=== PATIENT | male | born 1940 | race Caucasian/White ===

== ENCOUNTER → 2016-08-16 | Outpatient (CLI) | payer MEDICARE, BC ==
[2016-08-16 14:42] LABS: Basophils # (A) 0.1 k/uL (0-0.2); Basophils % (A) 1 %; CH 32.9; CHCM 31.5; Eosinophils # (A) 0.3 k/uL (0-0.7); Eosinophils % (A) 4 %; HCT 40.4 % (39.0-53.0); HDW 2.98; HGB 13.1 gm/dL (13.0-17.5); Hypochromasia Slight; Luc # (Auto) 0.33; Luc % (Auto) 4; Lymphocytes # (A) 2.5 k/uL (1.0-4.8); Lymphocytes % (A) 28 %; MCH 34.2 pg (25.0-35.0); MCHC 32.4 g/dL (31.0-37.0); MCV 105.3 fL (80.0-100.0); Macrocytosis Moderate; Monocytes # (A) 0.4 k/uL (0-1.0); Monocytes % (A) 5 %; Neutrophils # (A) 5.5 k/uL (1.3-7.7); Neutrophils % (A) 60 %; RBC 3.83 m/uL (4.30-5.90); RDW 15.9 % (11.5-15.5); WBC 9.2 k/uL (3.8-10.6); WBC (Perox) 9.73
[2016-08-16 14:50] LABS: Appearance,Urine Clear (Clear); Bilirubin,Urine Negative (Negative); Glucose,Urine (UA) Negative (Negative); Ketones,Urine Negative (Negative); Leukocyte Esterase,Urine Negative (Negative); Nitrite,Urine Negative (Negative); PH, Urine 5.5 (5.0-8.0); Protein,Urine Trace (Negative); Specific Gravity,Urine 1.017 (1.001-1.035); UA Billing (MACRO vs. MICRO) CHEM; Urobilinogen,Urine <2.0 mg/dL (<2.0)
[2016-08-16 14:58] LABS: Calcium 8.8 mg/dL (8.4-10.2); Potassium 4.7 mmol/L (3.5-5.1); Uric Acid 4.6 mg/dL (3.5-8.5)
== END | disposition home or self-care (01) ==
LOC: LABWHC1 14:04
PROVIDERS: ATTEND Nurse Practitioner Family
DX: N18.3 Chronic kidney disease, stage 3 (moderate) (principal); N39.0 Urinary tract infection, site not specified; D64.9 Anemia, unspecified; E21.3 Hyperparathyroidism, unspecified; M10.9 Gout, unspecified
CPT/HCPCS: 36415; 80048; 81003; 82306; 82728; 83540; 83550; 83735; 83970; 84100; 84550; 85025

== ENCOUNTER → 2017-07-18 | Outpatient (CLI) | payer MEDICARE, BC ==
[2017-07-18 13:19] LABS: Appearance,Urine Clear (Clear); Bilirubin,Urine Negative (Negative); Blood,Urine Negative (Negative); Color,Urine Yellow; Glucose,Urine (UA) Negative (Negative); Ketones,Urine Negative (Negative); Leukocyte Esterase,Urine Negative (Negative); PH, Urine 5.5 (5.0-8.0); Protein,Urine Negative (Negative); Specific Gravity,Urine 1.016 (1.001-1.035); Urobilinogen,Urine <2.0 mg/dL (<2.0)
[2017-07-18 13:51] LABS: Basophils # (A) 0.1 k/uL (0-0.2); Basophils % (A) 1 %; Eosinophils # (A) 0.3 k/uL (0-0.7); Eosinophils % (A) 4 %; HGB 13.3 gm/dL (13.0-17.5); Lymphocytes # (A) 2.5 k/uL (1.0-4.8); Lymphocytes % (A) 31 %; MCH 33.6 pg (25.0-35.0); MCHC 33.2 g/dL (31.0-37.0); MCV 101.3 fL (80.0-100.0); Macrocytosis Slight; Mean Platelet Volume 7.2; Monocytes # (A) 0.4 k/uL (0-1.0); Monocytes % (A) 5 %; Neutrophils # (A) 4.4 k/uL (1.3-7.7); Neutrophils % (A) 55 %; Platelet Count 256 k/uL (150-450); RBC 3.95 m/uL (4.30-5.90)
[2017-07-18 13:53] LABS: Calcium 8.7 mg/dL (8.4-10.2); Phosphorus 4.9 mg/dL (2.5-4.5); Potassium 4.5 mmol/L (3.5-5.1); Uric Acid 5.1 mg/dL (3.5-8.5)
[2017-07-18 19:14] LABS: Iron Saturation 19.3 (15.00-50.00)
[2017-07-18 19:31] LABS: Parathyroid Hormone Intact 149.8 pg/mL (14.0-72.0)
== END | disposition home or self-care (01) ==
LOC: LABWHC1 12:42
PROVIDERS: ATTEND Nurse Practitioner Family
DX: N18.3 Chronic kidney disease, stage 3 (moderate) (principal); E21.3 Hyperparathyroidism, unspecified; D64.9 Anemia, unspecified; M10.9 Gout, unspecified; N39.0 Urinary tract infection, site not specified
CPT/HCPCS: 36415; 80048; 81003; 82306; 82728; 83540; 83550; 83735; 83970; 84100; 84550; 85025

== ENCOUNTER 2017-08-21 06:44 | Day surgery (SDC) | payer MEDICARE, BC ==
[2017-08-19 09:10] VITALS: BMI 35.5
[~2017-08-21 06:44] MED LIST: LACTATED RINGERS 1,000 ML IV SCH; TETRACAINE 0.5% OPHTH (PF) DROPS 4 ML BTL OP ONE
[2017-08-21] MEDS: CYCLOPENTOLATE 1% OPHTH SOLN 2 ML BTL OP ONE ×3 (07:00→07:25)
[2017-08-21] MEDS: PHENYLEPHRINE 2.5% OPHTH DRP 2ML OP NR ×3 (07:03→07:35)
[2017-08-21 07:10] VITALS: RESP 16; TEMP 97
[2017-08-21 07:18] LABS: Glucose,Whole Blood 112 mg/dL (75-99)
[2017-08-21] MEDS ORDERED: HYALURONATE SODIUM INTRAOCULAR 1 EACH SYRINGE (12MG/ML) INTRAOCULA ONE ×2 (08:11→08:29)
[2017-08-21] MEDS ORDERED: LIDOCAINE 1% (PF) 10MG/ML VIAL MISCELLANE ONE ×2 (08:12→08:29)
[2017-08-21] MEDS ORDERED: BALANCED SALT IRRIG SOLN COMB2 15 ML IRRIG.SOLN INTRAOCULA ONE ×2 (08:12→08:29)
[2017-08-21] MEDS: MOXIFLOXACIN HCL 0.5% DROPS 3 ML BTL OP ONE ×2 (08:13→08:29)
[2017-08-21] MEDS: TIMOLOL 0.5% OPHTH DROPS 5 ML BTL OP ONE ×2 (08:14→08:29)
[2017-08-21] MEDS ORDERED: MIDAZOLAM 2 MG/2 ML VIAL ONE (08:16)
[2017-08-21] MEDS ORDERED: fentaNYL (PF) 50 MCG/ML 2 ML AMP ONE (08:16)
[2017-08-21] MEDS ORDERED: EPINEPHrine (PF) 0.3 ML in BALANCED SALT IRRIG SOLN COMB2 500 ML IRRIGATION ONE (08:22)
--- NOTE | 2017-08-21 08:43 | P.OP ---
Date of Procedure: 08/21/17 Preoperative Diagnosis: NS & PSC Postoperative Diagnosis: same Procedure(s) Performed: PIOL< OD Implants: PCB00 22.00 Anesthesia: MAC Surgeon: Herb Resendiz Estimated Blood Loss (ml): 0 Pathology: none sent Condition: stable Disposition: same day Indications for Procedure: blurry vision Operative Findings: No complications
[2017-08-21 09:09] VITALS: BP 149/79; PULSE 66
--- NOTE | 2017-08-21 21:23 | OP ---
OPERATIVE REPORT DATE OF SURGERY: August 21, 2017. OPERATION: Phacoemulsification of cataract and intraocular lens implant of the right eye. PREOPERATIVE DIAGNOSES: Nuclear sclerosis. Posterior subcapsular cataract POSTOPERATIVE DIAGNOSES: Nuclear sclerosis. Posterior subcapsular cataract. OPERATION:: Clear cornea phacoemulsification of cataract right OD eye. ESTIMATED BLOOD LOSS:: Zero. SPECIMEN TAKEN:: None. NARRATIVE:: After obtaining the appropriate consent, the patient was brought to the Operating Room where the patient was placed under cardiac monitoring and prepped and draped in the usual sterile manner. At the 11 o'clock position a 15 degree super sharp blade was used to create a paracentesis followed by instillation of 1% Xylocaine MPF 50:50 mix with BSS into the anterior chamber. This was followed by Amvisc to stabilize the anterior chamber. At the 9 o'clock position a self-sealing corneal flap incision was created using 2.8 mm lucero keratome. A cystatome was used to initiate a continuous tear capsulorrhexis which was completed with the Utrata forceps. A Binkhorst cannula was used to hydrodissect the lens nucleus followed by hydrodelineation. Phacoemulsification of the lens was performed utilizing phacochop in 12.66 Seconds at 12 % power. The remaining cortical material was removed using the irrigation aspiration mode followed by additional 1% Xylocaine MPF into the anterior chamber followed by viscoelastic to stabilize the capsular bag. An [place] PCB 00 22.0 diopter posterior chamber lens was placed into the capsular bag without difficulty. The remaining viscoelastic material was removed from the anterior chamber with the irrigation/aspiration. Balanced salt solution was used to normalize the intraocular pressure. The incision was checked for watertight integrity. The patient then received two drops of 0.5% timolol followed by two drops Vigamox, was lightly patched and shielded in the usual manner. There were no complications from the procedure. The patient tolerated the procedure well and was returned to recovery in good condition. MMODL / IJN: [id number] /
== END 2017-08-21 09:28 | disposition home or self-care (01) ==
LOC: OR 06:44
PROVIDERS: ATTEND Ophthalmology
DX: H25.11 Age-related nuclear cataract, right eye (principal); H25.041 Posterior subcapsular polar age-related cataract, right eye; H43.813 Vitreous degeneration, bilateral; H52.13 Myopia, bilateral; E11.9 Type 2 diabetes mellitus without complications; H91.91 Unspecified hearing loss, right ear; I11.9 Hypertensive heart disease without heart failure; E07.9 Disorder of thyroid, unspecified; E78.5 Hyperlipidemia, unspecified; I25.10 Atherosclerotic heart disease of native coronary artery without angina pectoris; I48.91 Unspecified atrial fibrillation; N40.0 Benign prostatic hyperplasia without lower urinary tract symptoms; K21.9 Gastro-esophageal reflux disease without esophagitis; Z95.810 Presence of automatic (implantable) cardiac defibrillator; I25.2 Old myocardial infarction; Z79.01 Long term (current) use of anticoagulants; Z79.84 Long term (current) use of oral hypoglycemic drugs; Z79.890 Hormone replacement therapy; Z79.899 Other long term (current) drug therapy; Z87.891 Personal history of nicotine dependence

== ENCOUNTER → 2017-09-30 | Outpatient (CLI) | payer MEDICARE, BC ==
--- NOTE | 2017-10-01 07:35 | ECHOF ---
Referral Reason:R42 dizziness, I49.9 arrythmia MEASUREMENTS -------- HEIGHT: 177.8 cm WEIGHT: 115.2 kg BP: 134/81 RVIDd: 3.3 cm (< 3.3) IVSd: 1.3 cm (0.6 - 1.1) LVIDd: 6.9 cm (3.9 - 5.3) LVPWd: 1.3 cm (0.6 - 1.1) IVSs: 1.7 cm LVIDs: 6.0 cm LVPWs: 1.6 cm LAESV Index (A-L): 58.67 ml/m Ao Diam: 3.9 cm (2.0 - 3.7) AV Cusp: 1.8 cm (1.5 - 2.6) LA Diam: 4.4 cm (2.7 - 3.8) MV E Regis: 1.10 m/s MV DecT: 181 ms MV A Regis: 0.36 m/s MV E/A Ratio: 3.01 RAP: 5.00 mmHg RVSP: 50.65 mmHg FINDINGS -------- Undetermined rhythm. This was a technically difficult study with suboptimal views. The left ventricle is severely dilated. There is mild concentric left ventricular hypertrophy. Th ere is severe global hypokinesis of LV . Overall left ventricular systolic function is severely imp aired with, an EF < 20%. The right ventricle is mildly enlarged. LA is severely dilated >40 ml/m2 RA appears enlarged. 3ml of Lumason was utilized for enhancement of images. There is mild aortic valve sclerosis. Trace amount of aortic regurgitation. There is no evidence of aortic stenosis. The mitral valve leaflets are mildly thickened. Mild mitral annular calcification present. Modera te mitral regurgitation is present. Mild tricuspid regurgitation present. There is mild pulmonary hypertension. The right ventricular systolic pressure, as measured by Doppler, is 50.65mmHg. Trace/mild (physiologic) pulmonic regurgitation. The aortic root size is normal. Normal inferior vena cava with less than 50% inspiratory collapse consistent with estimated right atr ial pressure of 15 mmHg. There is no pericardial effusion. CONCLUSIONS -------- 1. Undetermined rhythm. 2. This was a technically difficult study with suboptimal views. 3. The left ventricle is severely dilated. 4. There is mild concentric left ventricular hypertrophy. 5. There is severe global hypokinesis of LV . 6. Overall left ventricular systolic function is severely impaired with, an EF < 20%. 7. The right ventricle is mildly enlarged. 8. LA is severely dilated >40 ml/m2 9. RA appears enlarged. 10. 3ml of Lumason was utilized for enhancement of images. 11. There is mild aortic valve sclerosis. 12. Trace amount of aortic regurgitation. 13. The mitral valve leaflets are mildly thickened. 14. Mild mitral annular calcification present. 15. Moderate mitral regurgitation is present. 16. Mild tricuspid regurgitation present. 17. There is mild pulmonary hypertension. 18. The right ventricular systolic pressure, as measured by Doppler, is 50.65mmHg. 19. Trace/mild (physiologic) pulmonic regurgitation. 20. The aortic root size is normal. 21. Normal inferior vena cava with less than 50% inspiratory collapse consistent with estimated right atrial pressure of 15 mmHg. 22. There is no pericardial effusion. FINAL ASSEMBLY AND PACKING SUPERVISOR: Matthew Hull RDCS
--- NOTE | 2017-10-01 10:08 | US ---
EXAMINATION TYPE: US carotid duplex BILAT DATE OF EXAM: 09/30/2017 COMPARISON: NONE CLINICAL HISTORY: R42 dizziness, I49.9 arrythmia. Dizziness, abnormal gait EXAM MEASUREMENTS: RIGHT: Peak Systolic Velocity (PSV) cm/sec ----- Right CCA: 41.8 ---- Right ICA: 70.2 ----- Right ECA: 57.5 ICA/CCA ratio: 1.7 RIGHT: End Diastole cm/sec ----- Right CCA: 13.0 ----- Right ICA: 31.8 ----- Right ECA: 6.9 LEFT: Peak Systolic Velocity (PSV) cm/sec ----- Left CCA: 58.8 ----- Left ICA: 85.6 ----- Left ECA: 58.4 ICA/CCA ratio: 1.5 LEFT: End Diastole cm/sec ----- Left CCA: 20.1 ----- Left ICA: 36.2 ----- Left ECA: 9.5 VERTEBRALS (direction of flow): Right Vertebral: Antegrade Left Vertebral: Antegrade Rhythm: Arrhythmia Mild Heterogeneous plaque carotid bifurcations bilaterally with no significant stenosis seen. IMPRESSION: 1. No suspicious elevated velocity to suggest significant flow-limiting stenosis. 2. Note is made of cardiac arrhythmia during the examination. Criteria for Assigning % of Stenosis / Diameter reduction (Estimation based on the indirect measurements of the internal carotid artery velocities (ICA PSV). 1. Normal (no stenosis)=ICA PSV < 125 cm/s: ratio < 2.0: ICA EDV<40 cm/s. 2. Less than 50% stenosis=ICA PSV < 125 cm/s: ratio < 2.0: ICA EDV<40 cm/s. 3. 50 to 69% stenosis=ICA PSV of 125 to 230 cm/s: ration 2.0 ? 4.0: ICA EDV 40-100 cm/s. 4. Greater than 70% stenosis to near occlusion= ICA PSV > 230 cm/s: ratio > 4.0: ICA EDV > 100 cm/s. 5. Near occlusion= ICA PSV velocities may be low or undetectable: variable ratio and ICA EDV. 6. Total occlusion=unable to detect flow.
== END | disposition home or self-care (01) ==
LOC: RADECHMAIN 15:07
PROVIDERS: ATTEND Family Medicine
DX: I08.3 Combined rheumatic disorders of mitral, aortic and tricuspid valves (principal); I49.9 Cardiac arrhythmia, unspecified; I27.20 Pulmonary hypertension, unspecified; R42 Dizziness and giddiness
CPT/HCPCS: 93880; C8929; Q9950; 93306

== ENCOUNTER → 2017-11-12 | Outpatient (CLI) | payer MEDICARE, BC ==
--- NOTE | 2017-11-12 12:29 | CT ---
EXAMINATION TYPE: CT brain wo con DATE OF EXAM: 11/12/2017 COMPARISON: NONE HISTORY: Tremors and weakness CT DLP: 1242 mGycm Automated exposure control for dose reduction was used. FINDINGS: Nasal septal deviation noted. Intracranial atherosclerotic changes noted. Mild to moderate generalized degenerative change. No acute hemorrhage or mass effect. Calvarium intact. Changes of chronic sinusitis with severe changes involving the maxillary sinus note d on the right. IMPRESSION: MILD TO MODERATE DEGENERATIVE CHANGES.
== END | disposition home or self-care (01) ==
LOC: RADCTMAIN 11:20
PROVIDERS: ATTEND Psychiatry & Neurology Neurology
DX: G31.1 Senile degeneration of brain, not elsewhere classified (principal)
CPT/HCPCS: 70450

== ENCOUNTER → 2017-11-18 | Outpatient (CLI) | payer MEDICARE, BC ==
[2017-11-18 16:48] LABS: Albumin 4.1 g/dL (3.5-5.0); Calcium 9.2 mg/dL (8.4-10.2); Magnesium 2.1 mg/dL (1.6-2.3); Potassium 4.2 mmol/L (3.5-5.1); Uric Acid 4.8 mg/dL (3.5-8.5)
[2017-11-18 16:55] LABS: Basophils % (A) 1 %; Eosinophils # (A) 0.2 k/uL (0-0.7); Eosinophils % (A) 2 %; HCT 43.1 % (39.0-53.0); HGB 13.9 gm/dL (13.0-17.5); Lymphocytes # (A) 2.8 k/uL (1.0-4.8); Lymphocytes % (A) 32 %; MCHC 32.3 g/dL (31.0-37.0); MCV 102.1 fL (80.0-100.0); Macrocytosis Slight; Mean Platelet Volume 7.1; Monocytes # (A) 0.5 k/uL (0-1.0); Monocytes % (A) 5 %; Neutrophils % (A) 57 %; Platelet Count 223 k/uL (150-450); RBC 4.22 m/uL (4.30-5.90); RDW 15.2 % (11.5-15.5); WBC 8.8 k/uL (3.8-10.6)
[2017-11-18 17:28] LABS: Appearance,Urine Clear (Clear); Bilirubin,Urine Negative (Negative); Blood,Urine Negative (Negative); Color,Urine Light Yellow; Glucose,Urine (UA) Negative (Negative); Ketones,Urine Negative (Negative); Leukocyte Esterase,Urine Negative (Negative); Nitrite,Urine Negative (Negative); PH, Urine 5.5 (5.0-8.0); Protein,Urine Negative (Negative); Specific Gravity,Urine 1.008 (1.001-1.035); Urobilinogen,Urine <2.0 mg/dL (<2.0)
[2017-11-19 02:14] LABS: Iron Saturation 24.13 (15.00-50.00)
[2017-11-19 02:24] LABS: Vitamin D 25 Hydroxy 39.3 ng/mL (30.0-100.0)
[2017-11-19 02:44] LABS: Parathyroid Hormone Intact 78.6 pg/mL (14.0-72.0)
== END | disposition home or self-care (01) ==
LOC: LABWHC1 15:58
PROVIDERS: ATTEND Internal Medicine Nephrology
DX: N25.81 Secondary hyperparathyroidism of renal origin (principal); E21.3 Hyperparathyroidism, unspecified; N18.3 Chronic kidney disease, stage 3 (moderate); D63.1 Anemia in chronic kidney disease; E55.9 Vitamin D deficiency, unspecified; M10.9 Gout, unspecified; N39.0 Urinary tract infection, site not specified
CPT/HCPCS: 36415; 80048; 81003; 82040; 82306; 82728; 83540; 83550; 83735; 83970; 84100; 84550; 85025

== ENCOUNTER 2018-03-27 00:08 | Inpatient (IN) | payer MEDICARE, BC ==
--- NOTE | 2018-03-27 00:10 | ED ---
SOB HPI - General Stated Complaint: Shortness of Breath Time Seen by Provider: 03/27/18 00:09 - History of Present Illness Initial Comments: This is a 77-year-old male the ER with persistent shortness of breath. Multiple underlying comorbidities heart disease and COPD. Patient's brought in by EMS, currently given breathing treatment, poor strain. Patient per EMS is been significantly improving after breathing treatment. Patient denies fever or chest pain. MD Complaint: shortness of breath, cough -: days(s) Severity: moderate Consistency: constant Improves With: oxygen, bronchodilators Worsens With: lying flat, exertion, movement Known History Of: COPD, congestive heart failure Context: recent URI Associated Symptoms: chest pain, cough Treatments Prior to Arrival: none - Related Data Home Medications Medication Instructions Recorded Confirmed Allopurinol [Zyloprim] 300 mg PO DAILY 08/19/17 03/27/18 Atorvastatin [Lipitor] 20 mg PO DAILY 08/19/17 03/27/18 Benazepril HCl 20 mg PO BID 08/19/17 03/27/18 Calcitriol 0.25 mcg PO Q7D 08/19/17 03/27/18 Famotidine [Pepcid] 20 mg PO DAILY 08/19/17 03/27/18 Finasteride [Proscar] 5 mg PO DAILY 08/19/17 03/27/18 Furosemide [Lasix] 40 mg PO DAILY 08/19/17 03/27/18 Hydrochlorothiazide 25 mg PO DAILY 08/19/17 03/27/18 Levothyroxine Sodium [Synthroid] 25 mcg PO DAILY 08/19/17 03/27/18 Metoprolol Tartrate [Lopressor] 150 mg PO BID 08/19/17 03/27/18 Multivitamin [Men's Multi-Vitamin] 1 tab PO DAILY 08/19/17 03/27/18 Nitroglycerin 9 mg PO DAILY 08/19/17 03/27/18 Potassium Chloride [Klor-Con 20] 20 meq PO DAILY 08/19/17 03/27/18 Warfarin Sodium 5 mg PO DAILY 08/19/17 03/27/18 glipiZIDE [Glucotrol] 2.5 mg PO BID 08/19/17 03/27/18 hydrALAZINE HCL 50 mg PO DAILY 08/19/17 03/27/18 Allergies Allergy/AdvReac Type Severity Reaction Status Date / Time No Known Allergies Allergy Verified 03/27/18 00:27 Review of Systems ROS Statement: Those systems with pertinent positive or pertinent negative responses have been documented in the HPI. ROS Other: All systems not noted in ROS Statement are negative. 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 LT CATARACT REMOVED Past Anesthesia/Blood Transfusion Reactions: No Reported Reaction Date of Last Stent Placement:: 1992 Type of Cardiac Device: Permanent Pacemaker, AICD Device Placement Date:: 1993, 03/2010 Smoking Status: Former smoker - Past Family History Mother Additional Family Medical History / Comment(s): SEVERE BLE LYMPH EDEMA General Exam General appearance: alert, in no apparent distress Head exam: Present: atraumatic, normocephalic, normal inspection Eye exam: Present: normal appearance, PERRL, EOMI. Absent: scleral icterus, conjunctival injection, periorbital swelling ENT exam: Present: normal exam, mucous membranes moist Neck exam: Present: normal inspection. Absent: tenderness, meningismus, lymphadenopathy Respiratory exam: Present: normal lung sounds bilaterally. Absent: respiratory distress, wheezes, rales, rhonchi, stridor Cardiovascular Exam: Present: regular rate, normal rhythm, normal heart sounds. Absent: systolic murmur, diastolic murmur, rubs, gallop, clicks GI/Abdominal exam: Present: soft, normal bowel sounds. Absent: distended, tenderness, guarding, rebound, rigid Extremities exam: Present: normal inspection, full ROM, normal capillary refill. Absent: tenderness, pedal edema, joint swelling, calf tenderness Back exam: Present: normal inspection Neurological exam: Present: alert, oriented X3, CN II-XII intact Psychiatric exam: Present: normal affect, normal mood Skin exam: Present: warm, dry, intact, normal color. Absent: rash Course Vital Signs 03/27/18 00:17 Temperature 98.1 F Pulse Rate 86 Respiratory 16 Rate Blood Pressure 150/88 O2 Sat by Pulse 100 Oximetry Medical Decision Making - Medical Decision Making 77 male the ER for evaluation shortness of cough congestion, hypoxia, patient be admitted for continued breathing treatments, IV antibiotics - Lab Data Result diagrams: 03/27/18 00:33 Lab Results 03/27/18 Range/Units 00:33 WBC 12.1 H (3.8-10.6) k/uL RBC 4.24 L (4.30-5.90) m/uL Hgb 14.1 (13.0-17.5) gm/dL Hct 44.2 (39.0-53.0) % MCV 104.2 H (80.0-100.0) fL MCH 33.2 (25.0-35.0) pg MCHC 31.9 (31.0-37.0) g/dL RDW 15.5 (11.5-15.5) % Plt Count 277 (150-450) k/uL Neutrophils % (Manual) 57 % Lymphocytes % (Manual) 28 % Monocytes % (Manual) 15 % Neutrophils # (Manual) 6.90 (1.3-7.7) k/uL Lymphocytes # (Manual) 3.39 (1.0-4.8) k/uL Monocytes # (Manual) 1.82 H (0-1.0) k/uL Nucleated RBCs 0 (0-0) /100 WBC Manual Slide Review Performed Poikilocytosis (manual Present Anisocytosis (manual) Present Macrocytosis Moderate Ovalocytes Present - EKG Data -: EKG Interpreted by Me (EKG shows A. fib rate of 85, QRS 150, QTc 506) - Radiology Data Radiology results: report reviewed (Chest x-rays negative for acute disease), image reviewed Critical Care Time Critical Care Time: Yes Total Critical Care Time: 31 Disposition Clinical Impression: Community acquired pneumonia, Acute bronchitis, Hypoxia Disposition: ADMITTED IP TO THIS HOSP Condition: Fair Is patient prescribed a controlled substance at d/c from ED?: No Referrals: Chris Mares MD [Primary Care Provider] - 1-2 days
--- NOTE | 2018-03-27 00:48 | XR ---
EXAMINATION TYPE: XR chest 2V DATE OF EXAM: 03/27/2018 COMPARISON: 09/29/2012 HISTORY: Dyspnea TECHNIQUE: Frontal and lateral views of the chest are obtained. FINDINGS: Heart appears enlarged. There is no heart failure. There is left axillary pacemaker with t he lead tips in the right ventricle. There is no pleural effusion. Bony thorax appears intact. IMPRESSION: Mild cardiomegaly. No active cardiopulmonary disease. No heart failure. No significant c hange compared to old exam.
[2018-03-27 01:10] LABS: HCT 44.2 % (39.0-53.0); HGB 14.1 gm/dL (13.0-17.5); MCH 33.2 pg (25.0-35.0); MCHC 31.9 g/dL (31.0-37.0); MCV 104.2 fL (80.0-100.0); Macrocytosis Moderate; Mean Platelet Volume 7.8; Platelet Count 277 k/uL (150-450); RBC 4.24 m/uL (4.30-5.90); RDW 15.5 % (11.5-15.5); WBC 12.1 k/uL (3.8-10.6)
[2018-03-27 01:48] LABS: Anisocytosis (M) Present; Lymphocytes # (M) 3.39 k/uL (1.0-4.8); Monocytes # (M) 1.82 k/uL (0-1.0); Neutrophils % (M) 57 %; Nucleated Red Blood Cells 0 /100 WBC (0-0); Total Cells Counted 100
[2018-03-27 01:49] LABS: Ovalocytes Present; Poikilocytosis (M) Present
[2018-03-27 02:36] LABS: INR 2.1 (<1.2); Prothrombin Time 19.1 sec (9.0-12.0)
[2018-03-27 02:37] LABS: Partial Thromboplastin Time 28.4 sec (22.0-30.0)
[2018-03-27] MEDS ORDERED: AZITHROMYCIN 500 MG in SODIUM CHLORIDE 0.9% 250 ML IVPB STA (02:37)
[2018-03-27] MEDS ORDERED: PNEUMONIA PROTOCOL UTILIZED 1 EACH MISC PO PRN (02:37)
[2018-03-27 03:38] LABS: Albumin 4.3 g/dL (3.5-5.0); Calcium 9.2 mg/dL (8.4-10.2); Magnesium 1.9 mg/dL (1.6-2.3); Potassium 4.2 mmol/L (3.5-5.1); Total Bilirubin 1.1 mg/dL (0.2-1.3); Total Protein 7.7 g/dL (6.3-8.2)
[2018-03-27 03:53] LABS: Creatine Kinase MB 0.9 ng/mL (0.0-2.4); Troponin I 0.016 ng/mL (0.000-0.034)
[2018-03-27] MEDS: IPRATROPIUM-ALBUTEROL 3 ML NEB INHALATION SCH ×4 (07:03→19:56)
[2018-03-27 07:29] LABS: Glucose,Whole Blood 154 mg/dL (75-99)
--- NOTE | 2018-03-27 07:55 | P.HPIM ---
History of Present Illness H&P Date: 03/27/18 Chief Complaint: Shortness of breath. This is a history and physical on a 77-year-old white male with history of heart failure who had sudden onset of shortness of breath. No edema was worsening and he did double up on his furosemide. His edema did not get any worse but his shortness of breath did slowly become worse. Dyspnea on exertion was noted and he was appropriately taken to the hospital. Evaluation did not show overt heart failure but more related acquired pneumonia symptomatology. The patient is now admitted for such. No voiding difficulties. No significant nausea, vomiting or diarrhea. Review of Systems Constitutional: Reports weakness, Denies chills, Denies fever Eyes: denies blurred vision, denies pain Ears, nose, mouth and throat: Denies headache, Denies sore throat Cardiovascular: Reports dyspnea on exertion Respiratory: Denies cough Gastrointestinal: Denies abdominal pain, Denies diarrhea, Denies nausea, Denies vomiting Musculoskeletal: Denies myalgias Neurological: Denies numbness, Denies weakness Psychiatric: Denies anxiety, Denies depression Endocrine: Denies fatigue, Denies weight change Past Medical History Past Medical History: Diabetes Mellitus, Eye Disorder, GERD/Reflux, Hyperlipidemia, Hypertension, Myocardial Infarction ([place]), Thyroid Disorder Additional Past Medical History / Comment(s): 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 LT CATARACT REMOVED Past Anesthesia/Blood Transfusion Reactions: No Reported Reaction Date of Last Stent Placement:: 1992 Type of Cardiac Device: Permanent Pacemaker, AICD Device Placement Date:: 1993, 03/2010 Past Psychological History: Anxiety Smoking Status: Former smoker Past Alcohol Use History: Rare Additional Past Alcohol Use History / Comment(s): quit smoking 1987 Past Drug Use History: None Reported - Past Family History Mother Additional Family Medical History / Comment(s): SEVERE BLE LYMPH EDEMA Medications and Allergies Home Medications Medication Instructions Recorded Confirmed Type Allopurinol [Zyloprim] 300 mg PO DAILY 08/19/17 03/27/18 History Atorvastatin [Lipitor] 20 mg PO DAILY 08/19/17 03/27/18 History Benazepril HCl 20 mg PO BID 08/19/17 03/27/18 History Calcitriol 0.25 mcg PO Q7D 08/19/17 03/27/18 History Famotidine [Pepcid] 20 mg PO DAILY 08/19/17 03/27/18 History Finasteride [Proscar] 5 mg PO DAILY 08/19/17 03/27/18 History Furosemide [Lasix] 40 mg PO DAILY 08/19/17 03/27/18 History Hydrochlorothiazide 25 mg PO DAILY 08/19/17 03/27/18 History Levothyroxine Sodium [Synthroid] 25 mcg PO DAILY 08/19/17 03/27/18 History Metoprolol Tartrate [Lopressor] 150 mg PO BID 08/19/17 03/27/18 History Multivitamin [Men's Multi-Vitamin] 1 tab PO DAILY 08/19/17 03/27/18 History Nitroglycerin 9 mg PO BID 08/19/17 03/27/18 History Potassium Chloride [Klor-Con 20] 20 meq PO DAILY 08/19/17 03/27/18 History Warfarin Sodium 5 mg PO SUWE 08/19/17 03/27/18 History glipiZIDE [Glucotrol] 2.5 mg PO BID 08/19/17 03/27/18 History hydrALAZINE HCL 50 mg PO DAILY 08/19/17 03/27/18 History Warfarin [Coumadin] 2.5 mg PO MOTUTHFRSA 03/27/18 03/27/18 History Allergies Allergy/AdvReac Type Severity Reaction Status Date / Time No Known Allergies Allergy Verified 03/27/18 00:27 Physical Exam Vitals: Vital Signs Temp Pulse Pulse Resp BP BP Pulse Ox 03/27/18 07:14 84 03/27/18 07:03 84 03/27/18 05:43 18 03/27/18 05:39 98.3 F 85 18 135/82 96 03/27/18 04:23 98.5 F 81 16 128/83 03/27/18 03:30 89 26 H 143/85 94 L 03/27/18 01:20 81 25 H 132/97 97 03/27/18 00:17 98.1 F 86 16 150/88 100 03/27/18 00:14 86 L Intake and Output 03/26/18 03/27/18 03/27/18 22:59 06:59 14:59 Intake Total 300 Balance 300 Intake: Intake, IV Titration 300 Amount Azithromycin 500 mg In 250 Sodium Chloride 0.9% 250 ml @ 250 mls/hr IVPB ONCE STA Rx#:[id number] cefTRIAXone 1,000 mg In 50 Sodium Chloride 0.9% 50 ml @ 100 mls/hr IVPB ONCE STA Rx#:[id number] Other: Weight 110.8 kg - Constitutional General appearance: obese - EENT Eyes: EOMI - Neck Neck: no lymphadenopathy - Respiratory Respiratory: bilateral: rhonchi - Cardiovascular Rhythm: regular Heart sounds: normal: S1, S2 Abnormal Heart Sounds: no S3 Gallop - Gastrointestinal General gastrointestinal: soft, no tenderness - Integumentary Integumentary: no rash - Neurologic Neurologic: CNII-XII intact, focal deficits - Psychiatric Psychiatric: A&O x's 3 Results CBC & Chem 7: 03/27/18 00:33 03/27/18 02:57 Labs: Abnormal Lab Results - Last 24 Hours (Table) 03/27/18 03/27/18 03/27/18 Range/Units 00:33 01:30 02:57 WBC 12.1 H (3.8-10.6) k/uL RBC 4.24 L (4.30-5.90) m/uL MCV 104.2 H (80.0-100.0) fL Monocytes # (Manual) 1.82 H (0-1.0) k/uL PT 19.1 H (9.0-12.0) sec INR 2.1 H (<1.2) BUN 49 H (9-20) mg/dL Creatinine 1.69 H (0.66-1.25) mg/dL Glucose 121 H (74-99) mg/dL POC Glucose (mg/dL) (75-99) mg/dL Total Creatine Kinase (55-170) U/L 03/27/18 03/27/18 Range/Units 02:57 07:08 WBC (3.8-10.6) k/uL RBC (4.30-5.90) m/uL MCV (80.0-100.0) fL Monocytes # (Manual) (0-1.0) k/uL PT (9.0-12.0) sec INR (<1.2) BUN (9-20) mg/dL Creatinine (0.66-1.25) mg/dL Glucose (74-99) mg/dL POC Glucose (mg/dL) 154 H (75-99) mg/dL Total Creatine Kinase 38 L (55-170) U/L Thrombosis Risk Factor Assmnt - Choose All That Apply Any of the Below Risk Factors Present?: Yes Each Factor Represents 1 point: Abnormal pulmonary function (COPD), Acute MS, Heart failure (<1month), Obesity (BMI >25), Serious lung disease incl. pneumonia (< 1month), Swollen legs (current) Other Risk Factors: Yes Each Risk Factor Represents 3 Points: Age 75 years or older Thrombosis Risk Factor Assessment Total Risk Factor Score: 9 Thrombosis Risk Factor Assessment Level: High Risk Assessment and Plan (1) Heart failure Current Visit: Yes Status: Acute Code(s): I50.9 - HEART FAILURE, UNSPECIFIED SNOMED Code(s): 91530246 (2) Acute bronchitis Current Visit: Yes Status: Acute Code(s): J20.9 - ACUTE BRONCHITIS, UNSPECIFIED SNOMED Code(s): 08580175 (3) Community acquired pneumonia Current Visit: Yes Status: Acute Code(s): J18.9 - PNEUMONIA, UNSPECIFIED ORGANISM SNOMED Code(s): 076321377 (4) Hypoxia Current Visit: Yes Status: Acute Code(s): R09.02 - HYPOXEMIA SNOMED Code(s ): 163639094 Plan: Started on appropriate antibiotic treatment and continue Coumadin required pneumonia protocol. The patient medication will be reconciled. IV Lasix for today. Check CBC and CMP with PT/INR in a.m. per If no better, consider Solu-Medrol with possible pulmonology consultation. At this time given his x-ray not showing overt failure, I will hold off on echocardiogram and see if he does not improve also, consider cardiology input. Prognosis is guarded at this time. Time with Patient: Greater than 30
[2018-03-27] MEDS ORDERED: ENOXAPARIN 40 MG/0.4 ML SYRINGE SQ SCH (09:00)
[2018-03-27] MEDS ORDERED: FUROSEMIDE 10 MG/ML 4 ML VIAL IV SCH (09:00)
[2018-03-27] MEDS: hydrALAZINE HCL 50 MG TAB PO SCH (09:32)
[2018-03-27] MEDS: FINASTERIDE 5 MG TAB PO SCH (09:32)
[2018-03-27] MEDS: LISINOPRIL 20 MG TAB PO SCH ×2 (09:32→21:24)
[2018-03-27] MEDS: FUROSEMIDE 10 MG/ML 4 ML VIAL IV SCH (09:32)
[2018-03-27] MEDS: MULTIVITAMINS, THERA 1 EACH TAB PO SCH (09:32)
[2018-03-27] MEDS: LEVOTHYROXINE 25 MCG TAB PO SCH (09:33)
[2018-03-27] MEDS: POTASSIUM CHLORIDE ER 20 MEQ TAB.ER PO SCH (09:33)
[2018-03-27] MEDS: METOPROLOL TARTRATE 50 MG TAB PO SCH ×2 (09:33→21:24)
[2018-03-27] MEDS: ALLOPURINOL 300 MG TAB PO SCH (09:33)
[2018-03-27] MEDS: ATORVASTATIN 20 MG TAB PO SCH (09:33)
[2018-03-27] MEDS: FAMOTIDINE 20 MG TAB PO SCH (09:34)
[2018-03-27] MEDS: HYDROCHLOROTHIAZIDE 25 MG TAB PO SCH (09:34)
[2018-03-27] MEDS: NITROGLYCERIN EXTENDED RELEASE 6.5 MG CAPSULE.ER PO SCH ×2 (10:25→21:24)
[2018-03-27] MEDS: NITROGLYCERIN EXTENDED RELEASE 2.5 MG CAPSULE.ER PO SCH ×2 (10:25→21:24)
[2018-03-27 11:15] LABS: INR 2.5 (<1.2); Prothrombin Time 22.1 sec (9.0-12.0)
[2018-03-27 11:59] LABS: Glucose,Whole Blood 286 mg/dL (75-99)
[2018-03-27] MEDS ORDERED: CALCITRIOL 0.25 MCG CAP PO SCH (12:00)
[2018-03-27] MEDS: INSULIN ASPART 100 UNIT/ML 1 ML 10 ML VIAL SQ SCH ×3 (12:58→21:11)
[2018-03-27 17:10] LABS: Glucose,Whole Blood 104 mg/dL (75-99)
[2018-03-27] MEDS: WARFARIN 2.5 MG TAB PO SCH (18:40)
[2018-03-27 18:55] LABS: Appearance,Urine Clear (Clear); Bilirubin,Urine Negative (Negative); Blood,Urine Negative (Negative); Color,Urine Yellow; Glucose,Urine (UA) Negative (Negative); Ketones,Urine Negative (Negative); Leukocyte Esterase,Urine Negative (Negative); Nitrite,Urine Negative (Negative); Protein,Urine Negative (Negative); Specific Gravity,Urine 1.012 (1.001-1.035); Urobilinogen,Urine <2.0 mg/dL (<2.0)
[2018-03-27 20:32] LABS: Glucose,Whole Blood 129 mg/dL (75-99)
[2018-03-27 20:55] LABS: Hemoglobin A1C 6.1 % (4.0-6.0)
[2018-03-28] MEDS: LEVOTHYROXINE 25 MCG TAB PO SCH (06:04)
[2018-03-28] MEDS: AZITHROMYCIN 500 MG TAB PO SCH (06:04)
[2018-03-28] MEDS: IPRATROPIUM-ALBUTEROL 3 ML NEB INHALATION SCH ×4 (07:06→19:24)
[2018-03-28 07:07] LABS: Glucose,Whole Blood 103 mg/dL (75-99)
--- NOTE | 2018-03-28 07:44 | P.PN ---
Subjective Progress Note Date: 03/28/18 Principal diagnosis: Community acquired pneumonia/pedal edema. This is a continue process on a 77-year-old white male essentially admitted for shortness of breath with community acquired pneumonia clinically. The patient was placed on Lasix 40 mg daily IV and had significant diuresis. Edema of the extremities is improving. No voiding difficulties. No significant nausea, vomiting or diarrhea is noted. Objective - Vital Signs Vital signs: Vital Signs Temp 98.2 F 03/28/18 07:00 Pulse 88 03/28/18 07:17 Resp 16 03/28/18 07:00 BP 131/72 03/28/18 07:00 Pulse Ox 100 03/28/18 07:00 Intake & Output 03/27/18 03/28/18 03/28/18 18:59 06:59 18:59 Intake Total 440 Balance 440 Intake: Oral 440 Other: Voiding Method Toilet Urinal # Voids 1 2 # Bowel Movements 0 0 - Constitutional General appearance: Present: no acute distress - EENT Eyes: Absent: abnormal pupil - Neck Neck: Absent: lymphadenopathy - Respiratory Respiratory: bilateral: wheezing - Cardiovascular Heart sounds: normal: S1, S2 Abnormal Heart Sounds: Absent: S3 Gallop - Gastrointestinal General gastrointestinal: Present: soft. Absent: tenderness - Integumentary Integumentary: Absent: rash - Neurologic Neurologic: Present: CNII-XII intact. Absent: focal deficits - Labs CBC & Chem 7: 03/27/18 00:33 03/27/18 02:57 Labs: Abnormal Lab Results - Last 24 Hours (Table) 03/27/18 03/27/18 03/27/18 Range/Units 00:33 10:05 11:56 PT 22.1 H (9.0-12.0) sec INR 2.5 H (<1.2) POC Glucose (mg/dL) 286 H (75-99) mg/dL Hemoglobin A1c 6.1 H (4.0-6.0) % 03/27/18 03/27/18 03/28/18 Range/Units 17:05 20:30 07:01 PT (9.0-12.0) sec INR (<1.2) POC Glucose (mg/dL) 104 H 129 H 103 H (75-99) mg/dL Hemoglobin A1c (4.0-6.0) % Microbiology - Last 24 Hours (Table) 03/27/18 01:05 Blood Culture - Preliminary Blood No Growth after 24 hours Assessment and Plan (1) Heart failure Current Visit: Yes Status: Acute Code(s): I50.9 - HEART FAILURE, UNSPECIFIED SNOMED Code(s): 52511109 (2) Acute bronchitis Current Visit: Yes Status: Acute Code(s): J20.9 - ACUTE BRONCHITIS, UNSPECIFIED SNOMED Code(s): 76790343 (3) Community acquired pneumonia Current Visit: Yes Status: Acute Code(s): J18.9 - PNEUMONIA, UNSPECIFIED ORGANISM SNOMED Code(s): 830605083 (4) Hypoxia Current Visit: Yes Status: Acute Code(s): R09.02 - HYPOXEMIA SNOMED Code(s ): 687529269 Plan: Continue current regimen or treatment. Probably change back to Lasix by mouth in the a.m. Check CMP in a.m. Dr. Tanner's group will be covering for the weekend. Anticipate discharge in next 24-48 hours. If the patient decompensates, consider pulmonary/cardiology referral. However, given his improvement today, I suspect with continued treatment he should be discharged soon. Time with Patient: Less than 30
[2018-03-28] MEDS: INSULIN ASPART 100 UNIT/ML 1 ML 10 ML VIAL SQ SCH ×4 (07:45→21:17)
[2018-03-28] MEDS: FUROSEMIDE 10 MG/ML 4 ML VIAL IV SCH (07:48)
[2018-03-28] MEDS: POTASSIUM CHLORIDE ER 20 MEQ TAB.ER PO SCH (07:49)
[2018-03-28] MEDS: NITROGLYCERIN EXTENDED RELEASE 6.5 MG CAPSULE.ER PO SCH ×2 (07:49→21:17)
[2018-03-28] MEDS: METOPROLOL TARTRATE 50 MG TAB PO SCH ×2 (07:49→21:18)
[2018-03-28] MEDS: ALLOPURINOL 300 MG TAB PO SCH (07:49)
[2018-03-28] MEDS: hydrALAZINE HCL 50 MG TAB PO SCH (07:49)
[2018-03-28] MEDS: FINASTERIDE 5 MG TAB PO SCH (07:49)
[2018-03-28] MEDS: LISINOPRIL 20 MG TAB PO SCH (07:49)
[2018-03-28] MEDS: FAMOTIDINE 20 MG TAB PO SCH (07:49)
[2018-03-28] MEDS: ATORVASTATIN 20 MG TAB PO SCH (07:49)
[2018-03-28] MEDS: NITROGLYCERIN EXTENDED RELEASE 2.5 MG CAPSULE.ER PO SCH ×2 (07:49→21:17)
[2018-03-28] MEDS: HYDROCHLOROTHIAZIDE 25 MG TAB PO SCH (07:50)
--- NOTE | 2018-03-28 08:01 | CONS ---
CONSULTATION REASON FOR CONSULT: Renal failure. HISTORY OF PRESENT ILLNESS: Patient is a 77-year-old male with history of CHF, hypertension, and coronary artery disease and type 2 diabetes. The patient presented to the hospital with complaints of increased shortness of breath. He also had increased lower extremity edema. His serum creatinine was at 1.69 mg/dL. A review of previous labs shows a creatinine of 1.7 and 1.5 mg/dL in 2016 and November of 2017. The patient denies use of any nonsteroidal anti- inflammatory agents. Patient does have chronic kidney disease NKF stage III, with baseline creatinine about 1.7 mg/dL. He was last seen in the office in November of 2017. The etiology of his CKD is nephrosclerosis. Currently the patient's blood pressure is on the lower side. He is maintained on ANASTACIO inhibitors. He has been voiding and he states he is feeling better. 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 BPH. PAST SURGICAL HISTORY: Cardiac catheterization, coronary stent placement, pacemaker placement, cataract surgery. SOCIAL HISTORY: Patient is a former smoker. No history of drug abuse or alcohol abuse. MEDICATIONS: Medications at home prior to admission include: 1. Zyloprim. 2. Lipitor. 3. Benazepril. 4. Calcitriol. 5. Pepcid. 6. Proscar. 7. Lasix. 8. Hydrochlorothiazide. 9. Synthroid. 10.Lopressor. 11.Multivitamins. 12.Nitroglycerin. 13.Potassium. 14.Sodium. 15.Glucotrol. 16.Hydralazine. 17.Coumadin. EXAMINATION: Patient is currently comfortable, awake. He is not in any acute distress. Blood pressure this morning was 135/82, heart rate 85 per minute. Patient is afebrile. Examination of the heart S1, S2. Examination of the lungs bilateral breath sounds are heard. Abdomen is soft, nontender. Examination of lower extremities shows edema, 1+ bilaterally. [employer] exam is grossly intact. LABS: Reveal sodium of 141, potassium 4.2, chloride 103, BUN 49, serum creatinine 1.69, calcium 9.2, magnesium 1.9. Albumin 4.3. UA shows no evidence of blood, protein, or cells. ASSESSMENT: 1. Chronic kidney disease NKF stage III, with renal function at baseline. 2. Cardiomyopathy with ejection fraction less than 20% on echocardiogram done in September of 2017 with severely dilated left atrium. 3. 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 4. Type 2 diabetes, maintained on Glucotrol. PLAN: May continue with current dose of Lasix. Continue with ANASTACIO inhibitors. However, if the blood pressure remains low. I will decrease the dose of lisinopril. Repeat labs in a.m. We may need to repeat another chest x-ray. Thank you for this consultation. We will continue to follow the patient with you during his hospitalization. MMODL / IJN: [id number] /
[2018-03-28 08:27] LABS: HCT 43.1 % (39.0-53.0); HGB 14.1 gm/dL (13.0-17.5); MCH 33.9 pg (25.0-35.0); MCHC 32.6 g/dL (31.0-37.0); Macrocytosis Moderate; Mean Platelet Volume 7.2; Platelet Count 281 k/uL (150-450); RBC 4.15 m/uL (4.30-5.90); RDW 15.1 % (11.5-15.5); WBC 18.4 k/uL (3.8-10.6)
[2018-03-28 09:02] LABS: Calcium 8.5 mg/dL (8.4-10.2); Total Bilirubin 0.5 mg/dL (0.2-1.3); Total Protein 7.2 g/dL (6.3-8.2)
--- NOTE | 2018-03-28 09:51 | P.PN ---
Subjective Patient is seen in follow-up for acute kidney injury on chronic kidney disease. Patient has chronic kidney disease stage III with baseline creatinine near 1.5 -1.7 secondary to nephrosclerosis. Patient presented with dyspnea and lower extremity edema. Patient states edema has improved. He admits to good urine output. Creatinine today is up to 2.08. He is maintained on Lasix 40 mg IV daily along with hydrochlorothiazide. No vomiting or diarrhea. Vital signs are stable. General: The patient appeared well nourished and normally developed. HEENT: Head exam is unremarkable. Neck is without jugular venous distension. LUNGS: Lungs are clear to auscultation and percussion. Breath sounds decreased. HEART: Rate and Rhythm are regular. First and second heart sounds normal. No murmurs, rubs or gallops. ABDOMEN: Abdominal exam reveals normal bowel sounds. Non-tender and non- distended. No evidence of peritonitis. EXTREMITITES: 1+ edema. Objective - Vital Signs Vital signs: Vital Signs Temp 98.2 F 03/28/18 07:00 Pulse 88 03/28/18 07:17 Resp 16 03/28/18 07:00 BP 131/72 03/28/18 07:00 Pulse Ox 100 03/28/18 07:00 Intake & Output 03/27/18 03/28/18 03/28/18 18:59 06:59 18:59 Intake Total 440 Balance 440 Intake: Oral 440 Other: Voiding Method Toilet Urinal # Voids 1 2 # Bowel Movements 0 0 - Labs CBC & Chem 7: 03/28/18 08:01 03/28/18 08:01 Labs: Abnormal Lab Results - Last 24 Hours (Table) 03/27/18 03/27/18 03/27/18 Range/Units 00:33 10:05 11:56 WBC (3.8-10.6) k/uL RBC (4.30-5.90) m/uL MCV (80.0-100.0) fL PT 22.1 H (9.0-12.0) sec INR 2.5 H (<1.2) BUN (9-20) mg/dL Creatinine (0.66-1.25) mg/dL POC Glucose (mg/dL) 286 H (75-99) mg/dL Hemoglobin A1c 6.1 H (4.0-6.0) % 03/27/18 03/27/18 03/28/18 Range/Units 17:05 20:30 07:01 WBC (3.8-10.6) k/uL RBC (4.30-5.90) m/uL MCV (80.0-100.0) fL PT (9.0-12.0) sec INR (<1.2) BUN (9-20) mg/dL Creatinine (0.66-1.25) mg/dL POC Glucose (mg/dL) 104 H 129 H 103 H (75-99) mg/dL Hemoglobin A1c (4.0-6.0) % 03/28/18 03/28/18 Range/Units 08:01 08:01 WBC 18.4 H (3.8-10.6) k/uL RBC 4.15 L (4.30-5.90) m/uL MCV 104.0 H (80.0-100.0) fL PT (9.0-12.0) sec INR (<1.2) BUN 71 H (9-20) mg/dL Creatinine 2.08 H (0.66-1.25) mg/dL POC Glucose (mg/dL) (75-99) mg/dL Hemoglobin A1c (4.0-6.0) % Microbiology - Last 24 Hours (Table) 03/27/18 01:05 Blood Culture - Preliminary Blood No Growth after 24 hours Assessment and Plan Plan: Assessment: 1. Nonoliguric acute kidney injury mostly prerenal secondary to diuresis. Creatinine 2.0 today. Urinalysis is benign. 2. Chronic kidney disease stage III secondary to nephrosclerosis with baseline creatinine in the range of 1.5-1.7. 3. Systolic CHF with ejection fraction of 20%. 4. Volume overload. Improving. 5. Hypertension with chronic kidney disease. Controlled. 6. Chronic kidney disease mineral bone disease maintained on calcitriol. Plan: Continue Lasix 40 mg IV daily. Maintain hydrochlorothiazide. Decrease lisinopril to 20 mg once daily. To hold antihypertensives for systolic blood pressure less than 120. Avoid nephrotoxins. Repeat electrolytes in the morning.
--- NOTE | 2018-03-28 11:38 | CDI ---
Last Revision, April 2017 Documentation Clarification Form Date: 03/28/2018 11:23:55 AM From: Pallavi Crook RN, CCDS Admit Date: 03/27/2018 2:37:00 AM Patient Name: Sai Porras Visit Number: [id number] Discharge Date: ATTENTION: The Clinical Documentation Specialists (CDI) and [facility] Coding Staff appreciate your assistance in clarifying documentation. Please respond to the clarification below the line at the bottom and electronically sign. The CDI & [facility] Coding staff will review the response and follow-up if needed. Please note: Queries are made part of the Legal Health Record. If you have any questions, please contact the author of this message via ITS. Josh Redd MD History/Risk Factors:. COPD, Congestive heart failure, Diabetes Mellitus, Hypertension, Former smoker Clinical Indicators: Present with shortness of breath, cough congestion hypoxia. VS/Pulse OX: 150/88 86 16 98.1 100 BNP: 3710 Echocardiogram Results: EF 20 % ( on echo done in September of 2017 (per Nephrology progress note 03/28/18) 03/28/18 Dr. Sheriff progress note: Systolic CHF with EF of 20 % Chest X Ray: Mild cardiomegaly, no ac cardiopulmonary disease. No heart failure No significant change compared to old exam. Treatment: Zithromax PO Duoneb's Rocephin IV Lasix IV Daily Monitor O2 Sat's (titrate) In your professional opinion, can you please clarify the acuity of CHF if known? Systolic Heart Failure: Acute Chronic Acute on Chronic Unable to Determine Other, please specify lease continue to document in your progress notes and discharge summary in order to capture severity of illness and risk of mortality. Include clinical findings that support your diagnosis. MTDD
--- NOTE | 2018-03-28 12:03 | CDI ---
Last Revision, April 2017 Documentation Clarification Form Date: 02/25/18 From: Pallavi Crook RN, CCDS Admit Date: 03/27/2018 2:37:00 AM Patient Name: Sai Porras Visit Number: [id number] Discharge Date: ATTENTION: The Clinical Documentation Specialists (CDI) and [facility] Coding Staff appreciate your assistance in clarifying documentation. Please respond to the clarification below the line at the bottom and electronically sign. The CDI & [facility] Coding staff will review the response and follow-up if needed. Please note: Queries are made part of the Legal Health Record. If you have any questions, please contact the author of this message via ITS. Chris Colon MD On admission EKG is showing atrial fibrillation with premature ventricular aberrantly conducted complexes. Patient history/risk factors Diabetes mellitus, hypertension AR,AICD, Heart catheterization with stent, Several Cardioversions. Clinical Indicators: present with shortness of breath, dyspnea on exertion. ED with EKG interpreted by Dr. Gaston states "EKG shows A.fib rate of 85". Vital Signs:150/88 86 16 98.1 Treatment: Coumadin PO Per orders Monitor Labs In your professional opinion, can you please further clarify EKG findings of Atrial Fibrillation? Atrial Fibrillation (specify type Atrial Fibrillation ruled out Other, please specify Unable to determine Please continue to document in your progress notes and discharge summary in order to capture severity of illness and risk of mortality. Include clinical findings that support your diagnosis. MTDD
[2018-03-28 12:18] LABS: Glucose,Whole Blood 81 mg/dL (75-99)
[2018-03-28] MEDS: MULTIVITAMINS, THERA 1 EACH TAB PO SCH (12:39)
[2018-03-28 16:58] LABS: Glucose,Whole Blood 94 mg/dL (75-99)
[2018-03-28] MEDS: WARFARIN 2.5 MG TAB PO SCH (18:12)
--- NOTE | 2018-03-28 19:28 | XR ---
EXAMINATION TYPE: XR chest 2V DATE OF EXAM: 03/28/2018 COMPARISON: Yesterday HISTORY: Pneumonia TECHNIQUE: Frontal and lateral views of the chest are obtained. FINDINGS: Heart is enlarged. There is no heart failure. Costophrenic angles are clear. There is left axillary p acemaker with the lead tips in the right ventricle. I see no pleural effusion. IMPRESSION: Cardiomegaly. No acute lung disease. No change compared to yesterday.
[2018-03-28 20:46] LABS: Glucose,Whole Blood 125 mg/dL (75-99)
[2018-03-29] MEDS: LEVOTHYROXINE 25 MCG TAB PO SCH (06:10)
[2018-03-29] MEDS: AZITHROMYCIN 500 MG TAB PO SCH (06:10)
[2018-03-29] MEDS: IPRATROPIUM-ALBUTEROL 3 ML NEB INHALATION SCH ×4 (07:21→18:52)
[2018-03-29 07:22] LABS: Glucose,Whole Blood 81 mg/dL (75-99)
[2018-03-29] MEDS: INSULIN ASPART 100 UNIT/ML 1 ML 10 ML VIAL SQ SCH ×4 (07:39→21:29)
--- NOTE | 2018-03-29 08:06 | P.PN ---
Subjective Patient is seen in follow-up for acute kidney injury on chronic kidney disease. Patient has chronic kidney disease stage III with baseline creatinine near 1.5 -1.7 secondary to nephrosclerosis. Patient presented with dyspnea and lower extremity edema. Patient states edema has improved. He admits to good urine output. Creatinine up to 2.08 as of yesterday. He is maintained on Lasix 40 mg IV daily along with hydrochlorothiazide. No vomiting or diarrhea. Vital signs are stable. General: The patient appeared well nourished and normally developed. HEENT: Head exam is unremarkable. Neck is without jugular venous distension. LUNGS: Lungs are clear to auscultation and percussion. Breath sounds decreased. HEART: Rate and Rhythm are regular. First and second heart sounds normal. No murmurs, rubs or gallops. ABDOMEN: Abdominal exam reveals normal bowel sounds. Non-tender and non- distended. No evidence of peritonitis. EXTREMITITES: 1+ edema. Objective - Vital Signs Vital signs: Vital Signs Temp 98.2 F 03/29/18 06:29 Pulse 80 03/29/18 07:33 Resp 18 03/29/18 06:29 BP 106/64 03/29/18 06:29 Pulse Ox 95 03/29/18 07:24 Intake & Output 03/28/18 03/29/18 03/29/18 18:59 06:59 18:59 Intake Total 750 Balance 750 Intake: Oral 750 Other: Voiding Method Toilet # Voids 2 1 - Labs CBC & Chem 7: 03/28/18 08:01 03/28/18 08:01 Labs: Abnormal Lab Results - Last 24 Hours (Table) 03/28/18 03/28/18 03/28/18 Range/Units 08:01 08:01 08:01 WBC 18.4 H (3.8-10.6) k/uL RBC 4.15 L (4.30-5.90) m/uL MCV 104.0 H (80.0-100.0) fL PT 27.0 H (9.0-12.0) sec INR 3.0 H (<1.2) BUN 71 H (9-20) mg/dL Creatinine 2.08 H (0.66-1.25) mg/dL POC Glucose (mg/dL) (75-99) mg/dL 03/28/18 Range/Units 20:26 WBC (3.8-10.6) k/uL RBC (4.30-5.90) m/uL MCV (80.0-100.0) fL PT (9.0-12.0) sec INR (<1.2) BUN (9-20) mg/dL Creatinine (0.66-1.25) mg/dL POC Glucose (mg/dL) 125 H (75-99) mg/dL Microbiology - Last 24 Hours (Table) 03/27/18 01:05 Blood Culture - Preliminary Blood No Growth after 48 hours Assessment and Plan Plan: Assessment: 1. Nonoliguric acute kidney injury mostly prerenal secondary to diuresis. Creatinine 2.08 as of yesterday. Urinalysis is benign. 2. Chronic kidney disease stage III secondary to nephrosclerosis with baseline creatinine in the range of 1.5-1.7. 3. Systolic CHF with ejection fraction of 20%. 4. Volume overload. Improving. 5. Hypertension with chronic kidney disease. Controlled. 6. Chronic kidney disease mineral bone disease maintained on calcitriol. Plan: Continue Lasix 40 mg IV daily - transition to oral upon discharge. Maintain hydrochlorothiazide. To hold antihypertensives for systolic blood pressure less than 120. Discontinue hydralazine as its only ordered once a day. Avoid nephrotoxins. Repeat electrolytes in the morning.
[2018-03-29] MEDS: MULTIVITAMINS, THERA 1 EACH TAB PO SCH (08:47)
[2018-03-29] MEDS: HYDROCHLOROTHIAZIDE 25 MG TAB PO SCH (08:47)
[2018-03-29] MEDS: NITROGLYCERIN EXTENDED RELEASE 6.5 MG CAPSULE.ER PO SCH ×2 (08:47→21:42)
[2018-03-29] MEDS: FAMOTIDINE 20 MG TAB PO SCH (08:47)
[2018-03-29] MEDS: ATORVASTATIN 20 MG TAB PO SCH (08:47)
[2018-03-29] MEDS: ALLOPURINOL 300 MG TAB PO SCH (08:47)
[2018-03-29] MEDS: FINASTERIDE 5 MG TAB PO SCH (08:47)
[2018-03-29] MEDS: FUROSEMIDE 10 MG/ML 4 ML VIAL IV SCH (08:47)
[2018-03-29] MEDS: NITROGLYCERIN EXTENDED RELEASE 2.5 MG CAPSULE.ER PO SCH ×2 (08:47→21:42)
[2018-03-29] MEDS: METOPROLOL TARTRATE 50 MG TAB PO SCH ×2 (08:47→21:43)
[2018-03-29] MEDS: POTASSIUM CHLORIDE ER 20 MEQ TAB.ER PO SCH (08:47)
[2018-03-29] MEDS ORDERED: LISINOPRIL 20 MG TAB PO SCH (09:00)
[2018-03-29 09:22] LABS: INR 3.7 (<1.2); Prothrombin Time 32.8 sec (9.0-12.0)
[2018-03-29 09:40] LABS: Calcium 8.3 mg/dL (8.4-10.2); Magnesium 2.2 mg/dL (1.6-2.3); Potassium 4.5 mmol/L (3.5-5.1)
[2018-03-29 12:07] LABS: Glucose,Whole Blood 102 mg/dL (75-99)
[2018-03-29 17:10] LABS: Glucose,Whole Blood 136 mg/dL (75-99)
[2018-03-29] MEDS ORDERED: WARFARIN 0.5 MG TAB PO ONE (18:00)
[2018-03-29] MEDS: ACETAMINOPHEN TAB 500 MG TAB PO PRN (18:10)
[2018-03-29 21:20] LABS: Glucose,Whole Blood 118 mg/dL (75-99)
[2018-03-30] MEDS: LEVOTHYROXINE 25 MCG TAB PO SCH (06:21)
[2018-03-30] MEDS: AZITHROMYCIN 500 MG TAB PO SCH (06:21)
[2018-03-30] MEDS: IPRATROPIUM-ALBUTEROL 3 ML NEB INHALATION SCH ×4 (06:52→19:01)
[2018-03-30 07:08] LABS: Glucose,Whole Blood 102 mg/dL (75-99)
[2018-03-30] MEDS: INSULIN ASPART 100 UNIT/ML 1 ML 10 ML VIAL SQ SCH ×4 (07:36→20:41)
--- NOTE | 2018-03-30 08:20 | P.PN ---
Subjective Patient is seen in follow-up for acute kidney injury on chronic kidney disease. Patient has chronic kidney disease stage III with baseline creatinine near 1.5 -1.7 secondary to nephrosclerosis. Patient presented with dyspnea and lower extremity edema. Patient states edema has improved. He admits to good urine output. Creatinine up to 2.23 today. He is maintained on Lasix 40 mg IV daily along with hydrochlorothiazide. No vomiting or diarrhea. Feels weak. Patient sustained the almost sustained a fall while coming out of the bathroom yesterday. Vital signs are stable. General: The patient appeared well nourished and normally developed. HEENT: Head exam is unremarkable. Neck is without jugular venous distension. LUNGS: Lungs are clear to auscultation and percussion. Breath sounds decreased. HEART: Rate and Rhythm are regular. First and second heart sounds normal. No murmurs, rubs or gallops. ABDOMEN: Abdominal exam reveals normal bowel sounds. Non-tender and non- distended. No evidence of peritonitis. EXTREMITITES: 1+ edema. Objective - Vital Signs Vital signs: Vital Signs Temp 97.6 F 03/30/18 06:35 Pulse 76 03/30/18 07:04 Resp 18 03/30/18 06:35 BP 114/60 03/30/18 06:35 Pulse Ox 98 03/30/18 06:35 Intake & Output 03/29/18 03/30/18 03/30/18 18:59 06:59 18:59 Intake Total 200 600 Balance 200 600 Intake: Oral 200 600 Other: # Voids 2 2 # Bowel Movements 0 - Labs CBC & Chem 7: 03/28/18 08:01 03/29/18 08:39 Labs: Abnormal Lab Results - Last 24 Hours (Table) 03/29/18 03/29/18 03/29/18 Range/Units 08:39 08:39 12:05 PT 32.8 H (9.0-12.0) sec INR 3.7 H (<1.2) BUN 87 H (9-20) mg/dL Creatinine 2.23 H (0.66-1.25) mg/dL Glucose 136 H (74-99) mg/dL POC Glucose (mg/dL) 102 H (75-99) mg/dL Calcium 8.3 L (8.4-10.2) mg/dL 03/29/18 03/29/18 03/30/18 Range/Units 17:06 21:00 07:03 PT (9.0-12.0) sec INR (<1.2) BUN (9-20) mg/dL Creatinine (0.66-1.25) mg/dL Glucose (74-99) mg/dL POC Glucose (mg/dL) 136 H 118 H 102 H (75-99) mg/dL Calcium (8.4-10.2) mg/dL Microbiology - Last 24 Hours (Table) 03/27/18 01:05 Blood Culture - Preliminary Blood No Growth after 72 hours Assessment and Plan Plan: Assessment: 1. Nonoliguric acute kidney injury mostly prerenal secondary to diuresis. Creatinine 2.23 today. Urinalysis is benign. 2. Chronic kidney disease stage III secondary to nephrosclerosis with baseline creatinine in the range of 1.5-1.7. 3. Systolic CHF with ejection fraction of 20%. 4. Volume overload. Improving. 5. Hypertension with chronic kidney disease. Controlled. 6. Chronic kidney disease mineral bone disease maintained on calcitriol. Plan: I will change Lasix to 40 mg orally daily. Maintain hydrochlorothiazide. I will also hold lisinopril as his blood pressure is on the lower side. Hydralazine has been discontinued. Avoid nephrotoxins. Repeat electrolytes in the morning.
[2018-03-30 08:50] LABS: INR 3.1 (<1.2); Prothrombin Time 27.9 sec (9.0-12.0)
[2018-03-30] MEDS ORDERED: LISINOPRIL 10 MG TAB PO SCH (09:00)
[2018-03-30 09:02] LABS: Calcium 8.3 mg/dL (8.4-10.2); Magnesium 2.4 mg/dL (1.6-2.3); Potassium 4.7 mmol/L (3.5-5.1)
[2018-03-30] MEDS: FUROSEMIDE 40 MG TAB PO SCH (09:23)
[2018-03-30] MEDS: POTASSIUM CHLORIDE ER 20 MEQ TAB.ER PO SCH (09:23)
[2018-03-30] MEDS: METOPROLOL TARTRATE 50 MG TAB PO SCH ×2 (09:23→20:40)
[2018-03-30] MEDS: NITROGLYCERIN EXTENDED RELEASE 2.5 MG CAPSULE.ER PO SCH ×2 (09:23→20:40)
[2018-03-30] MEDS: MULTIVITAMINS, THERA 1 EACH TAB PO SCH (09:23)
[2018-03-30] MEDS: FINASTERIDE 5 MG TAB PO SCH (09:23)
[2018-03-30] MEDS: FAMOTIDINE 20 MG TAB PO SCH (09:23)
[2018-03-30] MEDS: ATORVASTATIN 20 MG TAB PO SCH (09:24)
[2018-03-30] MEDS: ALLOPURINOL 300 MG TAB PO SCH (09:24)
[2018-03-30] MEDS: NITROGLYCERIN EXTENDED RELEASE 6.5 MG CAPSULE.ER PO SCH ×2 (09:24→20:40)
[2018-03-30] MEDS: HYDROCHLOROTHIAZIDE 25 MG TAB PO SCH (09:24)
--- NOTE | 2018-03-30 11:02 | P.PN ---
Subjective Progress Note Date: 03/29/18 Principal diagnosis: Community acquired pneumonia/pedal edema. This is a history and physical on a 77-year-old white male with history of heart failure who had sudden onset of shortness of breath. No edema was worsening and he did double up on his furosemide. His edema did not get any worse but his shortness of breath did slowly become worse. Dyspnea on exertion was noted and he was appropriately taken to the hospital. Evaluation did not show overt heart failure but more related acquired pneumonia symptomatology. The patient is now admitted for such. No voiding difficulties. No significant nausea, vomiting or diar 03/29/18 Patient is seen in follow-up for acute kidney injury on chronic kidney disease and PNA. Patient has chronic kidney disease stage III with baseline creatinine near 1.5-1.7 secondary to nephrosclerosis. Patient presented with dyspnea and lower extremity edema. Patient states edema has improved. He admits to good urine output. Creatinine today is up to 2.08. He is maintained on Lasix 40 mg IV daily along with hydrochlorothiazide. Patient remains on antibiotics in the form of IV ceftriaxone and oral Zithromax ; white blood count has escalated to 18.4 yesterday;patient remains afebrile; we will continue with current antibiotics and continue to monitor Patient's INR up to 3.7 this morning; there are no signs of bleeding; pharmacy is dosing Coumadin; we'll continue to monitor PT/INR daily Objective - Vital Signs Vital signs: Vital Signs Temp 98.2 F 03/29/18 06:29 Pulse 74 03/29/18 11:17 Resp 20 03/29/18 11:17 BP 106/64 03/29/18 06:29 Pulse Ox 95 03/29/18 07:24 Intake & Output 03/28/18 03/29/18 03/29/18 18:59 06:59 18:59 Intake Total 750 Balance 750 Intake: Oral 750 Other: Voiding Method Toilet # Voids 2 1 - Exam General: The patient appeared well nourished and normally developed. HEENT: Head exam is unremarkable. Neck is without jugular venous distension. LUNGS: Lungs are clear to auscultation and percussion. Breath sounds decreased. HEART: Rate and Rhythm are regular. First and second heart sounds normal. No murmurs, rubs or gallops. ABDOMEN: Abdominal exam reveals normal bowel sounds. Non-tender and non- distended. No evidence of peritonitis. EXTREMITITES: 1+ edema. - Labs CBC & Chem 7: 03/28/18 08:01 03/30/18 08:02 Labs: Abnormal Lab Results - Last 24 Hours (Table) 03/28/18 03/29/18 03/29/18 Range/Units 20:26 08:39 08:39 PT 32.8 H (9.0-12.0) sec INR 3.7 H (<1.2) BUN 87 H (9-20) mg/dL Creatinine 2.23 H (0.66-1.25) mg/dL Glucose 136 H (74-99) mg/dL POC Glucose (mg/dL) 125 H (75-99) mg/dL Calcium 8.3 L (8.4-10.2) mg/dL 03/29/18 Range/Units 12:05 PT (9.0-12.0) sec INR (<1.2) BUN (9-20) mg/dL Creatinine (0.66-1.25) mg/dL Glucose (74-99) mg/dL POC Glucose (mg/dL) 102 H (75-99) mg/dL Calcium (8.4-10.2) mg/dL Microbiology - Last 24 Hours (Table) 03/27/18 01:05 Blood Culture - Preliminary Blood No Growth after 48 hours Assessment and Plan Assessment: 1. Nonoliguric acute kidney injury mostly prerenal secondary to diuresis. - Creatinine 2.0 today. Urinalysis is benign. - Chronic kidney disease stage III secondary to nephrosclerosis with baseline creatinine in the range of 1.5-1.7. - Chronic kidney disease mineral bone disease maintained on calcitriol. 2. Acute on Chronic Systolic CHF - with ejection fraction of 20%. - Volume overload. Improving. 3. Ac Bronchitis; improving; continue with IV antibiotics 4. Community Acquired PNA - We will continue with IV ceftriaxone along with Zithromax 500 mg daily - Bronchodilator nebulizer treatments with DuoNeb 4 times a day and when necessary - Symptomatic treatment of pneumonia 5. Hypertension with chronic kidney disease. Controlled on home dose of lisinopril and hydrochlorothiazide along with metoprolol. 6. DVT Prophylaxis; systemic anticoagulation with Coumadin CODE STATUS; full code Plan: Continue Lasix 40 mg IV daily. Maintain hydrochlorothiazide. Decrease lisinopril to 20 mg once daily. To hold antihypertensives for systolic blood pressure less than 120. Avoid nephrotoxins. Repeat electrolytes in the morning. Time with Patient: Greater than 30
[2018-03-30 11:43] LABS: Glucose,Whole Blood 76 mg/dL (75-99)
[2018-03-30] MEDS: ACETAMINOPHEN TAB 500 MG TAB PO PRN (12:37)
[2018-03-30 17:09] LABS: Glucose,Whole Blood 106 mg/dL (75-99)
[2018-03-30] MEDS ORDERED: WARFARIN 0.5 MG TAB PO ONE (18:00)
[2018-03-30] MEDS ORDERED: WARFARIN 5 MG TAB PO SCH (18:00)
[2018-03-30 20:40] LABS: Glucose,Whole Blood 104 mg/dL (75-99)
[2018-03-30 20:43] VITALS: RESP 16
[2018-03-31] MEDS: LEVOTHYROXINE 25 MCG TAB PO SCH (06:03)
[2018-03-31] MEDS: AZITHROMYCIN 500 MG TAB PO SCH (06:03)
[2018-03-31] MEDS: IPRATROPIUM-ALBUTEROL 3 ML NEB INHALATION SCH ×2 (07:32→10:46)
[2018-03-31 07:45] LABS: Glucose,Whole Blood 84 mg/dL (75-99)
--- NOTE | 2018-03-31 07:57 | P.DS ---
Providers Date of admission: 03/27/18 02:37 Attending physician: Chris Mares Consults: 03/27/18 02:37 Consult Physician Routine Consulting Provider: Chel Arrington Consult Reason/Comments: known Do you want consulting provider notified?: Yes Primary care physician: Chris Mares - Discharge Diagnosis(es) (1) Heart failure Current Visit: Yes Status: Acute (2) Acute bronchitis Current Visit: Yes Status: Acute (3) Community acquired pneumonia Current Visit: Yes Status: Acute (4) Hypoxia Current Visit: Yes Status: Acute Hospital Course: This discharge summary on a 77-year-old white male essentially admitted for acute renal failure with pneumonia and history of congestive heart failure. The patient was diuresed appropriately for several days. Nephrology was consulted and titrate medications. ANASTACIO inhibitor and hydralazine were discontinued secondary to low blood pressure and to avoid nephrotoxicity. The patient is now stabilizing. He has 1+ edema lower extremities but is breathing well. We will go ahead and check renal function prior to discharge and the patient's follow-up with me in 1-2 days. Patient Condition at Discharge: Stable Plan - Discharge Summary Discharge Rx Participant: Yes New Discharge Prescriptions: New Azithromycin [Zithromax] 500 mg PO DAILY@0600 #3 tab Continue Potassium Chloride [Klor-Con 20] 20 meq PO DAILY Levothyroxine Sodium [Synthroid] 25 mcg PO DAILY Famotidine [Pepcid] 20 mg PO DAILY Atorvastatin [Lipitor] 20 mg PO DAILY glipiZIDE [Glucotrol] 2.5 mg PO BID Warfarin Sodium 5 mg PO SUWE Nitroglycerin 9 mg PO BID Multivitamin [Men's Multi-Vitamin] 1 tab PO DAILY Metoprolol Tartrate [Lopressor] 150 mg PO BID Hydrochlorothiazide 25 mg PO DAILY Furosemide [Lasix] 40 mg PO DAILY Finasteride [Proscar] 5 mg PO DAILY Calcitriol 0.25 mcg PO Q7D Allopurinol [Zyloprim] 300 mg PO DAILY Warfarin [Coumadin] 2.5 mg PO MOTUTHFRSA Discontinued hydrALAZINE HCL 50 mg PO DAILY Benazepril HCl 20 mg PO BID Discharge Medication List Allopurinol [Zyloprim] 300 mg PO DAILY 08/19/17 [History] Atorvastatin [Lipitor] 20 mg PO DAILY 08/19/17 [History] Calcitriol 0.25 mcg PO Q7D 08/19/17 [History] Famotidine [Pepcid] 20 mg PO DAILY 08/19/17 [History] Finasteride [Proscar] 5 mg PO DAILY 08/19/17 [History] Furosemide [Lasix] 40 mg PO DAILY 08/19/17 [History] Hydrochlorothiazide 25 mg PO DAILY 08/19/17 [History] Levothyroxine Sodium [Synthroid] 25 mcg PO DAILY 08/19/17 [History] Metoprolol Tartrate [Lopressor] 150 mg PO BID 08/19/17 [History] Multivitamin [Men's Multi-Vitamin] 1 tab PO DAILY 08/19/17 [History] Nitroglycerin 9 mg PO BID 08/19/17 [History] Potassium Chloride [Klor-Con 20] 20 meq PO DAILY 08/19/17 [History] Warfarin Sodium 5 mg PO SUWE 08/19/17 [History] glipiZIDE [Glucotrol] 2.5 mg PO BID 08/19/17 [History] Warfarin [Coumadin] 2.5 mg PO MOTUTHFRSA 03/27/18 [History] Azithromycin [Zithromax] 500 mg PO DAILY@0600 #3 tab 03/31/18 [Rx] Follow up Appointment(s)/Referral(s): Chris Mares MD [Primary Care Provider] - 1-2 Days Discharge Disposition: HOME SELF-CARE
[2018-03-31] MEDS: FAMOTIDINE 20 MG TAB PO SCH (08:15)
[2018-03-31] MEDS: ALLOPURINOL 300 MG TAB PO SCH (08:15)
[2018-03-31] MEDS: POTASSIUM CHLORIDE ER 20 MEQ TAB.ER PO SCH (08:15)
[2018-03-31] MEDS: METOPROLOL TARTRATE 50 MG TAB PO SCH (08:15)
[2018-03-31] MEDS: MULTIVITAMINS, THERA 1 EACH TAB PO SCH (08:15)
[2018-03-31] MEDS: NITROGLYCERIN EXTENDED RELEASE 6.5 MG CAPSULE.ER PO SCH (08:16)
[2018-03-31] MEDS: ATORVASTATIN 20 MG TAB PO SCH (08:16)
[2018-03-31] MEDS: HYDROCHLOROTHIAZIDE 25 MG TAB PO SCH (08:16)
[2018-03-31] MEDS: NITROGLYCERIN EXTENDED RELEASE 2.5 MG CAPSULE.ER PO SCH (08:16)
[2018-03-31] MEDS: FUROSEMIDE 40 MG TAB PO SCH (08:16)
[2018-03-31] MEDS: FINASTERIDE 5 MG TAB PO SCH (08:16)
[2018-03-31] MEDS: INSULIN ASPART 100 UNIT/ML 1 ML 10 ML VIAL SQ SCH (08:16)
[2018-03-31 08:18] VITALS: BP 116/67; PULSE 72; TEMP 98.3
--- NOTE | 2018-03-31 08:28 | P.PN ---
Subjective Patient is seen in follow-up for acute kidney injury on chronic kidney disease. Patient has chronic kidney disease stage III with baseline creatinine near 1.5 -1.7 secondary to nephrosclerosis. Patient presented with dyspnea and lower extremity edema. Patient states edema has improved. He admits to good urine output. Creatinine 2.16 as of yesterday. He is maintained on Lasix 40 mg PO daily along with hydrochlorothiazide. No vomiting or diarrhea. Vital signs are stable. General: The patient appeared well nourished and normally developed. HEENT: Head exam is unremarkable. Neck is without jugular venous distension. LUNGS: Lungs are clear to auscultation and percussion. Breath sounds decreased. HEART: Rate and Rhythm are regular. First and second heart sounds normal. No murmurs, rubs or gallops. ABDOMEN: Abdominal exam reveals normal bowel sounds. Non-tender and non- distended. No evidence of peritonitis. EXTREMITITES: 1+ edema. Objective - Vital Signs Vital signs: Vital Signs Temp 98.3 F 03/31/18 07:06 Pulse 72 03/31/18 07:06 Resp 16 03/31/18 07:53 BP 116/67 03/31/18 07:06 Pulse Ox 96 03/31/18 07:06 Intake & Output 03/30/18 03/31/18 03/31/18 18:59 06:59 18:59 Intake Total 400 Balance 400 Intake: Oral 400 Other: Voiding Method Toilet # Voids 3 1 # Bowel Movements 0 0 - Labs CBC & Chem 7: 03/28/18 08:01 03/30/18 08:02 Labs: Abnormal Lab Results - Last 24 Hours (Table) 03/30/18 03/30/18 03/30/18 Range/Units 08:02 08:02 17:08 PT 27.9 H (9.0-12.0) sec INR 3.1 H (<1.2) BUN 95 H (9-20) mg/dL Creatinine 2.16 H (0.66-1.25) mg/dL Glucose 112 H (74-99) mg/dL POC Glucose (mg/dL) 106 H (75-99) mg/dL Calcium 8.3 L (8.4-10.2) mg/dL Magnesium 2.4 H (1.6-2.3) mg/dL 03/30/18 Range/Units 20:39 PT (9.0-12.0) sec INR (<1.2) BUN (9-20) mg/dL Creatinine (0.66-1.25) mg/dL Glucose (74-99) mg/dL POC Glucose (mg/dL) 104 H (75-99) mg/dL Calcium (8.4-10.2) mg/dL Magnesium (1.6-2.3) mg/dL Microbiology - Last 24 Hours (Table) 03/27/18 01:05 Blood Culture - Preliminary Blood No Growth after 96 hours Assessment and Plan Plan: Assessment: 1. Nonoliguric acute kidney injury mostly prerenal secondary to diuresis. Creatinine 2.16 as of yesterday. Urinalysis is benign. 2. Chronic kidney disease stage III secondary to nephrosclerosis with baseline creatinine in the range of 1.5-1.7. 3. Systolic CHF with ejection fraction of 20%. 4. Volume overload. Improving. 5. Hypertension with chronic kidney disease. Controlled. 6. Chronic kidney disease mineral bone disease maintained on calcitriol. Plan: Maintain Lasix 40 mg orally daily. Maintain hydrochlorothiazide. Continue tohold lisinopril as his blood pressure is on the lower side. Hydralazine has been discontinued. Avoid nephrotoxins. Repeat electrolytes in the morning.
[2018-03-31 08:29] LABS: Basophils # (A) 0.1 k/uL (0-0.2); Basophils % (A) 0 %; Eosinophils # (A) 0.2 k/uL (0-0.7); Eosinophils % (A) 2 %; HCT 43.4 % (39.0-53.0); HGB 13.7 gm/dL (13.0-17.5); Lymphocytes # (A) 3.6 k/uL (1.0-4.8); Lymphocytes % (A) 31 %; MCH 33.1 pg (25.0-35.0); MCHC 31.6 g/dL (31.0-37.0); MCV 104.7 fL (80.0-100.0); Macrocytosis Moderate; Mean Platelet Volume 6.8; Monocytes # (A) 0.5 k/uL (0-1.0); Monocytes % (A) 4 %; Neutrophils # (A) 6.9 k/uL (1.3-7.7); Neutrophils % (A) 61 %; Platelet Count 252 k/uL (150-450); RBC 4.15 m/uL (4.30-5.90); RDW 15.5 % (11.5-15.5); WBC 11.5 k/uL (3.8-10.6)
[2018-03-31 08:31] LABS: INR 2.4 (<1.2); Prothrombin Time 21.7 sec (9.0-12.0)
[2018-03-31 08:36] LABS: Calcium 8.4 mg/dL (8.4-10.2); Magnesium 2.3 mg/dL (1.6-2.3); Potassium 4.2 mmol/L (3.5-5.1)
[2018-03-31] MEDS ORDERED: WARFARIN 2.5 MG TAB PO ONE (18:00)
== END 2018-03-31 13:06 | disposition home or self-care (01) | DRG 291 ==
LOC: EC 00:08 → 4MS4W 02:37
PROVIDERS: ADMIT Family Medicine; ATTEND Family Medicine
DX: I13.0 Hypertensive heart and chronic kidney disease with heart failure and stage 1 through stage 4 chronic kidney disease, or unspecified chronic kidney disease (principal); J18.9 Pneumonia, unspecified organism; I50.23 Acute on chronic systolic (congestive) heart failure; J44.0 Chronic obstructive pulmonary disease with (acute) lower respiratory infection; N17.9 Acute kidney failure, unspecified; I42.9 Cardiomyopathy, unspecified; E11.22 Type 2 diabetes mellitus with diabetic chronic kidney disease; N18.3 Chronic kidney disease, stage 3 (moderate); E78.5 Hyperlipidemia, unspecified; F41.9 Anxiety disorder, unspecified; I25.10 Atherosclerotic heart disease of native coronary artery without angina pectoris; I25.2 Old myocardial infarction; J20.9 Acute bronchitis, unspecified; K21.9 Gastro-esophageal reflux disease without esophagitis; N40.0 Benign prostatic hyperplasia without lower urinary tract symptoms; R09.02 Hypoxemia; T50.2X5A Adverse effect of carbonic-anhydrase inhibitors, benzothiadiazides and other diuretics, initial encounter; E07.9 Disorder of thyroid, unspecified; E83.89 Other disorders of mineral metabolism; Z79.84 Long term (current) use of oral hypoglycemic drugs; Z79.899 Other long term (current) drug therapy; Z79.890 Hormone replacement therapy; Z79.01 Long term (current) use of anticoagulants; Z87.891 Personal history of nicotine dependence; Z95.5 Presence of coronary angioplasty implant and graft; Z95.810 Presence of automatic (implantable) cardiac defibrillator; Z98.42 Cataract extraction status, left eye; Z96.1 Presence of intraocular lens
CPT/HCPCS: 36415; 71046; 80048; 80053; 81003; 82550; 82553; 83036; 83735; 83880; 84484; 85025; 85027; 85610; 85730; 87040; 94640; 94760; 99291

== ENCOUNTER → 2018-11-28 | Outpatient (CLI) | payer MEDICARE, BC ==
[2018-11-28 15:22] LABS: Basophils % (A) 0 %; Eosinophils # (A) 0.2 k/uL (0-0.7); Eosinophils % (A) 2 %; HCT 41.4 % (39.0-53.0); HGB 13.2 gm/dL (13.0-17.5); Lymphocytes # (A) 2.8 k/uL (1.0-4.8); Lymphocytes % (A) 31 %; MCHC 31.8 g/dL (31.0-37.0); MCV 103.7 fL (80.0-100.0); Macrocytosis Moderate; Mean Platelet Volume 6.9; Monocytes # (A) 0.4 k/uL (0-1.0); Monocytes % (A) 5 %; Neutrophils # (A) 5.4 k/uL (1.3-7.7); Neutrophils % (A) 58 %; Platelet Count 219 k/uL (150-450); RBC 3.99 m/uL (4.30-5.90); RDW 14.8 % (11.5-15.5); WBC 9.2 k/uL (3.8-10.6)
[2018-11-28 18:08] LABS: Uric Acid 4.8 mg/dL (3.7-8.7)
[2018-11-28 18:09] LABS: African American GFR (CKD) 56.2 (60.0-200.0); Anion Gap 7.7 mmol/L (4.00-12.00); BUN/Creat Ratio 29.29 Ratio (12.00-20.00); Calcium 8.5 mg/dL (8.7-10.3); Carbon Dioxide 28.3 mmol/L (21.6-31.8); Phosphorus 2.9 mg/dL (2.4-5.1); Potassium 4.2 mmol/L (3.5-5.5)
[2018-11-28 18:28] LABS: Iron Saturation 21.63 (15.00-50.00)
[2018-11-28 18:30] LABS: Parathyroid Hormone Intact 85.4 pg/mL (14.0-72.0)
[2018-11-28 18:38] LABS: Vitamin D 25 Hydroxy 36.2 ng/mL (30.0-100.0)
[2018-11-29 02:45] LABS: Appearance,Urine Clear (Clear); Bilirubin,Urine Negative (Negative); Blood,Urine Negative (Negative); Color,Urine Yellow; Glucose,Urine (UA) Negative (Negative); Ketones,Urine Negative (Negative); Leukocyte Esterase,Urine Negative (Negative); Nitrite,Urine Negative (Negative); PH, Urine 5.5 (5.0-8.0); Protein,Urine Trace (Negative); Urobilinogen,Urine <2.0 mg/dL (<2.0)
== END | disposition home or self-care (01) ==
LOC: LABWHC1 14:56
PROVIDERS: ATTEND Nurse Practitioner Family
DX: N18.3 Chronic kidney disease, stage 3 (moderate) (principal); D63.1 Anemia in chronic kidney disease; E21.3 Hyperparathyroidism, unspecified; M10.9 Gout, unspecified; N39.0 Urinary tract infection, site not specified
CPT/HCPCS: 36415; 80048; 81003; 82040; 82306; 82728; 83540; 83550; 83735; 83970; 84100; 84550; 85025

== ENCOUNTER → 2019-02-20 | Outpatient (CLI) | payer MEDICARE, BC ==
--- NOTE | 2019-02-20 14:22 | CT ---
EXAMINATION TYPE: CT brain wo con DATE OF EXAM: 02/20/2019 HISTORY: Headache with TIA like symptoms. CT DLP: 1192 mGycm. Automated Exposure Control for Dose Reduction was Utilized. TECHNIQUE: CT scan of the head is performed without contrast. COMPARISON: CT brain November 12, 2017. FINDINGS: There is no acute intracranial hemorrhage or midline shift identified. There is diffuse v entricular and sulcal prominence consistent with diffuse age-related cerebral atrophy. The warner-white matter differentiation is fairly well preserved. There remains near complete opacification visualize d portion of right maxillary sinus. Remainder paranasal sinuses are clear. Soft tissue of the bilat erally external auditory canals is thought to reflect cerumen. IMPRESSION: No acute intracranial hemorrhage or midline shift. There is mild to moderate diffuse ag e-related cerebral atrophy redemonstrated. No significant change from prior.
--- NOTE | 2019-02-20 15:04 | US ---
EXAMINATION TYPE: US carotid duplex BILAT DATE OF EXAM: 02/20/2019 COMPARISON: US 2018 CLINICAL HISTORY: R51 headache w/TIA symptoms. Dizziness, loss of balance, HTN, DM EXAM MEASUREMENTS: RIGHT: Peak Systolic Velocity (PSV) cm/sec ----- Right CCA: 54.9 ----- Right ICA: 77.4 ----- Right ECA: 85.5 ICA/CCA ratio: 1.4 RIGHT: End Diastole cm/sec ----- Right CCA: 13.0 ----- Right ICA: 34.2 ----- Right ECA: 13.8 LEFT: Peak Systolic Velocity (PSV) cm/sec ----- Left CCA: 58.2 ----- Left ICA: 80.2 ----- Left ECA: 63.1 ICA/CCA ratio: 1.4 LEFT: End Diastole cm/sec ----- Left CCA: 17.8 ----- Left ICA: 26.8 ----- Left ECA: 8.7 VERTEBRALS (direction of flow): Right Vertebral: Antegrade Left Vertebral: Antegrade Rhythm: arrhythmia No elevated velocities, no significant stenosis IMPRESSION: 1. Mild degree of grayscale atheromatous plaquing with no sonographically evident hemodynamically sig nificant stenosis within either visualized carotid arterial system. 2. Incidentally noted cardiac arrhythmia. Criteria for Assigning % of Stenosis / Diameter reduction (Estimation based on the indirect measurements of the internal carotid artery velocities (ICA PSV). 1. Normal (no stenosis)=ICA PSV < 125 cm/s: ratio < 2.0: ICA EDV<40 cm/s. 2. Less than 50% stenosis=ICA PSV < 125 cm/s: ratio < 2.0: ICA EDV<40 cm/s. 3. 50 to 69% stenosis=ICA PSV of 125 to 230 cm/s: ration 2.0 ? 4.0: ICA EDV 40-100 cm/s. 4. Greater than 70% stenosis to near occlusion= ICA PSV > 230 cm/s: ratio > 4.0: ICA EDV > 100 cm/s. 5. Near occlusion= ICA PSV velocities may be low or undetectable: variable ratio and ICA EDV. 6. Total occlusion=unable to detect flow.
--- NOTE | 2019-02-20 20:00 | ECHOF ---
Referral Reason:I49.9 arrythmia MEASUREMENTS -------- HEIGHT: 177.8 cm WEIGHT: 111.1 kg BP: 121/76 RVIDd: 3.4 cm (< 3.3) IVSd: 1.3 cm (0.6 - 1.1) LVIDd: 6.4 cm (3.9 - 5.3) LVPWd: 1.3 cm (0.6 - 1.1) IVSs: 1.8 cm LVIDs: 5.0 cm LVPWs: 1.6 cm LA Diam: 4.4 cm (2.7 - 3.8) LAESV Index (A-L): 46.90 ml/m Ao Diam: 3.4 cm (2.0 - 3.7) AV Cusp: 2.1 cm (1.5 - 2.6) EPSS: 2.2 cm RAP: 5.00 mmHg RVSP: 51.46 mmHg MV EF SLOPE: 46.68 mm/s (70 - 150) MV EXCURSION: 1.10 cm (> 18.000) FINDINGS -------- Paced rhythm. This was a technically difficult study with suboptimal views. The left ventricle is moderately dilated. There is mild concentric left ventricular hypertrophy. Overall left ventricular systolic function is severely impaired with, an EF between 20 - 25 %. The right ventricle is mildly enlarged. LA is severely dilated >40 ml/m2 Interatrial and interventricular septum intact. There is mild aortic valve sclerosis. The mitral valve leaflets are mildly thickened. Mild mitral annular calcification present. Mild m itral regurgitation is present. Mild tricuspid regurgitation present. There is moderate pulmonary hypertension. The right ventric ular systolic pressure, as measured by Doppler, is 51.46mmHg. Trace/mild (physiologic) pulmonic regurgitation. The aortic root size is normal. There is no pericardial effusion. Lumason used CONCLUSIONS -------- 1. Paced rhythm. 2. This was a technically difficult study with suboptimal views. 3. The left ventricle is moderately dilated. 4. There is mild concentric left ventricular hypertrophy. 5. Overall left ventricular systolic function is severely impaired with, an EF between 20 - 25 %. 6. The right ventricle is mildly enlarged. 7. LA is severely dilated >40 ml/m2 8. Lumason used 9. Interatrial and interventricular septum intact. 10. There is mild aortic valve sclerosis. 11. The mitral valve leaflets are mildly thickened. 12. Mild mitral annular calcification present. 13. Mild mitral regurgitation is present. 14. Mild tricuspid regurgitation present. 15. There is moderate pulmonary hypertension. 16. The right ventricular systolic pressure, as measured by Doppler, is 51.46mmHg. 17. Trace/mild (physiologic) pulmonic regurgitation. 18. The aortic root size is normal. 19. There is no pericardial effusion. RECORDS OFFICER: SHERMAN Busby
== END | disposition home or self-care (01) ==
LOC: RADECHMAIN 13:05
PROVIDERS: ATTEND Family Medicine
DX: I08.1 Rheumatic disorders of both mitral and tricuspid valves (principal); I27.20 Pulmonary hypertension, unspecified; I65.23 Occlusion and stenosis of bilateral carotid arteries; G31.1 Senile degeneration of brain, not elsewhere classified; R51 Headache; Z86.73 Personal history of transient ischemic attack (TIA), and cerebral infarction without residual deficits
CPT/HCPCS: 93880; 70450; C8929; Q9950; 93306

== ENCOUNTER 2019-05-07 18:46 | Emergency (ER) | payer MEDICARE, BC ==
[2019-05-07 18:56] VITALS: RESP 18
[2019-05-07] MEDS ORDERED: SODIUM CHLORIDE 0.9% 1,000 ML IV STA ×2 (19:18)
[2019-05-07 19:30] LABS: Basophils # (A) 0.2 k/uL (0-0.2); Basophils % (A) 1 %; Eosinophils # (A) 0.4 k/uL (0-0.7); Eosinophils % (A) 3 %; HCT 43.9 % (39.0-53.0); Lymphocytes # (A) 4.2 k/uL (1.0-4.8); Lymphocytes % (A) 34 %; MCH 33.2 pg (25.0-35.0); MCV 103.8 fL (80.0-100.0); Macrocytosis Slight; Mean Platelet Volume 7.4; Monocytes # (A) 0.7 k/uL (0-1.0); Monocytes % (A) 6 %; Neutrophils # (A) 6.6 k/uL (1.3-7.7); Neutrophils % (A) 53 %; Platelet Count 255 k/uL (150-450); RBC 4.23 m/uL (4.30-5.90); RDW 14.5 % (11.5-15.5); WBC 12.5 k/uL (3.8-10.6)
[2019-05-07 19:39] LABS: Albumin 3.9 g/dL (3.5-5.0); Calcium 8.5 mg/dL (8.4-10.2)
[2019-05-07 19:42] LABS: Appearance,Urine Clear (Clear); Bilirubin,Urine Negative (Negative); Blood,Urine Negative (Negative); Color,Urine Yellow; Glucose,Urine (UA) Negative (Negative); Ketones,Urine Negative (Negative); Leukocyte Esterase,Urine Negative (Negative); Nitrite,Urine Negative (Negative); Protein,Urine Negative (Negative); Specific Gravity,Urine 1.015 (1.001-1.035); Urobilinogen,Urine <2.0 mg/dL (<2.0)
--- NOTE | 2019-05-07 19:42 | ED ---
Abdominal Pain HPI - General Chief Complaint: Fall Stated Complaint: Frequent falls Time Seen by Provider: 05/07/19 18:47 Source: patient, EMS Mode of arrival: EMS Limitations: no limitations - History of Present Illness Initial Comments: This is a 78-year-old male here for evaluation of recurrent falls. Patient has multiple recent falls secondary to vertiginous symptoms and is complaining of abdominal pain about a minute started from a fall about a week ago. The bowel. The persistent but no blood in the urine no blood in the stool no nausea vomi ting. Patient does have decreased bowel movements does admit to that increasing bloating. Patient is recent change in appetite or diet. No fevers no cough congestion or sick contacts. No change in medications. Patient's been here for evaluation abdominal pain. Also does note that he had a scratch from a near fall or a brace his arm against the counter prior to arrival in his left wrist MD Complaint: abdominal pain -: week(s) Location: diffuse Radiation: none Migration to: no migration Quality: aching Consistency: constant Improves With: nothing Worsens With: nothing Associated Symptoms: nausea, anorexia - Related Data Home Medications Medication Instructions Recorded Confirmed Allopurinol [Zyloprim] 300 mg PO DAILY 08/19/17 03/27/18 Atorvastatin [Lipitor] 20 mg PO DAILY 08/19/17 03/27/18 Calcitriol 0.25 mcg PO Q7D 08/19/17 03/27/18 Famotidine [Pepcid] 20 mg PO DAILY 08/19/17 03/27/18 Finasteride [Proscar] 5 mg PO DAILY 08/19/17 03/27/18 Furosemide [Lasix] 40 mg PO DAILY 08/19/17 03/27/18 Hydrochlorothiazide 25 mg PO DAILY 08/19/17 03/27/18 Levothyroxine Sodium [Synthroid] 25 mcg PO DAILY 08/19/17 03/27/18 Metoprolol Tartrate [Lopressor] 150 mg PO BID 08/19/17 03/27/18 Multivitamin [Men's Multi-Vitamin] 1 tab PO DAILY 08/19/17 03/27/18 Nitroglycerin 9 mg PO BID 08/19/17 03/27/18 Potassium Chloride [Klor-Con 20] 20 meq PO DAILY 08/19/17 03/27/18 Warfarin Sodium 5 mg PO SUWE 08/19/17 03/27/18 glipiZIDE [Glucotrol] 2.5 mg PO BID 08/19/17 03/27/18 Warfarin [Coumadin] 2.5 mg PO MOTUTHFRSA 03/27/18 03/27/18 Previous Rx's Medication Instructions Recorded Azithromycin [Zithromax] 500 mg PO DAILY@0600 #3 tab 03/31/18 Polyethylene Glycol 3350 [Miralax] 17 gm PO DAILY #14 packet 05/07/19 Allergies Allergy/AdvReac Type Severity Reaction Status Date / Time No Known Allergies Allergy Verified 03/27/18 00:27 Review of Systems ROS Statement: Those systems with pertinent positive or pertinent negative responses have been documented in the HPI. ROS Other: All systems not noted in ROS Statement are negative. 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 LT CATARACT REMOVED Past Anesthesia/Blood Transfusion Reactions: No Reported Reaction Date of Last Stent Placement:: 1992 Type of Cardiac Device: Permanent Pacemaker, AICD Device Placement Date:: 03/2010 Past Psychological History: Anxiety Smoking Status: Former smoker Past Alcohol Use History: Rare Past Drug Use History: None Reported - Past Family History Mother Additional Family Medical History / Comment(s): SEVERE BLE LYMPH EDEMA General Exam Limitations: no limitations General appearance: alert, in no apparent distress Head exam: Present: atraumatic, normocephalic, normal inspection Eye exam: Present: normal appearance, PERRL, EOMI. Absent: scleral icterus, conjunctival injection, periorbital swelling ENT exam: Present: normal exam, mucous membranes moist Neck exam: Present: normal inspection. Absent: tenderness, meningismus, lymphad enopathy Respiratory exam: Present: normal lung sounds bilaterally. Absent: respiratory distress, wheezes, rales, rhonchi, stridor Cardiovascular Exam: Present: regular rate, normal rhythm, normal heart sounds. Absent: systolic murmur, diastolic murmur, rubs, gallop, clicks GI/Abdominal exam: Present: soft, normal bowel sounds. Absent: distended, tenderness, guarding, rebound, rigid Extremities exam: Present: normal inspection, full ROM, normal capillary refill. Absent: tenderness, pedal edema, joint swelling, calf tenderness Back exam: Present: normal inspection Neurological exam: Present: alert, oriented X3, CN II-XII intact Psychiatric exam: Present: normal affect, normal mood Skin exam: Present: warm, dry, intact, normal color. Absent: rash Course Vital Signs 05/07/19 05/07/19 05/07/19 18:47 19:45 20:58 Temperature 97.8 F Pulse Rate 73 74 70 Respiratory 18 18 18 Rate Blood Pressure 119/72 124/86 120/82 O2 Sat by Pulse 100 100 100 Oximetry - Reevaluation(s) Reevaluation #1: 05/07/19 22:22 Record has been reviewed Reevaluation #2: 05/07/19 22:22 This with patient and family need for increased improved bowel regimen. Patient will be given stool softener and can be discharged home Medical Decision Making - Medical Decision Making 78 male to the ER for evaluation and abdominal pain. Also recent falls pain appears to falls due to constipation chronic in nature. Patient will be given bowel regimen can be discharged home - Lab Data Result diagrams: 05/07/19 19:00 05/07/19 19:00 Lab Results 05/07/19 05/07/19 05/07/19 Range/Units 19:00 19:00 19:00 WBC 12.5 H (3.8-10.6) k/uL RBC 4.23 L (4.30-5.90) m/uL Hgb 14.0 (13.0-17.5) gm/dL Hct 43.9 (39.0-53.0) % MCV 103.8 H (80.0-100.0) fL MCH 33.2 (25.0-35.0) pg MCHC 32.0 (31.0-37.0) g/dL RDW 14.5 (11.5-15.5) % Plt Count 255 (150-450) k/uL Neutrophils % 53 % Lymphocytes % 34 % Monocytes % 6 % Eosinophils % 3 % Basophils % 1 % Neutrophils # 6.6 (1.3-7.7) k/uL Lymphocytes # 4.2 (1.0-4.8) k/uL Monocytes # 0.7 (0-1.0) k/uL Eosinophils # 0.4 (0-0.7) k/uL Basophils # 0.2 (0-0.2) k/uL Macrocytosis Slight Sodium 145 (137-145) mmol/L Potassium 5.2 H (3.5-5.1) mmol/L Chloride 107 (98-107) mmol/L Carbon Dioxide 30 (22-30) mmol/L Anion Gap 8 mmol/L BUN 66 H (9-20) mg/dL Creatinine 1.98 H (0.66-1.25) mg/dL Est GFR (CKD-EPI)AfAm 37 (>60 ml/min/1.73 sqM) Est GFR (CKD-EPI)NonAf 32 (>60 ml/min/1.73 sqM) Glucose 72 L (74-99) mg/dL Plasma Lactic Acid Joseph 1.4 (0.7-2.0) mmol/L Calcium 8.5 (8.4-10.2) mg/dL Total Bilirubin 1.0 (0.2-1.3) mg/dL AST 46 (17-59) U/L ALT 16 (4-49) U/L Alkaline Phosphatase 52 (38-126) U/L Creatine Kinase 54 L (55-170) U/L Troponin I (0.000-0.034) ng/mL Total Protein 7.0 (6.3-8.2) g/dL Albumin 3.9 (3.5-5.0) g/dL Amylase 130 H (30-110) U/L Lipase 647 H (23-300) U/L Urine Color Urine Appearance (Clear) Urine pH (5.0-8.0) Ur Specific [place] (1.001-1.035) Urine Protein (Negative) Urine Glucose (UA) (Negative) Urine Ketones (Negative) Urine Blood (Negative) Urine Nitrite (Negative) Urine Bilirubin (Negative) Urine Urobilinogen (<2.0) mg/dL Ur Leukocyte Esterase (Negative) 05/07/19 05/07/19 Range/Units 19:00 19:20 WBC (3.8-10.6) k/uL RBC (4.30-5.90) m/uL Hgb (13.0-17.5) gm/dL Hct (39.0-53.0) % MCV (80.0-100.0) fL MCH (25.0-35.0) pg MCHC (31.0-37.0) g/dL RDW (11.5-15.5) % Plt Count (150-450) k/uL Neutrophils % % Lymphocytes % % Monocytes % % Eosinophils % % Basophils % % Neutrophils # (1.3-7.7) k/uL Lymphocytes # (1.0-4.8) k/uL Monocytes # (0-1.0) k/uL Eosinophils # (0-0.7) k/uL Basophils # (0-0.2) k/uL Macrocytosis Sodium (137-145) mmol/L Potassium (3.5-5.1) mmol/L Chloride (98-107) mmol/L Carbon Dioxide (22-30) mmol/L Anion Gap mmol/L BUN (9-20) mg/dL Creatinine (0.66-1.25) mg/dL Est GFR (CKD-EPI)AfAm (>60 ml/min/1.73 sqM) Est GFR (CKD-EPI)NonAf (>60 ml/min/1.73 sqM) Glucose (74-99) mg/dL Plasma Lactic Acid Joseph (0.7-2.0) mmol/L Calcium (8.4-10.2) mg/dL Total Bilirubin (0.2-1.3) mg/dL AST (17-59) U/L ALT (4-49) U/L Alkaline Phosphatase (38-126) U/L Creatine Kinase (55-170) U/L Troponin I 0.019 (0.000-0.034) ng/mL Total Protein (6.3-8.2) g/dL Albumin (3.5-5.0) g/dL Amylase (30-110) U/L Lipase (23-300) U/L Urine Color Yellow Urine Appearance Clear (Clear) Urine pH 5.0 (5.0-8.0) Ur Specific [place] 1.015 (1.001-1.035) Urine Protein Negative (Negative) Urine Glucose (UA) Negative (Negative) Urine Ketones Negative (Negative) Urine Blood Negative (Negative) Urine Nitrite Negative (Negative) Urine Bilirubin Negative (Negative) Urine Urobilinogen <2.0 (<2.0) mg/dL Ur Leukocyte Esterase Negative (Negative) - Radiology Data Radiology results: report reviewed (CT of the AbdPelvis positive for significant abdominal pain), image reviewed Disposition Clinical Impression: Fall, Constipation, Abrasion of left wrist Disposition: HOME SELF-CARE Instructions (If sedation given, give patient instructions): Constipation (ED), Fall Prevention for Older Adults (ED) Prescriptions: Polyethylene Glycol 3350 [Miralax] 17 gm PO DAILY #14 packet Is patient prescribed a controlled substance at d/c from ED?: No Referrals: Chris Mares MD [Primary Care Provider] - 1-2 days
[2019-05-07 19:43] LABS: Potassium 5.2 mmol/L (3.5-5.1)
--- NOTE | 2019-05-07 20:34 | CT ---
EXAMINATION TYPE: CT abdomen pelvis wo con DATE OF EXAM: 05/07/2019 COMPARISON: None HISTORY: Multiple falls and weakness. CT DLP: 1462.6 mGycm Automated exposure control for dose reduction was used. Exam performed with no contrast. Lung bases are clear of consolidation. Heart is moderately enlarged. Stomach is intact. Liver shows n o focal defect. Gallbladder appears normal. Spleen is intact. There is no evidence of pancreatic mass . There is no adrenal mass. Kidneys have normal size. There is no hydronephrosis. Ureters are not dilat ed. There is no retroperitoneal adenopathy. Bladder distends smoothly. There is no inguinal hernia. T here is dilated rectum with fecal material. This measures up to 5 cm. There is no free fluid in the p bobby. There is no mesenteric edema. There is no ascites or free air. There is no sign of a mechanical bowel obstruction. Appendix is not definitely seen. There is no sign of thickened appendix. Abdominal aort a is atheromatous. There are some spondylotic changes in the lumbar spine. There is narrowing of L3-4 disc. The bony pel vis appears intact. IMPRESSION: There is evidence of constipation. No free air. No acute bony abnormality. No pelvic fracture.
[2019-05-07] MEDS ORDERED: TOPICAL SKIN ADHESIVE 1 EACH AMP TOPICAL STA (21:57)
[2019-05-07] MEDS ORDERED: MAGNESIUM CITRATE 296 ML BOTTLE PO ONE (22:12)
[2019-05-07] MEDS ORDERED: GLYCERIN ADULT SUPPOSITORY 1 EACH RECTAL STA (22:12)
[2019-05-07 23:15] VITALS: BP 127/86; PULSE 75; TEMP 98
== END 2019-05-07 22:45 | disposition home or self-care (01) ==
LOC: EC 18:46
DX: S60.812A Abrasion of left wrist, initial encounter (principal); K59.00 Constipation, unspecified; R11.0 Nausea; R29.6 Repeated falls; R63.0 Anorexia; E11.9 Type 2 diabetes mellitus without complications; K21.9 Gastro-esophageal reflux disease without esophagitis; E78.5 Hyperlipidemia, unspecified; I10 Essential (primary) hypertension; I25.2 Old myocardial infarction; E07.9 Disorder of thyroid, unspecified; G61.0 Guillain-Barre syndrome; Z87.891 Personal history of nicotine dependence; Z79.01 Long term (current) use of anticoagulants; Z79.84 Long term (current) use of oral hypoglycemic drugs; Z79.890 Hormone replacement therapy; Z79.899 Other long term (current) drug therapy; Z95.0 Presence of cardiac pacemaker; W19.XXXA Unspecified fall, initial encounter; Y92.009 Unspecified place in unspecified non-institutional (private) residence as the place of occurrence of the external cause
CPT/HCPCS: 36415; 74176; 80053; 81003; 82150; 82550; 83605; 83690; 84484; 85025; 96360; 96361; 99284

== ENCOUNTER → 2019-06-23 | Outpatient (CLI) | payer MEDICARE ==
[2019-06-23 18:42] LABS: Protein, Total 6.2 g/dL (6.2-8.2)
[2019-06-23 18:44] LABS: Folate, Serum >24.0 ng/mL
[2019-06-24 13:05] LABS: Albumin 3.45 g/dL (3.80-4.90); Gamma Globulin 0.83 g/dL (0.70-1.50)
== END | disposition home or self-care (01) ==
LOC: LABWHC1 11:42
PROVIDERS: ATTEND Psychiatry & Neurology Neurology
DX: G62.9 Polyneuropathy, unspecified (principal)
CPT/HCPCS: 36415; 82607; 82746; 84165; 86334

== ENCOUNTER → 2020-01-25 | Outpatient (CLI) | payer MEDICARE ==
[2020-01-25 13:59] LABS: HCT 43.6 % (39.0-53.0); HGB 14.1 gm/dL (13.0-17.5); Hypochromasia Moderate; MCH 34.2 pg (25.0-35.0); MCHC 32.2 g/dL (31.0-37.0); Macrocytosis Moderate; Mean Platelet Volume 7.4; Platelet Count 180 k/uL (150-450); RBC 4.12 m/uL (4.30-5.90); RDW 15.2 % (11.5-15.5); WBC 8.8 k/uL (3.8-10.6)
[2020-01-25 20:30] LABS: African American GFR (CKD) 51.3 (60.0-200.0); Albumin 3.8 g/dL (3.80-4.90); Albumin/Globulin Ratio 2.11 (1.60-3.17); Anion Gap 7.6 mmol/L (4.00-12.00); BUN/Creat Ratio 15.33 Ratio (12.00-20.00); Calcium 8.7 mg/dL (8.7-10.3); Carbon Dioxide 33.4 mmol/L (21.6-31.8); Globulin 1.8 g/dL (1.6-3.3); Non-African American GFR(CKD) 44.3 (60.0-200.0); Potassium 4.1 mmol/L (3.5-5.5); Total Bilirubin 0.7 mg/dL (0.2-1.2); Total Protein 5.6 g/dL (6.2-8.2); Uric Acid 4.2 mg/dL (3.7-8.7)
== END | disposition home or self-care (01) ==
LOC: LABWHC1 11:51
PROVIDERS: ATTEND Psychiatry & Neurology Neurology
DX: R53.83 Other fatigue (principal); N19 Unspecified kidney failure; M10.9 Gout, unspecified; R53.1 Weakness
CPT/HCPCS: 36415; 80053; 84550; 85027

== ENCOUNTER → 2020-02-12 | Outpatient (CLI) | payer MEDICARE ==
--- NOTE | 2020-02-12 15:35 | CT ---
EXAMINATION TYPE: CT brain wo con DATE OF EXAM: 02/12/2020 HISTORY: confusion, head trauma [address] DLP: 1189 mGycm. Automated Exposure Control for Dose Reduction was Utilized. TECHNIQUE: CT scan of the head is performed without contrast. COMPARISON: CT brain dated 02/20/2019. FINDINGS: There is no acute intracranial hemorrhage or midline shift identified. There is diffuse v entricular and sulcal prominence consistent with diffuse age-related cerebral atrophy. Corea-white mat ter differentiation fairly well-maintained. Right maxillary sinus remains nearly completely fluid-musa led. Remainder paranasal sinuses remain clear. Globes are intact bilaterally. IMPRESSION: No acute intracranial hemorrhage or midline shift. There is mild to moderate diffuse ce rebral atrophy redemonstrated. Right maxillary sinus disease redemonstrated. No significant change f rom prior study.
== END | disposition home or self-care (01) ==
LOC: RADCTMAIN 15:07
PROVIDERS: ATTEND Psychiatry & Neurology Neurology
DX: J32.0 Chronic maxillary sinusitis (principal); G31.1 Senile degeneration of brain, not elsewhere classified
CPT/HCPCS: 70450

== ENCOUNTER → 2020-03-10 | Outpatient (CLI) | payer MEDICARE ==
[2020-03-10 14:57] LABS: Basophils # (A) 0.1 k/uL (0-0.2); Basophils % (A) 1 %; Eosinophils # (A) 0.3 k/uL (0-0.7); Eosinophils % (A) 3 %; HCT 44.8 % (39.0-53.0); HGB 13.7 gm/dL (13.0-17.5); Hypochromasia Moderate; Lymphocytes # (A) 2.6 k/uL (1.0-4.8); Lymphocytes % (A) 26 %; MCH 33.2 pg (25.0-35.0); MCHC 30.6 g/dL (31.0-37.0); MCV 108.7 fL (80.0-100.0); Macrocytosis Marked; Mean Platelet Volume 7.2; Monocytes # (A) 0.5 k/uL (0-1.0); Monocytes % (A) 5 %; Neutrophils # (A) 6.3 k/uL (1.3-7.7); Neutrophils % (A) 63 %; Platelet Count 220 k/uL (150-450); RBC 4.12 m/uL (4.30-5.90); RDW 15.4 % (11.5-15.5); WBC 10.1 k/uL (3.8-10.6)
[2020-03-10 15:35] LABS: Ovalocytes Present
[2020-03-10 23:06] LABS: Ferritin 85.2 ng/mL (22.0-322.0)
[2020-03-11 00:07] LABS: % Iron Saturation 37.42 (15.00-50.00); African American GFR (CKD) 55.8 (60.0-200.0); Albumin 3.9 g/dL (3.80-4.90); Anion Gap 11.8 mmol/L (4.00-12.00); BUN/Creat Ratio 17.14 Ratio (12.00-20.00); Calcium 9.4 mg/dL (8.7-10.3); Carbon Dioxide 33.2 mmol/L (21.6-31.8); Magnesium 1.8 mg/dL (1.5-2.4); Non-African American GFR(CKD) 48.1 (60.0-200.0); Potassium 4.2 mmol/L (3.5-5.5); Uric Acid 4.7 mg/dL (3.7-8.7)
== END | disposition home or self-care (01) ==
LOC: LABWHC1 12:27
PROVIDERS: ATTEND Nurse Practitioner Family
DX: E21.3 Hyperparathyroidism, unspecified (principal); N18.30 Chronic kidney disease, stage 3 unspecified; D63.1 Anemia in chronic kidney disease; N39.0 Urinary tract infection, site not specified; N25.81 Secondary hyperparathyroidism of renal origin; M10.9 Gout, unspecified
CPT/HCPCS: 36415; 80048; 82040; 82728; 83540; 83550; 83735; 83970; 84100; 84550; 85025

== ENCOUNTER → 2020-08-15 | Day surgery (SDC) | payer MEDICARE ==
[2020-08-10 10:08] VITALS: BMI 35.9
[~2020-08-15] MED LIST changes: +IOPAMIDOL-250 50ML BTL IV ONE; -LACTATED RINGERS 1,000 ML IV SCH; +SODIUM CHLORIDE 0.9% 1,000 ML IV SCH; +SODIUM CHLORIDE 0.9% 500 ML 500 ML IV ONE; -TETRACAINE 0.5% OPHTH (PF) DROPS 4 ML BTL OP ONE
[2020-08-15 09:41] LABS: Glucose,Whole Blood 79 mg/dL (75-99)
[2020-08-15 09:52] VITALS: RESP 16; TEMP 97.6
[2020-08-15 09:59] LABS: Calcium 8.6 mg/dL (8.4-10.2); Potassium 4.5 mmol/L (3.5-5.1)
[2020-08-15 10:07] LABS: INR 3.7 (<1.2); Prothrombin Time 35.6 sec (9.0-12.0)
--- NOTE | 2020-08-15 10:19 | P.HPCAR ---
History of Present Illness This is Dr. 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 Congestive heart failure class III, chronic Persistent atrial fibrillation Right bundle-branch block, left anterior fascicular block, QRS width 159 ms High RV pacing percentage of greater than 50% Dual-chamber ICD at [facility], [employer], [id number] Type 2 diabetes Hypertension Underlying CAD, status post coronary artery bypass grafting PLAN: Left upper extremity venogram and cinefluoroscopy of the leads to assess patency of the vein and integrity of leads Plan is a possible obtained to a biventricular ICD since he has an underlying wide QRS, congestive heart failure, severe cardio myopathy with a high RV pacing percentage of greater than 50% Stop oral potassium. Start spironolactone 25 mg by mouth daily Consider switching to long-acting metoprolol 200 mg by mouth daily after upgrade to a biventricular ICD Consideration for ENTRESTO in the future HPI Patient is dual-chamber ICD is at [facility]. He continues to have shortness of breath with exertion which is chronic and unchanged from before. 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 EXAMINATION: Afebrile 97.63 Fahrenheit, blood pressure 138/83 mmHg, normal respirations No JVD Normal heart sounds irregular Breath sounds are clear REVIEW OF LABS, ECG & MEDICAL DATA Labs are reviewed. 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 large BULLOUS DIABETICORUM fluid sac rt leg 11/2013-burst and now resolved, SEE DR KAMARA'S HISTORY AND PHYSICAL FOR CARDIAC HISTORY, CATARACT RIGHT EYE Last Myocardial Infarction Date:: 1992 History of Any Multi-Drug Resistant Organisms: None Reported Past Surgical History: AICD, Heart Catheterization With Stent, Pacemaker Additional Past Surgical History / Comment(s): SEVERAL CARDIOVERSIONS. LT CATARACT REMOVED Past Anesthesia/Blood Transfusion Reactions: No Reported Reaction Date of Last Stent Placement:: 1992 Type of Cardiac Device: Permanent Pacemaker, AICD Device Placement Date:: 1993, 03/2010 Smoking Status: Former smoker - Past Family History Mother Additional Family Medical History / Comment(s): SEVERE LEG EDEMA Physical Examination Vital Signs Temp Pulse Resp BP Pulse Ox 08/15/20 09:49 97.6 F 86 16 138/83 92 L Intake and Output 08/14/20 08/15/20 08/15/20 22:59 06:59 14:59 Intake Total 50 Balance 50 Intake: IV 50 Other: Weight 104.1 kg Results 08/15/20 09:30 Coagulation 08/15/20 Range/Units 09:30 PT 35.6 H (9.0-12.0) sec Comprehensive Metabolic Panel 08/15/20 Range/Units 09:30 Sodium 145 (137-145) mmol/L Potassium 4.5 (3.5-5.1) mmol/L Chloride 102 (98-107) mmol/L Carbon Dioxide 38 H (22-30) mmol/L BUN 27 H (9-20) mg/dL Creatinine 1.15 (0.66-1.25) mg/dL Glucose 85 (74-99) mg/dL Calcium 8.6 (8.4-10.2) mg/dL Current Medications Generic Name Dose Route Start Last Admin Trade Name Freq PRN Reason Stop Dose Admin Sodium Chloride 1,000 mls @ 20 mls/hr 08/15/20 07: Saline 0.9% IV 09/14/20 07:22 .Q24H RICHARD Intake and Output 08/14/20 08/15/20 08/15/20 22:59 06:59 14:59 Intake Total 50 Balance 50 Intake: IV 50 Other: Weight 104.1 kg Patient Weight 08/16/20 06:59 Weight 104.1 kg 08/15/20 09:30
[2020-08-15 11:17] VITALS: BP 128/80; PULSE 68
--- NOTE | 2020-09-01 19:32 | P.EPPROC ---
- EP Procedure Note Electrophysiology Procedure Note: Procedures Cinefluoroscopy of the leads Cinefluoroscopy of the leads was performed. 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
== END | disposition home or self-care (01) ==
LOC: CATHEP 09:05
PROVIDERS: ATTEND Internal Medicine Clinical Cardiac Electrophysiology
DX: T82.110A Breakdown (mechanical) of cardiac electrode, initial encounter (principal); I44.4 Left anterior fascicular block; I25.5 Ischemic cardiomyopathy; I48.19 Other persistent atrial fibrillation; I45.10 Unspecified right bundle-branch block; I25.10 Atherosclerotic heart disease of native coronary artery without angina pectoris; I11.0 Hypertensive heart disease with heart failure; I50.22 Chronic systolic (congestive) heart failure; I48.0 Paroxysmal atrial fibrillation; E78.5 Hyperlipidemia, unspecified; E78.00 Pure hypercholesterolemia, unspecified; I25.2 Old myocardial infarction; E11.9 Type 2 diabetes mellitus without complications; H26.9 Unspecified cataract; G61.0 Guillain-Barre syndrome; Z95.810 Presence of automatic (implantable) cardiac defibrillator; Z95.1 Presence of aortocoronary bypass graft; Z87.891 Personal history of nicotine dependence; Z98.42 Cataract extraction status, left eye; G20 Parkinson's disease; R44.2 Other hallucinations; R41.3 Other amnesia; E07.9 Disorder of thyroid, unspecified; N42.9 Disorder of prostate, unspecified; Z95.5 Presence of coronary angioplasty implant and graft; Z95.0 Presence of cardiac pacemaker; Z79.899 Other long term (current) drug therapy; Z79.84 Long term (current) use of oral hypoglycemic drugs
CPT/HCPCS: 36005; 75820; 80048; 85610; Q9966

== ENCOUNTER 2020-08-25 06:07 | Day surgery (SDC) | payer MEDICARE ==
[2020-08-22 11:15] VITALS: BMI 32.8
[~2020-08-25 06:07] MED LIST changes: -IOPAMIDOL-250 50ML BTL IV ONE; +LACTATED RINGERS 1,000 ML IV SCH; +LIDOCAINE 1% (10MG/ML) FOR IV START INTRADERMA PRN; +ONDANSETRON 4 MG/2 ML VIAL IVP ONE; -SODIUM CHLORIDE 0.9% 1,000 ML IV SCH; -SODIUM CHLORIDE 0.9% 500 ML 500 ML IV ONE
[2020-08-25] MEDS: SODIUM CHLORIDE 0.9% 1,000 ML IV SCH ×2 (06:36→17:33)
[2020-08-25 06:43] LABS: Glucose,Whole Blood 85 mg/dL (75-99)
[2020-08-25 06:47] LABS: Basophils # (A) 0.1 k/uL (0-0.2); Basophils % (A) 1 %; Eosinophils # (A) 0.3 k/uL (0-0.7); Eosinophils % (A) 3 %; HCT 43.8 % (39.0-53.0); HGB 14.2 gm/dL (13.0-17.5); Hypochromasia Slight; Lymphocytes # (A) 2.9 k/uL (1.0-4.8); Lymphocytes % (A) 32 %; MCH 34.4 pg (25.0-35.0); MCHC 32.4 g/dL (31.0-37.0); MCV 105.9 fL (80.0-100.0); Macrocytosis Moderate; Mean Platelet Volume 7.2; Monocytes # (A) 0.4 k/uL (0-1.0); Monocytes % (A) 4 %; Neutrophils # (A) 5.2 k/uL (1.3-7.7); Neutrophils % (A) 57 %; Platelet Count 189 k/uL (150-450); RBC 4.13 m/uL (4.30-5.90); RDW 15.3 % (11.5-15.5)
[2020-08-25 06:52] LABS: INR 3.2 (<1.2); Prothrombin Time 30.5 sec (9.0-12.0)
[2020-08-25] MEDS ORDERED: ONDANSETRON 4 MG/2 ML VIAL IVP PRN (07:00)
[2020-08-25] MEDS ORDERED: HYDROmorphone 0.5 MG/0.5 ML SYRINGE IVP PRN (07:00)
[2020-08-25] MEDS ORDERED: ceFAZolin 1 GM in SODIUM CHLORIDE 0.9% 250 ML IRRIGATION PRN (07:00)
[2020-08-25] MEDS ORDERED: fentaNYL (PF) 50 MCG/ML 2 ML AMP ONE (07:29)
[2020-08-25] MEDS ORDERED: NALOXONE 0.4 MG/ML 1 ML VIAL ONE (07:29)
[2020-08-25] MEDS ORDERED: MIDAZOLAM 2 MG/2 ML VIAL ONE (07:29)
[2020-08-25] MEDS ORDERED: ePHEDrine SULFATE/0.9% NACL/PF 50 MG/5 ML SYRINGE IV ONE (07:29)
[2020-08-25] MEDS ORDERED: FLUMAZENIL 0.1 MG/ML 5 ML VIAL IVP ONE (07:29)
[2020-08-25] MEDS ORDERED: diphenhydrAMINE 50 MG/ML 1 ML VIAL ONE (07:29)
[2020-08-25] MEDS ORDERED: PHENYLEPHRINE-0.9% NACL SYG 1,000 MCG/10 ML SYRINGE ONE (07:29)
[2020-08-25] MEDS ORDERED: LIDOCAINE 1% INJ 10MG/ML (20 ML MDV) ONE (07:48)
[2020-08-25] MEDS ORDERED: LIDOCAINE 1% INJ 10MG/ML (20 ML MDV) SQ ONE (08:02)
[2020-08-25] MEDS ORDERED: ACETAMINOPHEN TAB 325 MG TAB PO PRN (10:42)
[2020-08-25] MEDS ORDERED: HYDROcodone/APAP 5-325MG 1 EACH TAB PO PRN (10:42)
[2020-08-25] MEDS ORDERED: ACETAMINOPHEN IV (For NPO) 1,000 MG in EMPTY BAG 1 BAG IVPB ONE (10:42)
[2020-08-25 11:19] LABS: Glucose,Whole Blood 106 mg/dL (75-99)
--- NOTE | 2020-08-25 11:44 | P.PCN ---
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 This is been described in the mean procedure
--- NOTE | 2020-08-25 12:01 | CE ---
CARDIAC ELECTROPHYSIOLOGY REPORT This is a 80-year-old male patient with severe ischemic cardiomyopathy, severe heart failure and a wide QRS about 157 milliseconds, whose dual-chamber ICD is at [facility]. He has severe cardiomyopathy with chronic systolic dysfunction. He is brought in for an upgrade to a biventricular ICD. Patient was brought to the EP lab in a fasting state. Written informed consent was obtained prior to the procedure. The left shoulder area was prepped and draped as per protocol and 1% lidocaine was used for local anesthesia. A 4 cm incision was made in the pectoral area and the device was explanted. Partial capsulectomy was performed. Axillary vein access was obtained and the sheath was placed in the subclavian vein. Via this, long sheath was placed in the right side of the heart. We had difficulty passing the coronary sinus catheter along the innominate vein into the SVC. Therefore, a long guidewire was placed, Advantage wire. Over this, the coronary sinus sheath was placed in the right atrium and thereafter the coronary sinus catheter was placed in the right atrium. The coronary sinus was accessed. This had a very tortuous anatomy. Just beyond the ostium of the coronary sinus, there were 2 branches. The upper branch was a vein of Rickey branch and the low one was main coronary sinus body, but it was extremely tortuous. Within a centimeter of this main coronary sinus body, the posterolateral vein took off. Again extremely tortuous, almost like a pigtail configuration. There was a lateral branch which was tortuous and diminutive but there were no anterior branches to speak of. It was simply a mesh of tiny veins. The only usable vein that he had was a posterolateral branch. The sub-selecting catheter was used to access the ostium of this branch. A guidewire was placed, Advantage wire and passed along the vein. With sheath manipulation, we were able to straighten out this vein and passed in it sub-selecting catheter along with its dilator along the vein and then slide the outer sheath in the coronary sinus, over this inner sheath into the posterolateral vein. Thereafter, in a sub-selecting catheter was removed along with the wire and the lead was placed over the wire. This also had to be manipulated distally into the vein, but we were able to retain access quite well. The screw-in lead was used (Medtronic LV lead model #4798, 88 cm in length and serial number [id number]. The R-waves were 4.25 mV, pacing impedance 665 ohms, pacing threshold 1 V at 0.4 milliseconds. Ten volt test was negative. Excellent threshold was obtained. The lead was screwed in and stability was ensured with a push-pull technique. The lead is very stable. The sheath was then removed carefully and an adequate heel was given and the lead was then secured to the underlying pectoralis muscle with 2 nonabsorbable sutures after removing the outer sheath. The chronic right atrial lead was a model #4087, 52 cm in length and serial #[id number], [employer] lead. The patient was in atrial fibrillation. The patient was cardioverted and the P waves were between 0.621 mV. Pacing threshold in the atrium was high at 2.75 V. The ICD lead was a [employer] 0185, 64 cm in length and serial #[id number] that had been positioned in the RV apex. The R-waves were 8.6 mV, pacing impedance 456 ohms, pacing threshold 0.9 V at 0.4 milliseconds. The high-voltage impedance was 68 and 71 ohms respectively. The old generator, [employer] was explanted. The new generator Medtronic was implanted. This was a model number [place] heart failure, model #[id number], serial #[id number]. The leads and generator were then placed in subfascial pocket. The wound was closed in 3 layers and dressed per protocol. External cardioversion was performed to convert the patient to sinus rhythm. A 360 joule shock was used to convert the patient to sinus rhythm. RESULTS: 1. Successful upgrade to a biventricular ICD system with LV lead in the posterolateral vein. 2. Electrical cardioversion for atrial fibrillation. PLAN: 1. Switch to long-acting metoprolol mg p.o. daily. 2. Reduce Imdur to 30 mg p.o. daily. Continue benazepril, continue spironolactone, continue Coumadin and continue statins. MMODL / IJN: [id number] /
--- NOTE | 2020-08-25 13:05 | XR ---
EXAMINATION TYPE: XR chest 1V portable DATE OF EXAM: 08/25/2020 COMPARISON: 03/28/2018 INDICATION: Lead placement check TECHNIQUE: Single frontal view of the chest is obtained. FINDINGS: The heart size is enlarged. The pulmonary vasculature is normal. The lungs are clear. Assessment overlies left chest IMPRESSION: 1. No acute pulmonary process.
--- NOTE | 2020-08-25 16:59 | CT ---
EXAMINATION TYPE: CT brain wo con DATE OF EXAM: 08/25/2020 HISTORY: Altered mental status post ICD placement and cardioversion. CT DLP: 1255 mGycm. Automated Exposure Control for Dose Reduction was Utilized. TECHNIQUE: CT scan of the head is performed without contrast. COMPARISON: CT brain February 12, 2020. FINDINGS: There is no acute intracranial hemorrhage or midline shift identified. There is mild-to-m oderate diffuse ventricular and sulcal prominence consistent with diffuse age-related cerebral atroph y. There is mild low-attenuation in the periventricular white matter consistent with chronic small v essel ischemic change. Right occipital partially calcified soft tissue 2.7 cm lesion likely reflects benign dermatologic lesion axial image 18 series 6 was partially imaged on prior. Persistent opacifi ed visualized portion of right maxillary sinus. The globes are intact and the visualized sinuses othe rwise are clear. Cerumen in the bilateral external auditory canals is redemonstrated. IMPRESSION: No acute intracranial hemorrhage or midline shift. There is mild to moderate diffuse ag e-related cerebral atrophy and mild chronic small vessel ischemic change redemonstrated. No signific ant change from prior CT.
[2020-08-25 17:02] LABS: Glucose,Whole Blood 125 mg/dL (75-99)
[2020-08-25] MEDS ORDERED: WARFARIN 2 MG TAB PO ONE (18:00)
[2020-08-25] MEDS ORDERED: ATORVASTATIN 20 MG TAB PO SCH (21:00)
[2020-08-25] MEDS ORDERED: lisinopriL 20 MG TAB PO SCH (21:00)
[2020-08-26 06:04] LABS: INR 4.4 (<1.2)
[2020-08-26] MEDS: SODIUM CHLORIDE 0.9% 1,000 ML IV SCH ×2 (06:22→06:23)
[2020-08-26] MEDS ORDERED: LEVOTHYROXINE 25 MCG TAB PO SCH (06:30)
[2020-08-26 07:44] VITALS: BP 112/71; PULSE 81; RESP 16; TEMP 98.3
[2020-08-26] MEDS ORDERED: FUROSEMIDE 40 MG TAB PO SCH (09:00)
[2020-08-26] MEDS ORDERED: WARFARIN 2.5 MG TAB PO SCH (09:00)
[2020-08-26] MEDS ORDERED: SPIRONOLACTONE 25 MG TAB PO SCH (09:00)
--- NOTE | 2020-08-26 11:00 | DS ---
DISCHARGE SUMMARY Sai Porras is a 80-year-old male patient who has severe ischemic cardiomyopathy, wide QRS of greater than 157 milliseconds with severe congestive heart failure, who underwent upgrade to a biventricular ICD. He had a very tortuous coronary sinus. Right at the coronary sinus ostium the vein of Rickey took of at the ostium itself. The main coronary body was extremely tortuous and within a cm or so new posterolateral branch which was once again very tortuous, almost like a pigtail spring. However, we were able to successfully cannulate this posterolateral vein and place the lead in a very stable position. This was a screw-in Medtronic lead. He was upgraded to a biventricular ICD. Postoperatively, it took a very long time for him to wake up. Yesterday, when I evaluated him in the evening. We planned to discharge him the same day, but he was barely moving his legs and he was not alert and oriented at all. Therefore, we kept him overnight. He received IV antibiotics. We did a CT of his head which did not show any masses or bleeding. His INR was 3.2. He had undergone electrical cardioversion also for atrial fibrillation right after the procedure. This morning, he is very alert and joking around and is moving all his extremities and his power seems to be quite reasonable, but he is lying and very difficult to get out of bed even with help, but his mental status is improved significantly and he is moving all his 4 extremities, although his speech is still a little slow, but mentally he is quite sharp. He remembered his 's middle name. He talked about a TV show which he watched and a character who looked exactly like me. He thinks it is lunchtime though. The ICD site has healed well. There is minimal soakage. No hematoma. Heart sounds are normal and soft. Lungs are clear. He looks comfortable. He has no respiratory distress. Blood pressure is 108/74 mmHg, pulse rate is in the 80s and he is afebrile 97.4 degrees Fahrenheit, respirations are normal. IMPRESSION: 1. Severe congestive heart failure secondary to severe ischemic cardiomyopathy with a wide QRS of greater than 157 milliseconds and persistent atrial fibrillation. 2. Successful upgrade to a biventricular ICD. 3. Successful electrical cardioversion. PLAN: 1. Reduce Imdur to 30 mg p.o. daily. 2. Change metoprolol tartrate to metoprolol succinate 100 mg twice daily. 3. Continue Coumadin. 4. Continue all other cardiac and heart failure medications. 5. Today his INR is 4.2. He received a few doses of Kefzol. We will hold his Coumadin. 6. The plan today is to see if we can send him home and we will get physical therapy for assistance with ambulation using a walker. We will get the wastewater project manager and the nursing home social worker involved to see if we can get him some home health so we can get him home safely today. 7. If he does not perform well towards the afternoon and is unable to get up and stand with the help of a walker then we will keep him here until he is safe to do so. PREETHI / TIKA: [id number] /
[2020-08-26] MEDS ORDERED: WARFARIN 0.5 MG TAB PO ONE (18:00)
== END 2020-08-26 15:25 ==
LOC: CATHEP 06:07 → 6NMEDSUR 10:06 → CATHEP 08-26 15:25
PROVIDERS: ATTEND Internal Medicine Clinical Cardiac Electrophysiology
DX: Z45.02 Encounter for adjustment and management of automatic implantable cardiac defibrillator (principal); I86.8 Varicose veins of other specified sites; I25.5 Ischemic cardiomyopathy; I11.0 Hypertensive heart disease with heart failure; I50.9 Heart failure, unspecified; I48.19 Other persistent atrial fibrillation; I45.10 Unspecified right bundle-branch block; E11.9 Type 2 diabetes mellitus without complications; I25.10 Atherosclerotic heart disease of native coronary artery without angina pectoris; Z87.891 Personal history of nicotine dependence; Z95.1 Presence of aortocoronary bypass graft; Z79.899 Other long term (current) drug therapy; K21.9 Gastro-esophageal reflux disease without esophagitis; E78.5 Hyperlipidemia, unspecified; R41.3 Other amnesia; I25.2 Old myocardial infarction; N42.9 Disorder of prostate, unspecified; E07.9 Disorder of thyroid, unspecified; G20 Parkinson's disease; R44.2 Other hallucinations; H26.9 Unspecified cataract; Z95.5 Presence of coronary angioplasty implant and graft; Z98.42 Cataract extraction status, left eye; Z86.2 Personal history of diseases of the blood and blood-forming organs and certain disorders involving the immune mechanism; Z95.0 Presence of cardiac pacemaker; Z82.69 Family history of other diseases of the musculoskeletal system and connective tissue; M10.9 Gout, unspecified; G31.83 Neurocognitive disorder with Lewy bodies; F02.80 Dementia in other diseases classified elsewhere, unspecified severity, without behavioral disturbance, psychotic disturbance, mood disturbance, and anxiety; Z79.01 Long term (current) use of anticoagulants; Z79.84 Long term (current) use of oral hypoglycemic drugs; Z79.890 Hormone replacement therapy; Z98.890 Other specified postprocedural states
CPT/HCPCS: 97162; 97166; 92960; 33225; 33264; 85025; 85610 ×2; 87635; 71045; 70450; C1769 ×4; C1882; C1730; C1887; C1892; J0690 ×2; J2001; J0131

== ENCOUNTER 2020-08-28 08:28 | Emergency (ER) | payer MEDICARE ==
[2020-08-28 08:34] LABS: Glucose,Whole Blood 81 mg/dL (75-99)
[2020-08-28 08:36] VITALS: RESP 18; TEMP 97.9
[2020-08-28 08:44] LABS: Basophils % (A) 0 %; Eosinophils # (A) 0.1 k/uL (0-0.7); Eosinophils % (A) 2 %; HCT 40.5 % (39.0-53.0); HGB 13.2 gm/dL (13.0-17.5); Hypochromasia Moderate; Lymphocytes # (A) 1.4 k/uL (1.0-4.8); Lymphocytes % (A) 17 %; MCH 34.7 pg (25.0-35.0); MCHC 32.7 g/dL (31.0-37.0); MCV 106.4 fL (80.0-100.0); Macrocytosis Moderate; Mean Platelet Volume 7.4; Monocytes # (A) 0.5 k/uL (0-1.0); Monocytes % (A) 6 %; Neutrophils # (A) 6.2 k/uL (1.3-7.7); Neutrophils % (A) 73 %; Platelet Count 187 k/uL (150-450); RBC 3.81 m/uL (4.30-5.90); RDW 15.1 % (11.5-15.5); WBC 8.5 k/uL (3.8-10.6)
--- NOTE | 2020-08-28 08:55 | ED ---
General Adult HPI - General Chief complaint: Altered Mental Status Stated complaint: AMS Time Seen by Provider: 08/28/20 08:32 Source: patient, family, EMS, RN notes reviewed, old records reviewed Mode of arrival: EMS Limitations: no limitations - History of Present Illness Initial comments: 80-year-old male brought in by paramedics from retirement for an episode of unresponsiveness. Patient has been at the retirement for 2 days. He was discharged from this facility after a pacemaker replacement. He was unable to ambulate secondary to generalized weakness and was transferred to retirement for rehabilitation. Patient was poorly found by staff to have decreased level of consciousness morning. He was transported with stable vitals with the exception of some hypoxia in the 80s which was easily corrected with nasal cannula. There's been no reported fever. I did obtain additional history from the patient's was at bedside indicating that he is now a morning person and usually does not wake up well until lunchtime. He had left the hospital unable to ambulate and is essentially at his baseline at the time of my evaluation. Speech is baseline and he has had a decline in function recently. - Related Data Home Medications Medication Instructions Recorded Confirmed Atorvastatin [Lipitor] 20 mg PO HS 08/19/17 08/28/20 Famotidine [Pepcid] 20 mg PO DAILY 08/19/17 08/28/20 Finasteride [Proscar] 5 mg PO HS 08/19/17 08/28/20 Furosemide [Lasix] 40 mg PO DAILY 08/19/17 08/28/20 Multivitamin [Men's Multi-Vitamin] 1 tab PO DAILY 08/19/17 08/28/20 allopurinoL [Zyloprim] 300 mg PO HS 08/19/17 08/28/20 glipiZIDE [Glucotrol] 2.5 mg PO BID 08/19/17 08/28/20 Warfarin [Coumadin] 5 mg PO DAILY 03/27/18 08/28/20 QUEtiapine [SEROquel] 50 mg PO HS 08/10/20 08/28/20 rOPINIRole HCL [Requip] 0.25 mg PO HS 08/11/20 08/28/20 Benazepril HCl 20 mg PO HS@199908/22/20 08/28/20 Levothyroxine Sodium 25 mcg PO HS 08/22/20 08/28/20 bisacodyL [Dulcolax] 5 mg PO DAILY PRN 08/22/20 08/28/20 Metoprolol Succinate (ER) [Toprol 100 mg PO BID@0800,199908/28/20 08/28/20 XL] Previous Rx's Medication Instructions Recorded Spironolactone [Aldactone] 25 mg PO DAILY #90 tablet 08/15/20 Isosorbide Mononitrate ER [Imdur] 30 mg PO DAILY #90 tab 08/25/20 Allergies Allergy/AdvReac Type Severity Reaction Status Date / Time No Known Allergies Allergy Verified 08/28/20 10:01 Review of Systems ROS Statement: Those systems with pertinent positive or pertinent negative responses have been documented in the HPI. ROS Other: All systems not noted in ROS Statement are negative. 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 large BULLOUS DIABETICORUM fluid sac rt leg 11/2013-burst and now resolved, SEE DR GUTIERREZ'S HISTORY AND PHYSICAL FOR CARDIAC HISTORY, CATARACT RIGHT EYE. lewy body dementia with parkinsons recently increase upper body movement especially at night Last Myocardial Infarction Date:: 1992 History of Any Multi-Drug Resistant Organisms: None Reported Past Surgical History: AICD, Heart Catheterization With Stent, Pacemaker Additional Past Surgical History / Comment(s): SEVERAL CARDIOVERSIONS. LT CATARACT REMOVED Past Anesthesia/Blood Transfusion Reactions: No Reported Reaction Date of Last Stent Placement:: 1992 Type of Cardiac Device: Permanent Pacemaker, AICD Device Placement Date:: 03/2010 Past Psychological History: Anxiety Smoking Status: Former smoker Past Alcohol Use History: Rare Past Drug Use History: None Reported - Past Family History Mother Additional Family Medical History / Comment(s): SEVERE LEG EDEMA General Exam Limitations: no limitations General appearance: alert, in no apparent distress Head exam: Present: atraumatic, normocephalic Eye exam: Present: normal appearance, PERRL ENT exam: Present: normal exam Neck exam: Present: normal inspection. Absent: tenderness, meningismus Respiratory exam: Present: decreased breath sounds, other (Mild tachypnea, pacemaker site is clean dry and intact). Absent: respiratory distress, wheezes Cardiovascular Exam: Present: regular rate, normal rhythm GI/Abdominal exam: Present: soft. Absent: distended, tenderness, guarding Extremities exam: Present: normal inspection, normal capillary refill. Absent: pedal edema, calf tenderness Neurological exam: Present: alert, CN II-XII intact. Absent: oriented X3 (2), motor sensory deficit (No focal findings) Psychiatric exam: Present: normal affect, normal mood Skin exam: Present: warm, dry, intact, pallor Course Vital Signs 08/28/20 08/28/20 08/28/20 08:30 08:36 09:39 Temperature 97.9 F Pulse Rate 78 80 Respiratory 18 18 Rate Blood Pressure 96/66 93/62 O2 Sat by Pulse 89 L 98 98 Oximetry 08/28/20 10:04 Temperature Pulse Rate 80 Respiratory 18 Rate Blood Pressure 93/59 O2 Sat by Pulse 90 L Oximetry EKG Findings - EKG Comments: EKG Findings:: EKG: Paced rhythm, biventricular pacer, rate of 88, QRS duration 144, QTC [address] segment elevation. Medical Decision Making - Medical Decision Making 72-year-old male with multiple chronic medical conditions including dementia, Parkinson's, ischemic cardiomyopathy and CHF presenting with an episode of altered mental status. is at bedside and does state this is baseline for the patient especially in the morning. He is new to the retirement and staff were not familiar with his baseline mental status. I did perform workup including CT brain which is negative for intracranial hemorrhage or mass effect. Chest x-ray showing pulmonary vascular congestion. He has stable labs otherwise including CBC, CMP showing some chronic kidney disease which is baseline for this patient. Additionally he has an elevated INR, will hold Coumadin. Urinalysis negative, coronavirus negative. I did discuss possibility of admission versus back to retirement and at this point patient and spouse prefer retirement for rehabilitation. - Lab Data Result diagrams: 08/28/20 08:30 08/28/20 08:30 Lab Results 08/28/20 08/28/20 08/28/20 Range/Units 08:00 08:30 08:30 WBC 8.5 (3.8-10.6) k/uL RBC 3.81 L (4.30-5.90) m/uL Hgb 13.2 (13.0-17.5) gm/dL Hct 40.5 (39.0-53.0) % MCV 106.4 H (80.0-100.0) fL MCH 34.7 (25.0-35.0) pg MCHC 32.7 (31.0-37.0) g/dL RDW 15.1 (11.5-15.5) % Plt Count 187 (150-450) k/uL MPV 7.4 Neutrophils % 73 % Lymphocytes % 17 % Monocytes % 6 % Eosinophils % 2 % Basophils % 0 % Neutrophils # 6.2 (1.3-7.7) k/uL Lymphocytes # 1.4 (1.0-4.8) k/uL Monocytes # 0.5 (0-1.0) k/uL Eosinophils # 0.1 (0-0.7) k/uL Basophils # 0.0 (0-0.2) k/uL Hypochromasia Moderate Macrocytosis Moderate PT 36.1 H (9.0-12.0) sec INR 3.8 H (<1.2) APTT 36.4 H (22.0-30.0) sec Sodium (137-145) mmol/L Potassium (3.5-5.1) mmol/L Chloride (98-107) mmol/L Carbon Dioxide (22-30) mmol/L Anion Gap mmol/L BUN (9-20) mg/dL Creatinine (0.66-1.25) mg/dL Est GFR (CKD-EPI)AfAm (>60 ml/min/1.73 sqM) Est GFR (CKD-EPI)NonAf (>60 ml/min/1.73 sqM) Glucose (74-99) mg/dL POC Glucose (mg/dL) (75-99) mg/dL POC Glu Digital Photographer ID Calcium (8.4-10.2) mg/dL Total Bilirubin (0.2-1.3) mg/dL AST (17-59) U/L ALT (4-49) U/L Alkaline Phosphatase (38-126) U/L Total Protein (6.3-8.2) g/dL Albumin (3.5-5.0) g/dL Urine Color Yellow Urine Appearance Clear (Clear) Urine pH 5.0 (5.0-8.0) Ur Specific [place] 1.019 (1.001-1.035) Urine Protein Trace H (Negative) Urine Glucose (UA) Negative (Negative) Urine Ketones Negative (Negative) Urine Blood Negative (Negative) Urine Nitrite Negative (Negative) Urine Bilirubin Negative (Negative) Urine Urobilinogen 2.0 (<2.0) mg/dL Ur Leukocyte Esterase Negative (Negative) Coronavirus (PCR) (Not Detectd) 08/28/20 08/28/20 08/28/20 Range/Units 08:30 08:32 08:47 WBC (3.8-10.6) k/uL RBC (4.30-5.90) m/uL Hgb (13.0-17.5) gm/dL Hct (39.0-53.0) % MCV (80.0-100.0) fL MCH (25.0-35.0) pg MCHC (31.0-37.0) g/dL RDW (11.5-15.5) % Plt Count (150-450) k/uL MPV Neutrophils % % Lymphocytes % % Monocytes % % Eosinophils % % Basophils % % Neutrophils # (1.3-7.7) k/uL Lymphocytes # (1.0-4.8) k/uL Monocytes # (0-1.0) k/uL Eosinophils # (0-0.7) k/uL Basophils # (0-0.2) k/uL Hypochromasia Macrocytosis PT (9.0-12.0) sec INR (<1.2) APTT (22.0-30.0) sec Sodium 143 (137-145) mmol/L Potassium 3.6 (3.5-5.1) mmol/L Chloride 101 (98-107) mmol/L Carbon Dioxide 36 H (22-30) mmol/L Anion Gap 6 mmol/L BUN 39 H (9-20) mg/dL Creatinine 1.44 H (0.66-1.25) mg/dL Est GFR (CKD-EPI)AfAm 53 (>60 ml/min/1.73 sqM) Est GFR (CKD-EPI)NonAf 46 (>60 ml/min/1.73 sqM) Glucose 89 (74-99) mg/dL POC Glucose (mg/dL) 81 (75-99) mg/dL POC Glu Digital Photographer ID Freddie Parra Calcium 8.3 L (8.4-10.2) mg/dL Total Bilirubin 1.8 H (0.2-1.3) mg/dL AST 38 (17-59) U/L ALT <6 (4-49) U/L Alkaline Phosphatase 72 (38-126) U/L Total Protein 5.6 L (6.3-8.2) g/dL Albumin 3.0 L (3.5-5.0) g/dL Urine Color Urine Appearance (Clear) Urine pH (5.0-8.0) Ur Specific [place] (1.001-1.035) Urine Protein (Negative) Urine Glucose (UA) (Negative) Urine Ketones (Negative) Urine Blood (Negative) Urine Nitrite (Negative) Urine Bilirubin (Negative) Urine Urobilinogen (<2.0) mg/dL Ur Leukocyte Esterase (Negative) Coronavirus (PCR) Not Detected (Not Detectd) Disposition Clinical Impression: Dementia, Altered mental status Disposition: HOME SELF-CARE Condition: Fair Instructions (If sedation given, give patient instructions): Altered Mental Status (ED) Is patient prescribed a controlled substance at d/c from ED?: No Referrals: Chris Mares MD [Primary Care Provider] - 1-2 days Time of Disposition: 10:20
[2020-08-28 08:57] LABS: INR 3.8 (<1.2); Partial Thromboplastin Time 36.4 sec (22.0-30.0); Prothrombin Time 36.1 sec (9.0-12.0)
[2020-08-28 08:58] LABS: Appearance,Urine Clear (Clear); Bilirubin,Urine Negative (Negative); Blood,Urine Negative (Negative); Color,Urine Yellow; Glucose,Urine (UA) Negative (Negative); Ketones,Urine Negative (Negative); Leukocyte Esterase,Urine Negative (Negative); Nitrite,Urine Negative (Negative); Protein,Urine Trace (Negative); Specific Gravity,Urine 1.019 (1.001-1.035)
--- NOTE | 2020-08-28 09:12 | XR ---
EXAMINATION TYPE: XR chest 2V DATE OF EXAM: 08/28/2020 COMPARISON: Chest x-ray 3 days ago HISTORY: Weakness and shortness of breath. TECHNIQUE: Frontal and lateral views of the chest are obtained. FINDINGS: There is persistent cardiomegaly with multi lead pacemaker/defibrillator. New Elevated hem idiaphragm with increased gas prominent stomach bubble. Chronic parenchymal changes bilaterally redem onstrated without new suspicious focal airspace opacity, pleural effusion, or pneumothorax seen. Some new mild central vascular congestion is felt present. The osseous structures are intact. IMPRESSION: Cardiomegaly with suspected new mild central vascular congestion, correlate for CHF exac erbation.
[2020-08-28 09:14] LABS: ALT <6 U/L (4-49); AST 38 U/L (17-59); African American GFR (CKD) 53 (>60 ml/min/1.73 sqM); Alkaline Phosphatase 72 U/L (38-126); Blood Urea Nitrogen 39 mg/dL (9-20); Calcium 8.3 mg/dL (8.4-10.2); Chloride 101 mmol/L (98-107); Glucose 89 mg/dL (74-99); Non-African American GFR(CKD) 46 (>60 ml/min/1.73 sqM); Potassium 3.6 mmol/L (3.5-5.1); Sodium 143 mmol/L (137-145); Total Bilirubin 1.8 mg/dL (0.2-1.3); Total Protein 5.6 g/dL (6.3-8.2)
[2020-08-28 09:21] LABS: Anion Gap 6 mmol/L; Carbon Dioxide 36 mmol/L (22-30)
--- NOTE | 2020-08-28 09:27 | CT ---
EXAMINATION TYPE: CT brain wo con DATE OF EXAM: 08/28/2020 HISTORY: Altered mental status CT DLP: 1087.4 mGycm. Automated Exposure Control for Dose Reduction was Utilized. TECHNIQUE: CT scan of the head is performed without contrast. COMPARISON: CT brain 3 days ago. FINDINGS: There is no acute intracranial hemorrhage or midline shift identified. There is mild diff use ventricular and sulcal prominence consistent with diffuse age-related cerebral atrophy. Corea-whit e matter differentiation is maintained. Patchy soft tissue opacity bilateral external auditory canals is felt to reflect cerumen. No significant change from prior. The globes are intact and the visualiz ed sinuses are clear. Persistent calcified right occipital subcutaneous 2.7 cm lesion likely dermat ologic in origin is partially imaged. IMPRESSION: No acute intracranial hemorrhage or midline shift. There is mild diffuse cerebral atrop hy and chronic small vessel ischemic change redemonstrated. No significant change from prior CT.
[2020-08-28 09:40] VITALS: PULSE 80
[2020-08-28 10:06] VITALS: BP 93/59
[2020-08-28] MEDS ORDERED: ACETAMINOPHEN TAB 325 MG TAB PO STA (10:59)
== END 2020-08-28 11:14 | disposition home or self-care (01) ==
LOC: EC 08:28
DX: G20 Parkinson's disease (principal); F02.80 Dementia in other diseases classified elsewhere, unspecified severity, without behavioral disturbance, psychotic disturbance, mood disturbance, and anxiety; R41.82 Altered mental status, unspecified; Z20.822 Contact with and (suspected) exposure to COVID-19; I25.5 Ischemic cardiomyopathy; I11.0 Hypertensive heart disease with heart failure; I10 Essential (primary) hypertension; I25.2 Old myocardial infarction; K21.9 Gastro-esophageal reflux disease without esophagitis; E11.9 Type 2 diabetes mellitus without complications; E78.5 Hyperlipidemia, unspecified; Z79.899 Other long term (current) drug therapy; Z79.890 Hormone replacement therapy; Z79.84 Long term (current) use of oral hypoglycemic drugs; Z79.01 Long term (current) use of anticoagulants; Z95.0 Presence of cardiac pacemaker; Z87.891 Personal history of nicotine dependence; Z95.5 Presence of coronary angioplasty implant and graft
CPT/HCPCS: 36415; 70450; 71046; 80053; 81003; 85025; 85610; 85730; 87635; 93005; 99285

== ENCOUNTER 2020-09-01 10:16 | Inpatient (IN) | payer MEDICARE ==
[2020-09-01 10:26] LABS: Glucose,Whole Blood 98 mg/dL (75-99)
[2020-09-01] MEDS ORDERED: SODIUM CHLORIDE 0.9% 1,000 ML IV ONE (10:32)
[2020-09-01 11:14] LABS: Albumin 2.6 g/dL (3.5-5.0); Potassium 3.8 mmol/L (3.5-5.1); Total Bilirubin 1.1 mg/dL (0.2-1.3)
[2020-09-01 11:20] LABS: INR 1.9 (<1.2); Partial Thromboplastin Time 28.9 sec (22.0-30.0); Prothrombin Time 18.9 sec (9.0-12.0)
[2020-09-01 11:25] LABS: Appearance,Urine Clear (Clear); Bilirubin,Urine Negative (Negative); Blood,Urine Negative (Negative); Color,Urine Yellow; Glucose,Urine (UA) Negative (Negative); Ketones,Urine Negative (Negative); Leukocyte Esterase,Urine Negative (Negative); Nitrite,Urine Negative (Negative); Protein,Urine Trace (Negative); Specific Gravity,Urine 1.017 (1.001-1.035)
--- NOTE | 2020-09-01 11:36 | CT ---
EXAMINATION TYPE: CT brain wo con DATE OF EXAM: 09/01/2020 COMPARISON: 08/28/2020 HISTORY: Post OP Pacer placed 1 week ago. Decreased mental status per patient family CT DLP: 1111.[address] of the brain was performed. The ventricles, basal cisterns and sulci overlying the cerebral convexities demonstrate mild enlargem ent. There is no evidence for intracranial hemorrhage or sulcal effacement. There is decreased attenuation about the periventricular white matter and deep white matter of both c erebral hemispheres, compatible with chronic small vessel ischemia. Differential diagnosis does inclu de demyelination. No mass effects are seen.No midline shift. Osseous calvarium is intact. Complete opacification right maxillary sinus. If symptoms persist consider MRI. IMPRESSION: 1. Age related atrophic and chronic small vessel ischemic change without acute intracranial process s een at this time.
[2020-09-01 11:37] LABS: Basophils % (A) 0 %; Eosinophils # (A) 0.1 k/uL (0-0.7); Eosinophils % (A) 1 %; HCT 39.7 % (39.0-53.0); HGB 12.5 gm/dL (13.0-17.5); Hypochromasia Slight; Lymphocytes # (A) 1.2 k/uL (1.0-4.8); Lymphocytes % (A) 14 %; MCH 33.4 pg (25.0-35.0); MCHC 31.6 g/dL (31.0-37.0); MCV 105.8 fL (80.0-100.0); Macrocytosis Moderate; Mean Platelet Volume 7.3; Monocytes # (A) 0.5 k/uL (0-1.0); Monocytes % (A) 6 %; Neutrophils # (A) 6.5 k/uL (1.3-7.7); Neutrophils % (A) 76 %; Platelet Count 184 k/uL (150-450); RBC 3.75 m/uL (4.30-5.90); RDW 15.8 % (11.5-15.5); WBC 8.5 k/uL (3.8-10.6)
--- NOTE | 2020-09-01 12:09 | ED ---
General Adult HPI - General Chief complaint: Altered Mental Status Stated complaint: Unresponsive Time Seen by Provider: 09/01/20 10:20 Source: EMS Mode of arrival: EMS Limitations: no limitations - History of Present Illness Initial comments: Patient is a 80-year-old male with past medical history of Parkinson's, diabetes, pacemaker placement who comes from [facility] for altered mental status. The staff found the patient slumped over his desk and was not arousable. They were unsure how long the patient had maintained this state. Unknown last known well. Patient was maintained in his vital signs. Respiring on his own however would not respond to painful stimuli. It was reported the patient had an episode like this previously and was seen in the emergency department. Patient arrives and cannot provide history. does present and states that the patient has been more somnolent in the mornings since his recent hospitalization. patient was seen on the for similar complaint. He did wake up after several hours and was able to be transferred back to his facility. She denies any recent medication changes. Patient did recently have his pacemaker changed out. Unknown if the patient had any recent complaints. The remainder of the HPI is limited - Related Data Home Medications Medication Instructions Recorded Confirmed Atorvastatin [Lipitor] 20 mg PO HS 08/19/17 09/01/20 Famotidine [Pepcid] 20 mg PO DAILY@0600 08/19/17 09/01/20 Finasteride [Proscar] 5 mg PO HS 08/19/17 09/01/20 Furosemide [Lasix] 40 mg PO DAILY@0600 08/19/17 09/01/20 allopurinoL [Zyloprim] 300 mg PO HS 08/19/17 09/01/20 glipiZIDE [Glucotrol] 2.5 mg PO BID 08/19/17 09/01/20 Warfarin [Coumadin] 2.5 mg PO DAILY@1600 03/27/18 09/01/20 QUEtiapine [SEROquel] 50 mg PO HS 08/10/20 09/01/20 rOPINIRole HCL [Requip] 0.25 mg PO HS 08/11/20 09/01/20 Levothyroxine Sodium 25 mcg PO HS 08/22/20 09/01/20 bisacodyL [Dulcolax] 5 mg PO DAILY PRN 08/22/20 09/01/20 Metoprolol Succinate (ER) [Toprol 100 mg PO BID@08,199908/28/20 09/01/20 XL] Isosorbide Mononitrate ER [Imdur] 30 mg PO DAILY@0609/01/20 09/01/20 Multivitamins, Thera [Multivitamin 1 tab PO DAILY@0600 09/01/20 09/01/20 (formulary)] Spironolactone [Aldactone] 25 mg PO DAILY@0600 09/01/20 09/01/20 Previous Rx's Medication Instructions Recorded lisinopriL [Zestril] 5 mg PO HS@1999 #30 tab 09/05/20 Allergies Allergy/AdvReac Type Severity Reaction Status Date / Time No Known Allergies Allergy Verified 09/01/20 10:36 Review of Systems ROS Statement: Those systems with pertinent positive or pertinent negative responses have been documented in the HPI. ROS Other: All systems not noted in ROS Statement are negative. 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 large BULLOUS DIABETICORUM fluid sac rt leg 11/2013-burst and now resolved, SEE DR GUTIERREZ'S HISTORY AND PHYSICAL FOR CARDIAC HISTORY, CATARACT RIGHT EYE. lewy body dementia with parkinsons recently increase upper body movement especially at night Last Myocardial Infarction Date:: 1992 History of Any Multi-Drug Resistant Organisms: None Reported Past Surgical History: AICD, Heart Catheterization With Stent, Pacemaker Additional Past Surgical History / Comment(s): SEVERAL CARDIOVERSIONS. LT CATARACT REMOVED Past Anesthesia/Blood Transfusion Reactions: No Reported Reaction Date of Last Stent Placement:: 1992 Type of Cardiac Device: Permanent Pacemaker, AICD Device Placement Date:: 03/2010 Past Psychological History: Anxiety Smoking Status: Former smoker Past Alcohol Use History: Rare Past Drug Use History: None Reported - Past Family History Mother Additional Family Medical History / Comment(s): SEVERE LEG EDEMA General Exam Limitations: altered mental status General appearance: obtunded Head exam: Present: atraumatic, normocephalic, normal inspection Eye exam: Present: normal appearance, PERRL, EOMI. Absent: scleral icterus, conjunctival injection, periorbital swelling ENT exam: Present: normal exam, mucous membranes moist Neck exam: Present: normal inspection. Absent: tenderness, meningismus, lymphadenopathy Respiratory exam: Present: normal lung sounds bilaterally. Absent: respiratory distress, wheezes, rales, rhonchi, stridor Cardiovascular Exam: Present: regular rate, normal rhythm, normal heart sounds. Absent: systolic murmur, diastolic murmur, rubs, gallop, clicks GI/Abdominal exam: Present: soft, normal bowel sounds. Absent: distended, tenderness, guarding, rebound, rigid Neurological exam: Present: altered, other (gag present, facial twitch to light touch but unresposive to painful stimuli, non verbal, will not follow commands) Skin exam: Present: warm, dry, intact, normal color. Absent: rash Course Vital Signs 09/01/20 09/01/20 09/01/20 10:18 10:25 11:25 Temperature 97.6 F Pulse Rate 69 73 Pulse Rate [ Pulse Oximetery ] Respiratory 16 14 Rate Blood Pressure 97/62 107/64 Blood Pressure [Right Arm] O2 Sat by Pulse 92 L 98 95 Oximetry 09/01/20 09/01/20 09/01/20 13:00 14:00 14:21 Temperature 98.5 F Pulse Rate 76 72 Pulse Rate [ 76 Pulse Oximetery ] Respiratory 26 H 24 18 Rate Blood Pressure 97/61 107/78 Blood Pressure 110/60 [Right Arm] O2 Sat by Pulse 100 95 97 Oximetry 09/01/20 09/01/20 09/01/20 15:00 16:00 17:00 Temperature Pulse Rate 74 71 74 Pulse Rate [ 80 Pulse Oximetery ] Respiratory 22 18 25 H Rate Blood Pressure 107/64 104/61 105/63 Blood Pressure 116/61 [Right Arm] O2 Sat by Pulse 94 L 100 Oximetry 09/01/20 09/01/20 09/01/20 18:00 19:00 20:00 Temperature 98.0 F Pulse Rate 68 74 69 Pulse Rate [ Pulse Oximetery ] Respiratory 20 21 11 L Rate Blood Pressure 101/65 108/63 115/76 Blood Pressure [Right Arm] O2 Sat by Pulse 95 98 Oximetry 09/01/20 09/01/20 09/01/20 21:00 22:00 23:00 Temperature 98.1 F Pulse Rate 74 70 73 Pulse Rate [ Pulse Oximetery ] Respiratory 18 17 110 H Rate Blood Pressure 107/74 118/70 Blood Pressure [Right Arm] O2 Sat by Pulse 98 95 Oximetry 09/02/20 09/02/20 09/02/20 01:35 04:00 08:00 Temperature 97.9 F Pulse Rate 74 67 76 Pulse Rate [ Pulse Oximetery ] Respiratory 18 18 Rate Blood Pressure 98/67 94/60 103/60 Blood Pressure [Right Arm] O2 Sat by Pulse 99 100 Oximetry EKG Findings - EKG Comments: EKG Findings:: EKG demonstrates electronic ventricular pacemaker. Rate is 78. QRS 180. QTC of 563. AV pacemaker captures appropriately. Medical Decision Making - Medical Decision Making Upon arrival patient is placed in a trauma 2. There are history of physical exa m was performed. Patient is respiring on his own. Vital signs are stable. Patient does have a gag reflex does respond to light touch. He will not open his eyes or follow any commands. Laboratory studies were conducted patient went for CT of his head as he is on Coumadin. INR subtherapeutic at 1.9. Creatinine 1.8. Troponin 0.401. CT demonstrates age-related atrophic and chronic small vessel ischemic change. I did discuss results with the . Patient does continue to improve however remains with his eyes closed. He will moan, move his arms spontaneously liver does not regained his full baseline consciousness. Because of this I did recommend admission. I spoke with Dr. Mares who accepted. Placed neurology on consult. Cardiology also consulted as patient does have appointment with Dr. Coffey today. Patient awaiting a bed on the floor - Lab Data Result diagrams: 09/05/20 08:55 09/05/20 08:55 Lab Results 09/01/20 09/01/20 09/01/20 Range/Units 10:21 10:35 10:35 WBC 8.5 (3.8-10.6) k/uL RBC 3.75 L (4.30-5.90) m/uL Hgb 12.5 L (13.0-17.5) gm/dL Hct 39.7 (39.0-53.0) % MCV 105.8 H (80.0-100.0) fL MCH 33.4 (25.0-35.0) pg MCHC 31.6 (31.0-37.0) g/dL RDW 15.8 H (11.5-15.5) % Plt Count 184 (150-450) k/uL MPV 7.3 Neutrophils % 76 % Neutrophils % (Manual) % Band Neuts % (Manual) % Lymphocytes % 14 % Lymphocytes % (Manual) % Monocytes % 6 % Monocytes % (Manual) % Eosinophils % 1 % Eosinophils % (Manual) % Basophils % 0 % Basophils % (Manual) % Neutrophils # 6.5 (1.3-7.7) k/uL Neutrophils # (Manual) (1.3-7.7) k/uL Lymphocytes # 1.2 (1.0-4.8) k/uL Lymphocytes # (Manual) (1.0-4.8) k/uL Monocytes # 0.5 (0-1.0) k/uL Monocytes # (Manual) (0-1.0) k/uL Eosinophils # 0.1 (0-0.7) k/uL Eosinophils # (Manual) (0-0.7) k/uL Basophils # 0.0 (0-0.2) k/uL Basophils # (Manual) (0-0.2) k/uL Nucleated RBCs (0-0) /100 WBC Manual Slide Review Hypochromasia Slight Poikilocytosis (manual Macrocytosis Moderate PT 18.9 H (9.0-12.0) sec INR 1.9 H (<1.2) APTT 28.9 (22.0-30.0) sec Sodium (137-145) mmol/L Potassium (3.5-5.1) mmol/L Chloride (98-107) mmol/L Carbon Dioxide (22-30) mmol/L Anion Gap mmol/L BUN (9-20) mg/dL Creatinine (0.66-1.25) mg/dL Est GFR (CKD-EPI)AfAm (>60 ml/min/1.73 sqM) Est GFR (CKD-EPI)NonAf (>60 ml/min/1.73 sqM) Glucose (74-99) mg/dL POC Glucose (mg/dL) 98 (75-99) mg/dL POC Glu Floor Person Jayashree Cornell Estimated Ave Glu mg/dL Hemoglobin A1c (4.0-6.0) % Calcium (8.4-10.2) mg/dL Total Bilirubin (0.2-1.3) mg/dL AST (17-59) U/L ALT (4-49) U/L Alkaline Phosphatase (38-126) U/L Ammonia (<30) umol/L Creatine Kinase (55-170) U/L Troponin I (0.000-0.034) ng/mL Total Protein (6.3-8.2) g/dL Albumin (3.5-5.0) g/dL Urine Color Urine Appearance (Clear) Urine pH (5.0-8.0) Ur Specific [place] (1.001-1.035) Urine Protein (Negative) Urine Glucose (UA) (Negative) Urine Ketones (Negative) Urine Blood (Negative) Urine Nitrite (Negative) Urine Bilirubin (Negative) Urine Urobilinogen (<2.0) mg/dL Ur Leukocyte Esterase (Negative) Coronavirus (PCR) (Not Detectd) 09/01/20 09/01/20 09/01/20 Range/Units 10:35 10:35 10:35 WBC (3.8-10.6) k/uL RBC (4.30-5.90) m/uL Hgb (13.0-17.5) gm/dL Hct (39.0-53.0) % MCV (80.0-100.0) fL MCH (25.0-35.0) pg MCHC (31.0-37.0) g/dL RDW (11.5-15.5) % Plt Count (150-450) k/uL MPV Neutrophils % % Neutrophils % (Manual) % Band Neuts % (Manual) % Lymphocytes % % Lymphocytes % (Manual) % Monocytes % % Monocytes % (Manual) % Eosinophils % % Eosinophils % (Manual) % Basophils % % Basophils % (Manual) % Neutrophils # (1.3-7.7) k/uL Neutrophils # (Manual) (1.3-7.7) k/uL Lymphocytes # (1.0-4.8) k/uL Lymphocytes # (Manual) (1.0-4.8) k/uL Monocytes # (0-1.0) k/uL Monocytes # (Manual) (0-1.0) k/uL Eosinophils # (0-0.7) k/uL Eosinophils # (Manual) (0-0.7) k/uL Basophils # (0-0.2) k/uL Basophils # (Manual) (0-0.2) k/uL Nucleated RBCs (0-0) /100 WBC Manual Slide Review Hypochromasia Poikilocytosis (manual Macrocytosis PT (9.0-12.0) sec INR (<1.2) APTT (22.0-30.0) sec Sodium 140 (137-145) mmol/L Potassium 3.8 (3.5-5.1) mmol/L Chloride 103 (98-107) mmol/L Carbon Dioxide 33 H (22-30) mmol/L Anion Gap 4 mmol/L BUN 79 H (9-20) mg/dL Creatinine 1.84 H (0.66-1.25) mg/dL Est GFR (CKD-EPI)AfAm 40 (>60 ml/min/1.73 sqM) Est GFR (CKD-EPI)NonAf 34 (>60 ml/min/1.73 sqM) Glucose 94 (74-99) mg/dL POC Glucose (mg/dL) (75-99) mg/dL POC Glu Floor Person ID Estimated Ave Glu mg/dL Hemoglobin A1c (4.0-6.0) % Calcium 8.0 L (8.4-10.2) mg/dL Total Bilirubin 1.1 (0.2-1.3) mg/dL AST 27 (17-59) U/L ALT 6 (4-49) U/L Alkaline Phosphatase 66 (38-126) U/L Ammonia 25 (<30) umol/L Creatine Kinase 54 L (55-170) U/L Troponin I 0.401 H* (0.000-0.034) ng/mL Total Protein 5.0 L (6.3-8.2) g/dL Albumin 2.6 L (3.5-5.0) g/dL Urine Color Urine Appearance (Clear) Urine pH (5.0-8.0) Ur Specific [place] (1.001-1.035) Urine Protein (Negative) Urine Glucose (UA) (Negative) Urine Ketones (Negative) Urine Blood (Negative) Urine Nitrite (Negative) Urine Bilirubin (Negative) Urine Urobilinogen (<2.0) mg/dL Ur Leukocyte Esterase (Negative) Coronavirus (PCR) (Not Detectd) 09/01/20 09/01/20 09/01/20 Range/Units 11:07 13:16 16:41 WBC (3.8-10.6) k/uL RBC (4.30-5.90) m/uL Hgb (13.0-17.5) gm/dL Hct (39.0-53.0) % MCV (80.0-100.0) fL MCH (25.0-35.0) pg MCHC (31.0-37.0) g/dL RDW (11.5-15.5) % Plt Count (150-450) k/uL MPV Neutrophils % % Neutrophils % (Manual) % Band Neuts % (Manual) % Lymphocytes % % Lymphocytes % (Manual) % Monocytes % % Monocytes % (Manual) % Eosinophils % % Eosinophils % (Manual) % Basophils % % Basophils % (Manual) % Neutrophils # (1.3-7.7) k/uL Neutrophils # (Manual) (1.3-7.7) k/uL Lymphocytes # (1.0-4.8) k/uL Lymphocytes # (Manual) (1.0-4.8) k/uL Monocytes # (0-1.0) k/uL Monocytes # (Manual) (0-1.0) k/uL Eosinophils # (0-0.7) k/uL Eosinophils # (Manual) (0-0.7) k/uL Basophils # (0-0.2) k/uL Basophils # (Manual) (0-0.2) k/uL Nucleated RBCs (0-0) /100 WBC Manual Slide Review Hypochromasia Poikilocytosis (manual Macrocytosis PT (9.0-12.0) sec INR (<1.2) APTT (22.0-30.0) sec Sodium (137-145) mmol/L Potassium (3.5-5.1) mmol/L Chloride (98-107) mmol/L Carbon Dioxide (22-30) mmol/L Anion Gap mmol/L BUN (9-20) mg/dL Creatinine (0.66-1.25) mg/dL Est GFR (CKD-EPI)AfAm (>60 ml/min/1.73 sqM) Est GFR (CKD-EPI)NonAf (>60 ml/min/1.73 sqM) Glucose (74-99) mg/dL POC Glucose (mg/dL) (75-99) mg/dL POC Glu Floor Person ID Estimated Ave Glu mg/dL Hemoglobin A1c (4.0-6.0) % Calcium (8.4-10.2) mg/dL Total Bilirubin (0.2-1.3) mg/dL AST (17-59) U/L ALT (4-49) U/L Alkaline Phosphatase (38-126) U/L Ammonia (<30) umol/L Creatine Kinase (55-170) U/L Troponin I 0.288 H* (0.000-0.034) ng/mL Total Protein (6.3-8.2) g/dL Albumin (3.5-5.0) g/dL Urine Color Yellow Urine Appearance Clear (Clear) Urine pH 5.0 (5.0-8.0) Ur Specific [place] 1.017 (1.001-1.035) Urine Protein Trace H (Negative) Urine Glucose (UA) Negative (Negative) Urine Ketones Negative (Negative) Urine Blood Negative (Negative) Urine Nitrite Negative (Negative) Urine Bilirubin Negative (Negative) Urine Urobilinogen 3.0 (<2.0) mg/dL Ur Leukocyte Esterase Negative (Negative) Coronavirus (PCR) Not Detected (Not Detectd) 09/01/20 09/02/20 09/02/20 Range/Units 22:40 10:32 10:32 WBC 8.7 (3.8-10.6) k/uL RBC 3.71 L (4.30-5.90) m/uL Hgb 12.1 L (13.0-17.5) gm/dL Hct 40.3 (39.0-53.0) % MCV 108.7 H (80.0-100.0) fL MCH 32.8 (25.0-35.0) pg MCHC 30.1 L (31.0-37.0) g/dL RDW 15.6 H (11.5-15.5) % Plt Count 209 (150-450) k/uL MPV 7.4 Neutrophils % 67 % Neutrophils % (Manual) % Band Neuts % (Manual) % Lymphocytes % 22 % Lymphocytes % (Manual) % Monocytes % 6 % Monocytes % (Manual) % Eosinophils % 2 % Eosinophils % (Manual) % Basophils % 0 % Basophils % (Manual) % Neutrophils # 5.8 (1.3-7.7) k/uL Neutrophils # (Manual) (1.3-7.7) k/uL Lymphocytes # 1.9 (1.0-4.8) k/uL Lymphocytes # (Manual) (1.0-4.8) k/uL Monocytes # 0.5 (0-1.0) k/uL Monocytes # (Manual) (0-1.0) k/uL Eosinophils # 0.2 (0-0.7) k/uL Eosinophils # (Manual) (0-0.7) k/uL Basophils # 0.0 (0-0.2) k/uL Basophils # (Manual) (0-0.2) k/uL Nucleated RBCs (0-0) /100 WBC Manual Slide Review Performed Hypochromasia Moderate Poikilocytosis (manual Present Macrocytosis Marked A PT (9.0-12.0) sec INR (<1.2) APTT (22.0-30.0) sec Sodium 143 (137-145) mmol/L Potassium 3.5 (3.5-5.1) mmol/L Chloride 105 (98-107) mmol/L Carbon Dioxide 34 H (22-30) mmol/L Anion Gap 4 mmol/L BUN 74 H (9-20) mg/dL Creatinine 1.60 H (0.66-1.25) mg/dL Est GFR (CKD-EPI)AfAm 47 (>60 ml/min/1.73 sqM) Est GFR (CKD-EPI)NonAf 41 (>60 ml/min/1.73 sqM) Glucose 81 (74-99) mg/dL POC Glucose (mg/dL) (75-99) mg/dL POC Glu Floor Person ID Estimated Ave Glu mg/dL Hemoglobin A1c (4.0-6.0) % Calcium 8.1 L (8.4-10.2) mg/dL Total Bilirubin (0.2-1.3) mg/dL AST (17-59) U/L ALT (4-49) U/L Alkaline Phosphatase (38-126) U/L Ammonia (<30) umol/L Creatine Kinase (55-170) U/L Troponin I 0.257 H* (0.000-0.034) ng/mL Total Protein (6.3-8.2) g/dL Albumin (3.5-5.0) g/dL Urine Color Urine Appearance (Clear) Urine pH (5.0-8.0) Ur Specific [place] (1.001-1.035) Urine Protein (Negative) Urine Glucose (UA) (Negative) Urine Ketones (Negative) Urine Blood (Negative) Urine Nitrite (Negative) Urine Bilirubin (Negative) Urine Urobilinogen (<2.0) mg/dL Ur Leukocyte Esterase (Negative) Coronavirus (PCR) (Not Detectd) 09/02/20 09/02/20 09/02/20 Range/Units 10:32 14:39 17:05 WBC (3.8-10.6) k/uL RBC (4.30-5.90) m/uL Hgb (13.0-17.5) gm/dL Hct (39.0-53.0) % MCV (80.0-100.0) fL MCH (25.0-35.0) pg MCHC (31.0-37.0) g/dL RDW (11.5-15.5) % Plt Count (150-450) k/uL MPV Neutrophils % % Neutrophils % (Manual) % Band Neuts % (Manual) % Lymphocytes % % Lymphocytes % (Manual) % Monocytes % % Monocytes % (Manual) % Eosinophils % % Eosinophils % (Manual) % Basophils % % Basophils % (Manual) % Neutrophils # (1.3-7.7) k/uL Neutrophils # (Manual) (1.3-7.7) k/uL Lymphocytes # (1.0-4.8) k/uL Lymphocytes # (Manual) (1.0-4.8) k/uL Monocytes # (0-1.0) k/uL Monocytes # (Manual) (0-1.0) k/uL Eosinophils # (0-0.7) k/uL Eosinophils # (Manual) (0-0.7) k/uL Basophils # (0-0.2) k/uL Basophils # (Manual) (0-0.2) k/uL Nucleated RBCs (0-0) /100 WBC Manual Slide Review Hypochromasia Poikilocytosis (manual Macrocytosis PT 18.2 H (9.0-12.0) sec INR 1.8 H (<1.2) APTT (22.0-30.0) sec Sodium (137-145) mmol/L Potassium (3.5-5.1) mmol/L Chloride (98-107) mmol/L Carbon Dioxide (22-30) mmol/L Anion Gap mmol/L BUN (9-20) mg/dL Creatinine (0.66-1.25) mg/dL Est GFR (CKD-EPI)AfAm (>60 ml/min/1.73 sqM) Est GFR (CKD-EPI)NonAf (>60 ml/min/1.73 sqM) Glucose (74-99) mg/dL POC Glucose (mg/dL) 89 100 H (75-99) mg/dL POC Glu Floor Person CUONG Lucero Ivon Gupta Jasmin [address] Glu mg/dL Hemoglobin A1c (4.0-6.0) % Calcium (8.4-10.2) mg/dL Total Bilirubin (0.2-1.3) mg/dL AST (17-59) U/L ALT (4-49) U/L Alkaline Phosphatase (38-126) U/L Ammonia (<30) umol/L Creatine Kinase (55-170) U/L Troponin I (0.000-0.034) ng/mL Total Protein (6.3-8.2) g/dL Albumin (3.5-5.0) g/dL Urine Color Urine Appearance (Clear) Urine pH (5.0-8.0) Ur Specific [place] (1.001-1.035) Urine Protein (Negative) Urine Glucose (UA) (Negative) Urine Ketones (Negative) Urine Blood (Negative) Urine Nitrite (Negative) Urine Bilirubin (Negative) Urine Urobilinogen (<2.0) mg/dL Ur Leukocyte Esterase (Negative) Coronavirus (PCR) (Not Detectd) 09/02/20 09/03/20 09/03/20 Range/Units 20:30 06:59 08:32 WBC (3.8-10.6) k/uL RBC (4.30-5.90) m/uL Hgb (13.0-17.5) gm/dL Hct (39.0-53.0) % MCV (80.0-100.0) fL MCH (25.0-35.0) pg MCHC (31.0-37.0) g/dL RDW (11.5-15.5) % Plt Count (150-450) k/uL MPV Neutrophils % % Neutrophils % (Manual) % Band Neuts % (Manual) % Lymphocytes % % Lymphocytes % (Manual) % Monocytes % % Monocytes % (Manual) % Eosinophils % % Eosinophils % (Manual) % Basophils % % Basophils % (Manual) % Neutrophils # (1.3-7.7) k/uL Neutrophils # (Manual) (1.3-7.7) k/uL Lymphocytes # (1.0-4.8) k/uL Lymphocytes # (Manual) (1.0-4.8) k/uL Monocytes # (0-1.0) k/uL Monocytes # (Manual) (0-1.0) k/uL Eosinophils # (0-0.7) k/uL Eosinophils # (Manual) (0-0.7) k/uL Basophils # (0-0.2) k/uL Basophils # (Manual) (0-0.2) k/uL Nucleated RBCs (0-0) /100 WBC Manual Slide Review Hypochromasia Poikilocytosis (manual Macrocytosis PT 19.0 H (9.0-12.0) sec INR 1.9 H (<1.2) APTT (22.0-30.0) sec Sodium (137-145) mmol/L Potassium (3.5-5.1) mmol/L Chloride (98-107) mmol/L Carbon Dioxide (22-30) mmol/L Anion Gap mmol/L BUN (9-20) mg/dL Creatinine (0.66-1.25) mg/dL Est GFR (CKD-EPI)AfAm (>60 ml/min/1.73 sqM) Est GFR (CKD-EPI)NonAf (>60 ml/min/1.73 sqM) Glucose (74-99) mg/dL POC Glucose (mg/dL) 88 81 (75-99) mg/dL POC Glu Floor Person Jaspal Lynn Hannah [address] Glu mg/dL Hemoglobin A1c (4.0-6.0) % Calcium (8.4-10.2) mg/dL Total Bilirubin (0.2-1.3) mg/dL AST (17-59) U/L ALT (4-49) U/L Alkaline Phosphatase (38-126) U/L Ammonia (<30) umol/L Creatine Kinase (55-170) U/L Troponin I (0.000-0.034) ng/mL Total Protein (6.3-8.2) g/dL Albumin (3.5-5.0) g/dL Urine Color Urine Appearance (Clear) Urine pH (5.0-8.0) Ur Specific [place] (1.001-1.035) Urine Protein (Negative) Urine Glucose (UA) (Negative) Urine Ketones (Negative) Urine Blood (Negative) Urine Nitrite (Negative) Urine Bilirubin (Negative) Urine Urobilinogen (<2.0) mg/dL Ur Leukocyte Esterase (Negative) Coronavirus (PCR) (Not Detectd) 09/03/20 09/03/20 09/03/20 Range/Units 08:32 08:32 08:32 WBC 7.4 (3.8-10.6) k/uL RBC 3.79 L (4.30-5.90) m/uL Hgb 12.6 L (13.0-17.5) gm/dL Hct 40.8 (39.0-53.0) % MCV 107.7 H (80.0-100.0) fL MCH 33.1 (25.0-35.0) pg MCHC 30.8 L (31.0-37.0) g/dL RDW 15.4 (11.5-15.5) % Plt Count 176 (150-450) k/uL MPV 7.6 Neutrophils % % Neutrophils % (Manual) % Band Neuts % (Manual) % Lymphocytes % % Lymphocytes % (Manual) % Monocytes % % Monocytes % (Manual) % Eosinophils % % Eosinophils % (Manual) % Basophils % % Basophils % (Manual) % Neutrophils # (1.3-7.7) k/uL Neutrophils # (Manual) (1.3-7.7) k/uL Lymphocytes # (1.0-4.8) k/uL Lymphocytes # (Manual) (1.0-4.8) k/uL Monocytes # (0-1.0) k/uL Monocytes # (Manual) (0-1.0) k/uL Eosinophils # (0-0.7) k/uL Eosinophils # (Manual) (0-0.7) k/uL Basophils # (0-0.2) k/uL Basophils # (Manual) (0-0.2) k/uL Nucleated RBCs (0-0) /100 WBC Manual Slide Review Hypochromasia Moderate Poikilocytosis (manual Macrocytosis Marked A PT (9.0-12.0) sec INR (<1.2) APTT (22.0-30.0) sec Sodium 144 (137-145) mmol/L Potassium 3.6 (3.5-5.1) mmol/L Chloride 107 (98-107) mmol/L Carbon Dioxide 32 H (22-30) mmol/L Anion Gap 5 mmol/L BUN 67 H (9-20) mg/dL Creatinine 1.30 H (0.66-1.25) mg/dL Est GFR (CKD-EPI)AfAm 61 (>60 ml/min/1.73 sqM) Est GFR (CKD-EPI)NonAf 52 (>60 ml/min/1.73 sqM) Glucose 72 L (74-99) mg/dL POC Glucose (mg/dL) (75-99) mg/dL POC Glu Floor Person ID Estimated Ave Glu mg/dL 111 Hemoglobin A1c 5.5 (4.0-6.0) % Calcium 8.2 L (8.4-10.2) mg/dL Total Bilirubin (0.2-1.3) mg/dL AST (17-59) U/L ALT (4-49) U/L Alkaline Phosphatase (38-126) U/L Ammonia (<30) umol/L Creatine Kinase (55-170) U/L Troponin I (0.000-0.034) ng/mL Total Protein (6.3-8.2) g/dL Albumin (3.5-5.0) g/dL Urine Color Urine Appearance (Clear) Urine pH (5.0-8.0) Ur Specific [place] (1.001-1.035) Urine Protein (Negative) Urine Glucose (UA) (Negative) Urine Ketones (Negative) Urine Blood (Negative) Urine Nitrite (Negative) Urine Bilirubin (Negative) Urine Urobilinogen (<2.0) mg/dL Ur Leukocyte Esterase (Negative) Coronavirus (PCR) (Not Detectd) 09/03/20 09/03/20 09/03/20 Range/Units 11:38 12:04 16:40 WBC (3.8-10.6) k/uL RBC (4.30-5.90) m/uL Hgb (13.0-17.5) gm/dL Hct (39.0-53.0) % MCV (80.0-100.0) fL MCH (25.0-35.0) pg MCHC (31.0-37.0) g/dL RDW (11.5-15.5) % Plt Count (150-450) k/uL MPV Neutrophils % % Neutrophils % (Manual) % Band Neuts % (Manual) % Lymphocytes % % Lymphocytes % (Manual) % Monocytes % % Monocytes % (Manual) % Eosinophils % % Eosinophils % (Manual) % Basophils % % Basophils % (Manual) % Neutrophils # (1.3-7.7) k/uL Neutrophils # (Manual) (1.3-7.7) k/uL Lymphocytes # (1.0-4.8) k/uL Lymphocytes # (Manual) (1.0-4.8) k/uL Monocytes # (0-1.0) k/uL Monocytes # (Manual) (0-1.0) k/uL Eosinophils # (0-0.7) k/uL Eosinophils # (Manual) (0-0.7) k/uL Basophils # (0-0.2) k/uL Basophils # (Manual) (0-0.2) k/uL Nucleated RBCs (0-0) /100 WBC Manual Slide Review Hypochromasia Poikilocytosis (manual Macrocytosis PT (9.0-12.0) sec INR (<1.2) APTT (22.0-30.0) sec Sodium (137-145) mmol/L Potassium (3.5-5.1) mmol/L Chloride (98-107) mmol/L Carbon Dioxide (22-30) mmol/L Anion Gap mmol/L BUN (9-20) mg/dL Creatinine (0.66-1.25) mg/dL Est GFR (CKD-EPI)AfAm (>60 ml/min/1.73 sqM) Est GFR (CKD-EPI)NonAf (>60 ml/min/1.73 sqM) Glucose (74-99) mg/dL POC Glucose (mg/dL) 63 L 82 114 H (75-99) mg/dL POC Glu Floor Person Kaia Bowen, Kaia Madden Estimated Ave Glu mg/dL Hemoglobin A1c (4.0-6.0) % Calcium (8.4-10.2) mg/dL Total Bilirubin (0.2-1.3) mg/dL AST (17-59) U/L ALT (4-49) U/L Alkaline Phosphatase (38-126) U/L Ammonia (<30) umol/L Creatine Kinase (55-170) U/L Troponin I (0.000-0.034) ng/mL Total Protein (6.3-8.2) g/dL Albumin (3.5-5.0) g/dL Urine Color Urine Appearance (Clear) Urine pH (5.0-8.0) Ur Specific [place] (1.001-1.035) Urine Protein (Negative) Urine Glucose (UA) (Negative) Urine Ketones (Negative) Urine Blood (Negative) Urine Nitrite (Negative) Urine Bilirubin (Negative) Urine Urobilinogen (<2.0) mg/dL Ur Leukocyte Esterase (Negative) Coronavirus (PCR) (Not Detectd) 09/03/20 09/04/20 09/04/20 Range/Units 19:44 06:00 08:36 WBC (3.8-10.6) k/uL RBC (4.30-5.90) m/uL Hgb (13.0-17.5) gm/dL Hct (39.0-53.0) % MCV (80.0-100.0) fL MCH (25.0-35.0) pg MCHC (31.0-37.0) g/dL RDW (11.5-15.5) % Plt Count (150-450) k/uL MPV Neutrophils % % Neutrophils % (Manual) % Band Neuts % (Manual) % Lymphocytes % % Lymphocytes % (Manual) % Monocytes % % Monocytes % (Manual) % Eosinophils % % Eosinophils % (Manual) % Basophils % % Basophils % (Manual) % Neutrophils # (1.3-7.7) k/uL Neutrophils # (Manual) (1.3-7.7) k/uL Lymphocytes # (1.0-4.8) k/uL Lymphocytes # (Manual) (1.0-4.8) k/uL Monocytes # (0-1.0) k/uL Monocytes # (Manual) (0-1.0) k/uL Eosinophils # (0-0.7) k/uL Eosinophils # (Manual) (0-0.7) k/uL Basophils # (0-0.2) k/uL Basophils # (Manual) (0-0.2) k/uL Nucleated RBCs (0-0) /100 WBC Manual Slide Review Hypochromasia Poikilocytosis (manual Macrocytosis PT 22.4 H (9.0-12.0) sec INR 2.3 H (<1.2) APTT (22.0-30.0) sec Sodium (137-145) mmol/L Potassium (3.5-5.1) mmol/L Chloride (98-107) mmol/L Carbon Dioxide (22-30) mmol/L Anion Gap mmol/L BUN (9-20) mg/dL Creatinine (0.66-1.25) mg/dL Est GFR (CKD-EPI)AfAm (>60 ml/min/1.73 sqM) Est GFR (CKD-EPI)NonAf (>60 ml/min/1.73 sqM) Glucose (74-99) mg/dL POC Glucose (mg/dL) 110 H 98 (75-99) mg/dL POC Glu Floor Person Baltazar Leon [address] Glu mg/dL Hemoglobin A1c (4.0-6.0) % Calcium (8.4-10.2) mg/dL Total Bilirubin (0.2-1.3) mg/dL AST (17-59) U/L ALT (4-49) U/L Alkaline Phosphatase (38-126) U/L Ammonia (<30) umol/L Creatine Kinase (55-170) U/L Troponin I (0.000-0.034) ng/mL Total Protein (6.3-8.2) g/dL Albumin (3.5-5.0) g/dL Urine Color Urine Appearance (Clear) Urine pH (5.0-8.0) Ur Specific [place] (1.001-1.035) Urine Protein (Negative) Urine Glucose (UA) (Negative) Urine Ketones (Negative) Urine Blood (Negative) Urine Nitrite (Negative) Urine Bilirubin (Negative) Urine Urobilinogen (<2.0) mg/dL Ur Leukocyte Esterase (Negative) Coronavirus (PCR) (Not Detectd) 09/04/20 09/04/20 09/04/20 Range/Units 08:36 08:36 11:45 WBC 6.9 (3.8-10.6) k/uL RBC 3.58 L (4.30-5.90) m/uL Hgb 12.3 L (13.0-17.5) gm/dL Hct 38.1 L (39.0-53.0) % MCV 106.6 H (80.0-100.0) fL MCH 34.3 (25.0-35.0) pg MCHC 32.2 (31.0-37.0) g/dL RDW 15.2 (11.5-15.5) % Plt Count 197 (150-450) k/uL MPV 7.0 Neutrophils % 60 % Neutrophils % (Manual) % Band Neuts % (Manual) % Lymphocytes % 23 % Lymphocytes % (Manual) % Monocytes % 10 % Monocytes % (Manual) % Eosinophils % 3 % Eosinophils % (Manual) % Basophils % 0 % Basophils % (Manual) % Neutrophils # 4.2 (1.3-7.7) k/uL Neutrophils # (Manual) (1.3-7.7) k/uL Lymphocytes # 1.6 (1.0-4.8) k/uL Lymphocytes # (Manual) (1.0-4.8) k/uL Monocytes # 0.7 (0-1.0) k/uL Monocytes # (Manual) (0-1.0) k/uL Eosinophils # 0.2 (0-0.7) k/uL Eosinophils # (Manual) (0-0.7) k/uL Basophils # 0.0 (0-0.2) k/uL Basophils # (Manual) (0-0.2) k/uL Nucleated RBCs (0-0) /100 WBC Manual Slide Review Performed Hypochromasia Slight Poikilocytosis (manual Present Macrocytosis Moderate PT (9.0-12.0) sec INR (<1.2) APTT (22.0-30.0) sec Sodium 144 (137-145) mmol/L Potassium 3.4 L (3.5-5.1) mmol/L Chloride 109 H (98-107) mmol/L Carbon Dioxide 33 H (22-30) mmol/L Anion Gap 2 mmol/L BUN 55 H (9-20) mg/dL Creatinine 1.08 (0.66-1.25) mg/dL Est GFR (CKD-EPI)AfAm 76 (>60 ml/min/1.73 sqM) Est GFR (CKD-EPI)NonAf 65 (>60 ml/min/1.73 sqM) Glucose 104 H (74-99) mg/dL POC Glucose (mg/dL) 86 (75-99) mg/dL POC Glu Floor Person ID Kaia Burnett [address] Glu mg/dL Hemoglobin A1c (4.0-6.0) % Calcium 8.3 L (8.4-10.2) mg/dL Total Bilirubin 1.1 (0.2-1.3) mg/dL AST 22 (17-59) U/L ALT 6 (4-49) U/L Alkaline Phosphatase 73 (38-126) U/L Ammonia (<30) umol/L Creatine Kinase (55-170) U/L Troponin I (0.000-0.034) ng/mL Total Protein 4.9 L (6.3-8.2) g/dL Albumin 2.5 L (3.5-5.0) g/dL Urine Color Urine Appearance (Clear) Urine pH (5.0-8.0) Ur Specific [place] (1.001-1.035) Urine Protein (Negative) Urine Glucose (UA) (Negative) Urine Ketones (Negative) Urine Blood (Negative) Urine Nitrite (Negative) Urine Bilirubin (Negative) Urine Urobilinogen (<2.0) mg/dL Ur Leukocyte Esterase (Negative) Coronavirus (PCR) (Not Detectd) 09/04/20 09/04/20 09/05/20 Range/Units 16:29 19:53 06:21 WBC (3.8-10.6) k/uL RBC (4.30-5.90) m/uL Hgb (13.0-17.5) gm/dL Hct (39.0-53.0) % MCV (80.0-100.0) fL MCH (25.0-35.0) pg MCHC (31.0-37.0) g/dL RDW (11.5-15.5) % Plt Count (150-450) k/uL MPV Neutrophils % % Neutrophils % (Manual) % Band Neuts % (Manual) % Lymphocytes % % Lymphocytes % (Manual) % Monocytes % % Monocytes % (Manual) % Eosinophils % % Eosinophils % (Manual) % Basophils % % Basophils % (Manual) % Neutrophils # (1.3-7.7) k/uL Neutrophils # (Manual) (1.3-7.7) k/uL Lymphocytes # (1.0-4.8) k/uL Lymphocytes # (Manual) (1.0-4.8) k/uL Monocytes # (0-1.0) k/uL Monocytes # (Manual) (0-1.0) k/uL Eosinophils # (0-0.7) k/uL Eosinophils # (Manual) (0-0.7) k/uL Basophils # (0-0.2) k/uL Basophils # (Manual) (0-0.2) k/uL Nucleated RBCs (0-0) /100 WBC Manual Slide Review Hypochromasia Poikilocytosis (manual Macrocytosis PT (9.0-12.0) sec INR (<1.2) APTT (22.0-30.0) sec Sodium (137-145) mmol/L Potassium (3.5-5.1) mmol/L Chloride (98-107) mmol/L Carbon Dioxide (22-30) mmol/L Anion Gap mmol/L BUN (9-20) mg/dL Creatinine (0.66-1.25) mg/dL Est GFR (CKD-EPI)AfAm (>60 ml/min/1.73 sqM) Est GFR (CKD-EPI)NonAf (>60 ml/min/1.73 sqM) Glucose (74-99) mg/dL POC Glucose (mg/dL) 111 H 136 H 79 (75-99) mg/dL POC Glu Floor Person Kaia Bowen Jeremy Witmer, Balta[address] Glu mg/dL Hemoglobin A1c (4.0-6.0) % Calcium (8.4-10.2) mg/dL Total Bilirubin (0.2-1.3) mg/dL AST (17-59) U/L ALT (4-49) U/L Alkaline Phosphatase (38-126) U/L Ammonia (<30) umol/L Creatine Kinase (55-170) U/L Troponin I (0.000-0.034) ng/mL Total Protein (6.3-8.2) g/dL Albumin (3.5-5.0) g/dL Urine Color Urine Appearance (Clear) Urine pH (5.0-8.0) Ur Specific [place] (1.001-1.035) Urine Protein (Negative) Urine Glucose (UA) (Negative) Urine Ketones (Negative) Urine Blood (Negative) Urine Nitrite (Negative) Urine Bilirubin (Negative) Urine Urobilinogen (<2.0) mg/dL Ur Leukocyte Esterase (Negative) Coronavirus (PCR) (Not Detectd) 09/05/20 09/05/20 09/05/20 Range/Units 08:55 08:55 08:55 WBC 7.2 (3.8-10.6) k/uL RBC 3.70 L (4.30-5.90) m/uL Hgb 12.5 L (13.0-17.5) gm/dL Hct 39.8 (39.0-53.0) % MCV 107.7 H (80.0-100.0) fL MCH 33.8 (25.0-35.0) pg MCHC 31.4 (31.0-37.0) g/dL RDW 15.4 (11.5-15.5) % Plt Count 233 (150-450) k/uL MPV 7.7 Neutrophils % % Neutrophils % (Manual) 71 % Band Neuts % (Manual) 1 % Lymphocytes % % Lymphocytes % (Manual) 15 % Monocytes % % Monocytes % (Manual) 9 % Eosinophils % % Eosinophils % (Manual) 3 % Basophils % % Basophils % (Manual) 1 % Neutrophils # (1.3-7.7) k/uL Neutrophils # (Manual) 5.10 (1.3-7.7) k/uL Lymphocytes # (1.0-4.8) k/uL Lymphocytes # (Manual) 1.08 (1.0-4.8) k/uL Monocytes # (0-1.0) k/uL Monocytes # (Manual) 0.65 (0-1.0) k/uL Eosinophils # (0-0.7) k/uL Eosinophils # (Manual) 0.22 (0-0.7) k/uL Basophils # (0-0.2) k/uL Basophils # (Manual) 0.07 (0-0.2) k/uL Nucleated RBCs 0 (0-0) /100 WBC Manual Slide Review Performed Hypochromasia Moderate Poikilocytosis (manual Macrocytosis Marked A PT 23.2 H (9.0-12.0) sec INR 2.4 H (<1.2) APTT (22.0-30.0) sec Sodium 148 H (137-145) mmol/L Potassium 3.6 (3.5-5.1) mmol/L Chloride 106 (98-107) mmol/L Carbon Dioxide 39 H (22-30) mmol/L Anion Gap 3 mmol/L BUN 48 H (9-20) mg/dL Creatinine 1.19 (0.66-1.25) mg/dL Est GFR (CKD-EPI)AfAm 67 (>60 ml/min/1.73 sqM) Est GFR (CKD-EPI)NonAf 58 (>60 ml/min/1.73 sqM) Glucose 75 (74-99) mg/dL POC Glucose (mg/dL) (75-99) mg/dL POC Glu Floor Person ID Estimated Ave Glu mg/dL Hemoglobin A1c (4.0-6.0) % Calcium 8.4 (8.4-10.2) mg/dL Total Bilirubin (0.2-1.3) mg/dL AST (17-59) U/L ALT (4-49) U/L Alkaline Phosphatase (38-126) U/L Ammonia (<30) umol/L Creatine Kinase (55-170) U/L Troponin I (0.000-0.034) ng/mL Total Protein (6.3-8.2) g/dL Albumin (3.5-5.0) g/dL Urine Color Urine Appearance (Clear) Urine pH (5.0-8.0) Ur Specific [place] (1.001-1.035) Urine Protein (Negative) Urine Glucose (UA) (Negative) Urine Ketones (Negative) Urine Blood (Negative) Urine Nitrite (Negative) Urine Bilirubin (Negative) Urine Urobilinogen (<2.0) mg/dL Ur Leukocyte Esterase (Negative) Coronavirus (PCR) (Not Detectd) 09/05/20 Range/Units 11:49 WBC (3.8-10.6) k/uL RBC (4.30-5.90) m/uL Hgb (13.0-17.5) gm/dL Hct (39.0-53.0) % MCV (80.0-100.0) fL MCH (25.0-35.0) pg MCHC (31.0-37.0) g/dL RDW (11.5-15.5) % Plt Count (150-450) k/uL MPV Neutrophils % % Neutrophils % (Manual) % Band Neuts % (Manual) % Lymphocytes % % Lymphocytes % (Manual) % Monocytes % % Monocytes % (Manual) % Eosinophils % % Eosinophils % (Manual) % Basophils % % Basophils % (Manual) % Neutrophils # (1.3-7.7) k/uL Neutrophils # (Manual) (1.3-7.7) k/uL Lymphocytes # (1.0-4.8) k/uL Lymphocytes # (Manual) (1.0-4.8) k/uL Monocytes # (0-1.0) k/uL Monocytes # (Manual) (0-1.0) k/uL Eosinophils # (0-0.7) k/uL Eosinophils # (Manual) (0-0.7) k/uL Basophils # (0-0.2) k/uL Basophils # (Manual) (0-0.2) k/uL Nucleated RBCs (0-0) /100 WBC Manual Slide Review Hypochromasia Poikilocytosis (manual Macrocytosis PT (9.0-12.0) sec INR (<1.2) APTT (22.0-30.0) sec Sodium (137-145) mmol/L Potassium (3.5-5.1) mmol/L Chloride (98-107) mmol/L Carbon Dioxide (22-30) mmol/L Anion Gap mmol/L BUN (9-20) mg/dL Creatinine (0.66-1.25) mg/dL Est GFR (CKD-EPI)AfAm (>60 ml/min/1.73 sqM) Est GFR (CKD-EPI)NonAf (>60 ml/min/1.73 sqM) Glucose (74-99) mg/dL POC Glucose (mg/dL) 143 H (75-99) mg/dL POC Glu Floor Person ID Irma Alarcon Estimated [address] Glu mg/dL Hemoglobin A1c (4.0-6.0) % Calcium (8.4-10.2) mg/dL Total Bilirubin (0.2-1.3) mg/dL AST (17-59) U/L ALT (4-49) U/L Alkaline Phosphatase (38-126) U/L Ammonia (<30) umol/L Creatine Kinase (55-170) U/L Troponin I (0.000-0.034) ng/mL Total Protein (6.3-8.2) g/dL Albumin (3.5-5.0) g/dL Urine Color Urine Appearance (Clear) Urine pH (5.0-8.0) Ur Specific [place] (1.001-1.035) Urine Protein (Negative) Urine Glucose (UA) (Negative) Urine Ketones (Negative) Urine Blood (Negative) Urine Nitrite (Negative) Urine Bilirubin (Negative) Urine Urobilinogen (<2.0) mg/dL Ur Leukocyte Esterase (Negative) Coronavirus (PCR) (Not Detectd) Disposition Clinical Impression: Acute encephalopathy Disposition: ADMITTED IP TO THIS HOSP Condition: Stable Is patient prescribed a controlled substance at d/c from ED?: No Decision to Admit Reason: Admit from EC Decision Date: 09/01/20 Decision Time: 12:43
[2020-09-01] MEDS ORDERED: NALOXONE 0.4 MG/ML 1 ML VIAL IV PRN (12:43)
[2020-09-02] MEDS ORDERED: bisacodyL 5 MG TABLET.DR PO PRN (07:49)
--- NOTE | 2020-09-02 07:55 | P.HPIM ---
History of Present Illness Chief Complaint: Altered mental status. The patient is a 80-year-old white male who recently had pacemaker placement and has had previous episode of altered mental status. He was unarousable yesterday and the workup is negative for acute CVA. He is a diabetic who has underlying history of pacemaker and hypertension with hypothyroidism. The patient is not arousable but still somewhat disoriented to time. No head trauma no loss consciousness. No history of seizure disorder. Review of Systems All systems: negative Constitutional: Denies chills, Denies fever Eyes: denies blurred vision, denies pain Ears, nose, mouth and throat: Denies headache, Denies sore throat Cardiovascular: Denies chest pain, Denies shortness of breath Respiratory: Denies cough Gastrointestinal: Denies abdominal pain, Denies diarrhea, Denies nausea, Denies vomiting Neurological: Reports as per HPI Psychiatric: Denies anxiety, Denies depression Endocrine: Denies fatigue, Denies weight change Past Medical History Past Medical History: Diabetes Mellitus, Eye Disorder, GERD/Reflux, Hyperlipidemia, Hypertension, Memory Impairment, Myocardial Infarction ([place]), Prostate Disorder, Thyroid Disorder Additional Past Medical History / Comment(s): 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 large BULLOUS DIABETICORUM fluid sac rt leg 11/2013-burst and now resolved, SEE DR GUTIERREZ'S HISTORY AND PHYSICAL FOR CARDIAC HISTORY, CATARACT RIGHT EYE. lewy body dementia with parkinsons recently increase upper body movement especially at night Last Myocardial Infarction Date:: 1992 History of Any Multi-Drug Resistant Organisms: None Reported Past Surgical History: AICD, Heart Catheterization With Stent, Pacemaker Additional Past Surgical History / Comment(s): SEVERAL CARDIOVERSIONS. LT CATARACT REMOVED Past Anesthesia/Blood Transfusion Reactions: No Reported Reaction Date of Last Stent Placement:: 1992 Type of Cardiac Device: Permanent Pacemaker, AICD Device Placement Date:: 1993, 03/2010 Past Psychological History: Anxiety Smoking Status: Former smoker Past Alcohol Use History: Rare Past Drug Use History: None Reported - Past Family History Mother Additional Family Medical History / Comment(s): SEVERE LEG EDEMA Medications and Allergies Home Medications Medication Instructions Recorded Confirmed Type Atorvastatin [Lipitor] 20 mg PO HS 08/19/17 09/01/20 History Famotidine [Pepcid] 20 mg PO DAILY@0600 08/19/17 09/01/20 History Finasteride [Proscar] 5 mg PO HS 08/19/17 09/01/20 History Furosemide [Lasix] 40 mg PO DAILY@0600 08/19/17 09/01/20 History allopurinoL [Zyloprim] 300 mg PO HS 08/19/17 09/01/20 History glipiZIDE [Glucotrol] 2.5 mg PO BID 08/19/17 09/01/20 History Warfarin [Coumadin] 2.5 mg PO DAILY@1600 03/27/18 09/01/20 History QUEtiapine [SEROquel] 50 mg PO HS 08/10/20 09/01/20 History rOPINIRole HCL [Requip] 0.25 mg PO HS 08/11/20 09/01/20 History Benazepril HCl 20 mg PO HS@199908/22/20 09/01/20 History Levothyroxine Sodium 25 mcg PO HS 08/22/20 09/01/20 History bisacodyL [Dulcolax] 5 mg PO DAILY PRN 08/22/20 09/01/20 History Metoprolol Succinate (ER) [Toprol 100 mg PO BID@0800,199908/28/20 09/01/20 History XL] Isosorbide Mononitrate ER [Imdur] 30 mg PO DAILY@0609/01/20 09/01/20 History Multivitamins, Thera [Multivitamin 1 tab PO DAILY@0600 09/01/20 09/01/20 History (formulary)] Spironolactone [Aldactone] 25 mg PO DAILY@0600 09/01/20 09/01/20 History Allergies Allergy/AdvReac Type Severity Reaction Status Date / Time No Known Allergies Allergy Verified 09/01/20 10:36 Physical Exam Vitals: Vital Signs Temp Pulse Resp BP Pulse Ox 09/02/20 04:00 67 18 94/60 100 09/02/20 01:35 97.9 F 74 18 98/67 99 09/01/20 23:00 98.1 F 73 110 H 09/01/20 22:00 70 17 118/70 95 09/01/20 21:00 74 18 107/74 98 09/01/20 20:00 69 11 L 115/76 98 09/01/20 19:00 98.0 F 74 21 108/63 95 09/01/20 18:00 68 20 101/65 09/01/20 17:00 74 25 H 105/63 09/01/20 16:00 71 23 104/61 94 L 09/01/20 15:00 74 22 107/64 94 L 09/01/20 14:00 72 24 107/78 95 09/01/20 13:00 76 26 H 97/61 100 09/01/20 11:25 73 14 107/64 95 09/01/20 10:25 98 09/01/20 10:18 97.6 F 69 16 97/62 92 L - Constitutional General appearance: cooperative, no acute distress - EENT Eyes: EOMI - Neck Neck: no lymphadenopathy - Respiratory Respiratory: bilateral: diminished - Cardiovascular Heart sounds: normal: S1, S2 Abnormal Heart Sounds: no S3 Gallop - Gastrointestinal General gastrointestinal: soft, no tenderness - Integumentary Integumentary: no cellulitis - Neurologic Neurologic: focal deficits - Musculoskeletal Musculoskeletal: strength equal bilaterally - Psychiatric Psychiatric: appropriate affect Results CBC & Chem 7: 09/01/20 10:35 09/01/20 10:35 Labs: Abnormal Lab Results - Last 24 Hours (Table) 09/01/20 09/01/20 09/01/20 Range/Units 10:35 10:35 10:35 RBC 3.75 L (4.30-5.90) m/uL Hgb 12.5 L (13.0-17.5) gm/dL MCV 105.8 H (80.0-100.0) fL RDW 15.8 H (11.5-15.5) % PT 18.9 H (9.0-12.0) sec INR 1.9 H (<1.2) Carbon Dioxide 33 H (22-30) mmol/L BUN 79 H (9-20) mg/dL Creatinine 1.84 H (0.66-1.25) mg/dL Calcium 8.0 L (8.4-10.2) mg/dL Creatine Kinase 54 L (55-170) U/L Troponin I (0.000-0.034) ng/mL Total Protein 5.0 L (6.3-8.2) g/dL Albumin 2.6 L (3.5-5.0) g/dL Urine Protein (Negative) 09/01/20 09/01/20 09/01/20 Range/Units 10:35 11:07 16:41 RBC (4.30-5.90) m/uL Hgb (13.0-17.5) gm/dL MCV (80.0-100.0) fL RDW (11.5-15.5) % PT (9.0-12.0) sec INR (<1.2) Carbon Dioxide (22-30) mmol/L BUN (9-20) mg/dL Creatinine (0.66-1.25) mg/dL Calcium (8.4-10.2) mg/dL Creatine Kinase (55-170) U/L Troponin I 0.401 H* 0.288 H* (0.000-0.034) ng/mL Total Protein (6.3-8.2) g/dL Albumin (3.5-5.0) g/dL Urine Protein Trace H (Negative) 09/01/20 Range/Units 22:40 RBC (4.30-5.90) m/uL Hgb (13.0-17.5) gm/dL MCV (80.0-100.0) fL RDW (11.5-15.5) % PT (9.0-12.0) sec INR (<1.2) Carbon Dioxide (22-30) mmol/L BUN (9-20) mg/dL Creatinine (0.66-1.25) mg/dL Calcium (8.4-10.2) mg/dL Creatine Kinase (55-170) U/L Troponin I 0.257 H* (0.000-0.034) ng/mL Total Protein (6.3-8.2) g/dL Albumin (3.5-5.0) g/dL Urine Protein (Negative) Assessment and Plan (1) Acute encephalopathy Current Visit: Yes Status: Acute Code(s): G93.40 - ENCEPHALOPATHY, UNSPECIF IED SNOMED Code(s): 21432970 (2) Altered mental status Current Visit: No Status: Acute Code(s): R41.82 - ALTERED MENTAL STATUS, UNSPECIFIED SNOMED Code(s): 574134723 (3) Dementia Current Visit: No Status: Acute Code(s): F03.90 - UNSPECIFIED DEMENTIA WI THOUT BEHAVIORAL DISTURBANCE SNOMED Code(s): 42593242 (4) Hypoxia Current Visit: No Status: Acute Code(s): R09.02 - HYPOXEMIA SNOMED Code(s): 646097875 Plan: The patient seems to be improving from yesterday's baseline of poor arousability. Ask neurology to evaluate. Reconcile medications. Hold blood pressure medications if systolic less than 1 10 mmHg. Prognosis is guarded secondary to his multiple comorbidities.
[2020-09-02] MEDS: METOPROLOL SUCCINATE (ER) 100 MG TAB.ER.24H PO SCH ×2 (08:25→20:51)
[2020-09-02 11:14] LABS: INR 1.8 (<1.2); Prothrombin Time 18.2 sec (9.0-12.0)
[2020-09-02 11:18] LABS: Basophils % (A) 0 %; Eosinophils # (A) 0.2 k/uL (0-0.7); Eosinophils % (A) 2 %; HCT 40.3 % (39.0-53.0); HGB 12.1 gm/dL (13.0-17.5); Hypochromasia Moderate; Lymphocytes # (A) 1.9 k/uL (1.0-4.8); Lymphocytes % (A) 22 %; MCH 32.8 pg (25.0-35.0); MCHC 30.1 g/dL (31.0-37.0); MCV 108.7 fL (80.0-100.0); Macrocytosis Marked; Mean Platelet Volume 7.4; Monocytes # (A) 0.5 k/uL (0-1.0); Monocytes % (A) 6 %; Neutrophils # (A) 5.8 k/uL (1.3-7.7); Neutrophils % (A) 67 %; Platelet Count 209 k/uL (150-450); RBC 3.71 m/uL (4.30-5.90); RDW 15.6 % (11.5-15.5); WBC 8.7 k/uL (3.8-10.6)
[2020-09-02 11:19] LABS: Calcium 8.1 mg/dL (8.4-10.2); Potassium 3.5 mmol/L (3.5-5.1)
[2020-09-02 13:03] LABS: Poikilocytosis (M) Present
[2020-09-02 14:44] LABS: Glucose,Whole Blood 89 mg/dL (75-99)
--- NOTE | 2020-09-02 16:08 | EEG ---
ELECTROENCEPHALOGRAM REPORT DATE OF SERVICE: 09/02/2020. PREAMBLE: This is a 80-year-old male who had a pacemaker replaced last . Post surgery, patient was not able to walk and was [facility]. The patient had an episode of unresponsiveness. EEG performed to rule out any epileptiform activity. EEG FINDINGS: This is a 21 channel routine EEG recording in a patient utilizing 10/20 international system with referential and bipolar montages. The background consists of moderately well-developed, but poorly regulated, mixed frequencies of predominantly 4-7 hertz theta mixed with some moderate amplitude delta activity. Background does not seem to be clearly reactive to eye opening and closing. Photic driving response was not seen. Different stages of sleep were not seen. No focal or generalized epileptiform activity was seen. EKG channel showed frequent arrhythmia. IMPRESSION: This is an abnormal EEG due to background slowing of mild to moderate degree. This is suggestive of generalized cerebral dysfunction as can be seen with toxic metabolic encephalopathy or due to diffuse structural brain abnormality. No epileptiform activity was seen. EKG channel showed arrhythmia. Clinical correlation recommended. MMODL / IJN: [id number] /
[2020-09-02 17:06] LABS: Glucose,Whole Blood 100 mg/dL (75-99)
--- NOTE | 2020-09-02 17:58 | P.CNNES ---
History of Present Illness Consult date: 09/02/20 Requesting physician: Chelsea Moreau Reason for Consult: Acute encephalopathy History of Present Illness: Patient is a 80-year-old male with history of Parkinson's disease, diabetes, pacemaker, who lives in [facility], came to the hospital by ambulance yesterday at 10:16 AM According to EMS flow sheet, when they arrived, found patient in care of staff. Per staff they were walking by and saw patient unresponsive, slumped over his desk and was not arousable. They were unsure how long the patient had maintained this state. Unknown last known well. Patient is alert and oriented 0, not responding to any stimuli. Patient's blood pressure at the scene was 90/60, pulse rate 82, saturation 97% blood sugar 126. Vital signs on arrival blood pressure 97/62, pulse rate 69, temperature 97.6. CT head showed age-related atrophic and chronic small vessel ischemic changes without acute intracranial process seen at this time. EKG shows electronic ventricular pacemaker. Blood test shows normal WBC, hemoglobin 12.5 with elevated MCV 105.8. Platelets are 184. INR is 1.9, PTT 28.9. Electrolytes are normal, BUN 79, creatinine 1.84. Patient's troponin is mildly elevated 0.401. UA is negative. Pelletier virus PCR negative. Patient's vitamin B12 864 on 06/23/2019. Patient at the present states that he is living in [facility], states woke up in a different place. Patient at present keeps on saying, "I want to go home". Patient states that he never had any history of seizures. He says that he has battery of defibrillator changed last week. Per nurse report now, he is having some episodes of agitation, but is getting more responsive. In the morning he was lethargic and difficult to arouse but now is getting more awake and alert. Patient has diabetes for 10-12 years. Patient's later arrived, who provided further piece of history. She states that patient underwent pacemaker placement on last 08/25/2020. After he underwent pacemaker placement, he could not wake up and then could not stand. He just laid there. He was kept overnight and then discharged the next day to [facility]. The next day on Saturday he had an episode of unresponsiveness, very lethargic. He was brought back to the ER, where he was checked out and was released back to the facility. He was fine for next 4 days, when yesterday he had this spell as mentioned above. Review of Systems Patient denies headache, denies any problem with the vision, hoarseness, sore throat. Denies any chest pain, shortness of breath, wheezing or cough. Denies abdominal pain, nausea vomiting diarrhea. Denies any rash. His peripheral edema. All other review of systems unremarkable. 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 large BULLOUS DIABETICORUM fluid sac rt leg 11/2013-burst and now resolved, SEE DR GUTIERREZ'S HISTORY AND PHYSICAL FOR CARDIAC HISTORY, CATARACT RIGHT EYE. lewy body dementia with parkinsons recently increase upper body movement especially at night Last Myocardial Infarction Date:: 1992 History of Any Multi-Drug Resistant Organisms: None Reported Past Surgical History: AICD, Heart Catheterization With Stent, Pacemaker Additional Past Surgical History / Comment(s): SEVERAL CARDIOVERSIONS. LT CATARACT REMOVED Past Anesthesia/Blood Transfusion Reactions: No Reported Reaction Date of Last Stent Placement:: 1992 Type of Cardiac Device: Permanent Pacemaker, AICD Device Placement Date:: 03/2010 Past Psychological History: Anxiety Smoking Status: Former smoker Past Alcohol Use History: Rare Past Drug Use History: None Reported - Past Family History Mother Additional Family Medical History / Comment(s): SEVERE LEG EDEMA Medications and Allergies Home Medications Medication Instructions Recorded Confirmed Type Atorvastatin [Lipitor] 20 mg PO HS 08/19/17 09/01/20 History Famotidine [Pepcid] 20 mg PO DAILY@0600 08/19/17 09/01/20 History Finasteride [Proscar] 5 mg PO HS 08/19/17 09/01/20 History Furosemide [Lasix] 40 mg PO DAILY@0600 08/19/17 09/01/20 History allopurinoL [Zyloprim] 300 mg PO HS 08/19/17 09/01/20 History glipiZIDE [Glucotrol] 2.5 mg PO BID 08/19/17 09/01/20 History Warfarin [Coumadin] 2.5 mg PO DAILY@1600 03/27/18 09/01/20 History QUEtiapine [SEROquel] 50 mg PO HS 08/10/20 09/01/20 History rOPINIRole HCL [Requip] 0.25 mg PO HS 08/11/20 09/01/20 History Benazepril HCl 20 mg PO HS@199908/22/20 09/01/20 History Levothyroxine Sodium 25 mcg PO HS 08/22/20 09/01/20 History bisacodyL [Dulcolax] 5 mg PO DAILY PRN 08/22/20 09/01/20 History Metoprolol Succinate (ER) [Toprol 100 mg PO BID@08,199908/28/20 09/01/20 History XL] Isosorbide Mononitrate ER [Imdur] 30 mg PO DAILY@0600 09/01/20 09/01/20 History Multivitamins, Thera [Multivitamin 1 tab PO DAILY@0600 09/01/20 09/01/20 History (formulary)] Spironolactone [Aldactone] 25 mg PO DAILY@0600 09/01/20 09/01/20 History Allergies Allergy/AdvReac Type Severity Reaction Status Date / Time No Known Allergies Allergy Verified 09/01/20 10:36 Physical Examination - Vital Signs Vital Signs: Vital Signs Temp Pulse Resp BP Pulse Ox 09/02/20 08:00 76 103/60 09/02/20 04:00 67 18 94/60 100 09/02/20 01:35 97.9 F 74 18 98/67 99 09/01/20 23:00 98.1 F 73 110 H 09/01/20 22:00 70 17 118/70 95 09/01/20 21:00 74 18 107/74 98 09/01/20 20:00 69 11 L 115/76 98 09/01/20 19:00 98.0 F 74 21 108/63 95 09/01/20 18:00 68 20 101/65 09/01/20 17:00 74 25 H 105/63 09/01/20 16:00 71 23 104/61 94 L 09/01/20 15:00 74 22 107/64 94 L 09/01/20 14:00 72 24 107/78 95 09/01/20 13:00 76 26 H 97/61 100 09/01/20 11:25 73 14 107/64 95 Patient is an elderly male, in no acute distress. He states it is August 23 and the year is . He knows that he is in [place] in [place], but states he is in high school "[employer]". He does not know the name of the current president although knows the last president was Love. He states he has 2 boys. Patient states that he lives in [place] in [place] in [facility]. Speech and language functions are normal. Patient can nam e, repeat without any problem. Attention, concentration and fund of knowledge is adequate. On cranial examination, pupils are surgical, round and reacting to light, visual ward are full on confrontation, extraocular muscles are intact with no nystagmus. Face is symmetric, tongue protrudes to the midline. Palatal elevation and sensation normal, hearing is slightly decreased for finger rubbing and shoulder shrug normal, facial sensation normal. Shoulder shrug normal. On muscle strength testing, there is no pronator drift and the strength is normal in arms distally and proximally. In the lower limbs hip flexion is 4/4-, knee extension is normal, ankle dorsiflexion 5/4+5-, toe extension 5/3 Deep tendon reflexes 1+ to 2 in the upper extremities, 2+ at the right knee, 1+ to 2 in the left knee. Ankles are 1+ and plantars are downgoing. No clonus. Sensory to touch is equal with no neglect. Cerebellar function showed no ataxia for [id number] testing. No dysdiadochokinesia. Tone and bulk of muscles normal. Gait deferred. On general examination, there is no carotid bruit or murmur, S1-S2 audible. Abdomen is soft nontender. Chest is clear. Peripheral pulses are present. Moderate peripheral edema. Results - Laboratory Findings CBC and BMP: 09/02/20 10:32 09/02/20 10:32 Abnormal Lab Findings: Abnormal Labs 09/01/20 09/01/20 09/01/20 10:35 10:35 10:35 RBC 3.75 L Hgb 12.5 L MCV 105.8 H RDW 15.8 H PT 18.9 H INR 1.9 H Carbon Dioxide 33 H BUN 79 H Creatinine 1.84 H Calcium 8.0 L Creatine Kinase 54 L Troponin I Total Protein 5.0 L Albumin 2.6 L Urine Protein 09/01/20 09/01/20 09/01/20 10:35 11:07 16:41 RBC Hgb MCV RDW PT INR Carbon Dioxide BUN Creatinine Calcium Creatine Kinase Troponin I 0.401 H* 0.288 H* Total Protein Albumin Urine Protein Trace H 09/01/20 22:40 RBC Hgb MCV RDW PT INR Carbon Dioxide BUN Creatinine Calcium Creatine Kinase Troponin I 0.257 H* Total Protein Albumin Urine Protein Assessment and Plan Assessment: * Episode of unresponsiveness, unclear etiology. Differential includes vasovagal syncope, seizure versus arrhythmia. Patient does have a defibrillator placed, and the battery changed recently. * Mild cognitive impairment. * Diabetes * Hypertension * Hyperlipidemia * Coronary artery disease Plan: * EEG was performed today, which was abnormal due to background slowing of mild to moderate degree. This is suggestive of generalized cerebral dysfunction, as can be seen with toxic metabolic encephalopathy or due to diffuse structural brain abnormality. No epileptiform activity was seen. EKG channel showed arrhythmia. Clinical correlation recommended. * Suggest cardiology consultation to rule out arrhythmia and also for elevated cardiac enzymes. Patient also on 5 different blood pressure medications, and his blood pressure was low at the scene 90/60. May need to adjust blood pressure medications. * Carotid Doppler. * Patient on the floor at around 5 PM had another episode of unresponsiveness. The dinner was being served, and he was joking and suddenly became asleep, unresponsive. No arrhythmias documented at that time. He could not be aroused. Apparently his blood pressure was again running around 94-97 systolic and in 60s diastolic. Likely hypotension. Patient definitely needs adjustment of blood pressure medications.
[2020-09-02] MEDS ORDERED: lisinopriL 20 MG TAB PO SCH (20:00)
[2020-09-02 20:31] LABS: Glucose,Whole Blood 88 mg/dL (75-99)
[2020-09-02] MEDS: WARFARIN 2.5 MG TAB PO SCH (20:51)
[2020-09-02] MEDS: FINASTERIDE 5 MG TAB PO SCH (20:51)
[2020-09-02] MEDS: LEVOTHYROXINE 25 MCG TAB PO SCH (20:51)
[2020-09-02] MEDS: QUEtiapine 50 MG TAB PO SCH (20:51)
[2020-09-02] MEDS: allopurinoL 300 MG TAB PO SCH (20:51)
[2020-09-02] MEDS: ATORVASTATIN 20 MG TAB PO SCH (20:51)
[2020-09-03] MEDS ORDERED: ISOSORBIDE MONONITRATE ER 30 MG TAB.ER.24H PO SCH (06:00)
[2020-09-03] MEDS ORDERED: MULTIVITAMINS, THERA 1 EACH TAB PO SCH (06:00)
[2020-09-03] MEDS ORDERED: FUROSEMIDE 40 MG TAB PO SCH (06:00)
[2020-09-03] MEDS ORDERED: FAMOTIDINE 20 MG TAB PO SCH (06:00)
[2020-09-03] MEDS ORDERED: SPIRONOLACTONE 25 MG TAB PO SCH (06:00)
[2020-09-03 07:03] LABS: Glucose,Whole Blood 81 mg/dL (75-99)
[2020-09-03 09:11] LABS: INR 1.9 (<1.2)
[2020-09-03 09:19] LABS: Calcium 8.2 mg/dL (8.4-10.2); HCT 40.8 % (39.0-53.0); HGB 12.6 gm/dL (13.0-17.5); Hypochromasia Moderate; MCH 33.1 pg (25.0-35.0); MCHC 30.8 g/dL (31.0-37.0); MCV 107.7 fL (80.0-100.0); Macrocytosis Marked; Mean Platelet Volume 7.6; Platelet Count 176 k/uL (150-450); Potassium 3.6 mmol/L (3.5-5.1); RBC 3.79 m/uL (4.30-5.90); RDW 15.4 % (11.5-15.5); WBC 7.4 k/uL (3.8-10.6)
[2020-09-03] MEDS: SPIRONOLACTONE 25 MG TAB PO SCH (09:56)
[2020-09-03] MEDS: FAMOTIDINE 20 MG TAB PO SCH (09:56)
[2020-09-03] MEDS: FUROSEMIDE 40 MG TAB PO SCH (09:56)
[2020-09-03] MEDS: ISOSORBIDE MONONITRATE ER 30 MG TAB.ER.24H PO SCH (09:56)
[2020-09-03] MEDS: METOPROLOL SUCCINATE (ER) 100 MG TAB.ER.24H PO SCH ×2 (09:56→20:49)
[2020-09-03] MEDS: MULTIVITAMINS, THERA 1 EACH TAB PO SCH (09:56)
[2020-09-03 11:39] LABS: Glucose,Whole Blood 63 mg/dL (75-99)
[2020-09-03 12:05] LABS: Glucose,Whole Blood 82 mg/dL (75-99)
[2020-09-03 12:23] VITALS: BMI 30.4
[2020-09-03] MEDS: ACETAMINOPHEN TAB 500 MG TAB PO PRN (12:50)
[2020-09-03 15:09] LABS: Hemoglobin A1C 5.5 % (4.0-6.0)
--- NOTE | 2020-09-03 16:21 | P.CRDCN ---
History of Present Illness History of present illness: HISTORY OF PRESENTING ILLNESS Patient is a 80-year-old male with a history of ischemic cardiomyopathy status post AICD, diabetes mellitus type 2, hypertension, hyperlipidemia, GERD, Parkinson's, previous Guillain-Bowen syndrome, atrial fibrillation on anticoagulation with Coumadin who presented initially 08/25 due to AICD at end of battery life and for upgrade given cardiomyopathy with widened QRS. Patient underwent successful upgrade to biventricular AICD and also underwent cardiovers ion for his atrial fibrillation with Coumadin level, INR therapeutic. Patient had some confusion with sedation and therefore was kept for monitoring and then discharged to subacute rehab. Prior to this patient had been fairly functional able to walk with a walker and lives with his at home. Unfortunately patient had episode where he was found slumped over at subacute rehab and unresponsive. Per note, EMS found initial blood pressure 90/60 with a pulse rate of 82, oxygen saturation 97% and blood sugar 126. Patient had CT head performed which showed age-related atrophic and chronic small vessel changes without acute intracranial process. Patient's troponins are noted to be mildly elevated at 0.41, 0.28, 0.257. His creatinine was initially mildly elevated up to 1.8, currently improved to 1.3. His coronavirus has been negative. Per this is not like himself and he has been confused for the last approximately week. There are no significant changes in medications. Neurology is concerned with possible low blood pressures however MAP has been in the 70s to 80s, lowest blood pressure reading 94/60. Patient apparently had another episode of unresponsiveness while in the hospital yesterday and he had been talking normally and then became slumped over in a sleep however blood pressure at that time was 90s over 60s. REVIEW OF SYSTEMS At the time of my exam: CONSTITUTIONAL: Denies fever or chills. CARDIOVASCULAR: Denies chest pain, shortness of breath, orthopnea, PND or palpitations. RESPIRATORY: Denies cough. GASTROINTESTINAL: Denies abdominal pain, diarrhea, constipation, nausea or vomiting. MUSCULOSKELETAL: Denies myalgias. NEUROLOGIC: Denies numbness, tingling or weakness. ENDOCRINE: Denies fatigue, weight change, polydipsia or polyurina. GENITOURINARY: Denies burning, hematuria or urgency with micturation. HEMATOLOGIC: Denies history of anemia or bleeding. PHYSICAL EXAMINATION Vital signs reviewed. CONSTITUTIONAL: No apparent distress, confused, alert and oriented to self and hospital however not date HEENT: Head is normocephalic. Pupils are equal, round. Sclerae anicteric. Mucous membranes of the mouth are moist. No JVD. No carotid bruit. CHEST EXAMINATION: Lungs are clear to auscultation. No chest wall tenderness is noted on palpation or with deep breathing. HEART EXAMINATION: Regular rate and rhythm. S1, S2 heard. No murmurs, gallops or rub. ABDOMEN: Soft, nontender. Positive bowel sounds. EXTREMITIES: 2+ peripheral pulses, no lower extremity edema and no calf tenderness. NEUROLOGIC EXAMINATION: Patient is awake, confused ASSESSMENT 1. Altered mental status 2. Apparent syncope 2, being found slumped over and unresponsive both the ECF and in-hospital apparently with blood pressures in the 90s over 60s 3. Status post biventricular AICD upgrade 08/25/2020 4. Ischemic cardiomyopathy 5. Essential hypertension 6. Persistent atrial fibrillation status post electrical cardioversion 08/25/2020 7. History of Parkinson's 8. Diabetes mellitus type 2 9. Acute kidney injury, improving 10. Mildly elevated troponins, suspect type II etiology from syncope with known history of coronary artery disease, ischemic cardiomyopathy PLAN Patient appears to have 2 different issues with altered mental status over the past week. Neurology recommendations appreciated. Rule out stroke versus encephalopathy versus other. Other issue appears to be syncopal episodes, patient being found slumped over and unresponsive. One of these episodes occurred while patient in monitored on telemetry and no acute arrhythmias noted. Concern by neurology of decreased blood pressure however blood pressure of 90s over 60s and should not cause hypoperfusion of the brain at that level without significant carotid stenosis. Although mild permissive hypertension may be allowed, given his heart failure, cardiomyopathy we do not want patient to hypertensive. We will decrease lisinopril and monitor response. Check carotid ultrasound. Check AICD interrogation. Check 2-D echo. Further recommendations to follow. 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 large BULLOUS DIABETICORUM fluid sac rt leg 11/2013-burst and now resolved, SEE DR GUTIERREZ'S HISTORY AND PHYSICAL FOR CARDIAC HISTORY, CATARACT RIGHT EYE. lewy body dementia with parkinsons recently increase upper body movement especially at night Last Myocardial Infarction Date:: 1992 History of Any Multi-Drug Resistant Organisms: None Reported Past Surgical History: AICD, Heart Catheterization With Stent, Pacemaker Additional Past Surgical History / Comment(s): SEVERAL CARDIOVERSIONS. LT CATARACT REMOVED Past Anesthesia/Blood Transfusion Reactions: No Reported Reaction Date of Last Stent Placement:: 1992 Type of Cardiac Device: Permanent Pacemaker, AICD Device Placement Date:: 03/2010 Past Psychological History: Anxiety Smoking Status: Former smoker Past Alcohol Use History: Rare Past Drug Use History: None Reported - Past Family History Mother Additional Family Medical History / Comment(s): SEVERE LEG EDEMA Medications and Allergies Home Medications Medication Instructions Recorded Confirmed Type Atorvastatin [Lipitor] 20 mg PO HS 08/19/17 09/01/20 History Famotidine [Pepcid] 20 mg PO DAILY@0600 08/19/17 09/01/20 History Finasteride [Proscar] 5 mg PO HS 08/19/17 09/01/20 History Furosemide [Lasix] 40 mg PO DAILY@0600 08/19/17 09/01/20 History allopurinoL [Zyloprim] 300 mg PO HS 08/19/17 09/01/20 History glipiZIDE [Glucotrol] 2.5 mg PO BID 08/19/17 09/01/20 History Warfarin [Coumadin] 2.5 mg PO DAILY@1600 03/27/18 09/01/20 History QUEtiapine [SEROquel] 50 mg PO HS 08/10/20 09/01/20 History rOPINIRole HCL [Requip] 0.25 mg PO HS 08/11/20 09/01/20 History Benazepril HCl 20 mg PO HS@199908/22/20 09/01/20 History Levothyroxine Sodium 25 mcg PO HS 08/22/20 09/01/20 History bisacodyL [Dulcolax] 5 mg PO DAILY PRN 08/22/20 09/01/20 History Metoprolol Succinate (ER) [Toprol 100 mg PO BID@0800,199908/28/20 09/01/20 History XL] Isosorbide Mononitrate ER [Imdur] 30 mg PO DAILY@0600 09/01/20 09/01/20 History Multivitamins, Thera [Multivitamin 1 tab PO DAILY@0600 09/01/20 09/01/20 History (formulary)] Spironolactone [Aldactone] 25 mg PO DAILY@0600 09/01/20 09/01/20 History Allergies Allergy/AdvReac Type Severity Reaction Status Date / Time No Known Allergies Allergy Verified 09/01/20 10:36 Physical Exam Vitals: Vital Signs Temp Pulse Resp BP Pulse Ox 09/03/20 16:00 97.4 F L 80 16 115/70 99 09/03/20 14:00 74 16 09/03/20 12:00 97.6 F 73 18 119/70 95 09/03/20 08:00 98.6 F 74 16 119/59 100 09/03/20 04:00 72 16 119/64 97 09/03/20 00:00 71 16 105/60 97 09/02/20 20:00 97.5 F L 77 16 108/61 99 Intake and Output 09/03/20 09/03/20 09/03/20 06:59 14:59 22:59 Intake Total 150 500 Balance 150 500 Intake: Oral 150 500 Other: Voiding Method Diaper # Voids 1 1 1 Weight 107.5 kg 107.5 kg Results 09/03/20 08:32 09/03/20 08:32 Coagulation 09/03/20 Range/Units 08:32 PT 19.0 H (9.0-12.0) sec CBC 09/03/20 Range/Units 08:32 WBC 7.4 (3.8-10.6) k/uL RBC 3.79 L (4.30-5.90) m/uL Hgb 12.6 L (13.0-17.5) gm/dL Hct 40.8 (39.0-53.0) % Plt Count 176 (150-450) k/uL Comprehensive Metabolic Panel 09/03/20 Range/Units 08:32 Sodium 144 (137-145) mmol/L Potassium 3.6 (3.5-5.1) mmol/L Chloride 107 (98-107) mmol/L Carbon Dioxide 32 H (22-30) mmol/L BUN 67 H (9-20) mg/dL Creatinine 1.30 H (0.66-1.25) mg/dL Glucose 72 L (74-99) mg/dL Calcium 8.2 L (8.4-10.2) mg/dL Current Medications Generic Name Dose Route Start Last Admin Trade Name Freq PRN Reason Stop Dose Admin Acetaminophen 1,000 mg 09/03/20 12:45 09/03/20 12:50 Acetaminophen Tab 500 Mg Tab PO 1,000 mg Q6HR PRN Administration Fever and/ or Pain Allopurinol 300 mg 09/02/20 21:00 09/02/20 20:51 Allopurinol 300 Mg Tab PO 300 mg HS [facility] Administration Atorvastatin Calcium 20 mg 09/02/20 21:00 09/02/20 20:51 Atorvastatin 20 Mg Tab PO 20 mg HS [facility] Administration Bisacodyl 5 mg 09/02/20 07:49 Bisacodyl 5 Mg Tablet.Dr PO DAILY PRN Constipation Famotidine 20 mg 09/03/20 09:00 09/03/20 09:56 Famotidine 20 Mg Tab PO 20 mg DAILY@09 [facility] Administration Finasteride 5 mg 09/02/20 21:00 09/02/20 20:51 Finasteride 5 Mg Tab PO 5 mg HS [facility] Administration Furosemide 40 mg 09/03/20 09:00 09/03/20 09:56 Furosemide 40 Mg Tab PO 40 mg DAILY@09 [facility] Administration Glipizide 2.5 mg 09/02/20 09:00 09/03/20 11:28 Glipizide 2.5 Mg Tab PO Not Given BID [facility] Isosorbide Mononitrate 30 mg 09/03/20 09:00 09/03/20 09:56 Isosorbide Mononitrate Er 30 Mg Tab.Er.24h PO 30 mg DAILY@09 [facility] Administration Levothyroxine Sodium 25 mcg 09/02/20 21:00 09/02/20 20:51 Levothyroxine 25 Mcg Tab PO 25 mcg HS [facility] Administration Lisinopril 20 mg 09/02/20 20:00 09/02/20 20:45 Lisinopril 20 Mg Tab PO Not Given HS@1999 [facility] Metoprolol Succinate 100 mg 09/02/20 08:00 09/03/20 09:56 Metoprolol Succinate (Er) 100 Mg Tab.Er.24h PO 100 mg BID@ [facility] Administration Miscellaneous Information 0 each 09/02/20 08:02 Warfarin Per Pharmacy MISCELLANE DIRECTED PRN per protocol Multivitamins 1 each 09/03/20 09:00 09/03/20 09:56 Multivitamins, Thera 1 Each Tab PO 1 each DAILY@0900 [facility] Administration Naloxone HCl 0.2 mg 09/01/20 12:43 Naloxone 0.4 Mg/Ml 1 Ml Vial IV Q2M PRN Opioid Reversal Quetiapine Fumarate 50 mg 09/02/20 21:00 09/02/20 20:51 Quetiapine 50 Mg Tab PO 50 mg HS [facility] Administration Ropinirole HCl 0.25 mg 09/02/20 21:00 09/02/20 20:51 Ropinirole Hcl 0.25 Mg Tab PO 0.25 mg HS [facility] Administration Silver Sulfadiazine 1 applic 09/03/20 16:15 Silver Sulfadiazine 1% Cream 25 Gm Tube TOPICAL DAILY [facility] Spironolactone 25 mg 09/03/20 09:00 09/03/20 09:56 Spironolactone 25 Mg Tab PO 25 mg DAILY@0900 [facility] Administration Warfarin Sodium 2.5 mg 09/02/20 16:00 09/02/20 20:51 Warfarin 2.5 Mg Tab PO 2.5 mg DAILY@1600 [facility] Administration Protocol Intake and Output 09/03/20 09/03/20 09/03/20 06:59 14:59 22:59 Intake Total 150 500 Balance 150 500 Intake: Oral 150 500 Other: Voiding Method Diaper # Voids 1 1 1 Weight 107.5 kg 107.5 kg Patient Weight 09/04/20 06:59 Weight 107.5 kg 09/03/20 08:32 09/03/20 08:32
[2020-09-03 16:41] LABS: Glucose,Whole Blood 114 mg/dL (75-99)
[2020-09-03] MEDS: WARFARIN 2.5 MG TAB PO SCH (17:02)
--- NOTE | 2020-09-03 17:06 | P.PN ---
Subjective Progress Note Date: 09/03/20 Principal diagnosis: Encephalopathy covering for Dr. Mares over the weekend Mr. Porras is a 80-year-old gentleman with a past medical history of hypertension, diabetes mellitus, hyperlipidemia, Lewy body dementiabrought in for altered mental status changes. Patient recently had successful upgrade to biventricular AICD and underwent cardioversion. After the procedure patient had some confusion so was monitored for a few hours and later on discharged to subacute rehab. At the subacute rehab patient was found slumped over and unresponsive and when they checked his initial blood pressure it was found to be 90 x 60. Patient had a computed tomography scan in the ER showing age-related atrophic changes and chronic small vessel changes without acute intracranial process. His troponins were mildly elevated at 0.41, 0.28, 0.57. At the time of admission his creatinine was elevated at 1.5 and currently it is at 1.3. As per discussion with nursing staff he had another episode of unresponsiveness yesterday evening. Neurology has evaluated the patient yesterday and he had an EEG doneshowing abnormal due to background slowing of [id number] degree suggestive of generalized cerebral dysfunction.today on examination patient was comfortably lying in bed appears to be in no acute distress. His is at bedside. She mentions that she is confused at times. Patient denies having any chest pain or difficulty in breathing. She denies having any weakness of his extremities. He was able to tell me that he had the procedure done last week and later was sent to subacute rehab, he was not sure what happened there and eventually admitted to the hospital. On reviewing the patient's vitals his temperature is 97.4, heart rate 80, respiratory rate 16, blood pressure 1 15 x 70, saturating at 99% on 3 L of oxygen.reviewing his labs white count of 7.4, hemoglobin 12.6 MCV-treated and 7.7. INR of 1.9. Sodium 144, potassium 3.6, chloride 107, bicarb 32, BUN 1.84 decreased to 1.3. Patient is negative for thornton Virus PCR.and his UA is negative. Objective - Vital Signs Vital signs: Vital Signs Temp 98.6 F 09/03/20 08:00 Pulse 74 09/03/20 08:00 Resp 16 09/03/20 08:00 BP 119/59 09/03/20 08:00 Pulse Ox 100 04/24/21 08:00 Intake & Output 09/02/20 09/03/20 09/03/20 18:59 06:59 18:59 Intake Total 0 0 Balance 0 0 Weight 107.5 kg 107.5 kg Intake: Oral 0 0 Other: Voiding Method Diaper # Voids 1 1 - Exam GENERAL: The patient is alert and oriented x 2-3, not in any acute distress. Elderly male HEENT: Pupils are round and equally reacting to light. EOMI. No scleral icterus. No conjunctival pallor. CARDIOVASCULAR: S1 and S2 present. No murmurs, rubs, or gallops. PULMONARY: Chest is clear to auscultation, decreased breath sounds at the lower lung bases. ABDOMEN: Soft, nontender, nondistended, normoactive bowel sounds. MUSCULOSKELETAL: No joint swelling or deformity. EXTREMITIES: No cyanosis, clubbing, or pedal edema. NEUROLOGICAL: Gross neurological examination did not reveal any focal deficits. able to move all his Limbs SKIN: No rashes. no petechiae. - Labs CBC & Chem 7: 09/03/20 08:32 09/03/20 08:32 Labs: Abnormal Lab Results - Last 24 Hours (Table) 09/02/20 09/03/20 09/03/20 Range/Units 17:05 08:32 08:32 RBC 3.79 L (4.30-5.90) m/uL Hgb 12.6 L (13.0-17.5) gm/dL MCV 107.7 H (80.0-100.0) fL MCHC 30.8 L (31.0-37.0) g/dL Macrocytosis Marked A PT 19.0 H (9.0-12.0) sec INR 1.9 H (<1.2) Carbon Dioxide (22-30) mmol/L BUN (9-20) mg/dL Creatinine (0.66-1.25) mg/dL Glucose (74-99) mg/dL POC Glucose (mg/dL) 100 H (75-99) mg/dL Calcium (8.4-10.2) mg/dL 09/03/20 09/03/20 Range/Units 08:32 11:38 RBC (4.30-5.90) m/uL Hgb (13.0-17.5) gm/dL MCV (80.0-100.0) fL MCHC (31.0-37.0) g/dL Macrocytosis PT (9.0-12.0) sec INR (<1.2) Carbon Dioxide 32 H (22-30) mmol/L BUN 67 H (9-20) mg/dL Creatinine 1.30 H (0.66-1.25) mg/dL Glucose 72 L (74-99) mg/dL POC Glucose (mg/dL) 63 L (75-99) mg/dL Calcium 8.2 L (8.4-10.2) mg/dL Assessment and Plan Assessment: ASSESSMENT Acute encephalopathy Acute kidney injury Recentbiventricular AICD upgrade done on 08/25/2020 Ischemic cardiomyopathy Persistent atrial fibrillation status post cardioversion 08/25/2020 Mildly elevated troponin Lewy- body Dementia Hypertension Coronary artery disease Hyperlipidemia : PLAN - patient had episodes of unresponsiveness twice. Workup in progress.Patient had CT of the brain that was showing chronic small vessel disease. EEG showing generalized cerebral dysfunction. at the time of admission patient had elevated creatinine , given IV fluids and creatinine is trending down. Echocardiogram and carotid artery Doppler pending. Patient's blood pressure medications have been adjusted by cardiology today. The treatment plan was discussed in detail with his at bedside.overall prognosis is guarded due to multiple chronic medical conditions. Cardiology and neurology following closely.
--- NOTE | 2020-09-03 17:23 | XR ---
EXAMINATION TYPE: XR chest 1V DATE OF EXAM: 09/03/2020 COMPARISON: 08/28/2020 HISTORY: Short of breath TECHNIQUE: Single view FINDINGS: Heart is enlarged. There is no gross heart failure. There are no hilar masses. There is lef t axillary pacemaker. I see no definite pleural effusion. IMPRESSION: Cardiomegaly. There is clearing of the pulmonary congestion compared to recent exam. No o bvious heart failure.
--- NOTE | 2020-09-03 18:33 | P.PN ---
Subjective Progress Note Date: 09/03/20 Patient was seen for a follow-up via Teleneurology. Patient's was also present. Patient states he is doing slightly better although patient's believes he is about the same. Does not appear to have anymore episodes of hypotension. Patient offers no new complaints. Objective - Vital Signs Vital signs: Vital Signs Temp 98.6 F 09/03/20 08:00 Pulse 74 09/03/20 08:00 Resp 16 09/03/20 08:00 BP 119/59 09/03/20 08:00 Pulse Ox 100 09/03/20 08:00 Intake & Output 09/02/20 09/03/20 09/03/20 18:59 06:59 18:59 Intake Total 0 0 Balance 0 0 Weight 107.5 kg 107.5 kg Intake: Oral 0 0 Other: Voiding Method Diaper # Voids 1 1 - Exam On examination patient is alert and awake, slightly slowly latency time. Speech and language functions are normal. Patient knows he is in [facility] and that it is August and the year is . He appears slightly shaky. Cranial nerves are normal. Muscle strength is normal. No ataxia. - Labs CBC & Chem 7: 09/03/20 08:32 09/03/20 08:32 Labs: Abnormal Lab Results - Last 24 Hours (Table) 09/02/20 09/03/20 09/03/20 Range/Units 17:05 08:32 08:32 RBC 3.79 L (4.30-5.90) m/uL Hgb 12.6 L (13.0-17.5) gm/dL MCV 107.7 H (80.0-100.0) fL MCHC 30.8 L (31.0-37.0) g/dL Macrocytosis Marked A PT 19.0 H (9.0-12.0) sec INR 1.9 H (<1.2) Carbon Dioxide (22-30) mmol/L BUN (9-20) mg/dL Creatinine (0.66-1.25) mg/dL Glucose (74-99) mg/dL POC Glucose (mg/dL) 100 H (75-99) mg/dL Calcium (8.4-10.2) mg/dL 09/03/20 09/03/20 Range/Units 08:32 11:38 RBC (4.30-5.90) m/uL Hgb (13.0-17.5) gm/dL MCV (80.0-100.0) fL MCHC (31.0-37.0) g/dL Macrocytosis PT (9.0-12.0) sec INR (<1.2) Carbon Dioxide 32 H (22-30) mmol/L BUN 67 H (9-20) mg/dL Creatinine 1.30 H (0.66-1.25) mg/dL Glucose 72 L (74-99) mg/dL POC Glucose (mg/dL) 63 L (75-99) mg/dL Calcium 8.2 L (8.4-10.2) mg/dL Assessment and Plan Assessment: * Episode of unresponsiveness, unclear etiology. Probably due to hypotension. Patient on multiple cardiac medications, and his blood pressures has been running low in systolic 94-96 range at the time of symptoms. No evidence of arrhythmia on telemetry monitoring. EEG very unlikely with negative EEG. Patient does have a defibrillator placed, and the battery changed recently. * Mild cognitive impairment. * Diabetes * Hypertension * Hyperlipidemia * Coronary artery disease Plan: * Await cardiology evaluation. * EEG was performed today, which was abnormal due to background slowing of mild to moderate degree. This is suggestive of generalized cerebral dysfunction, as can be seen with toxic metabolic encephalopathy or due to diffuse structural brain abnormality. No epileptiform activity was seen. EKG channel showed arrhythmia. Clinical correlation recommended. * Suggest cardiology consultation to rule out arrhythmia and also for elevated cardiac enzymes. Patient also on 5 different blood pressure medications, and his blood pressure was low at the scene 90/60. May need to adjust blood pressure medications. * Await Carotid Doppler.
--- NOTE | 2020-09-03 19:37 | US ---
EXAMINATION TYPE: US carotid duplex BILAT DATE OF EXAM: 09/03/2020 COMPARISON: 02/20/2019 CLINICAL HISTORY: re: AMS, syncope. Exam done portable. EXAM MEASUREMENTS: RIGHT: Peak Systolic Velocity (PSV) cm/sec ----- Right CCA: 54.4 ----- Right ICA: 87.2 ----- Right ECA: 84.5 ICA/CCA ratio: 1.6 RIGHT: End Diastole cm/sec ----- Right CCA: 15.2 ----- Right ICA: 30.8 ----- Right ECA: 7.1 LEFT: Peak Systolic Velocity (PSV) cm/sec ----- Left CCA: 47.5 ----- Left ICA: 88.2 ----- Left ECA: 66.7 ICA/CCA ratio: 1.9 LEFT: End Diastole cm/sec ----- Left CCA: 16.4 ----- Left ICA: 37.9 ----- Left ECA: 5.1 VERTEBRALS (direction of flow): Right Vertebral: Antegrade Left Vertebral: Antegrade Rhythm: Arrhythmia No elevated velocities, no significant stenosis. IMPRESSION: There is antegrade flow in the vertebral arteries. The images and measurements suggest less than 25% stenosis in both internal carotid arteries. Criteria for Assigning % of Stenosis / Diameter reduction (Estimation based on the indirect measurements of the internal carotid artery velocities (ICA PSV). 1. Normal (no stenosis)=ICA PSV < 125 cm/s: ratio < 2.0: ICA EDV<40 cm/s. 2. Less than 50% stenosis=ICA PSV < 125 cm/s: ratio < 2.0: ICA EDV<40 cm/s. 3. 50 to 69% stenosis=ICA PSV of 125 to 230 cm/s: ration 2.0 ? 4.0: ICA EDV 40-100 cm/s. 4. Greater than 70% stenosis to near occlusion= ICA PSV > 230 cm/s: ratio > 4.0: ICA EDV > 100 cm/s. 5. Near occlusion= ICA PSV velocities may be low or undetectable: variable ratio and ICA EDV. 6. Total occlusion=unable to detect flow.
[2020-09-03 19:47] LABS: Glucose,Whole Blood 110 mg/dL (75-99)
[2020-09-03] MEDS ORDERED: lisinopriL 10 MG TAB PO SCH (20:00)
[2020-09-03] MEDS: allopurinoL 300 MG TAB PO SCH (20:49)
[2020-09-03] MEDS: FINASTERIDE 5 MG TAB PO SCH (20:49)
[2020-09-03] MEDS: QUEtiapine 50 MG TAB PO SCH (20:49)
[2020-09-03] MEDS: ATORVASTATIN 20 MG TAB PO SCH (20:49)
[2020-09-03] MEDS: LEVOTHYROXINE 25 MCG TAB PO SCH (20:49)
[2020-09-04 06:34] LABS: Glucose,Whole Blood 98 mg/dL (75-99)
[2020-09-04 08:57] LABS: Basophils % (A) 0 %; Eosinophils # (A) 0.2 k/uL (0-0.7); Eosinophils % (A) 3 %; HCT 38.1 % (39.0-53.0); HGB 12.3 gm/dL (13.0-17.5); Hypochromasia Slight; Lymphocytes # (A) 1.6 k/uL (1.0-4.8); Lymphocytes % (A) 23 %; MCH 34.3 pg (25.0-35.0); MCHC 32.2 g/dL (31.0-37.0); MCV 106.6 fL (80.0-100.0); Macrocytosis Moderate; Monocytes # (A) 0.7 k/uL (0-1.0); Monocytes % (A) 10 %; Neutrophils # (A) 4.2 k/uL (1.3-7.7); Neutrophils % (A) 60 %; Platelet Count 197 k/uL (150-450); RBC 3.58 m/uL (4.30-5.90); RDW 15.2 % (11.5-15.5); WBC 6.9 k/uL (3.8-10.6)
[2020-09-04 09:04] LABS: Albumin 2.5 g/dL (3.5-5.0); Total Bilirubin 1.1 mg/dL (0.2-1.3); Total Protein 4.9 g/dL (6.3-8.2)
[2020-09-04 09:06] LABS: INR 2.3 (<1.2); Prothrombin Time 22.4 sec (9.0-12.0)
[2020-09-04 09:50] LABS: Calcium 8.3 mg/dL (8.4-10.2); Potassium 3.4 mmol/L (3.5-5.1)
[2020-09-04] MEDS: METOPROLOL SUCCINATE (ER) 100 MG TAB.ER.24H PO SCH ×2 (10:00→20:18)
[2020-09-04] MEDS: ISOSORBIDE MONONITRATE ER 30 MG TAB.ER.24H PO SCH (10:00)
[2020-09-04] MEDS: FUROSEMIDE 40 MG TAB PO SCH (10:00)
[2020-09-04] MEDS: SPIRONOLACTONE 25 MG TAB PO SCH (10:00)
[2020-09-04] MEDS: MULTIVITAMINS, THERA 1 EACH TAB PO SCH (10:00)
[2020-09-04] MEDS: FAMOTIDINE 20 MG TAB PO SCH (10:00)
[2020-09-04] MEDS: SILVER sulfADIAZINE Cream 400 GM 1 APPLIC APPLIC TOPICAL SCH (10:03)
[2020-09-04] MEDS: ACETAMINOPHEN TAB 500 MG TAB PO PRN ×2 (10:06→17:19)
[2020-09-04 10:37] LABS: Poikilocytosis (M) Present
[2020-09-04 11:46] LABS: Glucose,Whole Blood 86 mg/dL (75-99)
[2020-09-04 15:12] VITALS: RESP 18
--- NOTE | 2020-09-04 15:42 | P.PN ---
Subjective HISTORY OF PRESENTING ILLNESS Patient is a 80-year-old male with a history of ischemic cardiomyopathy status post AICD, diabetes mellitus type 2, hypertension, hyperlipidemia, GERD, Parkinson's, previous Guillain-Bowen syndrome, atrial fibrillation on anticoagulation with Coumadin who presented initially 08/25 due to AICD at end of battery life and for upgrade given cardiomyopathy with widened QRS. Patient underwent successful upgrade to biventricular AICD and also underwent cardioversion for his atrial fibrillation with Coumadin level, INR therapeutic. Patient had some confusion with sedation and therefore was kept for monitoring and then discharged to subacute rehab. Prior to this patient had been fairly functional able to walk with a walker and lives with his at home. Unfortunately patient had episode where he was found slumped over at subacute rehab and unresponsive. Per note, EMS found initial blood pressure 90/60 with a pulse rate of 82, oxygen saturation 97% and blood sugar 126. Patient had CT head performed which showed age-related atrophic and chronic small vessel changes without acute intracranial process. Patient's troponins are noted to be mildly elevated at 0.41, 0.28, 0.257. His creatinine was initially mildly elevated up to 1.8, currently improved to 1.3. His coronavirus has been negative. Per this is not like himself and he has been confused for the last approximately week. There are no significant changes in medications. Neurology is concerned with possible low blood pressures however MAP has been in the 70s to 80s, lowest blood pressure reading 94/60. Patient apparently had another episode of unresponsiveness while in the hospital yesterday and he had been talking normally and then became slumped over in a sleep however blood pressure at that time was 90s over 60s. 09/04 Patient seen and examined. Lisinopril was decreased and blood pressure per dominantly control however one blood pressure 96/55. Patient somewhat somnolent. Neurology is going to decrease his Seroquel. Denies any chest pain or pressure. REVIEW OF SYSTEMS At the time of my exam: CONSTITUTIONAL: Denies fever or chills. CARDIOVASCULAR: Denies chest pain, shortness of breath, orthopnea, PND or palpitations. RESPIRATORY: Denies cough. GASTROINTESTINAL: Denies abdominal pain, diarrhea, constipation, nausea or vomiting. MUSCULOSKELETAL: Denies myalgias. NEUROLOGIC: Denies numbness, tingling or weakness. ENDOCRINE: Denies fatigue, weight change, polydipsia or polyurina. GENITOURINARY: Denies burning, hematuria or urgency with micturation. HEMATOLOGIC: Denies history of anemia or bleeding. PHYSICAL EXAMINATION Vital signs reviewed. CONSTITUTIONAL: No apparent distress, confused, alert and oriented to self and hospital however not date HEENT: Head is normocephalic. Pupils are equal, round. Sclerae anicteric. Mucous membranes of the mouth are moist. No JVD. No carotid bruit. CHEST EXAMINATION: Lungs are clear to auscultation. No chest wall tenderness is noted on palpation or with deep breathing. HEART EXAMINATION: Regular rate and rhythm. S1, S2 heard. No murmurs, gallops or rub. ABDOMEN: Soft, nontender. Positive bowel sounds. EXTREMITIES: 2+ peripheral pulses, no lower extremity edema and no calf tenderness. NEUROLOGIC EXAMINATION: Patient is awake, confused ASSESSMENT 1. Altered mental status 2. Apparent syncope 2, being found slumped over and unresponsive both the ECF and in-hospital apparently with blood pressures in the 90s over 60s 3. Status post biventricular AICD upgrade 08/25/2020 4. Ischemic cardiomyopathy 5. Essential hypertension 6. Persistent atrial fibrillation status post electrical cardioversion 08/25/2020 7. History of Parkinson's 8. Diabetes mellitus type 2 9. Acute kidney injury, improving 10. Mildly elevated troponins, suspect type II etiology from syncope with known history of coronary artery disease, ischemic cardiomyopathy PLAN Patient appears to have 2 different issues with altered mental status over the past week. Neurology recommendations appreciated. Rule out stroke versus encephalopathy versus other. Other issue appears to be questionable syncopal episodes, patient being found slumped over and unresponsive. One of these episodes occurred while patient in monitored on telemetry and no acute arrhythmias noted. Allowing mild permissive hypertension however would not allow too much with his history of heart failure. We will check echocardiogram to evaluate for any structural issues status post AICD upgrade. Carotid ultrasound was checked to rule out bilateral stenosis that could be causing hypoperfusion however only with mild disease. We will again decrease lisinopril from 10 mg to 5 mg however do not feel he is having hypoperfusion with blood pressures 90s over 60s. Objective - Vital Signs Vital signs: Vital Signs Temp 98.6 F 09/04/20 15:10 Pulse 67 09/04/20 15:10 Resp 18 09/04/20 15:10 BP 93/52 09/04/20 15:10 Pulse Ox 97 09/04/20 15:10 Intake & Output 09/03/20 09/04/20 09/04/20 18:59 06:59 18:59 Intake Total 750 0 Output Total 1 Balance 750 -1 Weight 107.5 kg 111.1 kg Intake: Oral 750 0 Output: Urine 1 Other: Voiding Method Diaper Diaper Diaper # Voids 1 1 1 - Labs CBC & Chem 7: 09/04/20 08:36 09/04/20 08:36 Labs: Abnormal Lab Results - Last 24 Hours (Table) 09/03/20 09/03/20 09/04/20 Range/Units 16:40 19:44 08:36 RBC (4.30-5.90) m/uL Hgb (13.0-17.5) gm/dL Hct (39.0-53.0) % MCV (80.0-100.0) fL PT 22.4 H (9.0-12.0) sec INR 2.3 H (<1.2) Potassium (3.5-5.1) mmol/L Chloride (98-107) mmol/L Carbon Dioxide (22-30) mmol/L BUN (9-20) mg/dL Glucose (74-99) mg/dL POC Glucose (mg/dL) 114 H 110 H (75-99) mg/dL Calcium (8.4-10.2) mg/dL Total Protein (6.3-8.2) g/dL Albumin (3.5-5.0) g/dL 09/04/20 09/04/20 Range/Units 08:36 08:36 RBC 3.58 L (4.30-5.90) m/uL Hgb 12.3 L (13.0-17.5) gm/dL Hct 38.1 L (39.0-53.0) % MCV 106.6 H (80.0-100.0) fL PT (9.0-12.0) sec INR (<1.2) Potassium 3.4 L (3.5-5.1) mmol/L Chloride 109 H (98-107) mmol/L Carbon Dioxide 33 H (22-30) mmol/L BUN 55 H (9-20) mg/dL Glucose 104 H (74-99) mg/dL POC Glucose (mg/dL) (75-99) mg/dL Calcium 8.3 L (8.4-10.2) mg/dL Total Protein 4.9 L (6.3-8.2) g/dL Albumin 2.5 L (3.5-5.0) g/dL
[2020-09-04 16:31] LABS: Glucose,Whole Blood 111 mg/dL (75-99)
[2020-09-04] MEDS: WARFARIN 2.5 MG TAB PO SCH (17:19)
[2020-09-04] MEDS ORDERED: Potassium Replacement Protocol 1 EACH MISC MISCELLANE PRN (19:39)
[2020-09-04] MEDS ORDERED: lisinopriL 5 MG TAB PO SCH (20:00)
[2020-09-04] MEDS: allopurinoL 300 MG TAB PO SCH (20:18)
[2020-09-04] MEDS: FINASTERIDE 5 MG TAB PO SCH (20:18)
[2020-09-04] MEDS: ATORVASTATIN 20 MG TAB PO SCH (20:18)
[2020-09-04] MEDS: LEVOTHYROXINE 25 MCG TAB PO SCH (20:19)
[2020-09-04] MEDS: POTASSIUM CHLORIDE ER 20 MEQ TAB.ER PO SCH ×2 (20:19→21:00)
[2020-09-04 20:48] LABS: Glucose,Whole Blood 136 mg/dL (75-99)
[2020-09-04] MEDS ORDERED: QUEtiapine 25 MG TAB PO SCH (21:00)
--- NOTE | 2020-09-04 23:23 | P.PN ---
Subjective Progress Note Date: 09/04/20 Patient was seen for a follow-up via Teleneurology. Patient's was also present. Per patient's , he has been sleeping for the last 2 hours. Patient's states that he has been diagnosed with doing body dementia and Parkinson's disease. Also on Seroquel 50 mg at bedtime for some behavioral p roblems. It also helps him sleep. Patient is also on Requip for restless legs. Patient's blood pressure was checked at the time of evaluation by the nurse and was 93/52. It is very low. Patient offers no new complaints. Objective - Vital Signs Vital signs: Vital Signs Temp 97.5 F L 09/04/20 20:00 Pulse 68 09/04/20 20:00 Resp 18 09/04/20 20:00 BP 107/54 09/04/20 20:00 Pulse Ox 96 09/04/20 20:00 Intake & Output 09/04/20 09/04/20 09/05/20 06:59 18:59 06:59 Intake Total 115 10 Output Total 1 Balance 114 10 Weight 111.1 kg Intake: IV 10 0.9 10 Oral 115 Output: Urine 1 Other: Voiding Method Diaper Diaper Diaper # Voids 1 1 1 - Exam On examination patient is alert and awake, slightly slowly latency time. Speech and language functions are normal. Patient knows he is in [facility] and that it is August and the year is 201. He appears slightly shaky. Cranial nerves are normal. Muscle strength is normal. Detailed testing deferred. - Labs CBC & Chem 7: 09/04/20 08:36 09/04/20 08:36 Labs: Abnormal Lab Results - Last 24 Hours (Table) 09/04/20 09/04/20 09/04/20 Range/Units 08:36 08:36 08:36 RBC 3.58 L (4.30-5.90) m/uL Hgb 12.3 L (13.0-17.5) gm/dL Hct 38.1 L (39.0-53.0) % MCV 106.6 H (80.0-100.0) fL PT 22.4 H (9.0-12.0) sec INR 2.3 H (<1.2) Potassium 3.4 L (3.5-5.1) mmol/L Chloride 109 H (98-107) mmol/L Carbon Dioxide 33 H (22-30) mmol/L BUN 55 H (9-20) mg/dL Glucose 104 H (74-99) mg/dL POC Glucose (mg/dL) (75-99) mg/dL Calcium 8.3 L (8.4-10.2) mg/dL Total Protein 4.9 L (6.3-8.2) g/dL Albumin 2.5 L (3.5-5.0) g/dL 09/04/20 09/04/20 Range/Units 16:29 19:53 RBC (4.30-5.90) m/uL Hgb (13.0-17.5) gm/dL Hct (39.0-53.0) % MCV (80.0-100.0) fL PT (9.0-12.0) sec INR (<1.2) Potassium (3.5-5.1) mmol/L Chloride (98-107) mmol/L Carbon Dioxide (22-30) mmol/L BUN (9-20) mg/dL Glucose (74-99) mg/dL POC Glucose (mg/dL) 111 H 136 H (75-99) mg/dL Calcium (8.4-10.2) mg/dL Total Protein (6.3-8.2) g/dL Albumin (3.5-5.0) g/dL Assessment and Plan Assessment: * Episode of unresponsiveness, unclear etiology. Probably due to hypotension. Patient's blood at this time is 93/52. Patient on multiple cardiac medications, and his blood pressures has been running low in systolic 94-96 range at the time of symptoms. No evidence of arrhythmia on telemetry monitoring. EEG very unlikely with negative EEG. Patient does have a defibrillator placed, and the battery changed recently. * Mild cognitive impairment. * Diabetes * Hypertension * Hyperlipidemia * Coronary artery disease Plan: * Cardiology input appreciated. Patient's dose of lisinopril has been decreased since last night. However his blood pressure is still very low, 93/52 at this time. Probably needs further optimizing down the dose of blood pressure medication. * Patient is excessively somnolent. We will decrease Seroquel from 50 down to 25 mg. Continue Requip for now. * EEG was performed today, which was abnormal due to background slowing of mild to moderate degree. This is suggestive of generalized cerebral dysfunction, as can be seen with toxic metabolic encephalopathy or due to diffuse structural brain abnormality. No epileptiform activity was seen. EKG channel showed arrhythmia. Clinical correlation recommended. * Hemoglobin A1c 5.5, B12 864 in TSH normal. * Carotid Doppler showed no significant stenosis, antegrade flow in both valeria tebral arteries.
--- NOTE | 2020-09-04 23:39 | P.PN ---
Subjective Progress Note Date: 09/04/20 Principal diagnosis: Encephalopathy covering for Dr. Mares over the weekend Mr. Porras is a 80-year-old gentleman with a past medical history of hypertension, diabetes mellitus, hyperlipidemia, Lewy body dementiabrought in for altered mental status changes. Patient recently had successful upgrade to biventricular AICD and underwent cardioversion. After the procedure patient had some confusion so was monitored for a few hours and later on discharged to subacute rehab. At the subacute rehab patient was found slumped over and unresponsive and when they checked his initial blood pressure it was found to be 90 x 60. Patient had a computed tomography scan in the ER showing age-related atrophic changes and chronic small vessel changes without acute intracranial process. His troponins were mildly elevated at 0.41, 0.28, 0.57. At the time of admission his creatinine was elevated at 1.5 and currently it is at 1.3. As per discussion with nursing staff he had another episode of unresponsiveness yesterday evening. Neurology has evaluated the patient yesterday and he had an EEG doneshowing abnormal due to background slowing of [id number] degree suggestive of generalized cerebral dysfunction.today on examination patient was comfortably lying in bed appears to be in no acute distress. His is at bedside. She mentions that she is confused at times. Patient denies having any chest pain or difficulty in breathing. She denies having any weakness of his extremities. He was able to tell me that he had the procedure done last week and later was sent to subacute rehab, he was not sure what happened there and eventually admitted to the hospital. On 09/05/2019 -patient was seen and examined at the bedside. His is at the bedside. Patient has been more lethargic compared to yesterday. He was sleeping all through the morning as per discussion with nursing staff. Patient woke up on calling his name was slightly confused but said that he is feeling sleepy. He denies having any chest pain or palpitations no cough or difficulty in breathing. On reviewing the vitals patient's temperature 98.6, heart rate 67, respiratory rate 16 blood pressure 93/52, saturating at 97% on 2 L of nasal cannula. On reviewing the patient's labs from this morning sodium 144, potassium 3.4, chloride 109, bicarb 33, BUN 35, creatinine 1.08 albumin of 2.5. CBC showing white count of 6.9, hemoglobin 12.3, platelets 197. Active Medications Acetaminophen (Acetaminophen Tab 500 Mg Tab) 1,000 mg PO Q6HR PRN PRN Reason: Fever and/ or Pain Last Admin: 09/04/20 17:19 Dose: 1,000 mg Documented by: Allopurinol (Allopurinol 300 Mg Tab) 300 mg PO [facility] Last Admin: 09/04/20 20:18 Dose: 300 mg Documented by: Atorvastatin Calcium (Atorvastatin 20 Mg Tab) 20 mg PO [facility] Last Admin: 09/04/20 20:18 Dose: 20 mg Documented by: Bisacodyl (Bisacodyl 5 Mg Tablet.Dr) 5 mg PO DAILY PRN PRN Reason: Constipation Famotidine (Famotidine 20 Mg Tab) 20 mg PO DAILY@0900 [facility] Last Admin: 09/04/20 10:00 Dose: 20 mg Documented by: Finasteride (Finasteride 5 Mg Tab) 5 mg PO [facility] Last Admin: 09/04/20 20:18 Dose: 5 mg Documented by: Furosemide (Furosemide 40 Mg Tab) 40 mg PO DAILY@0900 [facility] Last Admin: 09/04/20 10:00 Dose: 40 mg Documented by: Glipizide (Glipizide 2.5 Mg Tab) 2.5 mg PO BID [facility] Last Admin: 09/04/20 20:19 Dose: 2.5 mg Documented by: Isosorbide Mononitrate (Isosorbide Mononitrate Er 30 Mg Tab.Er.24h) 30 mg PO DAILY@0900 [facility] Last Admin: 09/04/20 10:00 Dose: 30 mg Documented by: Levothyroxine Sodium (Levothyroxine 25 Mcg Tab) 25 mcg PO [facility] Last Admin: 09/04/20 20:19 Dose: 25 mcg Documented by: Lisinopril (Lisinopril 5 Mg Tab) 5 mg PO HS@1999 [facility] Last Admin: 09/04/20 20:18 Dose: 5 mg Documented by: Metoprolol Succinate (Metoprolol Succinate (Er) 100 Mg Tab.Er.24h) 100 mg PO BID@799,1999 [facility] Last Admin: 09/04/20 20:18 Dose: 100 mg Documented by: Miscellaneous Information (Warfarin Per Pharmacy) 0 each MISCELLANE DIRECTED PRN PRN Reason: per protocol Miscellaneous Information (Potassium Replacement Protocol 1 Each Misc) 1 each MISCELLANE DAILY PRN; Protocol PRN Reason: Per Protocol Multivitamins (Multivitamins, Thera 1 Each Tab) 1 each PO DAILY@0900 [facility] Last Admin: 09/04/20 10:00 Dose: 1 each Documented by: Naloxone HCl (Naloxone 0.4 Mg/Ml 1 Ml Vial) 0.2 mg IV Q2M PRN PRN Reason: Opioid Reversal Quetiapine Fumarate (Quetiapine 25 Mg Tab) 25 mg PO [facility] Last Admin: 09/04/20 21:00 Dose: 25 mg Documented by: Ropinirole HCl (Ropinirole Hcl 0.25 Mg Tab) 0.25 mg PO [facility] Last Admin: 09/04/20 20:20 Dose: 0.25 mg Documented by: Silver Sulfadiazine (Silver Sulfadiazine Cream 400 Gm 1 Applic Applic) 1 applic TOPICAL DAILY [facility] Last Admin: 09/04/20 10:03 Dose: 1 applic Documented by: Spironolactone (Spironolactone 25 Mg Tab) 25 mg PO DAILY@0900 [facility] Last Admin: 09/04/20 10:00 Dose: 25 mg Documented by: Warfarin Sodium (Warfarin 2.5 Mg Tab) 2.5 mg PO DAILY@1600 [facility]; Protocol Last Admin: 09/04/20 17:19 Dose: 2.5 mg Documented by: Objective - Vital Signs Vital signs: Vital Signs Temp 98.6 F 09/04/20 15:10 Pulse 67 09/04/20 15:10 Resp 18 09/04/20 15:10 BP 93/52 09/04/20 15:10 Pulse Ox 97 09/04/20 15:10 Intake & Output 09/03/20 09/04/20 09/04/20 18:59 06:59 18:59 Intake Total 750 0 Output Total 1 Balance 750 -1 Weight 107.5 kg 111.1 kg Intake: Oral 750 0 Output: Urine 1 Other: Voiding Method Diaper Diaper Diaper # Voids 1 1 1 - Exam GENERAL: The patient is alert and oriented x 2-3, not in any acute distress. More lethargic compared to yesterday. HEENT: Pupils are round and equally reacting to light. EOMI. No scleral icterus. No conjunctival pallor. CARDIOVASCULAR: S1 and S2 present. No murmurs, rubs, or gallops. PULMONARY: Chest is clear to auscultation, decreased breath sounds at the lower lung bases. ABDOMEN: Soft, nontender, nondistended, normoactive bowel sounds. MUSCULOSKELETAL: No joint swelling or deformity. EXTREMITIES: No cyanosis, clubbing, or pedal edema. NEUROLOGICAL: Gross neurological examination did not reveal any focal deficits. able to move all his Limbs SKIN: No rashes. no petechiae. - Labs CBC & Chem 7: 09/04/20 08:36 09/04/20 08:36 Labs: Abnormal Lab Results - Last 24 Hours (Table) 09/03/20 09/03/20 09/04/20 Range/Units 16:40 19:44 08:36 RBC (4.30-5.90) m/uL Hgb (13.0-17.5) gm/dL Hct (39.0-53.0) % MCV (80.0-100.0) fL PT 22.4 H (9.0-12.0) sec INR 2.3 H (<1.2) Potassium (3.5-5.1) mmol/L Chloride (98-107) mmol/L Carbon Dioxide (22-30) mmol/L BUN (9-20) mg/dL Glucose (74-99) mg/dL POC Glucose (mg/dL) 114 H 110 H (75-99) mg/dL Calcium (8.4-10.2) mg/dL Total Protein (6.3-8.2) g/dL Albumin (3.5-5.0) g/dL 09/04/20 09/04/20 Range/Units 08:36 08:36 RBC 3.58 L (4.30-5.90) m/uL Hgb 12.3 L (13.0-17.5) gm/dL Hct 38.1 L (39.0-53.0) % MCV 106.6 H (80.0-100.0) fL PT (9.0-12.0) sec INR (<1.2) Potassium 3.4 L (3.5-5.1) mmol/L Chloride 109 H (98-107) mmol/L Carbon Dioxide 33 H (22-30) mmol/L BUN 55 H (9-20) mg/dL Glucose 104 H (74-99) mg/dL POC Glucose (mg/dL) (75-99) mg/dL Calcium 8.3 L (8.4-10.2) mg/dL Total Protein 4.9 L (6.3-8.2) g/dL Albumin 2.5 L (3.5-5.0) g/dL Assessment and Plan Assessment: ASSESSMENT Acute encephalopathy Acute kidney injury Recentbiventricular AICD upgrade done on 08/25/2020 Ischemic cardiomyopathy Persistent atrial fibrillation status post cardioversion 08/25/2020 Mildly elevated troponin Lewy- body Dementia Hypertension Coronary artery disease Hyperlipidemia : PLAN - patient had episodes of unresponsiveness twice. Workup in progress.Patient had CT of the brain that was showing chronic small vessel disease. EEG showing generalized cerebral dysfunction. at the time of admission patient had elevated creatinine , given IV fluids and creatinine is trending down. Echocardiogram pending and carotid artery Doppler no significant stenosis. Patient's blood pressure is running low, medications been adjusted by cardiology . The treatment plan was discussed in detail with his at bedside.overall prognosis is guarded due to multiple chronic medical conditions. Cardiology and neurology following closely.
[2020-09-05] MEDS: ACETAMINOPHEN TAB 500 MG TAB PO PRN ×2 (06:07→13:13)
[2020-09-05 06:55] LABS: Glucose,Whole Blood 79 mg/dL (75-99)
[2020-09-05] MEDS: SPIRONOLACTONE 25 MG TAB PO SCH (08:31)
[2020-09-05] MEDS: FAMOTIDINE 20 MG TAB PO SCH (08:31)
[2020-09-05] MEDS: METOPROLOL SUCCINATE (ER) 100 MG TAB.ER.24H PO SCH (08:31)
[2020-09-05] MEDS: FUROSEMIDE 40 MG TAB PO SCH (08:31)
[2020-09-05] MEDS: MULTIVITAMINS, THERA 1 EACH TAB PO SCH (08:31)
--- NOTE | 2020-09-05 08:31 | P.DS ---
Providers Date of admission: 09/01/20 12:43 Attending physician: Chris Mares Consults: 09/01/20 12:44 Consult Physician Urgent Consulting Provider: Melissa Cook Consult Reason/Comments: acute encephalopathy Do you want consulting provider notified?: Yes 09/02/20 20:00 Consult Physician Routine Consulting Provider: Ramses Brown Consult Reason/Comments: low blood pressure; blood pressure medications Do you want consulting provider notified?: Yes, Notify in am Primary care physician: Chris Mares - Discharge Diagnosis(es) (1) Acute encephalopathy Current Visit: Yes Status: Acute (2) Altered mental status Current Visit: No Status: Acute (3) Dementia Current Visit: No Status: Acute (4) Hypoxia Current Visit: No Status: Acute Hospital Course: The patient is discharged after having significant altered mental status. The patient had significant workup and consultation by cardiology and neurology. Workup was essentially negative for any acute pathology and medications were adjusted. The patient is discharged in stable condition to follow-up with me in about one week. Patient Condition at Discharge: Stable Plan - Discharge Summary Discharge Rx Participant: Yes New Discharge Prescriptions: No Action Famotidine [Pepcid] 20 mg PO DAILY@0600 Atorvastatin [Lipitor] 20 mg PO HS glipiZIDE [Glucotrol] 2.5 mg PO BID Furosemide [Lasix] 40 mg PO DAILY@0600 Finasteride [Proscar] 5 mg PO HS allopurinoL [Zyloprim] 300 mg PO HS Warfarin [Coumadin] 2.5 mg PO DAILY@1600 QUEtiapine [SEROquel] 50 mg PO HS rOPINIRole HCL [Requip] 0.25 mg PO HS Levothyroxine Sodium 25 mcg PO HS Multivitamins, Thera [Multivitamin (formulary)] 1 tab PO DAILY@0600 Benazepril HCl 20 mg PO HS@1999 bisacodyL [Dulcolax] 5 mg PO DAILY PRN PRN Reason: Constipation Metoprolol Succinate (ER) [Toprol XL] 100 mg PO BID@0800,1999 Isosorbide Mononitrate ER [Imdur] 30 mg PO DAILY@0600 Spironolactone [Aldactone] 25 mg PO DAILY@0600 Discharge Medication List Atorvastatin [Lipitor] 20 mg PO HS 08/19/17 [History] Famotidine [Pepcid] 20 mg PO DAILY@0600 08/19/17 [History] Finasteride [Proscar] 5 mg PO HS 08/19/17 [History] Furosemide [Lasix] 40 mg PO DAILY@0608/19/17 [History] allopurinoL [Zyloprim] 300 mg PO HS 08/19/17 [History] glipiZIDE [Glucotrol] 2.5 mg PO BID 08/19/17 [History] Warfarin [Coumadin] 2.5 mg PO DAILY@1600 03/27/18 [History] QUEtiapine [SEROquel] 50 mg PO HS 08/10/20 [History] rOPINIRole HCL [Requip] 0.25 mg PO HS 08/11/20 [History] Benazepril HCl 20 mg PO HS@199908/22/20 [History] Levothyroxine Sodium 25 mcg PO HS 08/22/20 [History] bisacodyL [Dulcolax] 5 mg PO DAILY PRN 08/22/20 [History] Metoprolol Succinate (ER) [Toprol XL] 100 mg PO BID@0800,199908/28/20 [History] Isosorbide Mononitrate ER [Imdur] 30 mg PO DAILY@59909/01/20 [History] Multivitamins, Thera [Multivitamin (formulary)] 1 tab PO DAILY@59909/01/20 [History] Spironolactone [Aldactone] 25 mg PO DAILY@0609/01/20 [History] Follow up Appointment(s)/Referral(s): Shady Alas DO [STAFF PHYSICIAN] - 1-2 days
[2020-09-05] MEDS: ISOSORBIDE MONONITRATE ER 30 MG TAB.ER.24H PO SCH (08:32)
[2020-09-05] MEDS: SILVER sulfADIAZINE Cream 400 GM 1 APPLIC APPLIC TOPICAL SCH (08:40)
[2020-09-05 10:35] LABS: HCT 39.8 % (39.0-53.0); HGB 12.5 gm/dL (13.0-17.5); Hypochromasia Moderate; MCH 33.8 pg (25.0-35.0); MCHC 31.4 g/dL (31.0-37.0); MCV 107.7 fL (80.0-100.0); Macrocytosis Marked; Mean Platelet Volume 7.7; Platelet Count 233 k/uL (150-450); RDW 15.4 % (11.5-15.5); WBC 7.2 k/uL (3.8-10.6)
[2020-09-05 10:38] LABS: INR 2.4 (<1.2); Prothrombin Time 23.2 sec (9.0-12.0)
[2020-09-05 10:51] LABS: Calcium 8.4 mg/dL (8.4-10.2); Potassium 3.6 mmol/L (3.5-5.1)
--- NOTE | 2020-09-05 11:00 | ECHOF ---
Referral Reason:re: LV function, s/p BiV upgrade MEASUREMENTS -------- HEIGHT: 188.0 cm WEIGHT: 112.5 kg BP: 120/71 RVIDd: 3.7 cm (< 3.3) IVSd: 1.2 cm (0.6 - 1.1) LVIDd: 6.7 cm (3.9 - 5.3) LVPWd: 1.3 cm (0.6 - 1.1) IVSs: 1.6 cm LVIDs: 5.7 cm LVPWs: 1.5 cm LAESV Index (A-L): 53.20 ml/m Ao Diam: 3.6 cm (2.0 - 3.7) AV Cusp: 2.3 cm (1.5 - 2.6) MV EXCURSION: 17.459 mm (> 18.000) MV EF SLOPE: 77 mm/s (70 - 150) EPSS: 1.9 cm RAP: 5.00 mmHg RVSP: 53.90 mmHg FINDINGS -------- This was a technically difficult study with suboptimal views. The left ventricle is moderately dilated. There is mild concentric left ventricular hypertrophy. There is severe global hypokinesis of LV . Overall left ventricular systolic function is severely i mpaired with, an EF between 20 - 25 %. The right ventricle is mildly enlarged. LA is severely dilated >40 ml/m2 The right atrium is moderately enlarged. Electronic pacemaker lead seen in the right atrial cavity. 5.0mg of Lumason was utilized for enhancement of images Interatrial and interventricular septum intact. There is mild aortic valve sclerosis. There is no evidence of aortic regurgitation. There is no e vidence of aortic stenosis. Mild mitral annular calcification present. Moderate mitral regurgitation is present. Mild mitral stenosis. Moderate tricuspid regurgitation present. There is moderate to severe pulmonary hypertension. The right ventricular systolic pressure, as measured by Doppler, is 53.90mmHg. The pulmonic valve was not well visualized. There is no pulmonic regurgitation present. The aortic root size is normal. IVC Not well visulized. There is no pericardial effusion. CONCLUSIONS -------- 1. This was a technically difficult study with suboptimal views. 2. The left ventricle is moderately dilated. 3. There is mild concentric left ventricular hypertrophy. 4. There is severe global hypokinesis of LV . 5. Overall left ventricular systolic function is severely impaired with, an EF between 20 - 25 %. 6. The right ventricle is mildly enlarged. 7. LA is severely dilated >40 ml/m2 8. The right atrium is moderately enlarged. 9. There is mild aortic valve sclerosis. 10. Mild mitral annular calcification present. 11. Moderate mitral regurgitation is present. 12. Moderate tricuspid regurgitation present. 13. There is moderate to severe pulmonary hypertension. [employer]: Regina Morelos RDCS
[2020-09-05 12:21] LABS: Glucose,Whole Blood 143 mg/dL (75-99)
[2020-09-05 12:39] VITALS: BP 94/62; PULSE 83; TEMP 98.1
--- NOTE | 2020-09-05 12:40 | P.CONS ---
History of Present Illness - Reason for Consult Consult date: 09/05/20 wound care - History of Present Illness This is a 80-year-old patient being seen on [address] for nonhealing ulceration to the sacrum. Patient states that the ulceration has been there for the past 12 years. It will come and go. He utilizes Silvadene. When he has pain or discomfort he will apply Silvadene and after few days it will improve. Patient found to have ecchymosis and unstageable pressure ulcer to the sacrum. The periwound shows maceration excoriation. Patient is complaining of pain and discomfort to the site. He is currently a resident at [facility] we'll he'll return to today. Discussed with patient in length to utilize a Roho cushion. Review Of Systems: Constitutional: No fever, no chills, no night sweats. No weight change. No weakness, fatigue or lethargy. No daytime sleepiness. Integumentary:reports wounds, no lesions. No rash or pruritus. No unusual bruising. No change in hair or nails. Physical exam: General Appearance: Alert, cooperative, no distress, appears stated age. Skin: See HPI all other Skin color, texture, tugor normal, no rashes or lesions. Neurologic: Alert oriented x3 Assessment/plan: 1. Unstageable pressure ulcer to sacrum: Apply Silvadene and a border foam s acrum dressing changes daily. Utilize a air-filled cushion for sitting at all times. Patient may benefit from outpatient wound care once stable and at home. Patient and family questions were answered and agreeable to plan. Thanks for the consultation any questions please contact the wound care center DNP note has been reviewed and discussed with Dr. Box and the impression and plan of care has been directed as dictated. 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 large BULLOUS DIABETICORUM fluid sac rt leg 11/2013-burst and now resolved, SEE DR GUTIERREZ'S HISTORY AND PHYSICAL FOR CARDIAC HISTORY, CATARACT RIGHT EYE. lewy body dementia with parkinsons recently increase upper body movement especially at night Last Myocardial Infarction Date:: 1992 History of Any Multi-Drug Resistant Organisms: None Reported Past Surgical History: AICD, Heart Catheterization With Stent, Pacemaker Additional Past Surgical History / Comment(s): SEVERAL CARDIOVERSIONS. LT CATARACT REMOVED Past Anesthesia/Blood Transfusion Reactions: No Reported Reaction Date of Last Stent Placement:: 1992 Type of Cardiac Device: Permanent Pacemaker, AICD Device Placement Date:: 03/2010 Past Psychological History: Anxiety Smoking Status: Former smoker Past Alcohol Use History: Rare Past Drug Use History: None Reported - Past Family History Mother Additional Family Medical History / Comment(s): SEVERE LEG EDEMA Medications and Allergies Home Medications Medication Instructions Recorded Confirmed Type Atorvastatin [Lipitor] 20 mg PO HS 08/19/17 09/01/20 History Famotidine [Pepcid] 20 mg PO DAILY@0600 08/19/17 09/01/20 History Finasteride [Proscar] 5 mg PO HS 08/19/17 09/01/20 History Furosemide [Lasix] 40 mg PO DAILY@0600 08/19/17 09/01/20 History allopurinoL [Zyloprim] 300 mg PO HS 08/19/17 09/01/20 History glipiZIDE [Glucotrol] 2.5 mg PO BID 08/19/17 09/01/20 History Warfarin [Coumadin] 2.5 mg PO DAILY@1600 03/27/18 09/01/20 History QUEtiapine [SEROquel] 50 mg PO HS 08/10/20 09/01/20 History rOPINIRole HCL [Requip] 0.25 mg PO HS 08/11/20 09/01/20 History Levothyroxine Sodium 25 mcg PO HS 08/22/20 09/01/20 History bisacodyL [Dulcolax] 5 mg PO DAILY PRN 08/22/20 09/01/20 History Metoprolol Succinate (ER) [Toprol 100 mg PO BID@08,199908/28/20 09/01/20 History XL] Isosorbide Mononitrate ER [Imdur] 30 mg PO DAILY@0609/01/20 09/01/20 History Multivitamins, Thera [Multivitamin 1 tab PO DAILY@0600 09/01/20 09/01/20 History (formulary)] Spironolactone [Aldactone] 25 mg PO DAILY@0600 09/01/20 09/01/20 History lisinopriL [Zestril] 5 mg PO HS@1999 #30 tab 09/05/20 Rx Allergies Allergy/AdvReac Type Severity Reaction Status Date / Time No Known Allergies Allergy Verified 09/01/20 10:36 Physical Exam Vitals: Vital Signs Temp Pulse Resp BP BP Pulse Ox 09/05/20 08:00 97.1 F L 79 18 101/62 96 09/05/20 04:00 97.8 F 85 18 120/71 95 09/05/20 02:00 77 18 09/04/20 23:15 97.6 F 77 18 117/63 97 09/04/20 20:00 97.5 F L 68 18 107/54 96 09/04/20 15:10 98.6 F 67 18 93/52 97 09/04/20 13:47 82 16 Intake and Output 09/04/20 09/05/20 09/05/20 22:59 06:59 14:59 Intake Total 10 500 Balance 10 500 Intake: IV 10 0.9 10 Oral 500 Other: Voiding Method Diaper Diaper Diaper # Voids 1 1 Weight 112.6 kg Results CBC & Chem 7: 09/05/20 08:55 09/05/20 08:55 Labs: Abnormal Lab Results - Last 24 Hours (Table) 09/04/20 09/04/20 09/05/20 Range/Units 16:29 19:53 08:55 RBC (4.30-5.90) m/uL Hgb (13.0-17.5) gm/dL MCV (80.0-100.0) fL Macrocytosis PT 23.2 H (9.0-12.0) sec INR 2.4 H (<1.2) Sodium (137-145) mmol/L Carbon Dioxide (22-30) mmol/L BUN (9-20) mg/dL POC Glucose (mg/dL) 111 H 136 H (75-99) mg/dL 09/05/20 09/05/20 09/05/20 Range/Units 08:55 08:55 11:49 RBC 3.70 L (4.30-5.90) m/uL Hgb 12.5 L (13.0-17.5) gm/dL MCV 107.7 H (80.0-100.0) fL Macrocytosis Marked A PT (9.0-12.0) sec INR (<1.2) Sodium 148 H (137-145) mmol/L Carbon Dioxide 39 H (22-30) mmol/L BUN 48 H (9-20) mg/dL POC Glucose (mg/dL) 143 H (75-99) mg/dL Assessment and Plan (1) Unstageable pressure ulcer of sacral region Current Visit: Yes Status: Acute Code(s): L89.150 - PRESSURE ULCER OF SACRAL REGION, UNSTAGEABLE SNOMED Code(s): 013467951
--- NOTE | 2020-09-05 14:08 | P.PN ---
Subjective Progress Note Date: 09/05/20 This 80-year-old gentleman with history of cardiomyopathy and AICD had upgrading of the AICD to biventricular AICD recently. She also had cardioversion for atrial fibrillation. She has history of Guillain-Bowen syndrome but was able to walk with a walker before cardioversion. Apparently patient was at subacute rehab and the lipid episodes of sudden slumping and the unresponsiveness. Patient is admitted to the hospital with significant weakness. Patient was apparently also hypotensive. His creatinine has gone up to 1.8 from baseline of 1.3. He is admitted with a diagnosis of altered mental status and possible syncope. He has cardiomyopathy with an ejection fraction of 25%. Echocardiogram today reveals similar findings without any acute changes. Mild troponin elevation was felt to be nonspecific. Patient is alert and wanted to go home. He still weak. His has a sacral ulcer that is being addressed, but overall his clinical status is stable and is being discharged home. Follow-up with as an outpatient Objective - Vital Signs Vital signs: Vital Signs Temp 98.1 F 09/05/20 12:00 Pulse 83 09/05/20 12:00 Resp 18 09/05/20 12:00 BP 94/62 09/05/20 12:00 Pulse Ox 92 L 09/05/20 12:00 Intake & Output 09/04/20 09/05/20 09/05/20 18:59 06:59 18:59 Intake Total 115 10 500 Output Total 1 Balance 114 10 500 Weight 112.6 kg Intake: IV 10 0.9 10 Oral 115 500 Output: Urine 1 Other: Voiding Method Diaper Diaper Diaper # Voids 1 1 - Exam GENERAL EXAM: Patient is alert and oriented and doesn't appear to be in any acute distress. Slow in mentation HEENT: Normocephalic. Normal reaction of pupils, equal size, normal range of extraocular motion. No erythema or exudates in the throat. NECK: No masses, no nuchal rigidity. CHEST: No chest wall deformity. LUNGS: Equal air entry with no crackles or wheeze. HEART: S1 and S2 normal with no audible mumurs or gallops. Regular rhythm, femorals equal on both sides.. ABDOMEN: No hepatosplenomegaly, normal bowel sounds, no guarding or rigidity. SKIN: No rashes CENTRAL NERVOUS SYSTEM: No focal deficits. Moving all the extremities EXTREMITIES: No cyanosis, clubbing or edema. - Labs CBC & Chem 7: 09/05/20 08:55 09/05/20 08:55 Labs: Abnormal Lab Results - Last 24 Hours (Table) 09/04/20 09/04/20 09/05/20 Range/Units 16:29 19:53 08:55 RBC (4.30-5.90) m/uL Hgb (13.0-17.5) gm/dL MCV (80.0-100.0) fL Macrocytosis PT 23.2 H (9.0-12.0) sec INR 2.4 H (<1.2) Sodium (137-145) mmol/L Carbon Dioxide (22-30) mmol/L BUN (9-20) mg/dL POC Glucose (mg/dL) 111 H 136 H (75-99) mg/dL 09/05/20 09/05/20 09/05/20 Range/Units 08:55 08:55 11:49 RBC 3.70 L (4.30-5.90) m/uL Hgb 12.5 L (13.0-17.5) gm/dL MCV 107.7 H (80.0-100.0) fL Macrocytosis Marked A PT (9.0-12.0) sec INR (<1.2) Sodium 148 H (137-145) mmol/L Carbon Dioxide 39 H (22-30) mmol/L BUN 48 H (9-20) mg/dL POC Glucose (mg/dL) 143 H (75-99) mg/dL Assessment and Plan (1) Cardiomyopathy Current Visit: Yes Status: Acute Code(s): I42.9 - CARDIOMYOPATHY, UNSPECIFIE D SNOMED Code(s): 58932838 (2) Heart failure Current Visit: No Status: Acute Code(s): I50.9 - HEART FAILURE, UNSPECIFIED SNOMED Code(s): 87614012 (3) Biventricular ICD (implantable cardioverter-defibrillator) in place Current Visit: Yes Status: Acute Code(s): Z95.810 - PRESENCE OF AUTOMATIC (IMPLANTABLE) CARDIAC DEFIBRILLATOR SNOMED Code(s): 503282390 Plan: Patient seemed to be clinically stable. This seemed to be some improvement in mental status. Patient could be discharged to rehab center
[2020-09-05 15:17] LABS: Band Neutrophils % 1 %; Basophils # (M) 0.07 k/uL (0-0.2); Eosinophils # (M) 0.22 k/uL (0-0.7); Lymphocytes # (M) 1.08 k/uL (1.0-4.8); Monocytes # (M) 0.65 k/uL (0-1.0); Neutrophils % (M) 71 %; Nucleated Red Blood Cells 0 /100 WBC (0-0); Total Cells Counted 100
--- NOTE | 2020-09-06 02:01 | P.PN ---
Subjective Progress Note Date: 09/05/20 Patient was seen for a follow-up. Patient's was also present. Per patient's , he is slightly better. Patient's medications has been digested including blood pressure medication. Seroquel was decreased from 50 down to 25 mg. Objective - Vital Signs Vital signs: Vital Signs Temp 98.1 F 09/05/20 12:00 Pulse 83 09/05/20 14:00 Resp 18 09/05/20 14:00 BP 94/62 09/05/20 12:00 Pulse Ox 92 L 09/05/20 12:00 Intake & Output 09/05/20 09/05/20 09/06/20 06:59 18:59 06:59 Intake Total 10 740 Balance 10 740 Weight 112.6 kg Intake: IV 10 0.9 10 Oral 740 Other: Voiding Method Diaper Diaper # Voids 1 - Exam On examination patient is alert and awake, slightly slowly latency time. Speech and language functions are normal. Patient knows he is in [facility] and that it is August and the year is . He appears slightly shaky. Cranial nerves are normal. Muscle strength is normal. Detailed testing deferred. - Labs CBC & Chem 7: 09/05/20 08:55 09/05/20 08:55 Labs: Abnormal Lab Results - Last 24 Hours (Table) 09/05/20 09/05/20 09/05/20 Range/Units 08:55 08:55 08:55 RBC 3.70 L (4.30-5.90) m/uL Hgb 12.5 L (13.0-17.5) gm/dL MCV 107.7 H (80.0-100.0) fL Macrocytosis Marked A PT 23.2 H (9.0-12.0) sec INR 2.4 H (<1.2) Sodium 148 H (137-145) mmol/L Carbon Dioxide 39 H (22-30) mmol/L BUN 48 H (9-20) mg/dL POC Glucose (mg/dL) (75-99) mg/dL 09/05/20 Range/Units 11:49 RBC (4.30-5.90) m/uL Hgb (13.0-17.5) gm/dL MCV (80.0-100.0) fL Macrocytosis PT (9.0-12.0) sec INR (<1.2) Sodium (137-145) mmol/L Carbon Dioxide (22-30) mmol/L BUN (9-20) mg/dL POC Glucose (mg/dL) 143 H (75-99) mg/dL Assessment and Plan Assessment: * Episode of unresponsiveness, unclear etiology. Probably due to hypotension. Patient's blood pressure has been running around 93/52. Patient on multiple cardiac medications, and his blood pressures has been running low in systolic 94-96 range at the time of symptoms. No evidence of arrhythmia on telemetry monitoring. Seizures very unlikely with negative EEG. Patient does have a defibrillator placed, and the battery changed recently. * Mild cognitive impairment. * Diabetes * Hypertension * Hyperlipidemia * Coronary artery disease Plan: * Cardiology input appreciated. Patient's dose of blood pressure medications have been decreased further since last night. * Patient is excessively somnolent. We will decrease Seroquel from 50 down to 25 mg. Continue Requip for now. * EEG was performed today, which was abnormal due to background slowing of mild to moderate degree. This is suggestive of generalized cerebral dysfunction, as can be seen with toxic metabolic encephalopathy or due to diffuse structura l brain abnormality. No epileptiform activity was seen. EKG channel showed arrhythmia. Clinical correlation recommended. * Hemoglobin A1c 5.5, B12 864 in TSH normal. * Carotid Doppler showed no significant stenosis, antegrade flow in both vertebral arteries. * Neurologically clear for discharge.
--- NOTE | 2020-09-26 08:53 | CDI ---
Documentation Clarification Form Date: 09/26/2020 08:42:42 AM From: Iron Mendoza Phone: Nabila Lu [phone] Admit Date: 09/05/2020 12:29:00 PM Patient Name: Sai Porras Visit Number: [id number] Discharge Date: 09/05/2020 03:59:00 PM ATTENTION: The Clinical Documentation Specialists (CDI) and [facility] Coding Staff appreciate your assistance in clarifying documentation. Please respond to the clarification below the line at the bottom and electronically sign. The CDI & [facility] Coding staff will review the response and follow-up if needed. Please note: Queries are made part of the Legal Health Record. If you have any questions, please contact the author of this message via ITS. Dr. Chris Mares Encephalopathy is documented in the discharge summary.. Additional clarification regarding the cause of encephalopathy is requested. Progress note 09/05 indicates unresponsiveness probably caused by hypotension. Discharge summary does not state the cause of the encephalopathy. History/Risk Factors: Admitted with AMS Clinical Indicators: episodes of syncope Please clarify the cause of the encephalopathy if known: 1.[ ] hypotension 2. [ ] other-please specify: 3. [ x] unknown MTDD
== END 2020-09-05 15:59 | disposition home or self-care (01) | DRG 71 ==
LOC: EC 10:16 → 3SCARD 12:43 → OBSVTOIN 09-05 12:29
PROVIDERS: ADMIT Family Medicine; ATTEND Family Medicine
DX: G93.40 Encephalopathy, unspecified (principal); N17.9 Acute kidney failure, unspecified; I48.19 Other persistent atrial fibrillation; I67.89 Other cerebrovascular disease; I95.9 Hypotension, unspecified; E11.51 Type 2 diabetes mellitus with diabetic peripheral angiopathy without gangrene; G31.83 Neurocognitive disorder with Lewy bodies; F02.80 Dementia in other diseases classified elsewhere, unspecified severity, without behavioral disturbance, psychotic disturbance, mood disturbance, and anxiety; L89.150 Pressure ulcer of sacral region, unstageable; R09.02 Hypoxemia; I25.5 Ischemic cardiomyopathy; R77.8 Other specified abnormalities of plasma proteins; I25.10 Atherosclerotic heart disease of native coronary artery without angina pectoris; E03.9 Hypothyroidism, unspecified; E78.5 Hyperlipidemia, unspecified; I10 Essential (primary) hypertension; H26.9 Unspecified cataract; K21.9 Gastro-esophageal reflux disease without esophagitis; G25.81 Restless legs syndrome; F41.9 Anxiety disorder, unspecified; I25.2 Old myocardial infarction; Z95.810 Presence of automatic (implantable) cardiac defibrillator; Z98.42 Cataract extraction status, left eye; Z79.899 Other long term (current) drug therapy; Z79.84 Long term (current) use of oral hypoglycemic drugs; Z79.01 Long term (current) use of anticoagulants; Z86.69 Personal history of other diseases of the nervous system and sense organs; Z87.891 Personal history of nicotine dependence; K59.00 Constipation, unspecified; I50.9 Heart failure, unspecified; I11.0 Hypertensive heart disease with heart failure
CPT/HCPCS: 36415; 70450; 71045; 80048; 80053; 81003; 82140; 82550; 83036; 84484; 85025; 85027; 85610; 85730; 87635; 93005; 93306; 93880; 95819; 99285

== ENCOUNTER 2020-09-16 10:24 | Inpatient (IN) | payer MEDICARE ==
[2020-09-16] MEDS ORDERED: SODIUM CHLORIDE 0.9% 500 ML 500 ML IV ONE (10:36)
--- NOTE | 2020-09-16 10:40 | ED ---
General Adult HPI - General Chief complaint: Altered Mental Status Stated complaint: Unconcious Time Seen by Provider: 09/16/20 10:35 Source: patient, EMS, RN notes reviewed, old records reviewed Mode of arrival: EMS Limitations: no limitations - History of Present Illness Initial comments: This is a 80-year-old male who presents emergency Department because at the half-way he was unresponsive and according to the report from EMS he was unresponsive since last evening. Patient has had no respiratory distress patient was given Narcan on the way and it did not respond. Patient's sugar was 101. Patient had no fever according his patient has had no other problems no vomiting or diarrhea per the report there is no further history at this time secondary to the packet there is no family member caregiver with the patient. - Related Data Home Medications Medication Instructions Recorded Confirmed Famotidine [Pepcid] 20 mg PO DAILY@0800 08/19/17 09/16/20 Finasteride [Proscar] 5 mg PO HS 08/19/17 09/16/20 Furosemide [Lasix] 40 mg PO DAILY@0800 08/19/17 09/16/20 Warfarin [Coumadin] 2.5 mg PO DAILY@1600 03/27/18 09/16/20 QUEtiapine [SEROquel] 50 mg PO HS 08/10/20 09/16/20 rOPINIRole HCL [Requip] 0.25 mg PO HS 08/11/20 09/16/20 Levothyroxine Sodium 25 mcg PO HS 08/22/20 09/16/20 bisacodyL [Dulcolax] 5 mg PO DAILY PRN 08/22/20 09/16/20 Isosorbide Mononitrate ER [Imdur] 30 mg PO DAILY@0600 09/01/20 09/16/20 Multivitamins, Thera [Multivitamin 1 tab PO DAILY@0800 09/01/20 09/16/20 (formulary)] Spironolactone [Aldactone] 25 mg PO DAILY@0609/01/20 09/16/20 Healthshake 1 cap PO BID@0700,1730 09/16/20 09/16/20 Metoprolol Succinate (ER) [Toprol 50 mg PO BID@0800,199909/16/20 09/16/20 Xl] glipiZIDE [Glucotrol] 2.5 mg PO BID@0800,1600 09/16/20 09/16/20 traMADol HCl [Ultram] 50 mg PO Q6H PRN 09/16/20 09/16/20 Previous Rx's Medication Instructions Recorded lisinopriL [Zestril] 5 mg PO HS@1999 #30 tab 09/05/20 Allergies Allergy/AdvReac Type Severity Reaction Status Date / Time No Known Allergies Allergy Verified 09/16/20 10:54 Review of Systems ROS Statement: Those systems with pertinent positive or pertinent negative responses have been documented in the HPI. ROS Other: All systems not noted in ROS Statement are negative. 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 large BULLOUS DIABETICORUM fluid sac rt leg 11/2013-burst and now resolved, SEE DR GUTIERREZ'S HISTORY AND PHYSICAL FOR CARDIAC HISTORY, CATARACT RIGHT EYE. lewy body dementia with parkinsons recently increase upper body movement especially at night Last Myocardial Infarction Date:: 1992 History of Any Multi-Drug Resistant Organisms: None Reported Past Surgical History: AICD, Heart Catheterization With Stent, Pacemaker Additional Past Surgical History / Comment(s): SEVERAL CARDIOVERSIONS. LT CATARACT REMOVED Past Anesthesia/Blood Transfusion Reactions: No Reported Reaction Date of Last Stent Placement:: 1992 Type of Cardiac Device: Permanent Pacemaker, AICD Device Placement Date:: 03/2010 Past Psychological History: Anxiety Smoking Status: Former smoker Past Alcohol Use History: Rare Past Drug Use History: None Reported - Past Family History Mother Additional Family Medical History / Comment(s): SEVERE LEG EDEMA General Exam - General Exam Comments Initial Comments: GENERAL: Patient is well-developed and well-nourished. Patient is nontoxic and well- hydrated and is in mild distress. Patient was unresponsive to verbal or painful stimuli ENT: Neck is soft and supple. No significant lymphadenopathy is noted. Oropharynx is clear. Moist mucous membranes. Neck has full range of motion without eliciting any pain. EYES: The sclera were anicteric and conjunctiva were pink and moist. Extraocular movements were intact and pupils were equal round and reactive to light. Eyeli ds were unremarkable. PULMONARY: Unlabored respirations. Good breath sounds bilaterally. No audible rales rhonchi or wheezing was noted. CARDIOVASCULAR: There is a regular rate and rhythm without any murmurs gallops or rubs. ABDOMEN: Soft and nontender with normal bowel sounds. SKIN: Skin is clear with no lesions or rashes and otherwise unremarkable. NEUROLOGIC: Patient is alert and oriented 0. MUSCULOSKELETAL: Normal extremities with adequate strength and full range of motion. LYMPHATICS: No significant lymphadenopathy is noted PSYCHIATRIC: Unable to assess Limitations: no limitations Course Vital Signs 09/16/20 10:33 Temperature 98.8 F Pulse Rate 82 Respiratory 18 Rate Blood Pressure 116/66 O2 Sat by Pulse 97 Oximetry Medical Decision Making - Medical Decision Making EKG shows a ventricular paced rhythm at 82 bpm NC interval 254 QRS is 436 QTC is 509. Patient's EKG shows no ST segment elevation CT of the brain shows no acute abnormality. X-ray of the chest shows no acute abnormality. I spoke with Dr. Khan he agreed to admit the patient admitted the patient wrote admitting orders. Shortly after the patient arrived patient woke up and was back to his baseline according to his . indicated patient may be faking some of his symptoms. - Lab Data Result diagrams: 09/16/20 10:45 09/16/20 10:45 Lab Results 09/16/20 09/16/20 09/16/20 Range/Units 10:45 10:45 10:45 WBC 9.0 (3.8-10.6) k/uL RBC 3.60 L (4.30-5.90) m/uL Hgb 11.8 L (13.0-17.5) gm/dL Hct 38.6 L (39.0-53.0) % MCV 107.2 H (80.0-100.0) fL MCH 32.8 (25.0-35.0) pg MCHC 30.6 L (31.0-37.0) g/dL RDW 16.2 H (11.5-15.5) % Plt Count 240 (150-450) k/uL MPV 7.2 Neutrophils % 75 % Lymphocytes % 17 % Monocytes % 5 % Eosinophils % 1 % Basophils % 0 % Neutrophils # 6.7 (1.3-7.7) k/uL Lymphocytes # 1.5 (1.0-4.8) k/uL Monocytes # 0.4 (0-1.0) k/uL Eosinophils # 0.1 (0-0.7) k/uL Basophils # 0.0 (0-0.2) k/uL Manual Slide Review Performed Hypochromasia Slight Anisocytosis Slight Macrocytosis Marked A Ovalocytes Present PT 17.2 H (9.0-12.0) sec INR 1.7 H (<1.2) APTT 26.2 (22.0-30.0) sec Sodium (137-145) mmol/L Potassium (3.5-5.1) mmol/L Chloride (98-107) mmol/L Carbon Dioxide (22-30) mmol/L Anion Gap mmol/L BUN (9-20) mg/dL Creatinine (0.66-1.25) mg/dL Est GFR (CKD-EPI)AfAm (>60 ml/min/1.73 sqM) Est GFR (CKD-EPI)NonAf (>60 ml/min/1.73 sqM) Glucose (74-99) mg/dL POC Glucose (mg/dL) (75-99) mg/dL POC Glu Statistical Technician ID Calcium (8.4-10.2) mg/dL Total Bilirubin (0.2-1.3) mg/dL AST (17-59) U/L ALT (4-49) U/L Alkaline Phosphatase (38-126) U/L Ammonia (<30) umol/L Troponin I (0.000-0.034) ng/mL Total Protein (6.3-8.2) g/dL Albumin (3.5-5.0) g/dL Urine Color Yellow Urine Appearance Clear (Clear) Urine pH 5.5 (5.0-8.0) Ur Specific [place] 1.017 (1.001-1.035) Urine Protein Trace H (Negative) Urine Glucose (UA) Negative (Negative) Urine Ketones Negative (Negative) Urine Blood Trace H (Negative) Urine Nitrite Negative (Negative) Urine Bilirubin Negative (Negative) Urine Urobilinogen 4.0 (<2.0) mg/dL Ur Leukocyte Esterase Negative (Negative) Urine RBC 1 (0-5) /hpf Urine WBC 1 (0-5) /hpf Urine Bacteria Rare H (None) /hpf Hyaline Casts 17 H (0-2) /lpf Urine Mucus Rare H (None) /hpf Urine Opiates Screen Not Detected (NotDetected) Ur Oxycodone Screen Not Detected (NotDetected) Urine Methadone Screen Not Detected (NotDetected) Ur Propoxyphene Screen Not Detected (NotDetected) Ur Barbiturates Screen Not Detected (NotDetected) U Tricyclic Antidepress Detected H (NotDetected) Ur Phencyclidine Scrn Not Detected (NotDetected) Ur Amphetamines Screen Not Detected (NotDetected) U Methamphetamines Scrn Not Detected (NotDetected) U Benzodiazepines Scrn Not Detected (NotDetected) Urine Cocaine Screen Not Detected (NotDetected) U Marijuana (THC) Screen Not Detected (NotDetected) 09/16/20 09/16/20 09/16/20 Range/Units 10:45 10:45 10:45 WBC (3.8-10.6) k/uL RBC (4.30-5.90) m/uL Hgb (13.0-17.5) gm/dL Hct (39.0-53.0) % MCV (80.0-100.0) fL MCH (25.0-35.0) pg MCHC (31.0-37.0) g/dL RDW (11.5-15.5) % Plt Count (150-450) k/uL MPV Neutrophils % % Lymphocytes % % Monocytes % % Eosinophils % % Basophils % % Neutrophils # (1.3-7.7) k/uL Lymphocytes # (1.0-4.8) k/uL Monocytes # (0-1.0) k/uL Eosinophils # (0-0.7) k/uL Basophils # (0-0.2) k/uL Manual Slide Review Hypochromasia Anisocytosis Macrocytosis Ovalocytes PT (9.0-12.0) sec INR (<1.2) APTT (22.0-30.0) sec Sodium 148 H (137-145) mmol/L Potassium 3.3 L (3.5-5.1) mmol/L Chloride 105 (98-107) mmol/L Carbon Dioxide 39 H (22-30) mmol/L Anion Gap 4 mmol/L BUN 34 H (9-20) mg/dL Creatinine 1.25 (0.66-1.25) mg/dL Est GFR (CKD-EPI)AfAm 64 (>60 ml/min/1.73 sqM) Est GFR (CKD-EPI)NonAf 55 (>60 ml/min/1.73 sqM) Glucose 79 (74-99) mg/dL POC Glucose (mg/dL) (75-99) mg/dL POC Glu Statistical Technician ID Calcium 8.2 L (8.4-10.2) mg/dL Total Bilirubin 0.9 (0.2-1.3) mg/dL AST 21 (17-59) U/L ALT 9 (4-49) U/L Alkaline Phosphatase 90 (38-126) U/L Ammonia <9 (<30) umol/L Troponin I 0.031 (0.000-0.034) ng/mL Total Protein 5.5 L (6.3-8.2) g/dL Albumin 2.8 L (3.5-5.0) g/dL Urine Color Urine Appearance (Clear) Urine pH (5.0-8.0) Ur Specific [place] (1.001-1.035) Urine Protein (Negative) Urine Glucose (UA) (Negative) Urine Ketones (Negative) Urine Blood (Negative) Urine Nitrite (Negative) Urine Bilirubin (Negative) Urine Urobilinogen (<2.0) mg/dL Ur Leukocyte Esterase (Negative) Urine RBC (0-5) /hpf Urine WBC (0-5) /hpf Urine Bacteria (None) /hpf Hyaline Casts (0-2) /lpf Urine Mucus (None) /hpf Urine Opiates Screen (NotDetected) Ur Oxycodone Screen (NotDetected) Urine Methadone Screen (NotDetected) Ur Propoxyphene Screen (NotDetected) Ur Barbiturates Screen (NotDetected) U Tricyclic Antidepress (NotDetected) Ur Phencyclidine Scrn (NotDetected) Ur Amphetamines Screen (NotDetected) U Methamphetamines Scrn (NotDetected) U Benzodiazepines Scrn (NotDetected) Urine Cocaine Screen (NotDetected) U Marijuana (THC) Screen (NotDetected) 09/16/20 Range/Units 11:08 WBC (3.8-10.6) k/uL RBC (4.30-5.90) m/uL Hgb (13.0-17.5) gm/dL Hct (39.0-53.0) % MCV (80.0-100.0) fL MCH (25.0-35.0) pg MCHC (31.0-37.0) g/dL RDW (11.5-15.5) % Plt Count (150-450) k/uL MPV Neutrophils % % Lymphocytes % % Monocytes % % Eosinophils % % Basophils % % Neutrophils # (1.3-7.7) k/uL Lymphocytes # (1.0-4.8) k/uL Monocytes # (0-1.0) k/uL Eosinophils # (0-0.7) k/uL Basophils # (0-0.2) k/uL Manual Slide Review Hypochromasia Anisocytosis Macrocytosis Ovalocytes PT (9.0-12.0) sec INR (<1.2) APTT (22.0-30.0) sec Sodium (137-145) mmol/L Potassium (3.5-5.1) mmol/L Chloride (98-107) mmol/L Carbon Dioxide (22-30) mmol/L Anion Gap mmol/L BUN (9-20) mg/dL Creatinine (0.66-1.25) mg/dL Est GFR (CKD-EPI)AfAm (>60 ml/min/1.73 sqM) Est GFR (CKD-EPI)NonAf (>60 ml/min/1.73 sqM) Glucose (74-99) mg/dL POC Glucose (mg/dL) 75 (75-99) mg/dL POC Glu Statistical Technician ID Marquise Berkowitz Calcium (8.4-10.2) mg/dL Total Bilirubin (0.2-1.3) mg/dL AST (17-59) U/L ALT (4-49) U/L Alkaline Phosphatase (38-126) U/L Ammonia (<30) umol/L Troponin I (0.000-0.034) ng/mL Total Protein (6.3-8.2) g/dL Albumin (3.5-5.0) g/dL Urine Color Urine Appearance (Clear) Urine pH (5.0-8.0) Ur Specific [place] (1.001-1.035) Urine Protein (Negative) Urine Glucose (UA) (Negative) Urine Ketones (Negative) Urine Blood (Negative) Urine Nitrite (Negative) Urine Bilirubin (Negative) Urine Urobilinogen (<2.0) mg/dL Ur Leukocyte Esterase (Negative) Urine RBC (0-5) /hpf Urine WBC (0-5) /hpf Urine Bacteria (None) /hpf Hyaline Casts (0-2) /lpf Urine Mucus (None) /hpf Urine Opiates Screen (NotDetected) Ur Oxycodone Screen (NotDetected) Urine Methadone Screen (NotDetected) Ur Propoxyphene Screen (NotDetected) Ur Barbiturates Screen (NotDetected) U Tricyclic Antidepress (NotDetected) Ur Phencyclidine Scrn (NotDetected) Ur Amphetamines Screen (NotDetected) U Methamphetamines Scrn (NotDetected) U Benzodiazepines Scrn (NotDetected) Urine Cocaine Screen (NotDetected) U Marijuana (THC) Screen (NotDetected) Disposition Clinical Impression: Altered mental status Disposition: ADMITTED IP TO THIS [facility] Referrals: Shady Alas DO [Primary Care Provider] - 1-2 days Time of Disposition: 13:49
[2020-09-16 11:05] LABS: Anisocytosis Slight; Basophils % (A) 0 %; Eosinophils # (A) 0.1 k/uL (0-0.7); Eosinophils % (A) 1 %; HCT 38.6 % (39.0-53.0); HGB 11.8 gm/dL (13.0-17.5); Hypochromasia Slight; Lymphocytes # (A) 1.5 k/uL (1.0-4.8); Lymphocytes % (A) 17 %; MCH 32.8 pg (25.0-35.0); MCHC 30.6 g/dL (31.0-37.0); MCV 107.2 fL (80.0-100.0); Macrocytosis Marked; Mean Platelet Volume 7.2; Monocytes # (A) 0.4 k/uL (0-1.0); Monocytes % (A) 5 %; Neutrophils # (A) 6.7 k/uL (1.3-7.7); Neutrophils % (A) 75 %; Platelet Count 240 k/uL (150-450); RDW 16.2 % (11.5-15.5)
[2020-09-16 11:10] LABS: Glucose,Whole Blood 75 mg/dL (75-99)
[2020-09-16 11:18] LABS: Albumin 2.8 g/dL (3.5-5.0); Calcium 8.2 mg/dL (8.4-10.2); Potassium 3.3 mmol/L (3.5-5.1); Total Bilirubin 0.9 mg/dL (0.2-1.3); Total Protein 5.5 g/dL (6.3-8.2)
[2020-09-16 11:19] LABS: INR 1.7 (<1.2); Partial Thromboplastin Time 26.2 sec (22.0-30.0); Prothrombin Time 17.2 sec (9.0-12.0)
[2020-09-16 11:23] LABS: Appearance,Urine Clear (Clear); Bacteria,Urine Rare /hpf; Bilirubin,Urine Negative (Negative); Blood,Urine Trace (Negative); Color,Urine Yellow; Glucose,Urine (UA) Negative (Negative); Hyaline Casts,Urine 17 /lpf (0-2); Ketones,Urine Negative (Negative); Leukocyte Esterase,Urine Negative (Negative); Mucus,Urine Rare /hpf; Nitrite,Urine Negative (Negative); PH, Urine 5.5 (5.0-8.0); Protein,Urine Trace (Negative); RBC,Urine 1 /hpf (0-5); Specific Gravity,Urine 1.017 (1.001-1.035); WBC,Urine 1 /hpf (0-5)
[2020-09-16 11:26] LABS: Amphetamine Screen,Urine Not Detected (NotDetected); Barbiturate Screen,Urine Not Detected (NotDetected); Benzodiazepines Screen,Urine Not Detected (NotDetected); Cocaine Screen,Urine Not Detected (NotDetected); Methadone Screen, Urine Not Detected (NotDetected); Opiate Screen,Urine Not Detected (NotDetected); Oxycodone Screen, Urine Not Detected (NotDetected); Phencyclidine Screen,Urine Not Detected (NotDetected); Tricyclic Antidepressant,Urine Detected (NotDetected); Urn Cannabinoid Scrn Not Detected (NotDetected)
--- NOTE | 2020-09-16 11:49 | XR ---
EXAMINATION TYPE: XR chest 1V portable DATE OF EXAM: 09/16/2020 CLINICAL HISTORY: altered mental status. TECHNIQUE: Portable frontal view of the chest. COMPARISON: 09/03/2020 FINDINGS: Left-sided AICD redemonstrated. Cardiomegaly. Pulmonary vasculature is normal. There is no focal air space opacity. No pleural effusion. No pneumothorax seen. No acute displaced osseous fract ure. IMPRESSION: Redemonstrated cardiomegaly. No acute cardiopulmonary process.
[2020-09-16 11:56] LABS: Ovalocytes Present
--- NOTE | 2020-09-16 12:40 | CT ---
EXAMINATION TYPE: CT brain wo con DATE OF EXAM: 09/16/2020 COMPARISON: 09/01/2020 INDICATION: Unconscious last night, altered mental status DLP: 1055.4 mGycm, Automated exposure control for dose reduction was used. CONTRAST: None CT of the brain is performed utilizing 3 mm thick sections through the posterior fossa and 3 mm thick sections through the remaining calvarium. Study is performed within 24 hours of arrival to the hosp [facility]. No abnormal hyperdensity is present to suggest an acute intracranial hemorrhage. No mass lesion is evident. No acute infarcts are evident. Ventricles and sulci are prominent for the patient age. Paranasal sinuses and mastoid air cells within the [id number] are clear. There is a calcific densi ty remaining present in the posterior right occiput IMPRESSIONS: 1. Atrophy. 2. No acute intracranial process is radiographically evident
[2020-09-16] MEDS ORDERED: bisacodyL 5 MG TABLET.DR PO PRN (16:57)
[2020-09-16] MEDS ORDERED: SODIUM CHLORIDE 0.9% 1,000 ML IV SCH (17:15)
[2020-09-16] MEDS ORDERED: [UNRECOGNIZED DRUG - OTHER] PO SCH (17:30)
[2020-09-16 17:38] LABS: Glucose,Whole Blood 76 mg/dL (75-99)
[2020-09-16] MEDS: INSULIN ASPART (NovoLOG) 100 UNIT/ML VIAL SQ SCH ×2 (17:40→21:18)
[2020-09-16] MEDS ORDERED: WARFARIN 5 MG TAB PO ONE (18:00)
--- NOTE | 2020-09-16 20:06 | P.HPIM ---
History of Present Illness H&P Date: 09/16/20 Chief Complaint: Decreased responsiveness History of presenting complaint: This is a 80-year-old patient follows with Dr. Alas. Resident of [facility]. Chronic stable medical conditions include atrial fibrillation, CHF EF of 2025%, diabetes, GERD, hypertension, hyperlipidemia, osteoarthritis, BPH, peripheral neuropathy, chronic sacral ulcer, anybody dementia, hypothyroid. On August 25 patient had a permanent pacemaker placed. Patient up to that had been using a walker. Subsequent that patient has not really walked. Patient is able to answer some simple questions. Most of the history is obtained by the at the bedside. Patient's appetite has been okay. Patient's had an episode where he just becomes unresponsive. He's had 2 prior episodes of the same. Neurological workup has been negative for the same. On this occasion again an episode of unconsciousness. EMS was called out. Patient breathing was 14-16. Skin was warm. Blood glucose was 81. Patient had no response to sternal rub. Telemetry showed paced rhythm. Pulse ox on 3 inches was close to 100% patient did not respond to Narcan. Patient last seen well was the previous night. Patient did, not in the ER. Review of systems: GEN.: Tired EYES: None HEENT: None NECK: None RESPIRATORY: None CARDIOVASCULAR: None GASTROINTESTINAL: Some incontinence GENITOURINARY: Incontinence MUSCULOSKELETAL: Arthritic pain LYMPHATICS: None HEMATOLOGICAL: None PSYCHIATRY: None NEUROLOGICAL: Forgetful, has not walked for about 3 weeks Past medical history to include: atrial fibrillation, CHF EF of 2025%, diabetes, GERD, hypertension, hyperlipidemia, osteoarthritis, BPH, peripheral neuropathy, chronic sacral ulcer, anybody dementia, hypothyroid. On August 25 patient had a permanent pacemaker placed Social history: Resident of [facility] on. Due to weakness does not participate in physical therapy. Patient smoked from 1963 through 1987. Alcohol rarely. Macy ied. Family history: Reviewed, noncontributory to presentation Physical examination: VITAL SIGNS: 98.8, 82, 18, 116/66, 97% on 4 L GENERAL: BMI 32.3, laying in bed tired but arousable. EYES: Pupils equal. Conjunctiva normal. HEENT: External appearance of nose and ears normal, oral cavity grossly normal. NECK: JVD not raised; masses not palpable. HEART: First and second heart sounds are normal; no edema. LUNGS:[ Respiratory rate normal; decreased breath sounds. ABDOMEN: Soft, nontender, liver spleen not palpable, no masses palpable. PSYCH: Lethargic but answers some questions. No studies in the hospital. He thinks his 2002. about the seasonl. NEUROLOGICAL: [Cranial nerves grossly intact; no facial asymmetry, able to lift both his arms. Able to move both legs and barely lift off the bed. LYMPHATICS: No lymph nodes palpable in the axilla and neck INVESTIGATIONS, reviewed in the clinical context: WBC 9 hemoglobin 11.8 platelets 240 sodium 148 potassium 3.3 bun 34 creatinine 1.25 UA-hyaline casts 17 Urine drug screen positive for tricyclic antidepressant Influenza type A, diabetic, RSV, COVID 19 [PCR]: Negative EKG tracing personally reviewed by me-ventricular paced rhythm. CT surgeon group brain without contrast: Showing atrophy Chest x-ray film personally seen by me: Enlarged heart. No obvious infiltrate Previous testing: August Carotid Doppler: No significant stenosis EEG: Negative for epileptiform activity 2-D echocardiogram: EF 20-25%, left ventricle moderately dilated. Moderate tricuspid regurgitation, moderate to severe pulmonary hypertension Assessment and plan: -Episode of unconsciousness. No seizure activity reported. This is patient's at least third episode. Prior workup including carotid Doppler, EEG, computed tomography scan of brain old negative. Patient is awake again. Wonder if this abnormality of the reticular activating system. Cutback Seroquel to 25 mg daily at bedtime -Persistent atrial fibrillation Patient has a telemetry. AICD. Pacemaker. 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 Hold Glucotrol as Accu-Cheks are running on the lower side. -GERD On Pepcid -Essential hypertension Continue with Zestril -Primary osteoarthritis multiple joints bilaterally Use pain medications as needed -Diabetic peripheral neuropathy -Chronic sacral decubitus ulcer Consult ID -Acute on chronic medical debility. Patient was using a walker up to August 25. Now not able to walk. PTOT -Persistent atrial fibrillation rate controlled Patient has AICD. -Full code Patient be kept off any sedating medications. On telemetry. Neuro checks. Gentle hydration as patient sodium is up. Other home medications and resume. Fall precautions. All feeding with assistance. Past Medical History Past Medical History: Atrial Fibrillation, Heart Failure, Dementia, Diabetes Mellitus, Eye Disorder, GERD/Reflux, Hyperlipidemia, Hypertension, Memory Impairment, Myocardial Infarction (NC), Musculoskeletal Disorder, Neurologic Disorder, Prostate Disorder, Syncope, Thyroid Disorder Additional Past Medical History / Comment(s): Pt recently admitted to [facility] on with acute encephalopathy/AMS/hypoxia. 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 Last Myocardial Infarction Date:: 1992 History of Any Multi-Drug Resistant Organisms: None Reported Past Surgical History: AICD, Heart Catheterization, Pacemaker Additional Past Surgical History / Comment(s): 1992 PTCA, TEEs, cardioversions, AICD 2003 originally and upgraded to biV, bilateral cataract removals, colonoscopy. Past Anesthesia/Blood Transfusion Reactions: No Reported Reaction Date of Last Stent Placement:: 1992 Type of Cardiac Device: Permanent Pacemaker, AICD Device Placement Date:: original 2003/upgrade 08/2020 Past Psychological History: Anxiety Additional Psychological History / Comment(s): Pt recently placed in [facility] d/t weakness. Pt states he has not been able to participate with physical therapy d/t weakness. Smoking Status: Former smoker Past Alcohol Use History: Rare Additional Past Alcohol Use History / Comment(s): Pt started smoking in 1963 and quit in 1987 Past Drug Use History: None Reported - Past Family History Mother Additional Family Medical History / Comment(s): SEVERE LEG EDEMA Father Additional Family Medical History / Comment(s): Father during a heart procedure. Medications and Allergies Home Medications Medication Instructions Recorded Confirmed Type Famotidine [Pepcid] 20 mg PO DAILY@0800 08/19/17 09/16/20 History Finasteride [Proscar] 5 mg PO HS 08/19/17 09/16/20 History Furosemide [Lasix] 40 mg PO DAILY@0800 08/19/17 09/16/20 History Warfarin [Coumadin] 2.5 mg PO DAILY@1600 03/27/18 09/16/20 History QUEtiapine [SEROquel] 50 mg PO HS 08/10/20 09/16/20 History rOPINIRole HCL [Requip] 0.25 mg PO HS 08/11/20 09/16/20 History Levothyroxine Sodium 25 mcg PO HS 08/22/20 09/16/20 History bisacodyL [Dulcolax] 5 mg PO DAILY PRN 08/22/20 09/16/20 History Isosorbide Mononitrate ER [Imdur] 30 mg PO DAILY@0600 09/01/20 09/16/20 History Multivitamins, Thera [Multivitamin 1 tab PO DAILY@0800 09/01/20 09/16/20 History (formulary)] Spironolactone [Aldactone] 25 mg PO DAILY@0600 09/01/20 09/16/20 History lisinopriL [Zestril] 5 mg PO HS@1999 #30 tab 09/05/20 09/16/20 Rx Healthshake 1 cap PO BID@0700,1730 09/16/20 09/16/20 History Metoprolol Succinate (ER) [Toprol 50 mg PO BID@0800,2000 09/16/20 09/16/20 History Xl] glipiZIDE [Glucotrol] 2.5 mg PO BID@0800,1600 09/16/20 09/16/20 History traMADol HCl [Ultram] 50 mg PO Q6H PRN 09/16/20 09/16/20 History Allergies Allergy/AdvReac Type Severity Reaction Status Date / Time No Known Allergies Allergy Verified 09/16/20 10:54 Physical Exam Vitals: Vital Signs Temp Pulse Pulse Resp BP BP Pulse Ox 09/16/20 15:47 98.3 F 74 16 108/50 94 L 09/16/20 15:22 98.0 F 09/16/20 15:09 74 20 121/70 100 09/16/20 13:00 97.8 F 70 20 126/80 98 09/16/20 10:33 98.8 F 82 18 116/66 97 Intake and Output 09/16/20 09/16/20 09/16/20 06:59 14:59 22:59 Other: # Voids 1 Weight 104.326 kg 108 kg Results CBC & Chem 7: 09/16/20 10:45 09/16/20 10:45 Labs: Abnormal Lab Results - Last 24 Hours (Table) 09/16/20 09/16/20 09/16/20 Range/Units 10:45 10:45 10:45 RBC 3.60 L (4.30-5.90) m/uL Hgb 11.8 L (13.0-17.5) gm/dL Hct 38.6 L (39.0-53.0) % MCV 107.2 H (80.0-100.0) fL MCHC 30.6 L (31.0-37.0) g/dL RDW 16.2 H (11.5-15.5) % Macrocytosis Marked A PT 17.2 H (9.0-12.0) sec INR 1.7 H (<1.2) Sodium (137-145) mmol/L Potassium (3.5-5.1) mmol/L Carbon Dioxide (22-30) mmol/L BUN (9-20) mg/dL Calcium (8.4-10.2) mg/dL Total Protein (6.3-8.2) g/dL Albumin (3.5-5.0) g/dL Urine Protein Trace H (Negative) Urine Blood Trace H (Negative) Urine Bacteria Rare H (None) /hpf Hyaline Casts 17 H (0-2) /lpf Urine Mucus Rare H (None) /hpf U Tricyclic Antidepress Detected H (NotDetected) 09/16/20 Range/Units 10:45 RBC (4.30-5.90) m/uL Hgb (13.0-17.5) gm/dL Hct (39.0-53.0) % MCV (80.0-100.0) fL MCHC (31.0-37.0) g/dL RDW (11.5-15.5) % Macrocytosis PT (9.0-12.0) sec INR (<1.2) Sodium 148 H (137-145) mmol/L Potassium 3.3 L (3.5-5.1) mmol/L Carbon Dioxide 39 H (22-30) mmol/L BUN 34 H (9-20) mg/dL Calcium 8.2 L (8.4-10.2) mg/dL Total Protein 5.5 L (6.3-8.2) g/dL Albumin 2.8 L (3.5-5.0) g/dL Urine Protein (Negative) Urine Blood (Negative) Urine Bacteria (None) /hpf Hyaline Casts (0-2) /lpf Urine Mucus (None) /hpf U Tricyclic Antidepress (NotDetected) Thrombosis Risk Factor Assmnt - Choose All That Apply Any of the Below Risk Factors Present?: Yes Each Factor Represents 1 point: Medical pt on bed rest, Obesity (BMI >25) Other Risk Factors: Yes Each Risk Factor Represents 2 Points: Patient confined to bed Each Risk Factor Represents 3 Points: Age 75 years or older Other congenital or acquired thrombophilia - If yes, enter type in comment: No Thrombosis Risk Factor Assessment Total Risk Factor Score: 7 Thrombosis Risk Factor Assessment Level: High Risk
[2020-09-16 20:30] LABS: Glucose,Whole Blood 89 mg/dL (75-99)
[2020-09-16] MEDS ORDERED: QUEtiapine 50 MG TAB PO SCH (21:00)
[2020-09-16] MEDS: QUEtiapine 25 MG TAB PO SCH (21:18)
[2020-09-16] MEDS: lisinopriL 5 MG TAB PO SCH (21:18)
[2020-09-16] MEDS: FINASTERIDE 5 MG TAB PO SCH (21:18)
[2020-09-16] MEDS: METOPROLOL SUCCINATE (ER) 50 MG TAB.ER.24H PO SCH (21:18)
[2020-09-17] MEDS: LEVOTHYROXINE 25 MCG TAB PO SCH (05:36)
[2020-09-17] MEDS: ISOSORBIDE MONONITRATE ER 30 MG TAB.ER.24H PO SCH (05:36)
[2020-09-17 07:07] LABS: Glucose,Whole Blood 100 mg/dL (75-99)
[2020-09-17] MEDS: INSULIN ASPART (NovoLOG) 100 UNIT/ML VIAL SQ SCH ×4 (07:44→20:49)
[2020-09-17] MEDS: MULTIVITAMINS, THERA 1 EACH TAB PO SCH (07:56)
[2020-09-17] MEDS: FAMOTIDINE 20 MG TAB PO SCH (07:56)
[2020-09-17] MEDS: traMADol 50 MG TAB PO PRN (07:56)
[2020-09-17] MEDS: SPIRONOLACTONE 25 MG TAB PO SCH (07:58)
[2020-09-17] MEDS: METOPROLOL SUCCINATE (ER) 50 MG TAB.ER.24H PO SCH ×2 (07:58→20:49)
[2020-09-17 10:10] LABS: HCT 35.8 % (39.0-53.0); HGB 11.6 gm/dL (13.0-17.5); Hypochromasia Slight; MCH 34.8 pg (25.0-35.0); MCHC 32.4 g/dL (31.0-37.0); MCV 107.4 fL (80.0-100.0); Macrocytosis Marked; Mean Platelet Volume 7.7; Platelet Count 215 k/uL (150-450); RBC 3.34 m/uL (4.30-5.90); RDW 15.9 % (11.5-15.5); WBC 8.1 k/uL (3.8-10.6)
[2020-09-17 10:14] LABS: African American GFR (CKD) 73 (>60 ml/min/1.73 sqM); Blood Urea Nitrogen 32 mg/dL (9-20); Calcium 7.9 mg/dL (8.4-10.2); Chloride 104 mmol/L (98-107); Glucose 96 mg/dL (74-99); Non-African American GFR(CKD) 63 (>60 ml/min/1.73 sqM); Potassium 3.1 mmol/L (3.5-5.1); Sodium 148 mmol/L (137-145)
[2020-09-17 10:20] LABS: Anion Gap 6 mmol/L; Carbon Dioxide 38 mmol/L (22-30)
[2020-09-17 11:26] LABS: Glucose,Whole Blood 86 mg/dL (75-99)
[2020-09-17] MEDS ORDERED: POTASSIUM CHLORIDE ER 20 MEQ TAB.ER PO STA (12:38)
[2020-09-17 13:04] LABS: INR 1.75 (0.90-1.11); Prothrombin Time 18.4 sec (9.9-11.9)
--- NOTE | 2020-09-17 14:23 | P.PN ---
Progress Note - Text Progress Note Date: 09/17/20 Chief Complaint: Decreased responsiveness History of presenting complaint: This is a 80-year-old patient follows with Dr. Alas. Resident of [facility]. Chronic stable medical conditions include atrial fibrillation, CHF EF of 2025%, diabetes, GERD, hypertension, hyperlipidemia, osteoarthritis, BPH, peripheral neuropathy, chronic sacral ulcer, anybody dementia, hypothyroid. On August 25 patient had a permanent pacemaker placed. Patient up to that had been using a walker. Subsequent that patient has not really walked. Patient is able to answer some simple questions. Most of the history is obtained by the at the bedside. Patient's appetite has been okay. Patient's had an episode where he just becomes unresponsive. He's had 2 prior episodes of the same. Neurological workup has been negative for the same. On this occasion again an episode of unconsciousness. EMS was called out. Patient breathing was 14-16. Skin was warm. Blood glucose was 81. Patient had no response to sternal rub. Telemetry showed paced rhythm. Pulse ox on 3 inches was close to 100% patient did not respond to Narcan. Patient last seen well was the previous night. Patient did, not in the ER. Elevated sodium/dehydration. Gentle hydration Admitted with possible abnormality of CONCETTA. Dose of Seroquel cutback. Today: Laying in bed. A bit more awake. Oral intake good. Telemetry paced rhythm. Review of systems: Was done for constitutional, cardiovascular, GI, pulmonary. relevant finding as above Past medical history to include: atrial fibrillation, CHF EF of 2025%, diabetes, GERD, hypertension, hyperlipidemia, osteoarthritis, BPH, peripheral neuropathy, chronic sacral ulcer, anybody dementia, hypothyroid. On August 25 patient had a permanent pacemaker placed Social history: Resident of [facility] on. Due to weakness does not participate in physical therapy. Patient smoked from 1963 through 1987. Alcohol rarely. . Family history: Reviewed, noncontributory to presentation Physical examination: VITAL SIGNS: 98.3, 85, 16, 131/73, 97% room air GENERAL: BMI 32.3, laying in bed, tired, but more awake EYES: Pupils equal. Conjunctiva normal. NECK: JVD not raised; masses not palpable. HEART: First and second heart sounds are normal; no edema. LUNGS:[ Respiratory rate normal; decreased breath sounds. ABDOMEN: Soft, nontender, liver spleen not palpable, no masses palpable. PSYCH: Lethargic but answers some questions. No studies in the hospital. He thinks his 2002. about the seasonl. NEUROLOGICAL: [Cranial nerves grossly intact; no facial asymmetry, able to lift both his arms. Able to move both legs and barely lift off the bed. INVESTIGATIONS, reviewed in the clinical context: September 17: Sodium 148 potassium 3.1 creatinine 1.11 WBC 9 hemoglobin 11.8 platelets 240 sodium 148 potassium 3.3 bun 34 creatinine 1.25 UA-hyaline casts 17 Urine drug screen positive for tricyclic antidepressant Influenza type A, diabetic, RSV, COVID 19 [PCR]: Negative EKG tracing personally reviewed by me-ventricular paced rhythm. CT surgeon group brain without contrast: Showing atrophy Chest x-ray film personally seen by me: Enlarged heart. No obvious infiltrate Previous testing: August Carotid Doppler: No significant stenosis EEG: Negative for epileptiform activity 2-D echocardiogram: EF 20-25%, left ventricle moderately dilated. Moderate tricuspid regurgitation, moderate to severe pulmonary hypertension Assessment and plan: -Episode of unconsciousness. No seizure activity reported. This is patient's at least third episode. Prior workup including carotid Doppler, EEG, computed tomography scan of brain old negative. Patient is awake again. Possible abnormality of the reticular activating system. Cutback Seroquel to 25 mg daily at bedtime -Persistent atrial fibrillation Patient has a telemetry. AICD. Pacemaker. Toprol-XL -Chronic congestive heart failure from systolic dysfunction EF 20-25% Continue with Aldactone, Zestril, Toprol-XL. Lasix held -Moderate to severe tricuspid and mitral regurgitation Follow clinically -Secondary moderate to severe pulmonary hypertension secondary to CHF and COPD Follow clinically -COPD in a previous smoker Bronchodilators -Major cognitive impairment from Lewy body dementia -Diabetes mellitus type 2 Follow Accu-Cheks. Hold Glucotrol as Accu-Cheks are running on the lower side. -GERD On Pepcid -Essential hypertension Continue with Zestril -Primary osteoarthritis multiple joints bilaterally Use pain medications as needed -Diabetic peripheral neuropathy -Chronic sacral decubitus ulcer Consult ID -Acute on chronic medical debility. Patient was using a walker up to August 25. Now not able to walk. PTOT -Persistent atrial fibrillation rate controlled Patient has AICD. -Full code -Hypernatremia, from free water deficit Gentle hydration. Continue to hold Lasix. Saline 50 mL an hour for a total of 500 mL. Repeat labs
[2020-09-17] MEDS ORDERED: SODIUM CHLORIDE 0.45% 1,000 ML IV SCH (14:30)
[2020-09-17] MEDS: COLLAGENASE 250 UNIT/GM OINTMENT 30 GM TUBE TOPICAL SCH (14:35)
[2020-09-17] MEDS ORDERED: WARFARIN 2.5 MG TAB PO SCH (16:00)
[2020-09-17 16:16] LABS: Glucose,Whole Blood 71 mg/dL (75-99)
[2020-09-17] MEDS ORDERED: WARFARIN 5 MG TAB PO ONE (18:00)
--- NOTE | 2020-09-17 18:53 | P.CNNES ---
History of Present Illness Consult date: 09/17/20 History of Present Illness: The patient is a 80-year-old male who is seen in neurologic consultation on September 17, 2020, via teleneurology. History is obtained from the chart as well as from the patient's who is at the bedside. The patient is unable to provide a detailed history. The patient is being seen because of an episode of unresponsiveness. Patient's reports that this is his third episode of unresponsiveness. The first episode apparently occurred following surgery for placement of pacemaker and AICD. The next episode occurred in August of this year. His current and third episode occurred at [facility], when patient deciding. He reportedly was found with his head down on the desk, eyes closed, mouth open and unresponsive to sternal rub. According to the patient's , when the patient has had these episodes of unresponsiveness, they have lasted for hours. She does note on this most recent occasion, she was called by staff at the facility, at approximately 10 PM. She immediately went into the emergency department. When her arrived at the ER, at 11:15, he was awake and talking. The patient's feels he was at his baseline. She does report that in previous episodes the patient does seem to react to passive attempts to open his eyes. In reviewing the records, the patient has been worked up by neurology, in the past. Previous EEG was negative for seizure. Carotid Doppler and CT scan of the brain have not provided any useful information as to the etiology of these episodes. The patient's reports that he is living in [facility] because he is unable to ambulate. This inabilities to ambulate began following his surgery for pacemaker and AICD placement. As far as I can tell, and reviewing the chart, the inability to ambulate has not been fully evaluated. It appears that the patient has not been receiving physical therapy at his current location. It also appears, based on the fact that he has a sacral decubitus ulcer, that he has not been getting out of his wheelchair or or out of bed on a regular basis. It is likely that his aforementioned weakness has been worsened by lack of exercise. The patient's medications are reviewed. Apparently with his Lewy body dementia, the patient has hallucinations. This is The reason he is taking the Seroquel. In addition to Seroquel, the patient is taking 3 antihypertensive medications. Past Medical History Past Medical History: Atrial Fibrillation, Heart Failure, Dementia, Diabetes Mellitus, Eye Disorder, GERD/Reflux, Hyperlipidemia, Hypertension, Memory Impairment, Myocardial Infarction (AR), Musculoskeletal Disorder, Neurologic Disorder, Prostate Disorder, Syncope, Thyroid Disorder Additional Past Medical History / Comment(s): Pt recently admitted to [facility] on 09/05/20 with acute encephalopathy/AMS/hypoxia. 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 Last Myocardial Infarction Date:: 1992 History of Any Multi-Drug Resistant Organisms: None Reported Past Surgical History: AICD, Heart Catheterization, Pacemaker Additional Past Surgical History / Comment(s): 1992 PTCA, TEEs, cardioversions, AICD 2003 originally and upgraded to biV, bilateral cataract removals, colonoscopy. Past Anesthesia/Blood Transfusion Reactions: No Reported Reaction Date of Last Stent Placement:: 1992 Type of Cardiac Device: Permanent Pacemaker, AICD Device Placement Date:: original 2003/upgrade 08/2020 Past Psychological History: Anxiety Additional Psychological History / Comment(s): Pt recently placed in [facility] d/t weakness. Pt states he has not been able to participate with physical therapy d/t weakness. Smoking Status: Former smoker Past Alcohol Use History: Rare Additional Past Alcohol Use History / Comment(s): Pt started smoking in 1963 and quit in 1987 Past Drug Use History: None Reported - Past Family History Mother Additional Family Medical History / Comment(s): SEVERE LEG EDEMA Father Additional Family Medical History / Comment(s): Father during a heart procedure. Medications and Allergies Home Medications Medication Instructions Recorded Confirmed Type Famotidine [Pepcid] 20 mg PO DAILY@0800 08/19/17 09/16/20 History Finasteride [Proscar] 5 mg PO HS 08/19/17 09/16/20 History Furosemide [Lasix] 40 mg PO DAILY@0800 08/19/17 09/16/20 History Warfarin [Coumadin] 2.5 mg PO DAILY@1600 03/27/18 09/16/20 History QUEtiapine [SEROquel] 50 mg PO HS 08/10/20 09/16/20 History rOPINIRole HCL [Requip] 0.25 mg PO HS 08/11/20 09/16/20 History Levothyroxine Sodium 25 mcg PO HS 08/22/20 09/16/20 History bisacodyL [Dulcolax] 5 mg PO DAILY PRN 08/22/20 09/16/20 History Isosorbide Mononitrate ER [Imdur] 30 mg PO DAILY@0600 09/01/20 09/16/20 History Multivitamins, Thera [Multivitamin 1 tab PO DAILY@0800 09/01/20 09/16/20 History (formulary)] Spironolactone [Aldactone] 25 mg PO DAILY@0600 09/01/20 09/16/20 History lisinopriL [Zestril] 5 mg PO HS@1999 #30 tab 09/05/20 09/16/20 Rx Healthshake 1 cap PO BID@0700,1730 09/16/20 09/16/20 History Metoprolol Succinate (ER) [Toprol 50 mg PO BID@0800,2000 09/16/20 09/16/20 History Xl] glipiZIDE [Glucotrol] 2.5 mg PO BID@0800,1600 09/16/20 09/16/20 History traMADol HCl [Ultram] 50 mg PO Q6H PRN 09/16/20 09/16/20 History Allergies Allergy/AdvReac Type Severity Reaction Status Date / Time No Known Allergies Allergy Verified 09/16/20 10:54 Physical Examination - Vital Signs Vital Signs: Vital Signs Temp Pulse Resp BP Pulse Ox 09/17/20 14:00 97.9 F 80 20 119/72 92 L 09/17/20 08:45 92 L 09/17/20 07:45 98.6 F 76 18 131/79 95 09/17/20 00:12 98.0 F 84 14 122/69 92 L 09/16/20 19:15 97.6 F 79 14 122/74 92 L Intake and Output 09/17/20 09/17/20 09/17/20 06:59 14:59 22:59 Output Total 300 Balance -300 Output: Urine 300 Other: Voiding Method Diaper Weight 108 kg Gen.: The patient is reclining in the bed. He is feeling somewhat poorly at this moment, secondary to hypoglycemia. Blood sugar was found to be 71 on routine testing prior to dinner. The patient is obese HEENT: Head is atraumatic, normocephalic. Fundus not visualized. There is no scleral icterus. Mucous membranes are moist. Neck: Supple without carotid bruits Heart: Regular rate and rhythm Lungs: There is a left-sided expiratory wheeze Neurological examination Mental status: The patient is awake and alert. His speech is clear. He is oriented to his name, date of and location. There is no right left confusion. The patient is able to follow two-step commands. Patient is unable to report the current year or the current president of [facility]. The patient is also not oriented to the current month. He quickly becomes frustrated with his inability to answer these questions. Cranial nerves: Pupils are equal at 3 mm and reactive to light. Visual field testing is inconsistent. There is a mild right exotropia. Extraocular movements are intact. There is no nystagmus. Facial sensation is intact. There is no facial asymmetry. Hearing is grossly intact. Uvula and palate are midline. Shoulder shrug is diminished on the left. Tongue protrudes midline. Motor: Upper extremity strength is 5/5. Bilateral hip flexor strength 3/5. Ankle dorsi and plantar flexors 3/5. Coordination: There is a bilateral upper extremity intention tremor present on [id number] testing. Sensation: Grossly intact to light touch throughout. Deep tendon reflexes: 1-2+/4+ throughout. Results - Laboratory Findings CBC and BMP: 09/17/20 06:49 09/17/20 06:49 Abnormal Lab Findings: Abnormal Labs 09/16/20 09/16/20 09/16/20 10:45 10:45 10:45 RBC 3.60 L Hgb 11.8 L Hct 38.6 L MCV 107.2 H MCHC 30.6 L RDW 16.2 H Macrocytosis Marked A PT 17.2 H INR 1.7 H Sodium Potassium Carbon Dioxide BUN POC Glucose (mg/dL) Calcium Total Protein Albumin Urine Protein Trace H Urine Blood Trace H Urine Bacteria Rare H Hyaline Casts 17 H Urine Mucus Rare H U Tricyclic Antidepress Detected H 09/16/20 09/17/20 09/17/20 10:45 06:49 06:49 RBC 3.34 L Hgb 11.6 L Hct 35.8 L MCV 107.4 H MCHC RDW 15.9 H Macrocytosis Marked A PT 18.4 H INR 1.75 H Sodium 148 H Potassium 3.3 L Carbon Dioxide 39 H BUN 34 H POC Glucose (mg/dL) Calcium 8.2 L Total Protein 5.5 L Albumin 2.8 L Urine Protein Urine Blood Urine Bacteria Hyaline Casts Urine Mucus U Tricyclic Antidepress 09/17/20 09/17/20 09/17/20 06:49 07:06 16:15 RBC Hgb Hct MCV MCHC RDW Macrocytosis PT INR Sodium 148 H Potassium 3.1 L Carbon Dioxide 38 H BUN 32 H POC Glucose (mg/dL) 100 H 71 L Calcium 7.9 L Total Protein Albumin Urine Protein Urine Blood Urine Bacteria Hyaline Casts Urine Mucus U Tricyclic Antidepress Assessment and Plan Assessment: 1. Unresponsiveness/loss of consciousness without reported tonic-clonic movements or postictal state (this is reportedly a third episode) 2. Acute kidney injury 3. Hypernatremia 4. Possible autonomic dysfunction secondary to Lewy body dementia 5. History of Lewy body dementia with bilateral lower extremity weakness 6. Reported sudden onset paraplegia/inability to ambulate following surgery for pacemaker placement 7. Chronic atrial fibrillation Plan: 1. Check orthostatic vitals 2. Consult physical therapy for evaluation and possible treatment 3. Consider adjustment of antihypertensive medications 4. Agree with lowering the dose of Seroquel Time with Patient: Greater than 30 (spent 45 minutes with patient via t eleneurology)
[2020-09-17] MEDS: lisinopriL 5 MG TAB PO SCH (20:49)
[2020-09-17] MEDS: QUEtiapine 25 MG TAB PO SCH (20:49)
[2020-09-17] MEDS: FINASTERIDE 5 MG TAB PO SCH (20:49)
[2020-09-17 20:50] LABS: Glucose,Whole Blood 90 mg/dL (75-99)
--- NOTE | 2020-09-17 22:33 | CONS ---
CONSULTATION DATE OF SERVICE: 09/17/2020 REASON FOR CONSULTATION: Sacral pressure ulcer. HISTORY OF PRESENT ILLNESS: The patient is a 80-year-old male with a past medical history significant for multiple comorbidities including dementia, diabetes, atrial fibrillation. The patient is a resident of a local group home. The patient has been brought into the hospital for evaluation of episode of unresponsiveness that happened the night the patient was brought into the hospital. The patient was sent to the ER for further evaluation. On arrival to the ER, the patient apparently was awake and talking to the staff, however, slightly confused and could not provide any reliable information. On presentation to the hospital, the patient has been afebrile and no fever has been recorded since he was admitted to the hospital. The patient did have a normal white count with no left shift. BUN was slightly elevated. Creatinine was normal. The patient UA was negative. Urine was positive for tricyclic. Pelletier PCR was negative. The patient has been admitted to the hospital for workup for the episode of responsiveness. Chest x- ray was negative for any pneumonia. The patient was noticed to have a sacral pressure ulcer which apparently the patient has had for a while now. The patient has been mostly bedridden and unable to ambulate. The patient was not exactly sure to determine exactly when started having a problem with a pressure ulcer or any treatment provided specifically for it. Most of the information has been obtained from review of the chart as the patient himself is not a very good historian. REVIEW OF SYSTEMS: Could not be reliably obtained. The positive points have been mentioned in HPI. PAST MEDICAL HISTORY: Diabetes mellitus, hypertension, hyperlipidemia, hypothyroidism, prostate disorder and dementia, Guillain [place] . PAST SURGERY HISTORY: AICD placement, heart catheterization; left cataract removal. SOCIAL HISTORY: Remote history of smoking. No drinking or drug use. Currently a group home resident. FAMILY HISTORY: No pertinent findings noticed. ALLERGIES: No known drug allergies. MEDICATIONS: The patient is currently on Dulcolax, Pepcid, Proscar, Glucotrol, NovoLog, Imdur, Synthroid, Zestril, Toprol-XL, Coumadin, Theragran, Seroquel, Requip, IV fluid, Ultram and Aldactone. PHYSICAL EXAMINATION: Blood pressure is 119/72 with a pulse of 80, temperature 97.9. He is 92% on 2 L nasal cannula. General description is an elderly male lying in bed in no distress. No tachypnea or accessory muscles of respiration use. HEENT: Examination shows slight pallor. No scleral icterus. Oral mucous membranes dry. NECK: Trachea central. No thyromegaly. LUNGS: Unlabored breathing, clear to auscultation anteriorly. HEART S1, S2. Regular rate and rhythm. ABDOMEN: Soft, no tenderness. No guarding. No rigidity. EXTREMITIES: No edema of the feet. Examination of the sacral area did show an unstageable pressure ulcer with slough tissue. However, no surrounding swelling, redness or any drainage. NEUROLOGICALLY: Patient is awake, orientation could not be determined. No agitation was noticed. LABS: Hemoglobin is 11.6, white count 8.1. BUN of 32, creatinine 1.11. 3.1. The patient liver enzymes are normal. Urine is negative. DIAGNOSTIC IMPRESSION AND PLAN: 1. Patient with sacral pressure ulcer in this patient currently bed-bound. Pressure ulcer is unstageable with significant amount of slough tissue. No surrounding swelling, redness or any foul-smelling drainage. Clinical suspicion low for secondary bacterial infection with cellulitis with no fever or elevated white count. 2. Patient with an episode of unresponsiveness being evaluated by primary and neurology team thought to be related to Seroquel, has been cut back. PLAN: 1. Local wound care to the sacral area wound with Santyl followed by moist dressing, keep the area dry and off the pressure. 2. No need for systemic antibiotic therapy. 3. We will follow his clinical condition to further adjust medication if needed. Thank you for this consultation. Will follow this patient along with you. MMODL / IJN: [id number] /
[2020-09-18] MEDS: traMADol 50 MG TAB PO PRN ×3 (02:52→15:07)
[2020-09-18] MEDS: LEVOTHYROXINE 25 MCG TAB PO SCH (05:59)
[2020-09-18] MEDS: ISOSORBIDE MONONITRATE ER 30 MG TAB.ER.24H PO SCH (05:59)
[2020-09-18 06:56] LABS: Glucose,Whole Blood 66 mg/dL (75-99)
[2020-09-18 06:58] LABS: African American GFR (CKD) 78 (>60 ml/min/1.73 sqM); Anion Gap 2 mmol/L; Blood Urea Nitrogen 27 mg/dL (9-20); Calcium 7.8 mg/dL (8.4-10.2); Carbon Dioxide 38 mmol/L (22-30); Chloride 106 mmol/L (98-107); Glucose 66 mg/dL (74-99); Non-African American GFR(CKD) 67 (>60 ml/min/1.73 sqM); Potassium 3.6 mmol/L (3.5-5.1); Sodium 146 mmol/L (137-145)
[2020-09-18 07:01] LABS: INR 2.7 (<1.2); Prothrombin Time 25.7 sec (9.0-12.0)
[2020-09-18 07:16] LABS: Glucose,Whole Blood 63 mg/dL (75-99)
[2020-09-18 07:31] LABS: Glucose,Whole Blood 72 mg/dL (75-99)
[2020-09-18] MEDS: INSULIN ASPART (NovoLOG) 100 UNIT/ML VIAL SQ SCH ×4 (07:35→22:05)
[2020-09-18] MEDS: MULTIVITAMINS, THERA 1 EACH TAB PO SCH (07:43)
[2020-09-18] MEDS: METOPROLOL SUCCINATE (ER) 50 MG TAB.ER.24H PO SCH ×2 (07:43→22:05)
[2020-09-18] MEDS: SPIRONOLACTONE 25 MG TAB PO SCH (07:43)
[2020-09-18] MEDS: FAMOTIDINE 20 MG TAB PO SCH (07:44)
--- NOTE | 2020-09-18 09:44 | XR ---
EXAMINATION TYPE: XR chest 2V DATE OF EXAM: 09/18/2020 COMPARISON: 09/16/2020 INDICATION: Wheezing TECHNIQUE: Frontal and lateral views of the chest are obtained. FINDINGS: The heart size is enlarged. The pulmonary vasculature is normal. No suspicious focal consolidation is evident. Pacemaker overlies left chest.. IMPRESSION: 1. No acute pulmonary process. 2. Cardiomegaly
[2020-09-18 11:31] LABS: Glucose,Whole Blood 100 mg/dL (75-99)
[2020-09-18] MEDS: guaiFENesin 600 MG TABLET.ER PO SCH ×2 (12:31→17:30)
[2020-09-18] MEDS: COLLAGENASE 250 UNIT/GM OINTMENT 30 GM TUBE TOPICAL SCH (14:37)
[2020-09-18 15:08] LABS: Glucose,Whole Blood 129 mg/dL (75-99)
[2020-09-18] MEDS ORDERED: ONDANSETRON 4 MG/2 ML VIAL IVP PRN (15:59)
--- NOTE | 2020-09-18 16:23 | PN ---
PROGRESS NOTE DATE OF SERVICE: 09/18/2020 REASON FOR FOLLOWUP: Sacral pressure ulcer. INTERVAL HISTORY: The patient is currently afebrile. The patient is breathing comfortably. The patient is slightly more awake, alert. When asked specifically denies having any chest pain, shortness of breath or cough. No abdominal pain, no diarrhea. PHYSICAL EXAMINATION: Blood pressure 130/64, pulse of 87, temp is 97.9. He is 92% on 2 L nasal cannula. General description is an elderly male lying in bed in no distress. Respiratory system: Unlabored breathing, clear to auscultation anteriorly. Heart S1, S2. Regular rate and rhythm. Abdomen soft, no tenderness. LABS: No new labs been obtained today. Chest x-ray was negative. DIAGNOSTIC IMPRESSION AND PLAN: Patient with punstageableressure ulcer with significant slough tissue. Local care to continue with Santyl followed by moist dressing. No need for any systemic antibiotic therapy. at the bedside, questions were answered. MMODL / IJN: [id number] / MTDD
[2020-09-18 16:29] LABS: Glucose,Whole Blood 146 mg/dL (75-99)
[2020-09-18] MEDS ORDERED: WARFARIN 2.5 MG TAB PO ONE (18:00)
[2020-09-18 21:07] LABS: Glucose,Whole Blood 127 mg/dL (75-99)
--- NOTE | 2020-09-18 21:39 | P.PN ---
Progress Note - Text Progress Note Date: 09/18/20 Chief Complaint: Decreased responsiveness History of presenting complaint: This is a 80-year-old patient follows with Dr. Alas. Resident of [facility]. Chronic stable medical conditions include atrial fibrillation, CHF EF of 2025%, diabetes, GERD, hypertension, hyperlipidemia, osteoarthritis, BPH, peripheral neuropathy, chronic sacral ulcer, anybody dementia, hypothyroid. On August 25 patient had a permanent pacemaker placed. Patient up to that had been using a walker. Subsequent that patient has not really walked. Patient is able to answer some simple questions. Most of the history is obtained by the at the bedside. Patient's appetite has been okay. Patient's had an episode where he just becomes unresponsive. He's had 2 prior episodes of the same. Neurological workup has been negative for the same. On this occasion again an episode of unconsciousness. EMS was called out. Patient breathing was 14-16. Skin was warm. Blood glucose was 81. Patient had no response to sternal rub. Telemetry showed paced rhythm. Pulse ox on 3 inches was close to 100% patient did not respond to Narcan. Patient last seen well was the previous night. Patient did, not in the ER. Elevated sodium/dehydration. Gentle hydration Admitted with possible abnormality of CONCETTA. Dose of Seroquel cutback. Has been more awake with that. Today: Hypoglycemic. Glyburide discontinued. Hypoglycemic protocol. Patient is tired Review of systems: Was done for constitutional, cardiovascular, GI, pulmonary. relevant finding as above Past medical history to include: atrial fibrillation, CHF EF of 2025%, diabetes, GERD, hypertension, hyperlipide bird, osteoarthritis, BPH, peripheral neuropathy, chronic sacral ulcer, anybody dementia, hypothyroid. On August 25 patient had a permanent pacemaker placed Social history: Resident of [facility] on. Due to weakness does not participate in physical therapy. Patient smoked from 1963 through 1987. Alcohol rarely. . Family history: Reviewed, noncontributory to presentation Physical examination: VITAL SIGNS: 97.6, 82, 20, 10 8 x 72, 92% on 2 L GENERAL: BMI 32.3, laying in bed, a bit sleepy today EYES: Pupils equal. Conjunctiva normal. NECK: JVD not raised; masses not palpable. HEART: First and second heart sounds are normal; no edema. LUNGS:[ Respiratory rate normal; decreased breath sounds. ABDOMEN: Soft, nontender, liver spleen not palpable, no masses palpable. PSYCH: Lethargic but answers some questions. NEUROLOGICAL: [Cranial nerves grossly intact; no facial asymmetry, able to lift both his arms. Able to move both legs and barely lift off the bed. INVESTIGATIONS, reviewed in the clinical context: September 18: Accu-Cheks: 66, 63, 72, potassium 3.6 sodium 146 creatinine 1.06 September 17: Sodium 148 potassium 3.1 creatinine 1.11 WBC 9 hemoglobin 11.8 platelets 240 sodium 148 potassium 3.3 bun 34 creatinine 1.25 UA-hyaline casts 17 Urine drug screen positive for tricyclic antidepressant Influenza type A, diabetic, RSV, COVID 19 [PCR]: Negative EKG tracing personally reviewed by me-ventricular paced rhythm. CT surgeon group brain without contrast: Showing atrophy Chest x-ray film personally seen by me: Enlarged heart. No obvious infiltrate Previous testing: August Carotid Doppler: No significant stenosis EEG: Negative for epileptiform activity 2-D echocardiogram: EF 20-25%, left ventricle moderately dilated. Moderate tricuspid regurgitation, moderate to severe pulmonary hypertension Assessment and plan: -Episode of unconsciousness. No seizure activity reported. This is patient's at least third episode. Prior workup including carotid Doppler, EEG, computed tomography scan of brain old negative. Patient is awake again. Possible abnormality of the reticular activating system. Cutback Seroquel to 12.5 mg daily at bedtime-better -Persistent atrial fibrillation Patient has a telemetry. AICD. Pacemaker. Toprol-XL -Chronic congestive heart failure from systolic dysfunction EF 20-25% Continue with Aldactone, Zestril, Toprol-XL. Lasix held -Moderate to severe tricuspid and mitral regurgitation Follow clinically -Secondary moderate to severe pulmonary hypertension secondary to CHF and COPD Follow clinically -COPD in a previous smoker Bronchodilators -Major cognitive impairment from Lewy body dementia -Diabetes mellitus type 2, uncontrolled with hypoglycemia Follow Accu-Cheks. Hold Glucotrol as Accu-Cheks are running on the lower side. -GERD On Pepcid -Essential hypertension Continue with Zestril -Primary osteoarthritis multiple joints bilaterally Use pain medications as needed -Diabetic peripheral neuropathy -Chronic sacral decubitus ulcer Consult ID -Acute on chronic medical debility. Patient was using a walker up to August 25. Now not able to walk. PTOT -Persistent atrial fibrillation rate controlled Patient has AICD. -Full code -Hypernatremia, from free water deficit Gentle hydration. Continue to hold Lasix. Give another 50 mL an hour of saline for another 500 mL.. Follow Accu-Cheks. If Accu-Cheks, improve tomorrow. Should be able to be discharged to the ECF.
[2020-09-18] MEDS: lisinopriL 5 MG TAB PO SCH (22:04)
[2020-09-18] MEDS: FINASTERIDE 5 MG TAB PO SCH (23:34)
[2020-09-19] MEDS: SODIUM CHLORIDE 0.9% 1,000 ML IV SCH ×2 (03:05→05:16)
[2020-09-19 03:51] LABS: Glucose,Whole Blood 119 mg/dL (75-99)
[2020-09-19 04:22] LABS: INR 4.2 (<1.2); Prothrombin Time 40.4 sec (9.0-12.0)
[2020-09-19 04:24] LABS: ABG Base Excess 6.7 mmol/L; ABG HCO3 35 mmol/L (21-25); ABG Oxygen Saturation 92.4 % (94-97); ABG PO2 70 mmHg (83-108); ABG TCO2 38 mmol/L (19-24); Allen Test Performed? Yes
[2020-09-19 04:28] LABS: African American GFR (CKD) 45 (>60 ml/min/1.73 sqM); Anion Gap 4 mmol/L; Blood Urea Nitrogen 32 mg/dL (9-20); Calcium 7.9 mg/dL (8.4-10.2); Carbon Dioxide 36 mmol/L (22-30); Chloride 104 mmol/L (98-107); Glucose 115 mg/dL (74-99); Magnesium 1.7 mg/dL (1.6-2.3); Non-African American GFR(CKD) 38 (>60 ml/min/1.73 sqM); Potassium 4.9 mmol/L (3.5-5.1); Sodium 144 mmol/L (137-145)
[2020-09-19 04:32] LABS: Anisocytosis Slight; HCT 42.3 % (39.0-53.0); HGB 12.6 gm/dL (13.0-17.5); Hypochromasia Marked; MCH 32.7 pg (25.0-35.0); MCHC 29.8 g/dL (31.0-37.0); MCV 109.9 fL (80.0-100.0); Macrocytosis Marked; Mean Platelet Volume 7.7; Platelet Count 296 k/uL (150-450); RBC 3.85 m/uL (4.30-5.90); RDW 16.2 % (11.5-15.5); WBC 10.9 k/uL (3.8-10.6)
--- NOTE | 2020-09-19 04:32 | P.EN ---
A team note Activated at 3:49 am for concerns of decreased level of consciousness and hypotension. Discussed the case with the RN and reviewed the chart. The patient who was admitted for altering level of consciousness with episodes of unresponsiveness and possible seizure, was noted to be be unresponsive. Vitals at evaluation: BP 70/46, P 76, T 97.8, SpO2 89% on 2L, RR 11 breaths/min General: Non-toxic, in no acute distress, appears stated age, obese HEENT: NC/AT, anicteric sclerae, moist conjunctiva, no lid-lag, pupils pinpoint akila and non-reactive Cardiovascular: S1/S2 wnl, no murmurs, rubs, or gallops Lungs: Clear to auscultation, normal respiratory effort, no accessory muscle use Abdominal: Soft, non-tender, non-distended, no guarding, rebound, or rigidity Skin: Warm, dry, large sacral decubitus ulcer, unstageable with minimal surrounding erythema and no drainage Extremities: No edema or contractures Psychiatric: Opens eyes to stimuli but does not make eye contact, not following any directions, nonverbal Neuro: Unable to perform Assessment/Plan Unresponsiveness with hypotension -Chart reviewed including neurology evaluation on 09/17. The patient has a long- standing history of similar episodes of unresponsiveness and his seroquel dose was recently decreased -Concerns regarding bradypnea and hypotension -Will obtain ABG to assess for need for additional ventilatory support and Hypercapnia -Concerned for sepsis and will obtain UA and CXR. Low suspicion of ulcer as primary source -Additional workup including CBC, CMP, Magnesium, and Lactate ordered
[2020-09-19] MEDS ORDERED: SODIUM CHLORIDE 0.9% 500 ML 500 ML IV ONE (04:36)
[2020-09-19 04:41] LABS: ABG PH 7.18 (7.35-7.45)
[2020-09-19 04:42] LABS: ABG PCO2 93 mmHg (35-45)
[2020-09-19 04:48] LABS: Anisocytosis (M) Present; Band Neutrophils % 2 %; Eosinophils # (M) 0.11 k/uL (0-0.7); Lymphocytes # (M) 1.85 k/uL (1.0-4.8); Monocytes # (M) 0.65 k/uL (0-1.0); Neutrophils % (M) 74 %; Nucleated Red Blood Cells 0 /100 WBC (0-0); Ovalocytes Present; Poikilocytosis (M) Present; Total Cells Counted 100
[2020-09-19 04:51] LABS: Amorphous Sediment,Urine Rare /hpf; Appearance,Urine Cloudy (Clear); Bacteria,Urine Many /hpf; Bilirubin,Urine Negative (Negative); Blood,Urine Small (Negative); Color,Urine Dark Yellow; Glucose,Urine (UA) Negative (Negative); Hyaline Casts,Urine 54 /lpf (0-2); Ketones,Urine Negative (Negative); Leukocyte Esterase,Urine Large (Negative); Mucus,Urine Rare /hpf; Nitrite,Urine Negative (Negative); PH, Urine 5.5 (5.0-8.0); Protein,Urine 2+ (Negative); RBC,Urine 19 /hpf (0-5); Specific Gravity,Urine 1.022 (1.001-1.035); Squamous Epithelial Cell,Urine 2 /hpf (0-4); WBC,Urine 178 /hpf (0-5)
--- NOTE | 2020-09-19 05:03 | XR ---
EXAM: XR Chest, 1 View CLINICAL HISTORY: unresponsive TECHNIQUE: Frontal view of the chest. COMPARISON: Yesterday FINDINGS: Lungs: Mild diffuse airspace opacities throughout right lung. Lungs are slightly underinflated. Pleural space: Cannot rule out small bilateral pleural effusions. No pneumothorax. Heart: Cardiomegaly. Bones/joints: No acute findings. Vasculature: Calcified aorta Tubes, lines and devices: Left pacer is again noted. IMPRESSION: Lung findings suggest asymmetrical right pulmonary edema
[2020-09-19] MEDS: guaiFENesin 600 MG TABLET.ER PO SCH ×2 (05:16→05:27)
[2020-09-19] MEDS: LEVOTHYROXINE 25 MCG TAB PO SCH (05:27)
[2020-09-19] MEDS: ISOSORBIDE MONONITRATE ER 30 MG TAB.ER.24H PO SCH (05:27)
[2020-09-19] MEDS: QUEtiapine 25 MG TAB PO SCH (05:33)
[2020-09-19 06:10] LABS: ABG HCO3 33 mmol/L (21-25); ABG PH 7.25 (7.35-7.45); ABG PO2 82 mmHg (83-108); ABG TCO2 36 mmol/L (19-24); Allen Test Performed? Yes
[2020-09-19 06:23] LABS: ABG PCO2 76 mmHg (35-45)
[2020-09-19] MEDS: NOREPINEPHRINE 4 MG in SODIUM CHLORIDE 0.9% 250 ML IV SCH ×3 (06:35→23:38)
[2020-09-19 06:39] LABS: Glucose,Whole Blood 95 mg/dL (75-99)
[2020-09-19] MEDS: INSULIN ASPART (NovoLOG) 100 UNIT/ML VIAL SQ SCH ×4 (06:45→20:15)
[2020-09-19] MEDS ORDERED: FUROSEMIDE 10 MG/ML 4 ML VIAL IV SCH (08:15)
[2020-09-19] MEDS ORDERED: SODIUM CHLORIDE 0.9% 500 ML IV ONE (08:35)
[2020-09-19] MEDS ORDERED: VANCOMYCIN IV PER PHARMACY 1 EACH MISC MISCELLANE PRN (08:39)
[2020-09-19] MEDS: FAMOTIDINE 20 MG/2 ML VIAL IV SCH (09:10)
[2020-09-19] MEDS: LEVOTHYROXINE IVP 100 MCG/5 ML VIAL IV SCH (09:10)
[2020-09-19] MEDS ORDERED: VANCOMYCIN 1,750 MG in SODIUM CHLORIDE 0.9% 500 ML 500 ML IVPB ONE (09:15)
[2020-09-19] MEDS: SPIRONOLACTONE 25 MG TAB PO SCH (10:24)
--- NOTE | 2020-09-19 10:54 | P.CNPUL ---
History of Present Illness Consult date: 09/19/20 Reason for consult: other Chief complaint: Altered mental status History of present illness: 80-year-old white male patient, a resident of a [facility] [place], with past medical history of diabetes mellitus type 2, chronic A. fib, chronic systolic CHF with EF of 20-25% status post AICD/pacemaker insertion, hypert ension, hyperlipidemia, osteoarthritis, BPH, chronic sacral decubitus ulcer stage III, Lewy body dementia, former smoker who was brought into the hospital on 09/16/2020 for evaluation of altered mental status. Patient apparently was found unresponsive by the assisted staff, in the EMS he received 1 dose of Narcan with no response. Blood sugar was 101, patient had no reported fevers, no vomiting or diarrhea. Brain CT showed atrophy and no acute intracranial process. Chest x-ray in the emergency department showed cardiomegaly, no acute cardiopulmonary process. Initial blood work showed white count of 9.0, hemoglobin of 11.8, INR was 1.7, sodium was 140, potassium is 3.3, CO2 was 30, B UN of 34 creatinine was 1.25, LFTs are within normal limits, ammonia level was less than 9, troponin was 0.031, urinalysis initially showed no definite sign of infection, urine drug screen was positive only for tricyclic anti-depressants, patient tested negative for influenza A and B, RSV and coronavirus. Neurology consultation was obtained, please refer to their consultation note, ID service was following regards to stage III decubitus ulcer, however patient was not on any systemic antibiotic therapy. On 09/19/2020 a rapid response team was called to the bedside for concern of decreased level of consciousness and hypotension. Patient was given 500 mL bolus for a blood pressure of 70/46, she was started on norepinephrine infusion, stat blood gas was obtained showing pO2 of 70, pCO2 of 93, and pH of 7.18. Patient was placed on Noninvasive positive pressure ventilation, AVAPS mode with tidal volume of 400, rate of 12, EPAP of 5, FiO2 of 40%. Subsequent blood gases showed some improvement, with pO2 at 82, pCO2 of 76 and pH of 7.25. Today's chest x-ray shows mild diffuse airspace opacities throughout the right lung, suggesting asymmetrical right pulmonary edema. Urinalysis shows evidence of urinary tract infection, urine cultures have been sent, blood cultures have been sent. Patient remains afebrile, remains hypotensive, clinically he appears very dry, and he suspected to be septic possibly related to acute urinary tract infection, or possibly pneumonia. This morning's blood work shows with a token 10.2, hemoglobin of 12.6, INR is 4.2, sodium is 144, potassium is 4.9, chloride is 104, CO2 36, BUN is 32, creatinine is 1.68, lactic acid is 1.0. Patient is very lethargic, remains on BiPAP support. Patient is oliguric, and has produced 0-5 mL of urine in the last few hours. Review of Systems All systems: negative Constitutional: Reports fatigue, Reports lethargy, Denies chills, Denies fever Eyes: denies blurred vision, denies pain Ears, nose, mouth and throat: Denies headache, Denies sore throat Cardiovascular: Denies chest pain, Denies shortness of breath Respiratory: Denies cough Gastrointestinal: Denies abdominal pain, Denies diarrhea, Denies nausea, Denies vomiting Musculoskeletal: Denies myalgias Integumentary: Denies pruritus, Denies rash Neurological: Reports change in mentation, Denies numbness, Denies weakness Psychiatric: Denies anxiety, Denies depression Endocrine: Denies fatigue, Denies weight change Past Medical History Past Medical History: Atrial Fibrillation, Heart Failure, Dementia, Diabetes Mellitus, Eye Disorder, GERD/Reflux, Hyperlipidemia, Hypertension, Memory Impairment, Myocardial Infarction ([place]), Musculoskeletal Disorder, Neurologic Disorder, Prostate Disorder, Syncope, Thyroid Disorder Additional Past Medical History / Comment(s): Pt recently admitted to [facility] on 09/05/20 with acute encephalopathy/AMS/hypoxia. Other hx: NIDDM type II, carl ropathy bilateral feet, chronic sacral ulcer, ischemic cardiomyopathy, Lewy body dementia, parkinson with hallucinations, 1992 guillian barre, past large bullous diabetic christiano fluid filled sac R leg which burst/resolved, BPH, constipation, incontinence, vitamin deficiency, tinnitis, hypothyroid. Last Myocardial Infarction Date:: 1992 History of Any Multi-Drug Resistant Organisms: None Reported Past Surgical History: AICD, Heart Catheterization, Pacemaker Additional Past Surgical History / Comment(s): 1992 PTCA, TEEs, cardioversions, AICD 2003 originally and upgraded to biV, bilateral cataract removals, colonoscopy. Past Anesthesia/Blood Transfusion Reactions: No Reported Reaction Date of Last Stent Placement:: 1992 Type of Cardiac Device: Permanent Pacemaker, AICD Device Placement Date:: original 2003/upgrade 08/2020 Past Psychological History: Anxiety Additional Psychological History / Comment(s): Pt recently placed in [facility] [place] d/t weakness. Pt states he has not been able to participate with physical therapy d/t weakness. Smoking Status: Former smoker Past Alcohol Use History: Rare Additional Past Alcohol Use History / Comment(s): Pt started smoking in 1963 and quit in 1987 Past Drug Use History: None Reported - Past Family History Mother Additional Family Medical History / Comment(s): SEVERE LEG EDEMA Father Additional Family Medical History / Comment(s): Father during a heart procedure. Medications and Allergies Home Medications Medication Instructions Recorded Confirmed Type Famotidine [Pepcid] 20 mg PO DAILY@0800 08/19/17 09/16/20 History Finasteride [Proscar] 5 mg PO HS 08/19/17 09/16/20 History Furosemide [Lasix] 40 mg PO DAILY@0800 08/19/17 09/16/20 History Warfarin [Coumadin] 2.5 mg PO DAILY@1600 03/27/18 09/16/20 History QUEtiapine [SEROquel] 50 mg PO HS 08/10/20 09/16/20 History rOPINIRole HCL [Requip] 0.25 mg PO HS 08/11/20 09/16/20 History Levothyroxine Sodium 25 mcg PO HS 08/22/20 09/16/20 History bisacodyL [Dulcolax] 5 mg PO DAILY PRN 08/22/20 09/16/20 History Isosorbide Mononitrate ER [Imdur] 30 mg PO DAILY@0600 09/01/20 09/16/20 History Multivitamins, Thera [Multivitamin 1 tab PO DAILY@0800 09/01/20 09/16/20 History (formulary)] Spironolactone [Aldactone] 25 mg PO DAILY@0600 09/01/20 09/16/20 History lisinopriL [Zestril] 5 mg PO HS@1999 #30 tab 09/05/20 09/16/20 Rx Healthshake 1 cap PO BID@0700,1730 09/16/20 09/16/20 History Metoprolol Succinate (ER) [Toprol 50 mg PO BID@0800,2000 09/16/20 09/16/20 History Xl] glipiZIDE [Glucotrol] 2.5 mg PO BID@0800,1600 09/16/20 09/16/20 History traMADol HCl [Ultram] 50 mg PO Q6H PRN 09/16/20 09/16/20 History Allergies Allergy/AdvReac Type Severity Reaction Status Date / Time No Known Allergies Allergy Verified 09/16/20 10:54 Physical Exam Vitals: Vital Signs Temp Pulse Pulse Pulse Resp BP BP 09/19/20 10:00 94 21 82/47 09/19/20 09:45 94 16 89/55 09/19/20 09:30 93 15 107/68 09/19/20 09:15 107 H 10 L 119/75 09/19/20 09:00 102 H 11 L 123/84 09/19/20 08:45 98 15 110/79 09/19/20 08:30 80 10 L 73/56 09/19/20 08:15 79 8 L 80/49 09/19/20 08:00 87 12 89/60 09/19/20 07:45 80 11 L 89/57 09/19/20 07:43 09/19/20 07:30 91 10 L 112/82 09/19/20 07:15 92 11 L 125/65 09/19/20 07:00 98 12 114/71 09/19/20 04:24 09/19/20 04:18 60/45 09/19/20 03:58 09/19/20 03:52 09/19/20 03:48 97.8 F 76 09/18/20 20:48 97.6 F 74 15 09/18/20 20:10 97.5 F L 76 16 09/18/20 15:41 97.6 F 82 20 108/72 09/18/20 14:00 97.9 F 87 18 BP Pulse Ox 09/19/20 10:00 94 L 09/19/20 09:45 93 L 09/19/20 09:30 91 L 09/19/20 09:15 88 L 09/19/20 09:00 94 L 09/19/20 08:45 88 L 09/19/20 08:30 93 L 09/19/20 08:15 93 L 09/19/20 08:00 91 L 09/19/20 07:45 91 L 09/19/20 07:43 94 L 09/19/20 07:30 92 L 09/19/20 07:15 93 L 09/19/20 07:00 87 L 09/19/20 04:24 74/50 09/19/20 04:18 09/19/20 03:58 78/50 96 09/19/20 03:52 70/46 09/19/20 03:48 62/43 09/18/20 20:48 82/59 89 L 09/18/20 20:10 93/85 92 L 09/18/20 15:41 92 L 09/18/20 14:00 113/64 92 L Intake and Output 09/18/20 09/19/20 09/19/20 22:59 06:59 14:59 Intake Total 1116.257 Output Total 200 5 Balance -200 1111.257 Intake: IV 1100 Sodium Chloride 0.9% 500 500 ml @ 999 mls/hr IV .Q31M [facility] Rx#:[id number] Vancomycin 1,750 mg In 500 Sodium Chloride 0.9% 500 ml 500 ml @ 167 mls/hr IVPB Q24H [facility] Rx#: [id number] cefTRIAXone 1 gm In 100 Sodium Chloride 0.9% 50 ml @ 100 mls/hr IVPB Q24HR [facility] Rx#:[id number] Intake, IV Titration 16.257 Amount Norepinephrine 4 mg In 16.257 Sodium Chloride 0.9% 250 ml @ 0.05 MCG/KG/MIN 19. 907 mls/hr IV .[id number] [facility] Rx#:[id number] Output: Urine 200 5 Other: Voiding Method External Catheter Weight 103.4 kg GENERAL EXAM: Patient is quite obtunded, he is currently on NPPV on AVAPS mode with tidal volume of 400 ml, rate of 12, Min EPAP 5, Min Pressure 8, Max Pressure 20, Fio2 30% ecomfortable in no apparent distress. HEAD: Normocephalic/atraumatic. EYES: Normal reaction of pupils, equal size. Conjunctiva pink, sclera white. NOSE: Clear with pink turbinates. THROAT: No erythema or exudates. NECK: No masses, no JVD, no thyroid enlargement, no adenopathy. CHEST: No chest wall deformity. Symmetrical expansion. LUNGS: Equal air entry with no crackles, wheeze, rhonchi or dullness. CVS: Regular rate and rhythm, normal S1 and S2, no gallops, no murmurs, no rubs ABDOMEN: Soft, nontender. No hepatosplenomegaly, normal bowel sounds, no guar ding or rigidity. EXTREMITIES: No clubbing, no edema, no cyanosis, 2+ pulses and upper and lower extremities. MUSCULOSKELETAL: Muscle strength and tone normal. SPINE: No scoliosis or deformity SKIN: No rashes CENTRAL NERVOUS SYSTEM: Lethargic. No focal deficits, tone is normal in all 4 extremities. Results - Laboratory Findings CBC and BMP: 09/19/20 04:00 09/19/20 04:00 ABG ABG pH 7.25 (7.35-7.45) L 09/19/20 06:08 ABG pCO2 76 mmHg (35-45) H* 09/19/20 06:08 ABG pO2 82 mmHg (83-108) L 09/19/20 06:08 ABG O2 Saturation 96.0 % (94-97) 09/19/20 06:08 PT/INR, D-dimer PT 40.4 sec (9.0-12.0) H 09/19/20 04:00 INR 4.2 (<1.2) H 09/19/20 04:00 Abnormal lab findings: Abnormal Labs 09/16/20 09/16/20 09/16/20 10:45 10:45 10:45 WBC RBC 3.60 L Hgb 11.8 L Hct 38.6 L MCV 107.2 H MCHC 30.6 L RDW 16.2 H Neutrophils # (Manual) Macrocytosis Marked A PT 17.2 H INR 1.7 H ABG pH ABG pCO2 ABG pO2 ABG HCO3 ABG Total CO2 ABG O2 Saturation Sodium Potassium Carbon Dioxide BUN Creatinine Glucose POC Glucose (mg/dL) Calcium Total Protein Albumin Urine Protein Trace H Urine Blood Trace H Ur Leukocyte Esterase Urine RBC Urine WBC Urine WBC Clumps Amorphous Sediment Urine Bacteria Rare H Hyaline Casts 17 H Urine Mucus Rare H U Tricyclic Antidepress Detected H 09/16/20 09/17/20 09/17/20 10:45 06:49 06:49 WBC RBC 3.34 L Hgb 11.6 L Hct 35.8 L MCV 107.4 H MCHC RDW 15.9 H Neutrophils # (Manual) Macrocytosis Marked A PT 18.4 H INR 1.75 H ABG pH ABG pCO2 ABG pO2 ABG HCO3 ABG Total CO2 ABG O2 Saturation Sodium 148 H Potassium 3.3 L Carbon Dioxide 39 H BUN 34 H Creatinine Glucose POC Glucose (mg/dL) Calcium 8.2 L Total Protein 5.5 L Albumin 2.8 L Urine Protein Urine Blood Ur Leukocyte Esterase Urine RBC Urine WBC Urine WBC Clumps Amorphous Sediment Urine Bacteria Hyaline Casts Urine Mucus U Tricyclic Antidepress 09/17/20 09/17/20 09/17/20 06:49 07:06 16:15 WBC RBC Hgb Hct MCV MCHC RDW Neutrophils # (Manual) Macrocytosis PT INR ABG pH ABG pCO2 ABG pO2 ABG HCO3 ABG Total CO2 ABG O2 Saturation Sodium 148 H Potassium 3.1 L Carbon Dioxide 38 H BUN 32 H Creatinine Glucose POC Glucose (mg/dL) 100 H 71 L Calcium 7.9 L Total Protein Albumin Urine Protein Urine Blood Ur Leukocyte Esterase Urine RBC Urine WBC Urine WBC Clumps Amorphous Sediment Urine Bacteria Hyaline Casts Urine Mucus U Tricyclic Antidepress 09/18/20 09/18/20 09/18/20 06:36 06:36 06:55 WBC RBC Hgb Hct MCV MCHC RDW Neutrophils # (Manual) Macrocytosis PT 25.7 H INR 2.7 H ABG pH ABG pCO2 ABG pO2 ABG HCO3 ABG Total CO2 ABG O2 Saturation Sodium 146 H Potassium Carbon Dioxide 38 H BUN 27 H Creatinine Glucose 66 L POC Glucose (mg/dL) 66 L Calcium 7.8 L Total Protein Albumin Urine Protein Urine Blood Ur Leukocyte Esterase Urine RBC Urine WBC Urine WBC Clumps Amorphous Sediment Urine Bacteria Hyaline Casts Urine Mucus U Tricyclic Antidepress 09/18/20 09/18/20 09/18/20 07:15 07:30 11:30 WBC RBC Hgb Hct MCV MCHC RDW Neutrophils # (Manual) Macrocytosis PT INR ABG pH ABG pCO2 ABG pO2 ABG HCO3 ABG Total CO2 ABG O2 Saturation Sodium Potassium Carbon Dioxide BUN Creatinine Glucose POC Glucose (mg/dL) 63 L 72 L 100 H Calcium Total Protein Albumin Urine Protein Urine Blood Ur Leukocyte Esterase Urine RBC Urine WBC Urine WBC Clumps Amorphous Sediment Urine Bacteria Hyaline Casts Urine Mucus U Tricyclic Antidepress 09/18/20 09/18/20 09/18/20 15:05 16:28 21:05 WBC RBC Hgb Hct MCV MCHC RDW Neutrophils # (Manual) Macrocytosis PT INR ABG pH ABG pCO2 ABG pO2 ABG HCO3 ABG Total CO2 ABG O2 Saturation Sodium Potassium Carbon Dioxide BUN Creatinine Glucose POC Glucose (mg/dL) 129 H 146 H 127 H Calcium Total Protein Albumin Urine Protein Urine Blood Ur Leukocyte Esterase Urine RBC Urine WBC Urine WBC Clumps Amorphous Sediment Urine Bacteria Hyaline Casts Urine Mucus U Tricyclic Antidepress 09/19/20 09/19/20 09/19/20 03:49 04:00 04:00 WBC 10.9 H RBC 3.85 L Hgb 12.6 L Hct MCV 109.9 H MCHC 29.8 L RDW 16.2 H Neutrophils # (Manual) 8.20 H Macrocytosis Marked A PT 40.4 H INR 4.2 H ABG pH ABG pCO2 ABG pO2 ABG HCO3 ABG Total CO2 ABG O2 Saturation Sodium Potassium Carbon Dioxide BUN Creatinine Glucose POC Glucose (mg/dL) 119 H Calcium Total Protein Albumin Urine Protein Urine Blood Ur Leukocyte Esterase Urine RBC Urine WBC Urine WBC Clumps Amorphous Sediment Urine Bacteria Hyaline Casts Urine Mucus U Tricyclic Antidepress 09/19/20 09/19/20 09/19/20 04:00 04:20 04:35 WBC RBC Hgb Hct MCV MCHC RDW Neutrophils # (Manual) Macrocytosis PT INR ABG pH 7.18 L* ABG pCO2 93 H* ABG pO2 70 L ABG HCO3 35 H ABG Total CO2 38 H ABG O2 Saturation 92.4 L Sodium Potassium Carbon Dioxide 36 H BUN 32 H Creatinine 1.68 H Glucose 115 H POC Glucose (mg/dL) Calcium 7.9 L Total Protein Albumin Urine Protein 2+ H Urine Blood Small H Ur Leukocyte Esterase Large H Urine RBC 19 H Urine WBC 178 H Urine WBC Clumps Moderate H Amorphous Sediment Rare H Urine Bacteria Many H Hyaline Casts 54 H Urine Mucus Rare H U Tricyclic Antidepress 09/19/20 06:08 WBC RBC Hgb Hct MCV MCHC RDW Neutrophils # (Manual) Macrocytosis PT INR ABG pH 7.25 L ABG pCO2 76 H* ABG pO2 82 L ABG HCO3 33 H ABG Total CO2 36 H ABG O2 Saturation Sodium Potassium Carbon Dioxide BUN Creatinine Glucose POC Glucose (mg/dL) Calcium Total Protein Albumin Urine Protein Urine Blood Ur Leukocyte Esterase Urine RBC Urine WBC Urine WBC Clumps Amorphous Sediment Urine Bacteria Hyaline Casts Urine Mucus U Tricyclic Antidepress - Diagnostic Findings Chest x-ray: report reviewed, image reviewed Additional studies: CT of the brain, EKG, brain CT results are reviewed Assessment and Plan Plan: Assessment: #1. Acute hypoxic and hypercapnic respiratory failure related to sepsis/septic shock #2. Acute septic shock related to acute urinary tract infection and possibility of pneumonia is not entirely excluded. Patient tested negative for COVID-19, RSV and influenza A and B. Possibility of aspiration versus healthcare acquired pneumonia is not excluded #3. Acute kidney injury related to ATN #4. Sacral wound stage III, present on admission #5. Altered mental status related to acute sepsis. Brain CT showed no acute intracranial process #6. Chronic systolic CHF, with an EF of 20-25% status post AICD/pacemaker placement #7. History of diabetes mellitus type 2 with diabetic neuropathy #8. Lewy body dementia with history of major cognitive impairment #9. History of A. fib on Coumadin, today INR is supratherapeutic, and Coumadin is on hold #10. Hypertension #11. Hyperlipidemia #12. Chronic medical debility, and patient is a resident of a local [facility] Plan: We'll give the patient additional fluid boluses, up to 2 L in increments of 500 mL We will add Rocephin and vancomycin Urine culture has been sent, blood cultures have been sent Hold Coumadin today Continue AVAPS mode of an NIPPV ventilation GI and DVT prophylaxis Address CODE STATUS with the patient's family Prognosis is guarded I performed a history & physical examination of the patient and discussed their management with my nurse practitioner, Veda Ambriz. I reviewed the nurse practitioner's note and agree with the documented findings and plan of care. Lung sounds are positive for diminished breath sounds. The findings and the impression was discussed with the patient. I attest to the documentation by the nurse practitioner. Time with Patient: Greater than 30
[2020-09-19] MEDS: COLLAGENASE 250 UNIT/GM OINTMENT 30 GM TUBE TOPICAL SCH (11:55)
[2020-09-19] MEDS: MAGNESIUM SULFATE-D5W PMX 1 GM in DEXTROSE/WATER 1 100ML.BAG IVPB SCH ×2 (11:55→13:00)
[2020-09-19 12:01] LABS: Glucose,Whole Blood 95 mg/dL (75-99)
--- NOTE | 2020-09-19 15:19 | P.PN ---
Subjective Progress Note Date: 09/19/20 Principal diagnosis: Acute hypoxic and hypercapnic respiratory failure Mr. Porras is a 80-year-old male with a past medical history of that his mattress, chronically treated for depression, chronic systolic congestive heart failure with ejection fraction 20-25%, status post AICD, pacemaker placement, hypertension, hyperlipidemia, chronic stage III sacral decubitus ulcers, jhoan vated body dementia who was initially admitted to the hospital for altered mental status changes. Patient was found unresponsive at the correction and so brought into the hospital for further evaluation. Patient had a CAT scan of the brain showing atrophy with no acute intracranial process and a chest x-ray showed no cardiopulmonary process. Patient was being closely followed by neurology and ID services during the hospital stay. On 09/19/2020 - earlier this morning rapid responds team was activated due to decreased level of consciousness and hypotension. So the patient was given half a liter of bolus normal saline and a ABGs showed pH of 7.18, pCO2 93, pO2 70, so the patient was transferred to the intensive care unit and started on noninvasive positive pressure ventilation. Patient had a chest x-ray showed done showing pulmonary edema and urinalysis showing large leukocyte esterase moderate WBC clumps. So the patient was started on ceftriaxone and vancomycin, pending urine and blood cultures. Currently patient is on BiPAP support and producing minimal urinary output through the Brooks's catheter. Reviewed the patient's labs from this morning showing white count of 10.9, hemoglobin 12.3, platelets 296. INR 4.2. Sodium is 144, potassium 4.9, chloride 104, bicarb 36, BUN 32, creatinine 1.68. Calcium 7.9. Patient's medications have been reviewed. Active Medications Bisacodyl (Bisacodyl 5 Mg Tablet.Dr) 5 mg PO DAILY PRN PRN Reason: Constipation Collagenase (Collagenase 250 Unit/Gm Ointment 30 Gm Tube) 1 applic TOPICAL DAILY [facility] Last Admin: 09/19/20 11:55 Dose: 1 applic Documented by: Famotidine (Famotidine 20 Mg/2 Ml Vial) 20 mg IV DAILY [facility] Last Admin: 09/19/20 09:10 Dose: 20 mg Documented by: Finasteride (Finasteride 5 Mg Tab) 5 mg PO HS [facility] Last Admin: 09/18/20 23:34 Dose: Not Given Documented by: Norepinephrine Bitartrate 4 mg (/ Sodium Chloride) 254 mls @ 19.907 mls/hr IV .[id number] [facility]; Protocol Last Titration: 09/19/20 09:30 Dose: 0.08 mcg/kg/min, 31.852 mls/hr Documented by: Ceftriaxone Sodium 1 gm/ (Sodium Chloride) 50 mls @ 100 mls/hr IVPB Q24HR [facility] Last Admin: 09/19/20 09:09 Dose: 100 mls/hr Documented by: Vancomycin HCl 1,750 mg/ (Sodium Chloride) 500 mls @ 167 mls/hr IVPB Q24H [facility] Insulin Aspart (Insulin Aspart (Novolog) 100 Unit/Ml Vial) 0 unit SQ [facility]; Protocol Last Admin: 09/19/20 12:00 Dose: Not Given Documented by: Levothyroxine Sodium (Levothyroxine Ivp 100 Mcg/5 Ml Vial) 12.5 mcg IV DAILY@0630 [facility] Last Admin: 09/19/20 09:10 Dose: 12.5 mcg Documented by: Miscellaneous Information (Warfarin Per Pharmacy) 1 each MISCELLANE DIRECTED PRN; Protocol PRN Reason: Per Protocol Ondansetron HCl (Ondansetron 4 Mg/2 Ml Vial) 4 mg IVP Q6HR PRN PRN Reason: Nausea And Vomiting Last Admin: 09/18/20 16:13 Dose: 4 mg Documented by: Ropinirole HCl (Ropinirole Hcl 0.25 Mg Tab) 0.25 mg PO HS [facility] Last Admin: 09/18/20 23:36 Dose: Not Given Documented by: Spironolactone (Spironolactone 25 Mg Tab) 25 mg PO DAILY@0900 [facility] Last Admin: 09/19/20 10:24 Dose: Not Given Documented by: Tramadol HCl (Tramadol 50 Mg Tab) 50 mg PO Q6H PRN PRN Reason: Pain Last Admin: 09/18/20 15:07 Dose: 50 mg Documented by: Warfarin Sodium (Warfarin 0.5 Mg Tab) 0 mg PO ONCE@1800 [facility] Stop: 09/19/20 18:01 Objective - Vital Signs Vital signs: Vital Signs Temp 97.8 F 09/19/20 03:48 Pulse 94 09/19/20 10:00 Resp 21 09/19/20 10:00 BP 82/47 09/19/20 10:00 Pulse Ox 94 L 09/19/20 10:00 Intake & Output 09/18/20 09/19/20 09/19/20 18:59 06:59 18:59 Intake Total 1116.257 Output Total 250 200 5 Balance -250 -200 1111.257 Weight 103.4 kg Intake: IV 1100 Sodium Chloride 0.9% 500 500 ml @ 999 mls/hr IV .Q31M [facility] Rx#:[id number] Vancomycin 1,750 mg In 500 Sodium Chloride 0.9% 500 ml 500 ml @ 167 mls/hr IVPB Q24H [facility] Rx#: [id number] cefTRIAXone 1 gm In 100 Sodium Chloride 0.9% 50 ml @ 100 mls/hr IVPB Q24HR [facility] Rx#:[id number] Intake, IV Titration 16.257 Amount Norepinephrine 4 mg In 16.257 Sodium Chloride 0.9% 250 ml @ 0.05 MCG/KG/MIN 19. 907 mls/hr IV .[id number] [facility] Rx#:[id number] Output: Urine 250 200 5 Other: Voiding Method External Catheter External Catheter - Exam Physical examination: GENERAL: , laying in bed, patient is lethargic and opens his eyes on calling his name but could not follow commands EYES: Pupils equal. Conjunctiva normal. NECK: JVD not raised; masses not palpable. HEART: Tachycardia LUNGS: Tachypnea, bibasilar crackles. ABDOMEN: Soft, nontender, liver spleen not palpable, no masses palpable. NEUROLOGICAL: Patient is lethargic - Labs CBC & Chem 7: 09/21/20 03:28 09/21/20 03:28 Labs: Abnormal Lab Results - Last 24 Hours (Table) 09/18/20 09/18/20 09/18/20 Range/Units 11:30 15:05 16:28 WBC (3.8-10.6) k/uL RBC (4.30-5.90) m/uL Hgb (13.0-17.5) gm/dL MCV (80.0-100.0) fL MCHC (31.0-37.0) g/dL RDW (11.5-15.5) % Neutrophils # (Manual) (1.3-7.7) k/uL Macrocytosis PT (9.0-12.0) sec INR (<1.2) ABG pH (7.35-7.45) ABG pCO2 (35-45) mmHg ABG pO2 (83-108) mmHg ABG HCO3 (21-25) mmol/L ABG Total CO2 (19-24) mmol/L ABG O2 Saturation (94-97) % Carbon Dioxide (22-30) mmol/L BUN (9-20) mg/dL Creatinine (0.66-1.25) mg/dL Glucose (74-99) mg/dL POC Glucose (mg/dL) 100 H 129 H 146 H (75-99) mg/dL Calcium (8.4-10.2) mg/dL Urine Protein (Negative) Urine Blood (Negative) Ur Leukocyte Esterase (Negative) Urine RBC (0-5) /hpf Urine WBC (0-5) /hpf Urine WBC Clumps (None) /hpf Amorphous Sediment (None) /hpf Urine Bacteria (None) /hpf Hyaline Casts (0-2) /lpf Urine Mucus (None) /hpf 09/18/20 09/19/20 09/19/20 Range/Units 21:05 03:49 04:00 WBC (3.8-10.6) k/uL RBC (4.30-5.90) m/uL Hgb (13.0-17.5) gm/dL MCV (80.0-100.0) fL MCHC (31.0-37.0) g/dL RDW (11.5-15.5) % Neutrophils # (Manual) (1.3-7.7) k/uL Macrocytosis PT 40.4 H (9.0-12.0) sec INR 4.2 H (<1.2) ABG pH (7.35-7.45) ABG pCO2 (35-45) mmHg ABG pO2 (83-108) mmHg ABG HCO3 (21-25) mmol/L ABG Total CO2 (19-24) mmol/L ABG O2 Saturation (94-97) % Carbon Dioxide (22-30) mmol/L BUN (9-20) mg/dL Creatinine (0.66-1.25) mg/dL Glucose (74-99) mg/dL POC Glucose (mg/dL) 127 H 119 H (75-99) mg/dL Calcium (8.4-10.2) mg/dL Urine Protein (Negative) Urine Blood (Negative) Ur Leukocyte Esterase (Negative) Urine RBC (0-5) /hpf Urine WBC (0-5) /hpf Urine WBC Clumps (None) /hpf Amorphous Sediment (None) /hpf Urine Bacteria (None) /hpf Hyaline Casts (0-2) /lpf Urine Mucus (None) /hpf 09/19/20 09/19/20 09/19/20 Range/Units 04:00 04:00 04:20 WBC 10.9 H (3.8-10.6) k/uL RBC 3.85 L (4.30-5.90) m/uL Hgb 12.6 L (13.0-17.5) gm/dL MCV 109.9 H (80.0-100.0) fL MCHC 29.8 L (31.0-37.0) g/dL RDW 16.2 H (11.5-15.5) % Neutrophils # (Manual) 8.20 H (1.3-7.7) k/uL Macrocytosis Marked A PT (9.0-12.0) sec INR (<1.2) ABG pH 7.18 L* (7.35-7.45) ABG pCO2 93 H* (35-45) mmHg ABG pO2 70 L (83-108) mmHg ABG HCO3 35 H (21-25) mmol/L ABG Total CO2 38 H (19-24) mmol/L ABG O2 Saturation 92.4 L (94-97) % Carbon Dioxide 36 H (22-30) mmol/L BUN 32 H (9-20) mg/dL Creatinine 1.68 H (0.66-1.25) mg/dL Glucose 115 H (74-99) mg/dL POC Glucose (mg/dL) (75-99) mg/dL Calcium 7.9 L (8.4-10.2) mg/dL Urine Protein (Negative) Urine Blood (Negative) Ur Leukocyte Esterase (Negative) Urine RBC (0-5) /hpf Urine WBC (0-5) /hpf Urine WBC Clumps (None) /hpf Amorphous Sediment (None) /hpf Urine Bacteria (None) /hpf Hyaline Casts (0-2) /lpf Urine Mucus (None) /hpf 09/19/20 09/19/20 Range/Units 04:35 06:08 WBC (3.8-10.6) k/uL RBC (4.30-5.90) m/uL Hgb (13.0-17.5) gm/dL MCV (80.0-100.0) fL MCHC (31.0-37.0) g/dL RDW (11.5-15.5) % Neutrophils # (Manual) (1.3-7.7) k/uL Macrocytosis PT (9.0-12.0) sec INR (<1.2) ABG pH 7.25 L (7.35-7.45) ABG pCO2 76 H* (35-45) mmHg ABG pO2 82 L (83-108) mmHg ABG HCO3 33 H (21-25) mmol/L ABG Total CO2 36 H (19-24) mmol/L ABG O2 Saturation (94-97) % Carbon Dioxide (22-30) mmol/L BUN (9-20) mg/dL Creatinine (0.66-1.25) mg/dL Glucose (74-99) mg/dL POC Glucose (mg/dL) (75-99) mg/dL Calcium (8.4-10.2) mg/dL Urine Protein 2+ H (Negative) Urine Blood Small H (Negative) Ur Leukocyte Esterase Large H (Negative) Urine RBC 19 H (0-5) /hpf Urine WBC 178 H (0-5) /hpf Urine WBC Clumps Moderate H (None) /hpf Amorphous Sediment Rare H (None) /hpf Urine Bacteria Many H (None) /hpf Hyaline Casts 54 H (0-2) /lpf Urine Mucus Rare H (None) /hpf Microbiology - Last 24 Hours (Table) 09/19/20 04:35 Urine Culture - Preliminary Urine,Voided Assessment and Plan Assessment: ASSESSMENT Septic shock Acute hypercapnic and hypoxic respiratory failure Sepsis secondary to UTI versus infected sacral decubitus stage III ulcer Metabolic encephalopathy Chronic congestive heart failure with ejection fraction of 20-25% status post AICD/pacemaker Type 2 diabetes mellitus Diabetic neuropathy Lewy body dementia Persistent atrial fibrillation Hypertension Hyperlipidemia Chronic debility Chronic stage III sacral decubitus ulcer Multiple joint osteoarthritis GERD COPD and previous smoker Moderate to severe pulmonary hypertension Moderate to severe tricuspid and mitral regurgitation Obesity with BMI of 30.9 PLAN: Patient is being given IV fluids and pressor support for septic shock. He has been started on ceftriaxone and vancomycin empirically pending urine and blood cultures. Continue with BiPAP for ventilatory support. Patient's INR is 4.2 today, we'll hold off Coumadin. Overall prognosis is poor. Currently patient is being monitored in the ICU setting. Family to be updated on the patient's status and to discuss CODE STATUS. Further recommendations to follow depending on the progress of the patient.
[2020-09-19 15:35] LABS: Calcium 8.1 mg/dL (8.4-10.2); Potassium 4.6 mmol/L (3.5-5.1)
[2020-09-19] MEDS ORDERED: WARFARIN 0.5 MG TAB PO ONE (18:00)
[2020-09-19 18:24] LABS: Glucose,Whole Blood 108 mg/dL (75-99)
--- NOTE | 2020-09-19 19:20 | P.PN ---
Subjective Progress Note Date: 09/19/20 The patient was seen for the first time. Please refer to Dr. Fuentes's note for further detailed neurological history. Upon seeing the patient he was on Bipap machine and was on norepinephrine drip. During the hospital stay the patient blood pressure has been systolic in the 70s to 110s over the 40s to 50s. It got as low as 62/43 overnight around 3:48 AM. Per ICU team it is felt the patient has acute septic shock related to acute urinary tract infection possibly pneumonia is not excluded that. Patient has acute hypoxic and hypercapnic respiratory failure Objective - Vital Signs Vital signs: Vital Signs Temp 97.4 F L 09/19/20 12:00 Pulse 103 H 09/19/20 18:00 Resp 12 09/19/20 18:00 BP 99/56 09/19/20 18:00 Pulse Ox 94 L 09/19/20 18:00 Intake & Output 09/18/20 09/19/20 09/19/20 18:59 06:59 18:59 Intake Total 2554.000 Output Total 250 200 42 Balance -250 -200 2512.000 Weight 103.4 kg Intake: IV 2300 Magnesium Sulfate-D5w Pmx 200 1 gm In Dextrose/Water 1 100ml.bag @ 100 mls/hr IVPB Q1H [facility] Rx#: [id number] Sodium Chloride 0.9% 500 1500 ml @ 999 mls/hr IV .Q31M [facility] Rx#:[id number] Vancomycin 1,750 mg In 500 Sodium Chloride 0.9% 500 ml 500 ml @ 167 mls/hr IVPB Q24H [facility] Rx#: [id number] cefTRIAXone 1 gm In 100 Sodium Chloride 0.9% 50 ml @ 100 mls/hr IVPB Q24HR [facility] Rx#:[id number] Intake, IV Titration 254.000 Amount Norepinephrine 4 mg In 254.000 Sodium Chloride 0.9% 250 ml @ 0.05 MCG/KG/MIN 19. 907 mls/hr IV .[id number] [facility] Rx#:[id number] Output: Urine 250 200 42 Other: Voiding Method External Catheter External Catheter Indwelling Catheter - Exam Gen.: Does not seem in acute distress. Respiratory: Is on Bipap machine Neurological examination Mental status: The patient is drowsy but awakeable to voice. Follows simple commands (squeezing hands to commands and moving ankles). Cranial nerves: Pupils are equal at 3 mm and reactive to light. Could not assess visual field because of his condition. There is a mild right exotropia. No facial weakness noted. Rest of cranial nerves could not be assessed. Motor: Strength was Hard to assess because of his cooperation. 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 Moving right ankles antigravity (right > left) while left had 1-2/5. Sensation: Could not assess. - Labs CBC & Chem 7: 09/19/20 04:00 09/19/20 14:20 Labs: Abnormal Lab Results - Last 24 Hours (Table) 09/18/20 09/19/20 09/19/20 Range/Units 21:05 03:49 04:00 WBC (3.8-10.6) k/uL RBC (4.30-5.90) m/uL Hgb (13.0-17.5) gm/dL MCV (80.0-100.0) fL MCHC (31.0-37.0) g/dL RDW (11.5-15.5) % Neutrophils # (Manual) (1.3-7.7) k/uL Macrocytosis PT 40.4 H (9.0-12.0) sec INR 4.2 H (<1.2) ABG pH (7.35-7.45) ABG pCO2 (35-45) mmHg ABG pO2 (83-108) mmHg ABG HCO3 (21-25) mmol/L ABG Total CO2 (19-24) mmol/L ABG O2 Saturation (94-97) % Carbon Dioxide (22-30) mmol/L BUN (9-20) mg/dL Creatinine (0.66-1.25) mg/dL Glucose (74-99) mg/dL POC Glucose (mg/dL) 127 H 119 H (75-99) mg/dL Calcium (8.4-10.2) mg/dL Urine Protein (Negative) Urine Blood (Negative) Ur Leukocyte Esterase (Negative) Urine RBC (0-5) /hpf Urine WBC (0-5) /hpf Urine WBC Clumps (None) /hpf Amorphous Sediment (None) /hpf Urine Bacteria (None) /hpf Hyaline Casts (0-2) /lpf Urine Mucus (None) /hpf 0509/19/20 09/19/20 Range/Units 04:00 04:00 04:20 WBC 10.9 H (3.8-10.6) k/uL RBC 3.85 L (4.30-5.90) m/uL Hgb 12.6 L (13.0-17.5) gm/dL MCV 109.9 H (80.0-100.0) fL MCHC 29.8 L (31.0-37.0) g/dL RDW 16.2 H (11.5-15.5) % Neutrophils # (Manual) 8.20 H (1.3-7.7) k/uL Macrocytosis Marked A PT (9.0-12.0) sec INR (<1.2) ABG pH 7.18 L* (7.35-7.45) ABG pCO2 93 H* (35-45) mmHg ABG pO2 70 L (83-108) mmHg ABG HCO3 35 H (21-25) mmol/L ABG Total CO2 38 H (19-24) mmol/L ABG O2 Saturation 92.4 L (94-97) % Carbon Dioxide 36 H (22-30) mmol/L BUN 32 H (9-20) mg/dL Creatinine 1.68 H (0.66-1.25) mg/dL Glucose 115 H (74-99) mg/dL POC Glucose (mg/dL) (75-99) mg/dL Calcium 7.9 L (8.4-10.2) mg/dL Urine Protein (Negative) Urine Blood (Negative) Ur Leukocyte Esterase (Negative) Urine RBC (0-5) /hpf Urine WBC (0-5) /hpf Urine WBC Clumps (None) /hpf Amorphous Sediment (None) /hpf Urine Bacteria (None) /hpf Hyaline Casts (0-2) /lpf Urine Mucus (None) /hpf 09/19/20 09/19/20 09/19/20 Range/Units 04:35 06:08 14:20 WBC (3.8-10.6) k/uL RBC (4.30-5.90) m/uL Hgb (13.0-17.5) gm/dL MCV (80.0-100.0) fL MCHC (31.0-37.0) g/dL RDW (11.5-15.5) % Neutrophils # (Manual) (1.3-7.7) k/uL Macrocytosis PT (9.0-12.0) sec INR (<1.2) ABG pH 7.25 L (7.35-7.45) ABG pCO2 76 H* (35-45) mmHg ABG pO2 82 L (83-108) mmHg ABG HCO3 33 H (21-25) mmol/L ABG Total CO2 36 H (19-24) mmol/L ABG O2 Saturation (94-97) % Carbon Dioxide (22-30) mmol/L BUN 35 H (9-20) mg/dL Creatinine 1.76 H (0.66-1.25) mg/dL Glucose 116 H (74-99) mg/dL POC Glucose (mg/dL) (75-99) mg/dL Calcium 8.1 L (8.4-10.2) mg/dL Urine Protein 2+ H (Negative) Urine Blood Small H (Negative) Ur Leukocyte Esterase Large H (Negative) Urine RBC 19 H (0-5) /hpf Urine WBC 178 H (0-5) /hpf Urine WBC Clumps Moderate H (None) /hpf Amorphous Sediment Rare H (None) /hpf Urine Bacteria Many H (None) /hpf Hyaline Casts 54 H (0-2) /lpf Urine Mucus Rare H (None) /hpf 09/19/20 Range/Units 18:22 WBC (3.8-10.6) k/uL RBC (4.30-5.90) m/uL Hgb (13.0-17.5) gm/dL MCV (80.0-100.0) fL MCHC (31.0-37.0) g/dL RDW (11.5-15.5) % Neutrophils # (Manual) (1.3-7.7) k/uL Macrocytosis PT (9.0-12.0) sec INR (<1.2) ABG pH (7.35-7.45) ABG pCO2 (35-45) mmHg ABG pO2 (83-108) mmHg ABG HCO3 (21-25) mmol/L ABG Total CO2 (19-24) mmol/L ABG O2 Saturation (94-97) % Carbon Dioxide (22-30) mmol/L BUN (9-20) mg/dL Creatinine (0.66-1.25) mg/dL Glucose (74-99) mg/dL POC Glucose (mg/dL) 108 H (75-99) mg/dL Calcium (8.4-10.2) mg/dL Urine Protein (Negative) Urine Blood (Negative) Ur Leukocyte Esterase (Negative) Urine RBC (0-5) /hpf Urine WBC (0-5) /hpf Urine WBC Clumps (None) /hpf Amorphous Sediment (None) /hpf Urine Bacteria (None) /hpf Hyaline Casts (0-2) /lpf Urine Mucus (None) /hpf Microbiology - Last 24 Hours (Table) 09/19/20 04:35 Urine Culture - Preliminary Urine,Voided Assessment and Plan Assessment: Altered mental status due to septic shock (from UTI) Acute septic shock related due to acute urinary tract infection. Pneumonia is not exclude Unresponsiveness/loss of consciousness without reported tonic-clonic movements or postictal state (this is reportedly a third episode) Possible autonomic dysfunction secondary to Lewy body dementia Acute kidney injury--worsening History of Lewy body dementia with bilateral lower extremity weakness Reported sudden onset paraplegia/inability to ambulate following surgery for pac emaker placement Acute hypoxic hypercapnic respiratory failure Chronic atrial fibrillation on Coumadin with INR supratherapeutic today. Chronic systolic congestive heart failure with ejection fraction of 20-25% status post AICD/pacemaker Plan: Check orthostatic vitals once patient is stable. physical therapy and occupational therapy are consulted. Because of the episode of unresponsiveness, I ordered a routine EEG. I will not start the patient on antiepileptic drug unless there is applicable discharge procedure on the EEG. Cardiology team is consulted. Will defer the rest of medical management to the ICU/Primary team. Inder Swain MD Neuro-Hospitalist Time with Patient: Less than 30
[2020-09-19] MEDS: FINASTERIDE 5 MG TAB PO SCH (20:12)
[2020-09-19 20:15] LABS: Glucose,Whole Blood 109 mg/dL (75-99)
[2020-09-19] MEDS ORDERED: QUEtiapine 25 MG TAB PO SCH (21:00)
[2020-09-19] MEDS: PIPERACILLIN-TAZOBACTAM 3.375 GM in SODIUM CHLORIDE 0.9% 100 ML IVPB SCH (23:57)
[2020-09-20 04:36] LABS: Albumin 3.1 g/dL (3.5-5.0); Calcium 7.9 mg/dL (8.4-10.2); Magnesium 2.1 mg/dL (1.6-2.3); Total Bilirubin 0.8 mg/dL (0.2-1.3)
[2020-09-20 04:55] LABS: Prothrombin Time 112.4 sec (9.0-12.0)
[2020-09-20 05:14] LABS: Anisocytosis Slight; Basophils # (A) 0.1 k/uL (0-0.2); Basophils % (A) 1 %; Eosinophils % (A) 0 %; HCT 46.7 % (39.0-53.0); HGB 13.6 gm/dL (13.0-17.5); Hypochromasia Marked; Lymphocytes # (A) 1.8 k/uL (1.0-4.8); Lymphocytes % (A) 11 %; MCH 32.8 pg (25.0-35.0); MCHC 29.2 g/dL (31.0-37.0); MCV 112.2 fL (80.0-100.0); Mean Platelet Volume 8.5; Monocytes # (A) 1.1 k/uL (0-1.0); Monocytes % (A) 7 %; Neutrophils # (A) 12.8 k/uL (1.3-7.7); Neutrophils % (A) 79 %; Platelet Count 249 k/uL (150-450); RBC 4.17 m/uL (4.30-5.90); RDW 16.2 % (11.5-15.5); WBC 16.2 k/uL (3.8-10.6)
[2020-09-20 05:17] LABS: Macrocytosis Marked
[2020-09-20 05:19] LABS: INR >10.0 (<1.2)
[2020-09-20] MEDS: NOREPINEPHRINE 4 MG in SODIUM CHLORIDE 0.9% 250 ML IV SCH ×2 (05:36→19:59)
[2020-09-20] MEDS ORDERED: VANCOMYCIN 1,750 MG in SODIUM CHLORIDE 0.9% 500 ML 500 ML IVPB SCH (06:00)
[2020-09-20] MEDS: LEVOTHYROXINE IVP 100 MCG/5 ML VIAL IV SCH (06:23)
[2020-09-20 06:27] LABS: Glucose,Whole Blood 138 mg/dL (75-99)
[2020-09-20] MEDS: INSULIN ASPART (NovoLOG) 100 UNIT/ML VIAL SQ SCH ×4 (06:35→21:10)
--- NOTE | 2020-09-20 07:05 | XR ---
EXAMINATION TYPE: XR chest 1V portable DATE OF EXAM: 09/20/2020 COMPARISON: 09/20/2019 HISTORY: Shortness TECHNIQUE: Single frontal view of the chest is obtained. FINDINGS: Bibasilar consolidation and small effusions. Heart enlarged. Cardiac device noted. Atheros clerotic change aorta. Interstitial pattern noted. Tiny granuloma right upper lobe. No pneumothorax. IMPRESSION: 1. Improved interstitium correlate for interstitial edema or interstitial pneumonitis. Bilateral infi ltrate and small effusion persist.
[2020-09-20] MEDS: SPIRONOLACTONE 25 MG TAB PO SCH (09:16)
[2020-09-20] MEDS ORDERED: DOBUTamine DRIP 500 MG in DEXTROSE/WATER 1 250ML.BAG IV SCH (10:00)
[2020-09-20] MEDS: PIPERACILLIN-TAZOBACTAM 3.375 GM in SODIUM CHLORIDE 0.9% 100 ML IVPB SCH ×2 (10:03→17:04)
[2020-09-20] MEDS: FAMOTIDINE 20 MG/2 ML VIAL IV SCH (10:04)
[2020-09-20] MEDS: COLLAGENASE 250 UNIT/GM OINTMENT 30 GM TUBE TOPICAL SCH (10:04)
[2020-09-20] MEDS ORDERED: SODIUM CHLORIDE 0.9% 500 ML 500 ML IV ONE (10:22)
--- NOTE | 2020-09-20 11:22 | P.CRDCN ---
History of Present Illness History of present illness: HISTORY OF PRESENTING ILLNESS This is a pleasant 80-year-old male past medical history significant for chronic systolic heart failure s/p BiV ICD, paroxysmal atrial fibrillation on coumadin, ischemic cardiomyopathy, coronary artery disease s/p bypass grafting, hypertension, dyslipidemia and diabetes mellitus. He follows in the office with Dr. Arango. We have been asked to see in consultation for heart failure. He presented to the hospital with symptoms of altered mental status. He is currently being treated for sepsis secondary to UTI. He was transferred to the intensive care unit yesterday secondary to worsening mental status, hypotension and worsening respiratory status. He required BiPAP support. He is currently maintaining oxygen saturation on nasal cannula. He is awake but does not communicate appropriately. His eyes are open but he does not converse. His breathing is stable. He has in no respiratory distress. EKG on arrival reveals ventricular paced rhythm. He continues to be paced on telemetry. Chest x-ray this morning reveals improved interstitium from previous study with ongoing interstitial edema noted bilateral infiltrates and small effusion persist. Laboratory data reviewed, WBC 16.2, hemoglobin 13.6, platelets 249, INR greater than 10, sodium 142, potassium 5.0, creatinine 2.19, magnesium 2.1, pCO2 76, pH 7.25. 24-hour urine output with rocha in place only 122 ml with dark urine noted. Current cardiac medications include Lasix 40 mg daily, Imdur 30 mg daily, Toprol 50 mg twice a day, Aldactone 25 mg daily, warfarin 2.5 mg daily and lisinopril 5 mg daily. He is currently requiring Levophed for blood pressure support. Most recent echocardiogram obtained in the office June 2020 revealed impaired LV systolic function with ejection fraction 20-25%, severely dilated left atrium, moderately dilated right atrium, mild aortic regurgitation, moderate mitral regurgitation, moderate to severe tricuspid regurgitation and se saul pulmonary hypertension with RVSP of 76. REVIEW OF SYSTEMS At the time of my exam: Unable to obtain accurate review of systems secondary to altered mental status. PHYSICAL EXAMINATION Blood pressure 93/71 heart rate 109 afebrile and maintaining oxygen saturation on nasal cannula. CONSTITUTIONAL: No apparent distress. HEENT: Head is normocephalic. Pupils are equal, round. Sclerae anicteric. Mucous membranes of the mouth are moist. No JVD. No carotid bruit. CHEST EXAMINATION: Bibasilar rales, no wheezes or rhonchi. No chest wall tenderness is noted on palpation or with deep breathing. HEART EXAMINATION: Regular rate and rhythm. S1, S2 heard. Systolic ejection murmur at the base, no gallops or rub. ABDOMEN: Soft, nontender. Positive bowel sounds. EXTREMITIES: 2+ peripheral pulses, left lower extremity 1+ pitting edema, no edema on the right and no calf tenderness. NEUROLOGIC EXAMINATION: Patient is awake but not communicating or answering questions appropriately. ASSESSMENT Altered mental status secondary to septic shock Sepsis Paroxysmal atrial fibrillation Supratherapeutic INR Acute on chronic kidney disease Chronic systolic heart failure s/p BiV ICD Coronary artery disease s/p bypass grafting Hypercapnic respiratory failure Hypertension Dyslipidemia Diabetes mellitus PLAN Hold coumadin. 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 Repeat PT/INR tomorrow. Initiate dobutamine along with levophed at 2.5 mcg/kg/min to increase perfusion. Document accurate intake and output along with daily weights. Cautious fluid administration. Further recommendations to follow based on clinical course. Thank you kindly for this consultation. Nurse Practitioner note has been reviewed, I agree with a documented findings and plan of care. Patient was seen and examined. Past Medical History Past Medical History: Atrial Fibrillation, Heart Failure, Dementia, Diabetes Mellitus, Eye Disorder, GERD/Reflux, Hyperlipidemia, Hypertension, Memory Impai rment, Myocardial Infarction ([place]), Musculoskeletal Disorder, Neurologic Disorder, Prostate Disorder, Syncope, Thyroid Disorder Additional Past Medical History / Comment(s): Pt recently admitted to [facility] on 09/05/20 with acute encephalopathy/AMS/hypoxia. 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 Last Myocardial Infarction Date:: 1992 History of Any Multi-Drug Resistant Organisms: None Reported Past Surgical History: AICD, Heart Catheterization, Pacemaker Additional Past Surgical History / Comment(s): 1992 PTCA, TEEs, cardioversions, AICD 2003 originally and upgraded to biV, bilateral cataract removals, colonoscopy. Past Anesthesia/Blood Transfusion Reactions: No Reported Reaction Date of Last Stent Placement:: 1992 Type of Cardiac Device: Permanent Pacemaker, AICD Device Placement Date:: original 2003/upgrade 08/2020 Past Psychological History: Anxiety Additional Psychological History / Comment(s): [facility] d/t weakness. Pt states he has not been able to participate with physical therapy d/t weakness. Smoking Status: Former smoker Past Alcohol Use History: Rare Additional Past Alcohol Use History / Comment(s): Pt started smoking in 1963 and quit in 1987 Past Drug Use History: None Reported - Past Family History Mother Additional Family Medical History / Comment(s): SEVERE LEG EDEMA Father Additional Family Medical History / Comment(s): Father during a heart procedure. Medications and Allergies Home Medications Medication Instructions Recorded Confirmed Type Famotidine [Pepcid] 20 mg PO DAILY@0800 08/19/17 09/16/20 History Finasteride [Proscar] 5 mg PO HS 08/19/17 09/16/20 History Furosemide [Lasix] 40 mg PO DAILY@0800 08/19/17 09/16/20 History Warfarin [Coumadin] 2.5 mg PO DAILY@1600 03/27/18 09/16/20 History QUEtiapine [SEROquel] 50 mg PO HS 08/10/20 09/16/20 History rOPINIRole HCL [Requip] 0.25 mg PO HS 08/11/20 09/16/20 History Levothyroxine Sodium 25 mcg PO HS 08/22/20 09/16/20 History bisacodyL [Dulcolax] 5 mg PO DAILY PRN 08/22/20 09/16/20 History Isosorbide Mononitrate ER [Imdur] 30 mg PO DAILY@0600 09/01/20 09/16/20 History Multivitamins, Thera [Multivitamin 1 tab PO DAILY@0800 09/01/20 09/16/20 History (formulary)] Spironolactone [Aldactone] 25 mg PO DAILY@0600 09/01/20 09/16/20 History lisinopriL [Zestril] 5 mg PO HS@1999 #30 tab 09/05/20 09/16/20 Rx Healthshake 1 cap PO BID@0700,1730 09/16/20 09/16/20 History Metoprolol Succinate (ER) [Toprol 50 mg PO BID@0800,2000 09/16/20 09/16/20 History Xl] glipiZIDE [Glucotrol] 2.5 mg PO BID@0800,1600 09/16/20 09/16/20 History traMADol HCl [Ultram] 50 mg PO Q6H PRN 09/16/20 09/16/20 History Allergies Allergy/AdvReac Type Severity Reaction Status Date / Time No Known Allergies Allergy Verified 09/16/20 10:54 Physical Exam Vitals: Vital Signs Temp Pulse Resp BP Pulse Ox 09/20/20 08:05 97 09/20/20 07:00 98 20 121/74 93 L 09/20/20 06:30 105 H 24 118/78 94 L 09/20/20 06:00 103 H 12 116/82 96 09/20/20 05:30 110 H 16 128/52 96 09/20/20 05:00 99 14 120/65 95 09/20/20 04:30 101 H 18 112/45 95 09/20/20 04:00 97.5 F L 96 18 88/49 95 09/20/20 03:30 97 14 100/40 95 09/20/20 03:00 93 17 106/49 95 09/20/20 02:30 99 16 118/54 97 09/20/20 02:00 101 H 12 113/62 97 09/20/20 01:30 96 13 101/55 96 09/20/20 01:00 98 12 103/69 96 09/20/20 00:34 100 13 95/59 95 09/20/20 00:30 98 20 86/72 95 09/20/20 00:00 97.6 F 100 13 110/54 94 L 09/19/20 23:30 105 H 12 108/68 96 09/19/20 23:00 94 12 106/54 96 09/19/20 22:30 105 H 13 103/60 95 09/19/20 22:15 105 H 15 112/62 96 09/19/20 22:00 98 12 90/69 97 09/19/20 21:45 95 12 108/45 95 09/19/20 21:30 94 15 119/65 95 09/19/20 21:15 97 13 110/60 96 09/19/20 21:00 102 H 13 104/66 95 09/19/20 20:45 98 13 114/67 95 09/19/20 20:30 101 H 14 118/54 95 09/19/20 20:15 103 H 15 100/65 93 L 09/19/20 20:00 97.5 F L 107 H 16 111/52 95 09/19/20 19:45 117 H 13 91/67 95 09/19/20 19:30 100 14 110/66 93 L 09/19/20 19:15 101 H 19 108/61 94 L 09/19/20 19:00 98 13 95/39 95 09/19/20 18:45 96 13 74/62 94 L 09/19/20 18:30 109 H 14 100/69 95 09/19/20 18:15 105 H 15 113/69 94 L 09/19/20 18:00 103 H 12 99/56 94 L 09/19/20 17:45 107 H 11 L 109/59 93 L 09/19/20 17:30 101 H 8 L 90/45 93 L 09/19/20 17:15 107 H 9 L 115/56 89 L 09/19/20 17:00 102 H 15 71/48 89 L 09/19/20 16:45 101 H 16 84/49 93 L 09/19/20 16:30 102 H 12 108/50 94 L 09/19/20 16:15 101 H 12 103/58 94 L 09/19/20 16:00 102 H 12 122/70 95 09/19/20 15:45 103 H 16 108/60 97 09/19/20 15:30 101 H 16 108/82 95 09/19/20 15:15 107 H 18 109/63 97 09/19/20 15:00 105 H 17 112/67 96 09/19/20 14:45 108 H 16 92/59 95 09/19/20 14:30 108 H 12 100/80 94 L 09/19/20 14:15 112 H 23 101/69 95 09/19/20 14:00 112 H 12 98/60 94 L 09/19/20 13:45 112 H 13 104/62 93 L 09/19/20 13:30 106 H 12 86/60 93 L 09/19/20 13:15 101 H 13 115/62 94 L 09/19/20 13:00 108 H 11 L 96/71 95 09/19/20 12:45 103 H 11 L 92/67 92 L 09/19/20 12:30 104 H 11 L 106/67 93 L 09/19/20 12:15 115 H 17 105/55 94 L 09/19/20 12:00 97.4 F L 108 H 14 97/77 95 09/19/20 11:45 117 H 11 L 115/73 92 L 09/19/20 11:30 105 H 12 87/74 95 09/19/20 11:15 112 H 13 94/60 92 L 09/19/20 11:00 100 7 L 84/55 93 L 09/19/20 10:45 105 H 12 83/53 93 L 09/19/20 10:30 95 18 98/62 86 L 09/19/20 10:15 101 H 16 97/64 95 09/19/20 10:00 94 21 82/47 94 L 09/19/20 09:45 94 16 89/55 93 L 09/19/20 09:30 93 15 107/68 91 L 09/19/20 09:15 107 H 10 L 119/75 88 L Intake and Output 09/19/20 09/20/20 09/20/20 22:59 06:59 14:59 Intake Total 1243.854 665.591 10 Output Total 45 60 10 Balance 1198.854 605.591 0 Intake: IV 1030 180 10 Piperacillin-Tazobactam 3 100 .375 gm In Sodium Chloride 0.9% 100 ml @ 25 mls/hr IVPB Q8HR [facility] Rx# :[id number] Sodium Chloride 0.9% 1, 30 80 10 000 ml @ 50 mls/hr IV . Q20H [facility] Rx#:[id number] Sodium Chloride 0.9% 500 1000 ml @ 999 mls/hr IV .Q31M ONE Rx#:[id number] Intake, IV Titration 213.854 485.591 Amount Norepinephrine 4 mg In 213.854 485.591 Sodium Chloride 0.9% 250 ml @ 0.05 MCG/KG/MIN 19. 907 mls/hr IV .[id number] [facility] Rx#:[id number] Output: Urine 45 60 10 Other: Voiding Method Indwelling Catheter Indwelling Catheter Weight 100.5 kg Results 09/20/20 03:43 09/20/20 03:52 Cardiac Enzymes 09/20/20 Range/Units 03:52 AST 37 (17-59) U/L Coagulation 09/20/20 Range/Units 03:43 PT 112.4 H (9.0-12.0) sec CBC 09/20/20 Range/Units 03:43 WBC 16.2 H (3.8-10.6) k/uL RBC 4.17 L (4.30-5.90) m/uL Hgb 13.6 (13.0-17.5) gm/dL Hct 46.7 (39.0-53.0) % Plt Count 249 (150-450) k/uL Comprehensive Metabolic Panel 09/19/20 09/20/20 Range/Units 14:20 03:52 Sodium 144 142 (137-145) mmol/L Potassium 4.6 5.0 (3.5-5.1) mmol/L Chloride 106 106 (98-107) mmol/L Carbon Dioxide 30 26 (22-30) mmol/L BUN 35 H 40 H (9-20) mg/dL Creatinine 1.76 H 2.19 H (0.66-1.25) mg/dL Glucose 116 H 133 H (74-99) mg/dL Calcium 8.1 L 7.9 L (8.4-10.2) mg/dL AST 37 (17-59) U/L ALT 15 (4-49) U/L Alkaline Phosphatase 117 (38-126) U/L Total Protein 6.0 L (6.3-8.2) g/dL Albumin 3.1 L (3.5-5.0) g/dL Current Medications Generic Name Dose Route Start Last Admin Trade Name Freq PRN Reason Stop Dose Admin Bisacodyl 5 mg 09/16/20 16:57 Bisacodyl 5 Mg Tablet.Dr PO DAILY PRN Constipation Collagenase 1 applic 09/17/20 11:45 09/19/20 11:55 Collagenase 250 Unit/Gm Ointment 30 Gm Tube TOPICAL 1 applic DAILY RICHARD Administration Famotidine 20 mg 09/19/20 09:00 09/19/20 09:10 Famotidine 20 Mg/2 Ml Vial IV 20 mg DAILY RICHARD Administration Finasteride 5 mg 09/16/20 21:00 09/19/20 20:12 Finasteride 5 Mg Tab PO Not Given HS RICHARD Norepinephrine Bitartrate 4 mg 254 mls @ 19.907 mls/hr 09/19/20 06:15 09/20/20 05:36 / Sodium Chloride IV 0.1 mcg/kg/min .[id number] RICHARD 39.815 mls/hr Administration Protocol 0.05 MCG/KG/MIN Piperacillin Sod/Tazobactam 100 mls @ 25 mls/hr 09/20/20 00:00 09/19/20 23:57 Sod 3.375 gm/ Sodium Chloride IVPB 25 mls/hr Q8HR [facility] Administration Insulin Aspart 0 unit 09/16/20 17:30 09/20/20 06:35 Insulin Aspart (Novolog) 100 Unit/Ml Vial SQ Not Given ACHS [facility] Protocol Levothyroxine Sodium 12.5 mcg 09/19/20 09:00 09/20/20 06:23 Levothyroxine Ivp 100 Mcg/5 Ml Vial IV 12.5 mcg DAILY@0630 [facility] Administration Miscellaneous Information 1 each 09/16/20 16:59 Warfarin Per Pharmacy MISCELLANE DIRECTED PRN Per Protocol Protocol Ondansetron HCl 4 mg 09/18/20 15:59 09/18/20 16:13 Ondansetron 4 Mg/2 Ml Vial IVP 4 mg Q6HR PRN Administration Nausea And Vomiting Ropinirole HCl 0.25 mg 09/16/20 21:00 09/19/20 20:12 Ropinirole Hcl 0.25 Mg Tab PO Not Given HS [facility] Spironolactone 25 mg 09/17/20 09:00 09/19/20 10:24 Spironolactone 25 Mg Tab PO Not Given DAILY@0900 [facility] Tramadol HCl 50 mg 09/16/20 16:57 09/18/20 15:07 Tramadol 50 Mg Tab PO 50 mg Q6H PRN Administration Pain Warfarin Sodium 0 mg 09/20/20 18:00 Warfarin 0.5 Mg Tab PO 09/20/20 18:01 ONCE@1800 ONE Intake and Output 09/19/20 09/20/20 09/20/20 22:59 06:59 14:59 Intake Total 1243.854 665.591 10 Output Total 45 60 10 Balance 1198.854 605.591 0 Intake: IV 1030 180 10 Piperacillin-Tazobactam 3 100 .375 gm In Sodium Chloride 0.9% 100 ml @ 25 mls/hr IVPB Q8HR [facility] Rx# :[id number] Sodium Chloride 0.9% 1, 30 80 10 000 ml @ 50 mls/hr IV . Q20H [facility] Rx#:[id number] Sodium Chloride 0.9% 500 1000 ml @ 999 mls/hr IV .Q31M [facility] Rx#:[id number] Intake, IV Titration 213.854 485.591 Amount Norepinephrine 4 mg In 213.854 485.591 Sodium Chloride 0.9% 250 ml @ 0.05 MCG/KG/MIN 19. 907 mls/hr IV .[id number] [facility] Rx#:[id number] Output: Urine 45 60 10 Other: Voiding Method Indwelling Catheter Indwelling Catheter Weight 100.5 kg 09/20/20 03:43 09/20/20 03:52
--- NOTE | 2020-09-20 11:38 | P.PN ---
Subjective Progress Note Date: 09/20/20 Principal diagnosis: Acute hypoxic and hypercapnic respiratory failure related to sepsis/septic shock 80-year-old white male patient, a resident of a [place] [place], with past medical history of diabetes mellitus type 2, chronic A. fib, chronic systolic CHF with EF of 20-25% status post AICD/pacemaker insertion, hypertension, hyperlipidemia, osteoarthritis, BPH, chronic sacral decubitus ulcer stage III, Lewy body dementia, former smoker who was brought into the hosp ital on 09/16/2020 for evaluation of altered mental status. Patient apparently was found unresponsive by the skilled nursing staff, in the EMS he received 1 dose of Narcan with no response. Blood sugar was 101, patient had no reported fevers, no vomiting or diarrhea. Brain CT showed atrophy and no acute intracranial process. Chest x-ray in the emergency department showed cardiomegaly, no acute cardiopulmonary process. Initial blood work showed white count of 9.0, hemoglobin of 11.8, INR was 1.7, sodium was 140, potassium is 3.3, CO2 was 30, BUN of 34 creatinine was 1.25, LFTs are within normal limits, ammonia level was less than 9, troponin was 0.031, urinalysis initially showed no definite sign of infection, urine drug screen was positive only for tricyclic anti-depressants, patient tested negative for influenza A and B, RSV and coronavirus. Neurology consultation was obtained, please refer to their consultation note, ID service was following regards to stage III decubitus ulcer, however patient was not on any systemic antibiotic therapy. On 09/19/2020 a rapid response team was called to the bedside for concern of decreased level of consciousness and hypotension. Patient was given 500 mL bolus for a blood pressure of 70/46, she was started on norepinephrine infusion, stat blood gas was obtained showing pO2 of 70, pCO2 of 93, and pH of 7.18. Patient was placed on Noninvasive positive pressure ventilation, AVAPS mode with tidal volume of 400, rate of 12, EPAP of 5, FiO2 of 40%. Subsequent blood gases showed some improvement, with pO2 at 82, pCO2 of 76 and pH of 7.25. Today's chest x-ray shows mild diffuse airspace opacities throughout the right lung, suggesting asymmetrical right pulmonary edema. Urinalysis shows evidence of urinary tract infection, urine cultures have been sent, blood cultures have been sent. Patient remains afebrile, remains hypotensive, clinically he appears very dry, and he suspected to be septic possibly related to acute urinary tract infection, or possibly pneumonia. This morning's blood work shows with a token 10.2, hemoglobin of 12.6, INR is 4.2, sodium is 144, potassium is 4.9, chloride is 104, CO2 36, BUN is 32, creatinine is 1.68, lactic acid is 1.0. Patient is very lethargic, remains on BiPAP support. Patient is oliguric, and has produced 0-5 mL of urine in the last few hours. On 09/20/2020 patient seen in follow-up in the intensive care unit, he is currently more awake, and responsive, he has remained on BIPAP, on AVAPS mode with target tidal volume of 400, rate of 12, minimal pressure of 8, maximum pressure of 20, EPAP of 5, and FiO2 of 40%. He is achieving tidal volumes of approximately 250-300. Nevertheless he appears to be more responsive on today's exam, he was given a trial on nasal cannula, currently on 7 L high flow nasal cannula, breathing comfortably, and maintaining saturations at around 96%, he is on 0.9 at 10 mL per hour, levophed is at 7 mics per minute and this is being weaned down. He is on Zosyn and vancomycin for sepsis possibly related to stage III decubitus ulcer infection and urinary tract infection. His wound culture is showing gram-negative bacilli, urine culture has been sent and is pending at this time. Overnight has had no fevers. He remains in a paced rhythm, with u nderlying A. fib, yesterday he received a total of 1.5 L in fluid boluses. Still remains on small amount of norepinephrine, today's chest x-ray shows improved interstitium, bilateral infiltrates and small effusions persist. Overall oxygenation seems to be fair, and patient is tolerating being off BiPAP support. No nausea or vomiting, no abdominal pain, no complaints of cough or chest pain. Remains on Zosyn, and patient was given a dose of vancomycin. Mentation has much improved today, patient is oriented 2. The labs have been reviewed, blood cell, 16.2, hemoglobin is 13.6, INR today is greater than 10, and patient's Coumadin remains on hold, electrolytes are within normal limits, renal profile has worsened and BUN is up to 40, and creatinine is 2.19, LFTs are within normal limits. Yesterday patient's family came in and they expressed a wish to consult hospice for palliative care, patient's daughter is driving in from out of state today and she supposed to come in with the patient's today, and the plan is to transfer the patient home with hospice per family wishes Objective - Vital Signs Vital signs: Vital Signs Temp 98.2 F 09/20/20 08:00 Pulse 109 H 09/20/20 11:00 Resp 6 L 09/20/20 11:00 BP 93/71 09/20/20 11:00 Pulse Ox 98 09/20/20 11:00 Intake & Output 09/19/20 09/20/20 09/20/20 18:59 06:59 18:59 Intake Total 2554.000 947.570 7704 Output Total 42 80 65 Balance 2512.000 597.956 9278 Weight 100.5 kg 100.5 kg Intake: IV 2300 210 1110 Magnesium Sulfate-D5w Pmx 200 1 gm In Dextrose/Water 1 100ml.bag @ 100 mls/hr IVPB Q1H [facility] Rx#: [id number] Piperacillin-Tazobactam 3 100 100 .375 gm In Sodium Chloride 0.9% 100 ml @ 25 mls/hr IVPB Q8HR [facility] Rx# :[id number] Sodium Chloride 0.9% 1, 110 10 000 ml @ 50 mls/hr IV . Q20H [facility] Rx#:[id number] Sodium Chloride 0.9% 500 1500 500 ml @ 999 mls/hr IV .Q31M [facility] Rx#:[id number] Vancomycin 1,750 mg In 500 500 Sodium Chloride 0.9% 500 ml 500 ml @ 167 mls/hr IVPB Q24H [facility] Rx#: [id number] cefTRIAXone 1 gm In 100 Sodium Chloride 0.9% 50 ml @ 100 mls/hr IVPB Q24HR [facility] Rx#:[id number] Intake, IV Titration 254.000 485.591 Amount Norepinephrine 4 mg In 254.000 485.591 Sodium Chloride 0.9% 250 ml @ 0.05 MCG/KG/MIN 19. 907 mls/hr IV .[id number] [facility] Rx#:[id number] Output: Urine 42 80 65 Other: Voiding Method Indwelling Catheter Indwelling Catheter Indwelling Catheter - Exam GENERAL EXAM: Patient is more awake he is currently on NPPV on AVAPS mode with tidal volume of 400 ml, rate of 12, Min EPAP 5, Min Pressure 8, Max Pressure 20, Fio2 40% ecomfortable in no apparent distress. HEAD: Normocephalic/atraumatic. EYES: Normal reaction of pupils, equal size. Conjunctiva pink, sclera white. NOSE: Clear with pink turbinates. THROAT: No erythema or exudates. NECK: No masses, no JVD, no thyroid enlargement, no adenopathy. CHEST: No chest wall deformity. Symmetrical expansion. LUNGS: Equal air entry with no crackles, wheeze, rhonchi or dullness. CVS: Regular rate and rhythm, normal S1 and S2, no gallops, no murmurs, no rubs ABDOMEN: Soft, nontender. No hepatosplenomegaly, normal bowel sounds, no guarding or rigidity. EXTREMITIES: No clubbing, no edema, no cyanosis, 2+ pulses and upper and lower extremities. MUSCULOSKELETAL: Muscle strength and tone normal. SPINE: No scoliosis or deformity SKIN: No rashes CENTRAL NERVOUS SYSTEM: Awake and alert No focal deficits, tone is normal in all 4 extremities. - Labs CBC & Chem 7: 09/20/20 03:43 09/20/20 03:52 Labs: Abnormal Lab Results - Last 24 Hours (Table) 09/19/20 09/19/20 09/19/20 Range/Units 14:20 18:22 20:14 WBC (3.8-10.6) k/uL RBC (4.30-5.90) m/uL MCV (80.0-100.0) fL MCHC (31.0-37.0) g/dL RDW (11.5-15.5) % Neutrophils # (1.3-7.7) k/uL Monocytes # (0-1.0) k/uL Macrocytosis PT (9.0-12.0) sec INR (<1.2) BUN 35 H (9-20) mg/dL Creatinine 1.76 H (0.66-1.25) mg/dL Glucose 116 H (74-99) mg/dL POC Glucose (mg/dL) 108 H 109 H (75-99) mg/dL Calcium 8.1 L (8.4-10.2) mg/dL Total Protein (6.3-8.2) g/dL Albumin (3.5-5.0) g/dL 09/20/20 09/20/20 09/20/20 Range/Units 03:43 03:43 03:52 WBC 16.2 H (3.8-10.6) k/uL RBC 4.17 L (4.30-5.90) m/uL MCV 112.2 H (80.0-100.0) fL MCHC 29.2 L (31.0-37.0) g/dL RDW 16.2 H (11.5-15.5) % Neutrophils # 12.8 H (1.3-7.7) k/uL Monocytes # 1.1 H (0-1.0) k/uL Macrocytosis Marked A PT 112.4 H (9.0-12.0) sec INR >10.0 H* (<1.2) BUN 40 H (9-20) mg/dL Creatinine 2.19 H (0.66-1.25) mg/dL Glucose 133 H (74-99) mg/dL POC Glucose (mg/dL) (75-99) mg/dL Calcium 7.9 L (8.4-10.2) mg/dL Total Protein 6.0 L (6.3-8.2) g/dL Albumin 3.1 L (3.5-5.0) g/dL 09/20/20 Range/Units 06:25 WBC (3.8-10.6) k/uL RBC (4.30-5.90) m/uL MCV (80.0-100.0) fL MCHC (31.0-37.0) g/dL RDW (11.5-15.5) % Neutrophils # (1.3-7.7) k/uL Monocytes # (0-1.0) k/uL Macrocytosis PT (9.0-12.0) sec INR (<1.2) BUN (9-20) mg/dL Creatinine (0.66-1.25) mg/dL Glucose (74-99) mg/dL POC Glucose (mg/dL) 138 H (75-99) mg/dL Calcium (8.4-10.2) mg/dL Total Protein (6.3-8.2) g/dL Albumin (3.5-5.0) g/dL Microbiology - Last 24 Hours (Table) 09/19/20 14:56 Gram Stain - Preliminary Buttock Wound Culture - Preliminary Gram Neg Bacilli 09/19/20 Unknown Anaerobic Culture - Preliminary Coccyx 09/19/20 04:35 Urine Culture - Preliminary Urine,Voided Assessment and Plan Plan: Assessment: #1. Acute hypoxic and hypercapnic respiratory failure related to sepsis/septic shock. On 09/20/2020 patient is tolerating high flow nasal cannula at 7 L, his been taken off the BiPAP support, continue O2 saturations above 95% on 7 L high flow #2. Acute septic shock related to acute urinary tract infection and possibility of pneumonia is not entirely excluded. Patient tested negative for COVID-19, RSV and influenza A and B. Possibility of aspiration versus healthcare acquired pneumonia is not excluded #3. Acute kidney injury related to ATN #4. Sacral wound stage III, present on admission #5. Altered mental status related to acute sepsis. Brain CT showed no acute intracranial process #6. Chronic systolic CHF, with an EF of 20-25% status post AICD/pacemaker placement #7. History of diabetes mellitus type 2 with diabetic neuropathy #8. Lewy body dementia with history of major cognitive impairment #9. History of A. fib on Coumadin, today INR is supratherapeutic, and Coumadin is on hold #10. Hypertension #11. Hyperlipidemia #12. Chronic medical debility, and patient is a resident [facility] Plan: Continue weaning norepinephrine We'll give additional 1 L fluid bolus in 500 mL increments Patient is being given high flow nasal cannula trial and he is tolerating it well so far Mentation has improved, he is awake and alert, oriented 3 on today's exam Today's labs have been reviewed Continue holding Coumadin Continue GI and DVT prophylaxis Patient is a full code right now however told the patient's family consulted hos pice, and was to transfer the patient home with hospice possibly today Until then continue supportive care May give trials of clear liquid diet Antibiotics per ID service Cultures have been reviewed Prognosis is guarded I performed a history & physical examination of the patient and discussed their management with my nurse practitioner, Veda Ambriz. I reviewed the nurse practitioner's note and agree with the documented findings and plan of care. Lung sounds are positive for diminished breath sounds. The findings and the impression was discussed with the patient. I attest to the documentation by the nurse practitioner. Time with Patient: Greater than 30
--- NOTE | 2020-09-20 13:18 | PN ---
PROGRESS NOTE DATE OF SERVICE: 09/20/2020 REASON FOR FOLLOW UP: 1. Sacral pressure ulcer. 2. Possible pneumonia. INTERVAL HISTORY: The patient is currently afebrile. The patient is slightly more awake and alert. The patient has been taken off the BiPAP. He is currently on 5 L nasal cannula. Denies any chest pain, worsening cough. No abdominal pain. PHYSICAL EXAMINATION: Blood pressure 93/71 with a pulse of 109, temperature is 98.2. He is 98% on 5 L nasal cannula. GENERAL DESCRIPTION: An elderly male lying in bed in no distress. RESPIRATORY SYSTEM: Unlabored breathing, decreased intensity of breath sounds, no wheeze. HEART: S1, S2. Regular rate and rhythm. ABDOMEN: Soft, no tenderness. LABS: Hemoglobin 13.1, white count 16.2, BUN of 40, creatinine is 2.19 and Culture now showing Gram-negative bacilli. DIAGNOSTIC IMPRESSION AND PLAN: 1. Patient with sacral pressure ulcer with no evidence of any cellulitis clinically. Local treatment with Santyl. Culture now showing gram-negative. Patient is covered with Zosyn. 2. Patient with respiratory distress, concern for possible pneumonitis/aspiration. Covered with Zosyn. However, plan for possible hospice which may be approved for him. Continue supportive care. Family at the bedside. Questions answered. MMODL / IJN: [id number] /
--- NOTE | 2020-09-20 14:03 | P.PN ---
Subjective Progress Note Date: 09/20/20 Patient was seen at bedside and in the morning he was on BiPAP and the was taken off and so far he is tolerating it okay. He continues to be on norepinephrine. No new neurological complaints per the nurse. Objective - Vital Signs Vital signs: Vital Signs Temp 98.8 F 09/20/20 13:47 Pulse 116 H 09/20/20 13:47 Resp 16 09/20/20 13:47 BP 101/42 09/20/20 13:47 Pulse Ox 93 L 09/20/20 13:47 Intake & Output 09/19/20 09/20/20 09/20/20 18:59 06:59 18:59 Intake Total 2554.000 290.616 8911 Output Total 42 80 95 Balance 2512.000 081.221 6089 Weight 100.5 kg 100.5 kg Intake: IV 2300 210 1110 Magnesium Sulfate-D5w Pmx 200 1 gm In Dextrose/Water 1 100ml.bag @ 100 mls/hr IVPB Q1H [facility] Rx#: [id number] Piperacillin-Tazobactam 3 100 100 .375 gm In Sodium Chloride 0.9% 100 ml @ 25 mls/hr IVPB Q8HR [facility] Rx# :[id number] Sodium Chloride 0.9% 1, 110 10 000 ml @ 50 mls/hr IV . Q20H [facility] Rx#:[id number] Sodium Chloride 0.9% 500 1500 500 ml @ 999 mls/hr IV .Q31M [facility] Rx#:[id number] Vancomycin 1,750 mg In 500 500 Sodium Chloride 0.9% 500 ml 500 ml @ 167 mls/hr IVPB Q24H [facility] Rx#: [id number] cefTRIAXone 1 gm In 100 Sodium Chloride 0.9% 50 ml @ 100 mls/hr IVPB Q24HR [facility] Rx#:[id number] Intake, IV Titration 254.000 485.591 Amount Norepinephrine 4 mg In 254.000 485.591 Sodium Chloride 0.9% 250 ml @ 0.05 MCG/KG/MIN 19. 907 mls/hr IV .[id number] [facility] Rx#:[id number] Blood Product 324 Ffp 24 Cpd Unit 324 [id number] Output: Urine 42 80 95 Other: Voiding Method Indwelling Catheter Indwelling Catheter Indwelling Catheter - Exam Gen.: Does not seem in acute distress. Neurological examination Limited because of his cooperation/condition. Mental status: The patient is drowsy but awakeable to voice. He is oriented to self only. Follows simple commands (squeezing hands to commands and moving ankles). Cranial nerves: Pupils are equal at 3 mm and reactive to light. Could not assess visual field because of his condition. There is a mild right exotropia. No facial weakness noted. No dysarthria from limited language. Rest of cranial nerves could not be assessed. Motor: Strength was Hard to assess because of his cooperation. His able to have a good hand parent educator bilaterally. Moving ankles (dorsiflexion/plantar flexion) 2/5 bilaterally. Sensation: Could not assess. - Labs CBC & Chem 7: 09/20/20 03:43 09/20/20 03:52 Labs: Abnormal Lab Results - Last 24 Hours (Table) 09/19/20 09/19/20 09/19/20 Range/Units 14:20 18:22 20:14 WBC (3.8-10.6) k/uL RBC (4.30-5.90) m/uL MCV (80.0-100.0) fL MCHC (31.0-37.0) g/dL RDW (11.5-15.5) % Neutrophils # (1.3-7.7) k/uL Monocytes # (0-1.0) k/uL Macrocytosis PT (9.0-12.0) sec INR (<1.2) BUN 35 H (9-20) mg/dL Creatinine 1.76 H (0.66-1.25) mg/dL Glucose 116 H (74-99) mg/dL POC Glucose (mg/dL) 108 H 109 H (75-99) mg/dL Calcium 8.1 L (8.4-10.2) mg/dL Total Protein (6.3-8.2) g/dL Albumin (3.5-5.0) g/dL 09/20/20 09/20/20 09/20/20 Range/Units 03:43 03:43 03:52 WBC 16.2 H (3.8-10.6) k/uL RBC 4.17 L (4.30-5.90) m/uL MCV 112.2 H (80.0-100.0) fL MCHC 29.2 L (31.0-37.0) g/dL RDW 16.2 H (11.5-15.5) % Neutrophils # 12.8 H (1.3-7.7) k/uL Monocytes # 1.1 H (0-1.0) k/uL Macrocytosis Marked A PT 112.4 H (9.0-12.0) sec INR >10.0 H* (<1.2) BUN 40 H (9-20) mg/dL Creatinine 2.19 H (0.66-1.25) mg/dL Glucose 133 H (74-99) mg/dL POC Glucose (mg/dL) (75-99) mg/dL Calcium 7.9 L (8.4-10.2) mg/dL Total Protein 6.0 L (6.3-8.2) g/dL Albumin 3.1 L (3.5-5.0) g/dL 09/20/20 Range/Units 06:25 WBC (3.8-10.6) k/uL RBC (4.30-5.90) m/uL MCV (80.0-100.0) fL MCHC (31.0-37.0) g/dL RDW (11.5-15.5) % Neutrophils # (1.3-7.7) k/uL Monocytes # (0-1.0) k/uL Macrocytosis PT (9.0-12.0) sec INR (<1.2) BUN (9-20) mg/dL Creatinine (0.66-1.25) mg/dL Glucose (74-99) mg/dL POC Glucose (mg/dL) 138 H (75-99) mg/dL Calcium (8.4-10.2) mg/dL Total Protein (6.3-8.2) g/dL Albumin (3.5-5.0) g/dL Microbiology - Last 24 Hours (Table) 09/19/20 10:02 Blood Culture - Preliminary Blood No Growth after 24 hours 09/19/20 10:04 Blood Culture - Preliminary Blood No Growth after 24 hours 09/19/20 14:56 Gram Stain - Preliminary Buttock Wound Culture - Preliminary Gram Neg Bacilli 09/19/20 Unknown Anaerobic Culture - Preliminary Coccyx 09/19/20 04:35 Urine Culture - Preliminary Urine,Voided Assessment and Plan Assessment: Altered mental status due to septic shock (from UTI)--slight improvement today compared to yesterday Acute septic shock related due to acute urinary tract infection. Pneumonia is not exclude Unresponsiveness/loss of consciousness without reported tonic-clonic movements or postictal state (this is reportedly a third episode) Possible autonomic dysfunction secondary to Lewy body dementia Acute kidney injury--worsening History of Lewy body dementia with bilateral lower extremity weakness Reported sudden onset paraplegia/inability to ambulate following surgery for pacemaker placement Acute hypoxic hypercapnic respiratory failure Chronic atrial fibrillation on Coumadin with INR supratherapeutic today. Chronic systolic congestive heart failure with ejection fraction of 20-25% status post AICD/pacemaker Plan: Check orthostatic vitals once patient is stable. physical therapy and occupational therapy are consulted. Because of the episode of unresponsiveness, I ordered a routine EEG. I will not start the patient on antiepileptic drug unless there is applicable discharge procedure on the EEG. Cardiology team is consulted. Will defer the rest of medical management to the ICU/Primary team. Per the nurse, the family decided to make the patient home with hospice. Therefore EEG was not performed. Neurology will sign off. Please reconsult if needed. The plan is discussed with the patient's nurse. Inder Swain MD Neuro-Hospitalist Time with Patient: Less than 30
[2020-09-20 16:56] LABS: Glucose,Whole Blood 86 mg/dL (75-99)
[2020-09-20] MEDS ORDERED: WARFARIN 0.5 MG TAB PO ONE (18:00)
[2020-09-20 18:05] VITALS: TEMP 98.6
[2020-09-20] MEDS: FINASTERIDE 5 MG TAB PO SCH (19:59)
--- NOTE | 2020-09-20 20:13 | PN ---
PROGRESS NOTE DATE OF SERVICE: 09/20/2020 This 80-year-old gentleman who was admitted acute hypoxic hypercarbic respiratory failure also had features of septic shock. The patient also had multiple decubitus ulcers. Multiple consultants are following the patient closely. The patient is being closely monitored in the ICU. The patient was tested for COVID-19 and influenza A and B. Possibility of aspiration pneumonia is also being considered. The patient also has a sacral decubitus wound, stage III. The patient continues to be hypotensive. A hospice informational visit is being arranged per the family's preference. Also the patient has multiple complex medical issues. Past medical history reviewed. Review of systems could not be taken. CURRENT MEDICATIONS: Dulcolax, Pepcid, Proscar, Synthroid. Doses are reviewed. PHYSICAL EXAMINATION: Pulse is 140, blood pressure 120/56 respiration 9, temperature 98.6, pulse ox 94% on 5 L. HEENT: Conjunctivae normal. NECK: No jugular venous distention. CARDIOVASCULAR SYSTEM: S1, S2 muffled. RESPIRATORY SYSTEM: Breath sounds diminished at the bases. A few scattered rhonchi and crackles. ABDOMEN: Soft, non-tender. LEGS: No edema. No swelling. NERVOUS SYSTEM: Diffusely weak. LABS: INR is more than 10 and creatinine is 2.19. ASSESSMENT: 1. Acute urinary tract infection or infected sacral decubitus ulcer, stage III ulcer with severe sepsis and septic shock. 2. Severe intractable hypotension. 3. Acute hypoxic hypercarbic respiratory failure secondary to sepsis. 4. Change in mental status, acute metabolic encephalopathy. 5. Chronic congestive heart failure with ejection fraction 20% to 25%, status post ICD pacemaker. 6. Diabetes mellitus, type 2. 7. Diabetic peripheral neuropathy. 8. Lewy body dementia. 9. Persistent atrial fibrillation. 10.Hypertension. 11.Hyperlipidemia. 12.Chronic debility. 13.Chronic stage III sacral decubitus ulcer. 14.Multiple-joint degenerative joint disease. 15.Gastroesophageal reflux disease. 16.Chronic obstructive pulmonary disease history. 17.Moderate to severe pulmonary hypertension. 18. history of tricuspid and mitral regurgitation. 19.Obesity with body mass index of 30.9. 20.Coumadin coagulopathy. 21.NO CODE, NO CPR, NO VENT. RECOMMENDATIONS AND DISCUSSION: I recommend to continue current medications, continue with the monitoring, symptomatic treatment. I had a detailed discussion with the family, and a hospice consultation has been arranged. The patient's is going to check with the family about whether they will be able to handle the patient's post-discharge needs and requirements. Will continue to monitor. Discussed with Case Management and discharge planning team. Closely follow with intensive care team, including Dr. Snyder. Further recommendations to follow. See orders for further details. Dr. Sheikh is also following the patient closely. The cultures are showing Gram-negative bacilli in the urine and wound. The final ID is pending at this time. MMODL / IJN: [id number] / MTDD
[2020-09-20 20:33] LABS: Glucose,Whole Blood 102 mg/dL (75-99)
[2020-09-21] MEDS: PIPERACILLIN-TAZOBACTAM 3.375 GM in SODIUM CHLORIDE 0.9% 100 ML IVPB SCH ×2 (01:27→09:50)
[2020-09-21 03:41] LABS: Basophils # (A) 0.1 k/uL (0-0.2); Basophils % (A) 1 %; Eosinophils # (A) 0.1 k/uL (0-0.7); Eosinophils % (A) 1 %; HCT 37.9 % (39.0-53.0); HGB 12.2 gm/dL (13.0-17.5); Hypochromasia Moderate; Lymphocytes # (A) 1.3 k/uL (1.0-4.8); Lymphocytes % (A) 11 %; MCH 34.7 pg (25.0-35.0); MCHC 32.1 g/dL (31.0-37.0); MCV 108.2 fL (80.0-100.0); Macrocytosis Marked; Mean Platelet Volume 7.1; Monocytes % (A) 8 %; Neutrophils # (A) 9.3 k/uL (1.3-7.7); Neutrophils % (A) 78 %; Platelet Count 190 k/uL (150-450); RDW 15.9 % (11.5-15.5)
[2020-09-21 04:12] LABS: Albumin 2.8 g/dL (3.5-5.0); Calcium 7.7 mg/dL (8.4-10.2); Total Protein 5.5 g/dL (6.3-8.2)
[2020-09-21 04:45] LABS: Prothrombin Time 68.7 sec (9.0-12.0)
[2020-09-21] MEDS: NOREPINEPHRINE 4 MG in SODIUM CHLORIDE 0.9% 250 ML IV SCH (06:25)
[2020-09-21] MEDS: LEVOTHYROXINE IVP 100 MCG/5 ML VIAL IV SCH (06:28)
--- NOTE | 2020-09-21 07:30 | XR ---
EXAMINATION TYPE: XR chest 1V portable DATE OF EXAM: 09/21/2020 HISTORY: Shortness of breath. COMPARISON: 09/20/2020 TECHNIQUE: Single view of the chest is submitted. FINDINGS: Demonstrated are scattered senescent parenchymal change. Basilar infiltrates and/or atelectasis and small effusions are noted. Mild pulmonary venous congestio n. The heart is stable. Hilar and mediastinal structures are within normal limits. Degenerative changes are seen of the dorsal spine. IMPRESSION: 1. Pulmonary venous congestion with basilar atelectasis and/or infiltrates and small effusions with continued cardiomegaly.
[2020-09-21] MEDS ORDERED: FUROSEMIDE 10 MG/ML 10 ML VIAL IV STA (08:13)
[2020-09-21] MEDS: INSULIN ASPART (NovoLOG) 100 UNIT/ML VIAL SQ SCH (08:26)
[2020-09-21] MEDS: SPIRONOLACTONE 25 MG TAB PO SCH (08:32)
[2020-09-21] MEDS: COLLAGENASE 250 UNIT/GM OINTMENT 30 GM TUBE TOPICAL SCH (10:58)
[2020-09-21] MEDS: FAMOTIDINE 20 MG/2 ML VIAL IV SCH (10:59)
--- NOTE | 2020-09-21 12:50 | P.PN ---
Subjective HISTORY OF PRESENTING ILLNESS This is a pleasant 80-year-old male past medical history significant for chronic systolic heart failure s/p BiV ICD, paroxysmal atrial fibrillation on coumadin, ischemic cardiomyopathy, coronary artery disease s/p bypass grafting, hypertension, dyslipidemia and diabetes mellitus. He follows in the office with Dr. Arango. We have been asked to see in consultation for heart failure. He presented to the hospital with symptoms of altered mental status. He is currently being treated for sepsis secondary to UTI. He was transferred to the intensive care unit yesterday secondary to worsening mental status, hypotension and worsening respiratory status. He required BiPAP support. He is currently maintaining oxygen saturation on nasal cannula. He is awake but does not communicate appropriately. His eyes are open but he does not converse. His breathing is stable. He has in no respiratory distress. EKG on arrival reveals ventricular paced rhythm. He continues to be paced on telemetry. Chest x-ray this morning reveals improved interstitium from previous study with ongoing interstitial edema noted bilateral infiltrates and small effusion persist. Laboratory data reviewed, WBC 16.2, hemoglobin 13.6, platelets 249, INR greater than 10, sodium 142, potassium 5.0, creatinine 2.19, magnesium 2.1, pCO2 76, pH 7.25. 24-hour urine output with rocha in place only 122 ml with dark urine noted. Current cardiac medications include Lasix 40 mg daily, Imdur 30 mg daily, Toprol 50 mg twice a day, Aldactone 25 mg daily, warfarin 2.5 mg daily and lisinopril 5 mg daily. He is currently requiring Levophed for blood pressure support. Most recent echocardiogram obtained in the office June 2020 revealed impaired LV systolic function with ejection fraction 20-25%, severely dilated left atrium, moderately dilated right atrium, mild aortic regurgitation, moderate mitral regurgitation, moderate to severe tricuspid regurgitation and severe pulmonary hypertension with RVSP of 76. 09/21/2020 Pt seen and examined sitting up in bed on bipap, he is minimally responsive. Blood pressure 123/73 heart rate 104 afebrile and maintaining oxygen saturation on bipap. Laboratory data reviewed, WBC 12, hemoglobin 12.2, platelets 190, INR 7, sodium 145, potassium 4.0, creatinine 2.38. Dobutamine was discontinued yesterday secondary to tachycardia. His daughter arrived into town yesterday and made the decision for him to go home on hospice this afternoon. PHYSICAL EXAMINATION CONSTITUTIONAL: Not responding on bipap. HEENT: Head is normocephalic. Pupils are equal, round. Sclerae anicteric. Mucous membranes of the mouth are moist. No JVD. No carotid bruit. CHEST EXAMINATION: Bibasilar rales, no wheezes or rhonchi. No chest wall tenderness is noted on palpation or with deep breathing. HEART EXAMINATION: Regular rate and rhythm. S1, S2 heard. Systolic ejection murmur at the base, no gallops or rub. EXTREMITIES: 2+ peripheral pulses, left lower extremity 1+ pitting edema, no edema on the right and no calf tenderness. ASSESSMENT Altered mental status secondary to septic shock Sepsis Paroxysmal atrial fibrillation Supratherapeutic INR Acute on chronic kidney disease Chronic systolic heart failure s/p BiV ICD Coronary artery disease s/p bypass grafting Hypercapnic respiratory failure Hypertension Dyslipidemia Diabetes mellitus PLAN No further recommendations. Nurse Practitioner note has been reviewed, I agree with a documented findings and plan of care. Patient was seen and examined. Objective - Vital Signs Vital signs: Vital Signs Temp 98.6 F 09/21/20 08:00 Pulse 104 H 09/21/20 11:00 Resp 20 09/21/20 11:00 BP 123/73 09/21/20 11:00 Pulse Ox 99 09/21/20 11:00 Intake & Output 09/20/20 09/21/20 09/21/20 18:59 06:59 18:59 Intake Total 2112 407.318 161.047 Output Total 180 185 70 Balance 1932 222.318 91.047 Weight 100.5 kg Intake: IV 1210 150 100 Piperacillin-Tazobactam 3 200 150 100 .375 gm In Sodium Chloride 0.9% 100 ml @ 25 mls/hr IVPB Q8HR [facility] Rx# :[id number] Sodium Chloride 0.9% 1, 10 000 ml @ 50 mls/hr IV . Q20H [facility] Rx#:[id number] Sodium Chloride 0.9% 500 500 ml @ 999 mls/hr IV .Q31M [facility] Rx#:[id number] Vancomycin 1,750 mg In 500 Sodium Chloride 0.9% 500 ml 500 ml @ 167 mls/hr IVPB Q24H [facility] Rx#: [id number] Intake, IV Titration 254 257.318 61.047 Amount Norepinephrine 4 mg In 254 257.318 61.047 Sodium Chloride 0.9% 250 ml @ 0.05 MCG/KG/MIN 19. 907 mls/hr IV .[id number] [facility] Rx#:[id number] Blood Product 648 Ffp 24 Cpd Unit 324 [id number] Output: Urine 180 185 70 Other: Voiding Method Indwelling Catheter Indwelling Catheter Indwelling Catheter - Labs CBC & Chem 7: 09/21/20 03:28 09/21/20 03:28 Labs: Abnormal Lab Results - Last 24 Hours (Table) 09/20/20 09/21/20 09/21/20 Range/Units 20:31 03:28 03:28 WBC 12.0 H (3.8-10.6) k/uL RBC 3.50 L (4.30-5.90) m/uL Hgb 12.2 L (13.0-17.5) gm/dL Hct 37.9 L (39.0-53.0) % MCV 108.2 H (80.0-100.0) fL RDW 15.9 H (11.5-15.5) % Neutrophils # 9.3 H (1.3-7.7) k/uL Macrocytosis Marked A PT (9.0-12.0) sec INR (<1.2) Chloride 109 H (98-107) mmol/L BUN 50 H (9-20) mg/dL Creatinine 2.38 H (0.66-1.25) mg/dL Glucose 121 H (74-99) mg/dL POC Glucose (mg/dL) 102 H (75-99) mg/dL Calcium 7.7 L (8.4-10.2) mg/dL Total Protein 5.5 L (6.3-8.2) g/dL Albumin 2.8 L (3.5-5.0) g/dL 09/21/20 Range/Units 03:28 WBC (3.8-10.6) k/uL RBC (4.30-5.90) m/uL Hgb (13.0-17.5) gm/dL Hct (39.0-53.0) % MCV (80.0-100.0) fL RDW (11.5-15.5) % Neutrophils # (1.3-7.7) k/uL Macrocytosis PT 68.7 H (9.0-12.0) sec INR 7.0 H* (<1.2) Chloride (98-107) mmol/L BUN (9-20) mg/dL Creatinine (0.66-1.25) mg/dL Glucose (74-99) mg/dL POC Glucose (mg/dL) (75-99) mg/dL Calcium (8.4-10.2) mg/dL Total Protein (6.3-8.2) g/dL Albumin (3.5-5.0) g/dL Microbiology - Last 24 Hours (Table) 09/19/20 10:02 Blood Culture - Preliminary Blood No Growth after 48 hours 09/19/20 10:04 Blood Culture - Preliminary Blood No Growth after 48 hours 09/19/20 04:35 Urine Culture - Final Urine,Voided Klebsiella oxytoca 09/19/20 14:56 Gram Stain - Preliminary Buttock Wound Culture - Preliminary Gram Neg Bacilli
--- NOTE | 2020-09-21 12:53 | P.PN ---
Subjective Progress Note Date: 09/21/20 Principal diagnosis: Acute hypoxic and hypercapnic respiratory failure related to sepsis/septic shock 80-year-old white male patient, a resident of a [place] [place], with past medical history of diabetes mellitus type 2, chronic A. fib, chronic systolic CHF with EF of 20-25% status post AICD/pacemaker insertion, hypertension, hyperlipidemia, osteoarthritis, BPH, chronic sacral decubitus ulcer stage III, Lewy body dementia, former smoker who was brought into the hosp ital on 09/16/2020 for evaluation of altered mental status. Patient apparently was found unresponsive by the shelter staff, in the EMS he received 1 dose of Narcan with no response. Blood sugar was 101, patient had no reported fevers, no vomiting or diarrhea. Brain CT showed atrophy and no acute intracranial process. Chest x-ray in the emergency department showed cardiomegaly, no acute cardiopulmonary process. Initial blood work showed white count of 9.0, hemoglobin of 11.8, INR was 1.7, sodium was 140, potassium is 3.3, CO2 was 30, BUN of 34 creatinine was 1.25, LFTs are within normal limits, ammonia level was less than 9, troponin was 0.031, urinalysis initially showed no definite sign of infection, urine drug screen was positive only for tricyclic anti-depressants, patient tested negative for influenza A and B, RSV and coronavirus. Neurology consultation was obtained, please refer to their consultation note, ID service was following regards to stage III decubitus ulcer, however patient was not on any systemic antibiotic therapy. On 09/19/2020 a rapid response team was called to the bedside for concern of decreased level of consciousness and hypotension. Patient was given 500 mL bolus for a blood pressure of 70/46, she was started on norepinephrine infusion, stat blood gas was obtained showing pO2 of 70, pCO2 of 93, and pH of 7.18. Patient was placed on Noninvasive positive pressure ventilation, AVAPS mode with tidal volume of 400, rate of 12, EPAP of 5, FiO2 of 40%. Subsequent blood gases showed some improvement, with pO2 at 82, pCO2 of 76 and pH of 7.25. Today's chest x-ray shows mild diffuse airspace opacities throughout the right lung, suggesting asymmetrical right pulmonary edema. Urinalysis shows evidence of urinary tract infection, urine cultures have been sent, blood cultures have been sent. Patient remains afebrile, remains hypotensive, clinically he appears very dry, and he suspected to be septic possibly related to acute urinary tract infection, or possibly pneumonia. This morning's blood work shows with a token 10.2, hemoglobin of 12.6, INR is 4.2, sodium is 144, potassium is 4.9, chloride is 104, CO2 36, BUN is 32, creatinine is 1.68, lactic acid is 1.0. Patient is very lethargic, remains on BiPAP support. Patient is oliguric, and has produced 0-5 mL of urine in the last few hours. On 09/20/2020 patient seen in follow-up in the intensive care unit, he is currently more awake, and responsive, he has remained on BIPAP, on AVAPS mode with target tidal volume of 400, rate of 12, minimal pressure of 8, maximum pressure of 20, EPAP of 5, and FiO2 of 40%. He is achieving tidal volumes of approximately 250-300. Nevertheless he appears to be more responsive on today's exam, he was given a trial on nasal cannula, currently on 7 L high flow nasal cannula, breathing comfortably, and maintaining saturations at around 96%, he is on 0.9 at 10 mL per hour, levophed is at 7 mics per minute and this is being weaned down. He is on Zosyn and vancomycin for sepsis possibly related to stage III decubitus ulcer infection and urinary tract infection. His wound culture is showing gram-negative bacilli, urine culture has been sent and is pending at this time. Overnight has had no fevers. He remains in a paced rhythm, with u nderlying A. fib, yesterday he received a total of 1.5 L in fluid boluses. Still remains on small amount of norepinephrine, today's chest x-ray shows improved interstitium, bilateral infiltrates and small effusions persist. Overall oxygenation seems to be fair, and patient is tolerating being off BiPAP support. No nausea or vomiting, no abdominal pain, no complaints of cough or chest pain. Remains on Zosyn, and patient was given a dose of vancomycin. Mentation has much improved today, patient is oriented 2. The labs have been reviewed, blood cell, 16.2, hemoglobin is 13.6, INR today is greater than 10, and patient's Coumadin remains on hold, electrolytes are within normal limits, renal profile has worsened and BUN is up to 40, and creatinine is 2.19, LFTs are within normal limits. Yesterday patient's family came in and they expressed a wish to consult hospice for palliative care, patient's daughter is driving in from out of state today and she supposed to come in with the patient's today, and the plan is to transfer the patient home with hospice per family wishes On 09/21/2020 patient seen in follow-up in intensive care unit, he is resting in bed, he is currently on 5 L of oxygen his pulse ox is 99%, still requiring vasopressor support, currently on norepinephrine at 0.05 mics per kilo per minute, and plan was seen at a rate of 10 ML per hour, is in A. fib with RVR with a rate of 120 PACED, he has remained oliguric Overnight, producing a 5-10 ML of urine per hour. His chest x-ray today shows pulmonary venous congestion with basilar atelectasis and small effusions with continued cardiomegaly. He has been alternating between high flow cannula and BiPAP for dyspnea and cough, today's labs have been reviewed showing white blood cell, 12, hemoglobin of 12.2, his INR is up to 7.0, sodium is 145, potassium is 4.0, chloride is 109, BUN of 50, creatinine is 2.38, a worsened from yesterday, his LFTs are within normal limits. His wound culture on his sacrum showed gram-negative bacilli, fungal culture is pending, his urine culture was positive for Klebsiella oxytoca. Had no fevers overnight, he seems to be abnormal lethargic compared to yesterday's exam, staff reports hospice is currently already on the case, and equipment is being delivered to the patient's house to transition the patient home with hospice. She is expected to be transferred home later today. Objective - Vital Signs Vital signs: Vital Signs Temp 98.6 F 09/21/20 08:00 Pulse 104 H 09/21/20 11:00 Resp 20 09/21/20 11:00 BP 123/73 09/21/20 11:00 Pulse Ox 99 09/21/20 11:00 Intake & Output 09/20/20 09/21/20 09/21/20 18:59 06:59 18:59 Intake Total 2112 407.318 161.047 Output Total 180 185 70 Balance 1932 222.318 91.047 Weight 100.5 kg Intake: IV 1210 150 100 Piperacillin-Tazobactam 3 200 150 100 .375 gm In Sodium Chloride 0.9% 100 ml @ 25 mls/hr IVPB Q8HR [facility] Rx# :[id number] Sodium Chloride 0.9% 1, 10 000 ml @ 50 mls/hr IV . Q20H [facility] Rx#:[id number] Sodium Chloride 0.9% 500 500 ml @ 999 mls/hr IV .Q31M [facility] Rx#:[id number] Vancomycin 1,750 mg In 500 Sodium Chloride 0.9% 500 ml 500 ml @ 167 mls/hr IVPB Q24H [facility] Rx#: [id number] Intake, IV Titration 254 257.318 61.047 Amount Norepinephrine 4 mg In 254 257.318 61.047 Sodium Chloride 0.9% 250 ml @ 0.05 MCG/KG/MIN 19. 907 mls/hr IV .[id number] [facility] Rx#:[id number] Blood Product 648 Ffp 24 Cpd Unit 324 [id number] Output: Urine 180 185 70 Other: Voiding Method Indwelling Catheter Indwelling Catheter Indwelling Catheter - Exam GENERAL EXAM: Patient is more lethargic, currently on 5 L of oxygen and his pulse ox of 99%, he is alternating with NPPV on AVAPS mode with tidal volume of 400 ml, rate of 12, Min EPAP 5, Min Pressure 8, Max Pressure 20, Fio2 40% ecomfortable in no apparent distress. HEAD: Normocephalic/atraumatic. EYES: Normal reaction of pupils, equal size. Conjunctiva pink, sclera white. NOSE: Clear with pink turbinates. THROAT: No erythema or exudates. NECK: No masses, no JVD, no thyroid enlargement, no adenopathy. CHEST: No chest wall deformity. Symmetrical expansion. LUNGS: Equal air entry with no crackles, wheeze, rhonchi or dullness. CVS: Regular rate and rhythm, normal S1 and S2, no gallops, no murmurs, no rubs ABDOMEN: Soft, nontender. No hepatosplenomegaly, normal bowel sounds, no guarding or rigidity. EXTREMITIES: No clubbing, no edema, no cyanosis, 2+ pulses and upper and lower extremities. MUSCULOSKELETAL: Muscle strength and tone normal. SPINE: No scoliosis or deformity SKIN: No rashes CENTRAL NERVOUS SYSTEM: Awake and alert No focal deficits, tone is normal in all 4 extremities. - Labs CBC & Chem 7: 09/21/20 03:28 09/21/20 03:28 Labs: Abnormal Lab Results - Last 24 Hours (Table) 09/20/20 09/21/20 09/21/20 Range/Units 20:31 03:28 03:28 WBC 12.0 H (3.8-10.6) k/uL RBC 3.50 L (4.30-5.90) m/uL Hgb 12.2 L (13.0-17.5) gm/dL Hct 37.9 L (39.0-53.0) % MCV 108.2 H (80.0-100.0) fL RDW 15.9 H (11.5-15.5) % Neutrophils # 9.3 H (1.3-7.7) k/uL Macrocytosis Marked A PT (9.0-12.0) sec INR (<1.2) Chloride 109 H (98-107) mmol/L BUN 50 H (9-20) mg/dL Creatinine 2.38 H (0.66-1.25) mg/dL Glucose 121 H (74-99) mg/dL POC Glucose (mg/dL) 102 H (75-99) mg/dL Calcium 7.7 L (8.4-10.2) mg/dL Total Protein 5.5 L (6.3-8.2) g/dL Albumin 2.8 L (3.5-5.0) g/dL 09/21/20 Range/Units 03:28 WBC (3.8-10.6) k/uL RBC (4.30-5.90) m/uL Hgb (13.0-17.5) gm/dL Hct (39.0-53.0) % MCV (80.0-100.0) fL RDW (11.5-15.5) % Neutrophils # (1.3-7.7) k/uL Macrocytosis PT 68.7 H (9.0-12.0) sec INR 7.0 H* (<1.2) Chloride (98-107) mmol/L BUN (9-20) mg/dL Creatinine (0.66-1.25) mg/dL Glucose (74-99) mg/dL POC Glucose (mg/dL) (75-99) mg/dL Calcium (8.4-10.2) mg/dL Total Protein (6.3-8.2) g/dL Albumin (3.5-5.0) g/dL Microbiology - Last 24 Hours (Table) 09/19/20 10:02 Blood Culture - Preliminary Blood No Growth after 48 hours 09/19/20 10:04 Blood Culture - Preliminary Blood No Growth after 48 hours 09/19/20 04:35 Urine Culture - Final Urine,Voided Klebsiella oxytoca 09/19/20 14:56 Gram Stain - Preliminary Buttock Wound Culture - Preliminary Gram Neg Bacilli Assessment and Plan Plan: Assessment: #1. Acute hypoxic and hypercapnic respiratory failure related to sepsis/septic shock. On 09/20/2020 patient is tolerating high flow nasal cannula at 7 L, his been taken off the BiPAP support, continue O2 saturations above 95% on 7 L high flow #2. Acute septic shock related to acute urinary tract infection and possibility of pneumonia is not entirely excluded. Patient tested negative for COVID-19, RSV and influenza A and B. Possibility of aspiration versus healthcare acquired pneumonia is not excluded. Urine culture tested positive for Klebsiella oxytoca #3. Acute kidney injury related to ATN #4. Sacral wound stage III, present on admission #5. Altered mental status related to acute sepsis. Brain CT showed no acute intracranial process #6. Chronic systolic CHF, with an EF of 20-25% status post AICD/pacemaker placement #7. History of diabetes mellitus type 2 with diabetic neuropathy #8. Lewy body dementia with history of major cognitive impairment #9. History of A. fib on Coumadin, today INR is supratherapeutic, and Coumadin is on hold #10. Hypertension #11. Hyperlipidemia #12. Chronic medical debility, and patient is a resident of a local [facility] Plan: Patient may continue alternating between nasal cannula and BiPAP support We'll wean off the norepinephrine Continue holding Coumadin Continue antibiotics Renal function continues to worsen Patient remains oliguric Continue GI and DVT prophylaxis Hospice consultation has been obtained and patient is in the process of being transitioned home under the hospice care Equipment is being set up with the patient's home He is expected to transition home with hospice later today Until then continue supportive treatment I performed a history & physical examination of the patient and discussed their management with my nurse practitioner, Veda Ambriz. I reviewed the nurse practitioner's note and agree with the documented findings and plan of care. Lung sounds are positive for diminished breath sounds. The findings and the i mpression was discussed with the patient. I attest to the documentation by the nurse practitioner. Time with Patient: Greater than 30
[2020-09-21 14:13] VITALS: BP 95/66; PULSE 98; RESP 10
--- NOTE | 2020-09-21 16:42 | P.DS ---
Providers Date of admission: 09/16/20 13:52 Expected date of discharge: 09/21/20 Attending physician: José Miguel Khan Consults: 09/16/20 13:52 Consult Physician Urgent Consulting Provider: Melissa Cook Consult Reason/Comments: Altered mental status Do you want consulting provider notified?: Yes 09/16/20 17:57 Consult Physician Routine Consulting Provider: Dinh Sheikh Consult Reason/Comments: coccyx wound Do you want consulting provider notified?: Yes 09/19/20 08:00 Consult Physician Stat Consulting Provider: Aris Snyder Consult Reason/Comments: ICU MANAGEMENT Do you want consulting provider notified?: Already Contacted 09/19/20 11:28 Consult Physician Stat Consulting Provider: Lennox Kamara Consult Reason/Comments: CHF Do you want consulting provider notified?: Already Contacted Primary care physician: Shady Alas Hospital Course: Final diagnosis Acute urinary tract infection or infected sacral decubitus ulcer, stage III ulcer with severe sepsis and septic shock Severe intractable hypotension Acute hypoxic hypercarbic respiratory failure secondary to sepsis Change in mental status, acute metabolic encephalopathy Chronic congestive heart failure with ejection fraction 20-25% status post ICD pacemaker Diabetes mellitus type 2 Diabetic peripheral neuropathy Luke body dementia Persistent atrial fibrillation Hypertension Hyperlipidemia Chronic debility Chronic stage III sacral decubitus ulcer Multiple joint degenerative joint disease Gastroesophageal reflux disease Chronic obstructive pulmonary disease history Moderate to severe pulmonary hypertension history of tricuspid and mitral regurgitation obesity with a BMI of 30.9 Coumadin coagulopathy No code, no CPR, no vent Discharge disposition Patient is being discharged in a stable condition with guarded prognosis to home and will continue with hospice care. Patient will follow-up with Dr. Alas in the outpatient setting upon discharge. Total time taken is greater than 35 minutes. Hospital course This is a 80-year-old male who was recently admitted with acute hypoxic hypercarbic respiratory failure also features of septic shock and was being closely monitored in the ICU. Patient also had multiple decubitus ulcers with the possibility of aspiration pneumonia. Patient had multiple sacral decubitus wound stage III with poor prognosis. Patient continued to be hypotensive and respiratory status continued to deteriorate. Family has met with hospice and has signed on with hospice and would like to take the patient home and equipment and supplies are being delivered today and patient will be discharged on hospice today. Patient continues to be minimally responsive and extremely lethargic. On exam vital signs are stable. Cardio S1, S2 are muffled. Respiratory system shows diminished breath sounds at the bases with a few scattered crackles and rhonchi noted. Abdomen is soft and nontender. Nervous system shows diffuse weakness. Please refer to medication reconciliation sheet for a list of medications. Patient Condition at Discharge: Poor Plan - Discharge Summary Discharge Rx Participant: No New Discharge Prescriptions: No Action Famotidine [Pepcid] 20 mg PO DAILY@0800 Furosemide [Lasix] 40 mg PO DAILY@0800 Finasteride [Proscar] 5 mg PO HS Warfarin [Coumadin] 2.5 mg PO DAILY@1600 QUEtiapine [SEROquel] 50 mg PO HS rOPINIRole HCL [Requip] 0.25 mg PO HS Levothyroxine Sodium 25 mcg PO HS Multivitamins, Thera [Multivitamin (formulary)] 1 tab PO DAILY@0800 glipiZIDE [Glucotrol] 2.5 mg PO BID@0800,1600 bisacodyL [Dulcolax] 5 mg PO DAILY PRN PRN Reason: Constipation Isosorbide Mononitrate ER [Imdur] 30 mg PO DAILY@0600 Spironolactone [Aldactone] 25 mg PO DAILY@0600 lisinopriL [Zestril] 5 mg PO HS@1999 #30 tab traMADol HCl [Ultram] 50 mg PO Q6H PRN PRN Reason: Pain Metoprolol Succinate (ER) [Toprol Xl] 50 mg PO BID@0800,2000 Healthshake 1 cap PO BID@0700,1730 Discharge Medication List Famotidine [Pepcid] 20 mg PO DAILY@0800 08/19/17 [History] Finasteride [Proscar] 5 mg PO HS 08/19/17 [History] Furosemide [Lasix] 40 mg PO DAILY@0800 08/19/17 [History] Warfarin [Coumadin] 2.5 mg PO DAILY@1600 03/27/18 [History] QUEtiapine [SEROquel] 50 mg PO HS 08/10/20 [History] rOPINIRole HCL [Requip] 0.25 mg PO HS 08/11/20 [History] Levothyroxine Sodium 25 mcg PO HS 08/22/20 [History] bisacodyL [Dulcolax] 5 mg PO DAILY PRN 08/22/20 [History] Isosorbide Mononitrate ER [Imdur] 30 mg PO DAILY@0600 09/01/20 [History] Multivitamins, Thera [Multivitamin (formulary)] 1 tab PO DAILY@0800 09/01/20 [History] Spironolactone [Aldactone] 25 mg PO DAILY@0600 09/01/20 [History] lisinopriL [Zestril] 5 mg PO HS@1999 #30 tab 09/05/20 [Rx] Healthshake 1 cap PO BID@0700,1730 09/16/20 [History] Metoprolol Succinate (ER) [Toprol Xl] 50 mg PO BID@0800,199909/16/20 [History] glipiZIDE [Glucotrol] 2.5 mg PO BID@0800,1600 09/16/20 [History] traMADol HCl [Ultram] 50 mg PO Q6H PRN 09/16/20 [History] Follow up Appointment(s)/Referral(s): Shady Alas DO [Primary Care Provider] - 1-2 days [facility] [NON-STAFF] - Activity/Diet/Wound Care/Special Instructions: Patient is going home with hospice care Discharge Disposition: HOME WITH HOSPICE
[2020-09-21] MEDS ORDERED: WARFARIN 0.5 MG TAB PO ONE (18:00)
[2020-09-22] MEDS ORDERED: LEVOTHYROXINE IVP 100 MCG/5 ML VIAL IV SCH (06:30)
== END 2020-09-21 14:27 | disposition hospice, home (50) | DRG 871 ==
LOC: EC 10:24 → 4SSUR 13:52 → 2SICU 09-19 06:24
PROVIDERS: ADMIT Hospitalist; ATTEND Hospitalist
DX: A41.9 Sepsis, unspecified organism (principal); L89.153 Pressure ulcer of sacral region, stage 3; G93.41 Metabolic encephalopathy; J69.0 Pneumonitis due to inhalation of food and vomit; J96.01 Acute respiratory failure with hypoxia; J96.02 Acute respiratory failure with hypercapnia; N17.0 Acute kidney failure with tubular necrosis; R65.21 Severe sepsis with septic shock; E87.0 Hyperosmolality and hypernatremia; G82.20 Paraplegia, unspecified; I13.0 Hypertensive heart and chronic kidney disease with heart failure and stage 1 through stage 4 chronic kidney disease, or unspecified chronic kidney disease; I48.19 Other persistent atrial fibrillation; I50.22 Chronic systolic (congestive) heart failure; J98.11 Atelectasis; N39.0 Urinary tract infection, site not specified; E11.22 Type 2 diabetes mellitus with diabetic chronic kidney disease; E11.42 Type 2 diabetes mellitus with diabetic polyneuropathy; E11.649 Type 2 diabetes mellitus with hypoglycemia without coma; F02.80 Dementia in other diseases classified elsewhere, unspecified severity, without behavioral disturbance, psychotic disturbance, mood disturbance, and anxiety; G31.83 Neurocognitive disorder with Lewy bodies; I27.20 Pulmonary hypertension, unspecified; Z51.5 Encounter for palliative care; Z66 Do not resuscitate; Z20.822 Contact with and (suspected) exposure to COVID-19; J44.9 Chronic obstructive pulmonary disease, unspecified; E66.9 Obesity, unspecified; I08.3 Combined rheumatic disorders of mitral, aortic and tricuspid valves; E78.5 Hyperlipidemia, unspecified; I25.10 Atherosclerotic heart disease of native coronary artery without angina pectoris; E03.9 Hypothyroidism, unspecified; E86.0 Dehydration; I25.2 Old myocardial infarction; F41.9 Anxiety disorder, unspecified; I25.5 Ischemic cardiomyopathy; Z87.891 Personal history of nicotine dependence; K21.9 Gastro-esophageal reflux disease without esophagitis; K59.00 Constipation, unspecified; M15.9 Polyosteoarthritis, unspecified; N18.9 Chronic kidney disease, unspecified; E56.9 Vitamin deficiency, unspecified; N40.0 Benign prostatic hyperplasia without lower urinary tract symptoms; R79.1 Abnormal coagulation profile; T45.515A Adverse effect of anticoagulants, initial encounter; Z74.01 Bed confinement status; Z68.30 Body mass index [BMI] 30.0-30.9, adult; Z79.01 Long term (current) use of anticoagulants; Z79.84 Long term (current) use of oral hypoglycemic drugs; Z79.899 Other long term (current) drug therapy; Z95.810 Presence of automatic (implantable) cardiac defibrillator; Z95.1 Presence of aortocoronary bypass graft; Z98.42 Cataract extraction status, left eye; Z95.5 Presence of coronary angioplasty implant and graft; Z86.69 Personal history of other diseases of the nervous system and sense organs
CPT/HCPCS: 36410; 36415; 36600; 70450; 71045; 71046; 76937; 80048; 80053; 80306; 81001; 82140; 82805; 83605; 83735; 84484; 85025; 85027; 85610; 85730; 86850; 86900; 86901; 87040; 87070; 87075; 87077; 87086; 87186; 87205; 87636; 93005; 94660; 94760; 99285